=== PATIENT | male | born 1950 | race Caucasian/White ===

== ENCOUNTER → 2018-01-10 11:30 | Outpatient (CLI) | payer MEDICARE, MEDICAID, SELFPAY | PROVIDERS: PCP Internal Medicine; Visit Provider Internal Medicine Interventional Cardiology | DX: I25.119 Atherosclerotic heart disease of native coronary artery with unspecified angina pectoris (principal); G14 Postpolio syndrome; R06.02 Shortness of breath; G47.30 Sleep apnea, unspecified; I26.99 Other pulmonary embolism without acute cor pulmonale; I48.91 Unspecified atrial fibrillation | CPT/HCPCS: 99213 ==

== ENCOUNTER → 2018-01-28 14:15 | Outpatient (REF) | payer MEDICARE, SELFPAY ==
[2018-01-28 21:49] LABS: Abs Immature Grans 0.02 k/cumm (0.0-0.09); Absolute Basophil Count 0.02 k/cumm (0.0-0.2); Absolute Eosinophil Count 0.07 k/cumm (0.0-0.7); Absolute Lymphocyte Count 0.72 k/cumm (1.2-3.4); Absolute Monocyte Count 0.58 k/cumm (0.11-0.7); Absolute Neutrophil Count 6.21 k/cumm (1.2-6.7); Basophils % 0.3; Eosinophils % 0.9; HCT 42.4 % (40.0-50.0); HGB 13.3 g/dL (13.5-17.5); Immature Grans % 0.3; Lymphocytes % 9.4; Mean Corp. HGB Concentration 31.4 g/dL (32.0-36.0); Mean Corpuscular Hemoglobin 30.3 pg (27.0-33.0); Mean Corpuscular Volume 96.6 fL (80-95); Mean Platelet Volume 10.3 fL (8.0-11.0); Monocytes % 7.6; Neutrophils % 81.5; Platelet Count 193 x1000/uL (130-400); RBC 4.39 m/cumm (4.50-6.00); RBC Distribution Width 16.9 % (11.8-14.1); White Blood Cell Count 7.62 k/cumm (4.4-10.8)
[2018-01-28 22:07] LABS: Anion Gap 12.2 mmol/L (3-11); BUN 20 mg/dL (7-18); CO2 21.8 mmol/L (21.0-32.0); CREATININE 0.82 mg/dL (0.70-1.30); Calcium 8.7 mg/dL (8.5-10.1); Chloride 104 mmol/L (98-107); Glucose 160 mg/dL (70-100); Potassium 4.1 mmol/L (3.5-5.1); Sodium 138 mmol/L (136-145); TSH (W/Ref FT4) 3.82 uIU/mL (0.358-3.74)
[2018-01-28 22:27] LABS: FREE T4 0.84 ng/dL (0.76-1.46)
== END ==
LOC: NCHCN 14:15
PROVIDERS: PCP Internal Medicine; Visit Provider Internal Medicine
DX: R53.83 Other fatigue (principal)
CPT/HCPCS: 80048; 84439; 84443; 85025

== ENCOUNTER 2018-02-01 21:15 | Outpatient (REF) | payer MEDICARE, SELFPAY | END 2018-02-01 21:35 | LOC: NCHCN 21:15 | PROVIDERS: PCP Internal Medicine; Visit Provider Internal Medicine | DX: L08.9 Local infection of the skin and subcutaneous tissue, unspecified (principal) | CPT/HCPCS: 87077; 87070; 87186; 87205 ==

== ENCOUNTER 2018-02-02 10:33 | Outpatient (CLI) | payer MEDICARE, MEDICAID, SELFPAY ==
--- NOTE | 2018-02-02 10:35 | DI.CT_ITS ---
SYMPTOMS/DIAGNOSIS: WOUND INFECTION, L08.9 CT SCAN OF THE LEFT HIP: Multiple contiguous axial images of the left hip were obtained. Sagittal and coronal reformatted images were evaluated on the Siemens workstation. Comparison x-ray is 11/22/17. Since the prior examination, the patient has undergone a left total hip replacement. The orthopedic hardware appears in good position. No lucencies are seen about the orthopedic hardware to suggest loosening. There is diffuse sclerotic appearance of the bones consistent with osseous metastatic disease. No acute fracture is identified. No dislocation is seen. There is edema seen in the soft tissues about the right thigh. There is a subcutaneous fluid collection present lateral and posterior to the greater trochanter. It measures approximately 3 cm craniocaudad x 5.2 cm transverse x 4 cm AP. There does appear to be involvement of the adjacent gluteus muscle. This may represent a hematoma, seroma or abscess. Vascular calcifications are present. Note is made of several small fat- containing periumbilical and umbilical hernias. Dystrophic calcifications are seen in the soft tissues. IMPRESSION: 1. Interval placement of a left total hip prosthesis. 2. Fluid collection seen in the subcutaneous tissues posterior and lateral to the greater trochanter. Differential considerations include resolving hematoma, seroma or abscess. 3. Diffuse sclerosis of the bones suggestive of osseous metastatic disease. 4. Incidental findings in the pelvis as described above.
[2018-02-02] MEDS: Omnipaque 350 MG/ML 100 ML BTL IJ (14:31)
== END 2018-02-02 10:53 ==
PROVIDERS: PCP Internal Medicine; Visit Provider Internal Medicine
DX: M70.61 Trochanteric bursitis, right hip (principal); R60.0 Localized edema; C79.51 Secondary malignant neoplasm of bone; Z96.642 Presence of left artificial hip joint
CPT/HCPCS: 73701; J3490

== ENCOUNTER 2018-02-07 00:14 | Outpatient (CLI) | payer MEDICARE, MEDICAID, SELFPAY ==
--- NOTE | 2018-02-07 10:55 | DI.MRI_ITS ---
SYMPTOM/DIAGNOSIS: CHRONIC LT SHOULDER PAIN, M25.12, G89.29, ? ROTATOR CUFF VS TENDINOPATHY MRI LEFT SHOULDER: Comparison is made with plain films dated 26 August 2017 and MRI of the left shoulder dated 20 Jan 2007 There are degenerative changes of the AC joint and fluid within the joint. The patient denies previous surgery although there does appear to have been a previous resection at the AC joint compared with previous MRI. There is a full thickness tear of the supraspinatus tendon with retraction to the level of the acromion. There is some fluid in the subacromial subdeltoid bursa. There is also edema around and within the supraspinatus muscle. There is moderate muscle atrophy. The infraspinatus muscle shows a large amount of edema. The infraspinatus tendon is also torn and retracted to the level of the glenoid The subscapularis , teres minor and biceps tendons appear intact. There are advanced degenerative changes of the glenohumeral joint. There is spurring from the femoral head and glenoid as well as greater tuberosity. IMPRESSION: Full thickness tears with retraction of the supraspinatus and infraspinatus tendons. Degenerative changes of the glenohumeral joint.
== END 2018-02-07 00:34 ==
PROVIDERS: PCP Internal Medicine; Visit Provider Orthopaedic Surgery
DX: M25.512 Pain in left shoulder (principal); M19.012 Primary osteoarthritis, left shoulder; M75.102 Unspecified rotator cuff tear or rupture of left shoulder, not specified as traumatic
CPT/HCPCS: 73221

== ENCOUNTER 2018-02-18 00:34 | Outpatient (CLI) | payer MEDICARE, MEDICAID, SELFPAY ==
--- NOTE | 2018-02-18 10:57 | DI.RAD_ITS ---
SYMPTOMS/DIAGNOSIS: RT HIP PAIN, M25.551, PROGRESSIVE, ASEPTIC AND LT BULL RIGHT HIP AND PELVIS: Two views. Comparison is 11/22/17. There is diffuse osseous sclerotic metastatic disease. Note is made of a left total hip replacement which appears in good position. There is marked narrowing of the superior joint space of the right hip. The hip joint is otherwise well maintained. No acute fracture or dislocation is seen. Vascular calcifications are present. IMPRESSION: 1. Degenerative changes of the right hip. 2. Status post left THR. 3. Findings of sclerotic osseous metastatic disease.
== END 2018-02-18 00:54 ==
PROVIDERS: PCP Internal Medicine; Visit Provider Internal Medicine
DX: M25.551 Pain in right hip (principal); M16.11 Unilateral primary osteoarthritis, right hip; Z96.642 Presence of left artificial hip joint; C79.51 Secondary malignant neoplasm of bone
CPT/HCPCS: 73502

== ENCOUNTER 2018-02-21 10:00 | Outpatient (CLI) | payer MEDICARE, MEDICAID, SELFPAY ==
[2018-02-21 10:30] LABS: Abs Immature Grans 0.03 k/cumm (0.0-0.09); Absolute Basophil Count 0.02 k/cumm (0.0-0.2); Absolute Eosinophil Count 0.05 k/cumm (0.0-0.7); Absolute Lymphocyte Count 0.84 k/cumm (1.2-3.4); Absolute Monocyte Count 0.61 k/cumm (0.11-0.7); Absolute Neutrophil Count 5.02 k/cumm (1.2-6.7); Basophils % 0.3; Eosinophils % 0.8; HCT 41.9 % (40.0-50.0); HGB 13.3 g/dL (13.5-17.5); Immature Grans % 0.5; Lymphocytes % 12.8; Mean Corp. HGB Concentration 31.7 g/dL (32.0-36.0); Mean Corpuscular Hemoglobin 30.2 pg (27.0-33.0); Mean Corpuscular Volume 95.2 fL (80-95); Mean Platelet Volume 9.2 fL (8.0-11.0); Monocytes % 9.3; Neutrophils % 76.3; Platelet Count 167 x1000/uL (130-400); RBC Distribution Width 15.8 % (11.8-14.1); White Blood Cell Count 6.57 k/cumm (4.4-10.8)
[2018-02-21 10:45] LABS: ALT 98 U/L (12-78); AST 70 U/L (15-37); Albumin 3.4 g/dL (3.4-5.0); Alkaline Phosphatase 106 U/L (46-116); Anion Gap 10.7 mmol/L (3-11); BUN 16 mg/dL (7-18); Bilirubin, Total 0.5 mg/dL (0.2-1.0); CO2 25.3 mmol/L (21.0-32.0); CREATININE 0.75 mg/dL (0.70-1.30); Calcium 8.8 mg/dL (8.5-10.1); Chloride 102 mmol/L (98-107); Glucose 134 mg/dL (70-100); Potassium 3.9 mmol/L (3.5-5.1); Sodium 138 mmol/L (136-145)
[2018-02-22 09:27] LABS: PSA, Diagnostic 0.2 ng/ml (0-4.5)
[2018-02-23 07:29] LABS: Testosterone, Total <7.0 ng/dL (240-950)
== END 2018-02-21 10:20 ==
PROVIDERS: PCP Internal Medicine; Visit Provider Internal Medicine
DX: C61 Malignant neoplasm of prostate (principal)
CPT/HCPCS: 36415; 80053; 84403; 84153; 85025

== ENCOUNTER 2018-03-21 09:28 | Outpatient (CLI) | payer MEDICARE, MEDICAID, SELFPAY ==
[2018-03-21 10:11] LABS: Abs Immature Grans 0.02 k/cumm (0.0-0.09); Absolute Basophil Count 0.01 k/cumm (0.0-0.2); Absolute Eosinophil Count 0.09 k/cumm (0.0-0.7); Absolute Lymphocyte Count 0.72 k/cumm (1.2-3.4); Absolute Monocyte Count 0.55 k/cumm (0.11-0.7); Absolute Neutrophil Count 4.16 k/cumm (1.2-6.7); Basophils % 0.2; Eosinophils % 1.6; HCT 40.4 % (40.0-50.0); HGB 13.3 g/dL (13.5-17.5); Immature Grans % 0.4; Mean Corp. HGB Concentration 32.9 g/dL (32.0-36.0); Mean Corpuscular Hemoglobin 30.4 pg (27.0-33.0); Mean Corpuscular Volume 92.4 fL (80-95); Mean Platelet Volume 8.8 fL (8.0-11.0); Monocytes % 9.9; Neutrophils % 74.9; Platelet Count 179 x1000/uL (130-400); RBC 4.37 m/cumm (4.50-6.00); RBC Distribution Width 14.9 % (11.8-14.1); White Blood Cell Count 5.55 k/cumm (4.4-10.8)
[2018-03-21 10:21] LABS: ALT 64 U/L (12-78); Albumin 3.2 g/dL (3.4-5.0); Alkaline Phosphatase 101 U/L (46-116); BUN 17 mg/dL (7-18); Bilirubin, Total 0.5 mg/dL (0.2-1.0); CREATININE 0.82 mg/dL (0.70-1.30); Calcium 8.5 mg/dL (8.5-10.1); Chloride 103 mmol/L (98-107); Glucose 168 mg/dL (70-100); Potassium 3.4 mmol/L (3.5-5.1); Sodium 139 mmol/L (136-145)
[2018-03-21 11:00] LABS: AST 53 U/L (15-37)
[2018-03-22 09:55] LABS: PSA, Diagnostic 0.1 ng/ml (0-4.5)
[2018-03-23 07:55] LABS: Testosterone, Total <7.0 ng/dL (240-950)
== END 2018-03-21 09:48 ==
PROVIDERS: PCP Internal Medicine; Visit Provider Internal Medicine
DX: C61 Malignant neoplasm of prostate (principal)
CPT/HCPCS: 36415; 80053; 84403; 84153; 85025

== ENCOUNTER 2018-04-25 09:50 | Outpatient (CLI) | payer MEDICARE, MEDICAID, SELFPAY | END 2018-04-25 10:10 | PROVIDERS: PCP Internal Medicine; Visit Provider Internal Medicine Interventional Cardiology | DX: R07.9 Chest pain, unspecified (principal) | CPT/HCPCS: 93005; 93010 ==

== ENCOUNTER 2018-04-25 09:58 | Outpatient (CLI) | payer MEDICARE, MEDICAID, SELFPAY ==
[2018-04-25 10:16] LABS: Abs Immature Grans 0.01 k/cumm (0.0-0.09); Absolute Basophil Count 0.01 k/cumm (0.0-0.2); Absolute Eosinophil Count 0.15 k/cumm (0.0-0.7); Absolute Lymphocyte Count 0.86 k/cumm (1.2-3.4); Absolute Monocyte Count 0.72 k/cumm (0.11-0.7); Absolute Neutrophil Count 3.94 k/cumm (1.2-6.7); Basophils % 0.2; Eosinophils % 2.6; HGB 12.6 g/dL (13.5-17.5); Immature Grans % 0.2; Lymphocytes % 15.1; Mean Corp. HGB Concentration 33.2 g/dL (32.0-36.0); Mean Corpuscular Hemoglobin 30.2 pg (27.0-33.0); Mean Corpuscular Volume 91.1 fL (80-95); Mean Platelet Volume 9.1 fL (8.0-11.0); Monocytes % 12.7; Neutrophils % 69.2; Platelet Count 152 x1000/uL (130-400); RBC 4.17 m/cumm (4.50-6.00); RBC Distribution Width 16.1 % (11.8-14.1); White Blood Cell Count 5.69 k/cumm (4.4-10.8)
[2018-04-25 10:40] LABS: ALT 47 U/L (12-78); AST 41 U/L (15-37); Albumin 3.3 g/dL (3.4-5.0); Alkaline Phosphatase 130 U/L (46-116); Anion Gap 9.8 mmol/L (3-11); BUN 11 mg/dL (7-18); Bilirubin, Total 0.6 mg/dL (0.2-1.0); CO2 26.2 mmol/L (21.0-32.0); CREATININE 0.72 mg/dL (0.70-1.30); Calcium 8.7 mg/dL (8.5-10.1); Chloride 100 mmol/L (98-107); Glucose 133 mg/dL (70-100); Potassium 3.4 mmol/L (3.5-5.1); Sodium 136 mmol/L (136-145)
[2018-04-25 12:01] LABS: Troponin I < 0.02 ng/mL (0.00-0.06)
[2018-04-26 10:01] LABS: PSA, Diagnostic <0.1 ng/ml (0-4.5)
[2018-04-28 11:38] LABS: Testosterone, Total <7.0 ng/dL (240-950)
== END 2018-04-25 10:18 ==
PROVIDERS: PCP Internal Medicine; Visit Provider Nurse Practitioner Adult Health
DX: R07.9 Chest pain, unspecified (principal); C61 Malignant neoplasm of prostate
CPT/HCPCS: 36415; 80053; 84403; 84153; 84484; 85025

== ENCOUNTER 2018-04-25 11:33 | Emergency (ER) | payer MEDICARE, MEDICAID, SELFPAY ==
--- NOTE | 2018-04-25 11:39 | ED.GENADUL_ITS ---
Discharge Plan Disposition Patient Disposition: HOME Condition: Stable Discharge Details Chief Complaint: Nausea/Vomit/Diar Clinical Impression: Nausea Primary Care Provider: Kenney Greer ED Provider: Zakiya Leach Home Meds and New Rx's Prescriptions: New metoclopramide HCl [Reglan] 10 mg tablet 10 mg PO BID Qty: 4 RF: 0 Continue acetaminophen [Tylenol Extra Strength] 500 MG tablet 1,000 mg PO Q4H PRN PRNRF: 0 dronedarone [Multaq] 400 MG tablet 400 mg PO BID Qty: 180 RF: 4 balsalazide 750 MG capsule 2,250 mg PO TID RF: 0 aspirin 325 MG tablet 325 mg PO DAILY RF: 0 ovsphgn-lgafcolijrdaf-nzrarsrf [Excedrin Migraine] 1 EACH tablet 1 ea PO DAILY PRNRF: 0 cholestyramine-aspartame [Cholestyramine Light] 4 GM packet 4 g PO BID RF: 0 ferrous gluconate 324 MG tablet 324 mg PO TID RF: 0 omeprazole [Prilosec] 20 MG capsule,delayed release(DR/EC) 40 mg PO BID RF: 0 nitroglycerin [Nitrostat] 0.4 MG tablet, sublingual 0.4 mg Sublingual Q5 MIN PRN X3 PRNQty: 15 RF: 0 ergocalciferol (vitamin D2) [Vitamin D2] 50,000 UNITS capsule 50,000 units PO DIRECTED RF: 0 cyanocobalamin (vitamin B-12) 1,000 MCG/ML solution 1,000 mcg IM DIRECTED RF: 0 hydrocodone-acetaminophen 1 TAB tablet 1 - 2 tab PO Q4H PRN PRNQty: 40 RF: 0 diltiazem HCl [Cardizem] 30 MG tablet 25 mg PO BID RF: 0 prednisone 5 MG tablet 5 mg PO BID RF: 0 pramipexole 0.5 MG tablet 0.5 mg PO HS RF: 0 calcium carbonate 600 MG tablet 1,200 mg PO DAILY RF: 0 ranitidine HCl [Zantac] 150 MG tablet 150 mg PO QID RF: 0 calcium carbonate 500 MG tablet,chewable 500 mg CH QID RF: 0 enoxaparin [Lovenox] 100 MG/ML syringe 100 mg SQ Q12H RF: 0 lidocaine [Topicaine] 30 GM gel 1 appful Topical PRN PRNRF: 0 cefpodoxime 200 MG tablet 200 mg PO BID Qty: 20 RF: 0 digoxin [Lanoxin] 125 mcg tablet 125 mcg PO TID RF: 0 metronidazole [Flagyl] 500 MG tablet 500 mg PO TID Qty: 42 RF: 0 Discharge Instructions Instructions: Acute Nausea and Vomiting (ED) Additional Instructions: Please return immediately to the emergency department if you develop any new or worsening symptoms or if you become otherwise concerned. It is extremely important you follow-up with Dr. Crum this week for stress test, and that you also follow-up with your primary care doctor within the next 1-2 weeks. Referrals: Vasile Crum MD [ NON-[facility] STAFF PHYSICIAN] - Kenney Greer MD [Primary Care Provider] - Medical Decision Making Alonso Wiley is a 60-year-old man with a history of Crohn's disease, A. fib and bilateral PEs on Lovenox, prostate cancer, post polio syndrome presenting to the emergency department 5 days of persistent nausea without vomiting, also accompanied by chronic abdominal pain and diarrhea that seems unchanged. On exam patient appears nauseated. Benign cardiopulmonary exam. Diffuse abdominal tenderness without peritoneal signs. Concern for Crohn's flare versus other acute intra-abdominal process versus ACS versus metabolic/weight disturbance versus other. Exam/history not consistent with worsening PE at this time, meningitis, acute intracranial process, sepsis. Plan for EKG, screening labs, CT abdomen pelvis pending creatinine, troponin x2, telemetry, IV fluid hydration, IV Zofran. Will monitor and reassess. Patient had labs performed earlier today. Will add lactate, 4-hour troponin, lipase to earlier troponin, CBC CMP. Reports feeling improved with Zofran. Requesting milk and crackers, will keep n.p.o. until CT resulted. Lactate elevated at 2. No AG elevation. CT shows no acute process. Second trop negative. Patient feeling much better, passed p.o. challenge without issue , requesting d/c to home. Ambulating about ER without issue. At this time he is refusing repeat lactate, understands that workup is not complete at this time without confirmed resolution of elevated lactate after IV fluids. Patient states that he needs to leave and will follow up this week, verbalizes understanding of risks. During my conversation earlier with Dr. Crum, he noted that he would likely perform stress test for patient as an outpatient on . Patient was placed on list for this stress test follow-up and also follow- up with PCP this week. Lengthy discussion with patient regarding return to emergency department precautions and importance of outpatient follow-up with PCP. He is amenable to the plan. Rx for Reglan as patient on QT prolonging agents we will hold outpatient zofran. Medical Records Medical records reviewed: Yes I reviewed the patient's medical records. Imaging Data Radiologic Study: Attestation: I personally reviewed and interpreted this imaging study as follows: Radiologist's impression: CT OF THE ABDOMEN AND PELVIS: Comparison is made with August,. Images were performed from the lung bases through the ischial tuberosities after IV and oral contrast. Diffuse sclerotic bony lesions are again noted. The liver shows extreme fatty infiltration. The patient is status post cholecystectomy. There is no biliary dilatation. The spleen, pancreas and adrenals are unremarkable. There are cysts at the lower poles of both kidneys. No stones or hydronephrosis is seen. There are bilateral hip prostheses creating artifact in the pelvis. Portions of the bladder, as well as prostate, are obscured. Contrast is seen in the stomach and proximal and mid small bowel. No bowel dilatation or inflammatory changes are seen. IMPRESSION: Enlarged fatty liver. No acute bowel abnormality. Lab Data Lab results reviewed: Yes I reviewed the patient's lab results. ECG Data Attestation: I personally reviewed and interpreted this ECG (s) as follows: Interpretation: EKG shows normal sinus rhythm at 77 with normal axis, no acute ischemic changes, nondiagnostic EKG. No long QT. HPI General Mode of arrival: ambulatory . Date/Time Provider Initiated Documentation: 04/25/18 11:38 . Limitations to Documentation: no limitations . Information obtained by: patient, RN notes reviewed and old records reviewed . HPI Narrative: Alonso Wiley is a 60-year-old man with history of atrial fibrillation on Lovenox, bilateral PE, post polio syndrome, Crohn's disease, prostate cancer last treated with chemotherapy in 2016 presented to the emergency department with 5 days of nausea. Patient had labs drawn this morning as an outpatient. He was also seen by Dr. Crum afterwards, who sent patient to the emergency department for nausea of unknown etiology. Patient reports that he has been having nausea and dry heaves for the past 5 days. He reports that nausea is severe, although he has not vomited and is able to hold food and water down. He has been drinking somewhat less secondary to the nausea. He denies any sensation of motion or vertiginous component. Patient reports that he has chronic diarrhea secondary to Crohn's, also chronic abdominal pain that does not seem changed. He has no shortness of breath, no cough, no rash, no new numbness/tingling/weakness. Patient denies any other pain at this time, however per Dr. Crum he has been having intermittent recurring chest pain and should likely have another stress test as his last was performed in 2014. Patient denies recent travel or other recent illness. Related Data Home Medications Medication Instructions Recorded Confirmed ferrous gluconate 324 mg PO TID 01/23/13 04/25/18 omeprazole [Prilosec] 40 mg PO BID 01/23/13 04/25/18 acetaminophen [Tylenol Extra 1,000 mg PO Q4H PRN PRN tab-cap NS 03/29/13 Strength] dronedarone [Multaq] 400 mg PO BID #180 tab-cap 04/15/15 04/25/18 nitroglycerin [Nitrostat] 0.4 mg SUBLINGUAL Q5 MIN PRN X3 04/23/15 04/25/18 PRN #15 tab balsalazide 2,250 mg PO TID 09/24/15 04/25/18 cyanocobalamin (vitamin B-12) 1,000 mcg IM DIRECTED 03/22/16 04/25/18 ergocalciferol (vitamin D2) 50,000 units PO DIRECTED 03/22/16 04/25/18 [Vitamin D2] hydrocodone-acetaminophen 1 - 2 tab PO Q4H PRN PRN #40 tab 03/25/16 04/25/18 aspirin 325 mg PO DAILY tab-cap 09/15/16 04/25/18 djyderf-ssuxzokdohsxj-tkaadwkl 1 ea PO DAILY PRN 09/15/16 04/25/18 [Excedrin Migraine] cholestyramine-aspartame 4 g PO BID packet 09/15/16 04/25/18 [Cholestyramine Light] diltiazem HCl [Cardizem] 25 mg PO BID 10/05/16 04/25/18 calcium carbonate 1,200 mg PO DAILY 06/27/17 04/25/18 calcium carbonate 500 mg CH QID 06/27/17 04/25/18 cefpodoxime 200 mg PO BID #20 tab 06/27/17 04/25/18 enoxaparin [Lovenox] 100 mg SQ Q12H 06/27/17 04/25/18 lidocaine [Topicaine] 1 appful TOPICAL PRN PRN 06/27/17 04/25/18 pramipexole 0.5 mg PO HS 06/27/17 04/25/18 prednisone 5 mg PO BID 06/27/17 04/25/18 ranitidine HCl [Zantac] 150 mg PO QID 06/27/17 04/25/18 metronidazole [Flagyl] 500 mg PO TID #42 tab 10/11/17 04/25/18 digoxin 125 mcg tablet 125 mcg PO TID tab 04/25/18 04/25/18 metoclopramide HCl [Reglan] 10 mg PO BID #4 tab 04/25/18 Previous Rx's Medication Instructions Recorded nitroglycerin [Nitrostat] 0.4 mg SUBLINGUAL Q5 MIN PRN X3 04/23/15 PRN #15 tab hydrocodone-acetaminophen 1 - 2 tab PO Q4H PRN PRN #40 tab 03/25/16 cefpodoxime 200 mg PO BID #20 tab 06/27/17 metronidazole [Flagyl] 500 mg PO TID #42 tab 10/11/17 metoclopramide HCl [Reglan] 10 mg PO BID #4 tab 04/25/18 Allergies Allergy/AdvReac Type Severity Reaction Status Date / Time Sulfa (Sulfonamide Allergy Mild Skin Rash Unverified 04/25/18 12:00 Antibiotics) atenolol Allergy Unverified 04/25/18 12:00 atorvastatin Allergy Unverified 04/25/18 12:00 gabapentin Allergy Unverified 04/25/18 12:00 nicardipine Allergy Unverified 04/25/18 12:00 salsalate Allergy Unverified 04/25/18 12:00 tramadol Allergy Unverified 04/25/18 12:00 venlafaxine Allergy Unverified 04/25/18 12:00 ciprofloxacin HCl AdvReac Severe ruptured Unverified 04/25/18 12:00 [From Cipro] achilles tendon hydrochlorothiazide AdvReac Severe myalgias Unverified 04/25/18 12:00 [From Benicar HCT] indapamide AdvReac Severe chest pain Unverified 04/25/18 12:00 olmesartan medoxomil AdvReac Severe myalgias Unverified 04/25/18 12:00 [From Benicar HCT] terazosin [Terazosin] AdvReac Severe tremor, GI Unverified 04/25/18 12:00 upset aliskiren [Aliskiren] AdvReac Intermediate diarrhea Unverified 04/25/18 12:00 amlodipine AdvReac Intermediate fatigue Unverified 04/25/18 12:00 enalapril [Enalapril] AdvReac Intermediate shakes, Unverified 04/25/18 12:00 weakness montelukast sodium AdvReac Intermediate rectal Unverified 04/25/18 12:00 [From Singulair] irritation pregabalin [From Lyrica] AdvReac Intermediate sleep Unverified 04/25/18 12:00 issues spironolactone AdvReac Intermediate headache Unverified 04/25/18 12:00 Review of Systems Review of Systems Constitutional: denies fevers Eyes: denies eye pain ENT: denies facial pain, dental pain, sore throat Cardiovascular: denies chest pain, edema Respiratory: denies SOB, cough GI: reports nausea, abdominal pain, chronic diarrhea, denies : denies flank pain MSK: denies back pain, neck pain, arthralgias, myalgias Skin: denies rash Neuro: denies headaches, lightheadedness, weakness Exam Narrative Exam Narrative: Constitutional: appears nauseated but pleasant, conversing normally HENT: head atraumatic, normocephalic normal inspection, mucous membranes moist Eyes: conjunctiva normal, sclera normal, pupils 3mm b/l Neck: no stridor, normal ROM, trachea midline Chest: normal inspection Resp: normal work of breathing, LCTAB Cardio: normal rate, normal rhythm, no murmur appreciated GI: abdomen soft, diffusely mildly TTP without focality, no rebound or guarding , non-distended, well-healed surgical scar Back: normal inspection, no rash Skin: warm, dry, normal color, no rash Neuro: alert, not altered, grossly non-focal, normal tone Ext: no edema Psych: normal mood, normal affect, normal behavior
[2018-04-25 11:57] VITALS: BP 126/85; PULSE 77; RESP 16; TEMP 36.5; O2SAT 95
[2018-04-25] MEDS: Normal Saline 500 ML IV (12:49)
[2018-04-25] MEDS: Ondansetron 4 MG/2 ML VIAL IVP ×2 (12:51→16:01)
[2018-04-25 13:03] LABS: Lipase 88 U/L (73-393)
--- NOTE | 2018-04-25 13:19 | DI.CT_ITS ---
SYMPTOMS/DIAGNOSIS: ABDOMINAL PAIN, H/O CROHN'S CT OF THE ABDOMEN AND PELVIS: Comparison is made with August,. Images were performed from the lung bases through the ischial tuberosities after IV and oral contrast. Diffuse sclerotic bony lesions are again noted. The liver shows extreme fatty infiltration. The patient is status post cholecystectomy. There is no biliary dilatation. The spleen, pancreas and adrenals are unremarkable. There are cysts at the lower poles of both kidneys. No stones or hydronephrosis is seen. There are bilateral hip prostheses creating artifact in the pelvis. Portions of the bladder, as well as prostate, are obscured. Contrast is seen in the stomach and proximal and mid small bowel. No bowel dilatation or inflammatory changes are seen. IMPRESSION: Enlarged fatty liver. No acute bowel abnormality.
[2018-04-25 14:22] LABS: Bilirubin Negative (Negative); Blood Negative (Negative); Clarity Clear; Glucose Negative (Negative); Ketones Negative (Negative); Leukocyte Esterase Negative (Negative); Nitrite Negative (Negative); Specific Gravity 1.025 (1.005-1.025); Urobilinogen 0.2 EU/dL (Up TO 0.2); pH 5.5 (5-8)
[2018-04-25] MEDS: Omnipaque 350 MG/ML 50 ML BTL PO ×2 (14:44→14:48)
[2018-04-25] MEDS: Omnipaque 350 MG/ML 100 ML BTL IV (14:45)
[2018-04-25] MEDS: Breeza Beverage 473 ML BTL PO ×2 (14:45→14:47)
[2018-04-25 16:11] LABS: Troponin I < 0.02 ng/mL (0.00-0.06)
--- NOTE | 2018-04-25 16:44 | NUR.NOTE ---
pt provided with gabriel foster and milk Nursing Note:
== END 2018-04-25 17:19 | disposition home or self-care (01) ==
PROVIDERS: Emergency Provider Student in an Organized Health Care Education/Training Program; PCP Internal Medicine
DX: R11.0 Nausea (principal); R19.7 Diarrhea, unspecified; K50.90 Crohn's disease, unspecified, without complications; Z79.01 Long term (current) use of anticoagulants; I48.91 Unspecified atrial fibrillation; I10 Essential (primary) hypertension; I25.10 Atherosclerotic heart disease of native coronary artery without angina pectoris; R07.9 Chest pain, unspecified; G47.30 Sleep apnea, unspecified
CPT/HCPCS: 36415; 80053; 83690; 84403; 93005; 96361; 96374; 96376; 99214; 99285; 74177; 81003; 83605; 84153; 84484; 85025; 93010; 99284; J2405; J3490; Q9967

== ENCOUNTER 2018-04-30 08:00 | Outpatient (CLI) | payer MEDICARE, MEDICAID, SELFPAY ==
--- NOTE | 2018-04-30 11:00 | DI.RAD_ITS ---
SYMPTOMS/DIAGNOSIS: RIGHT HIP PAIN, H/O TOTAL HIP ARTHROPLASTY ON 03/30/18, WORSENING PAIN RIGHT HIP AND AP PELVIS: Comparison is 02/18/18. Since the prior examination, the patient has undergone a right total hip replacement. The orthopedic hardware appears in good position. No evidence of hardware failure is seen. The left total hip replacement is stable. The bones are unchanged. No acute fracture or dislocation is present. The soft tissues are unremarkable. IMPRESSION: 1. No acute abnormality. 2. Interval placement of a right THR.
== END 2018-04-30 08:20 ==
PROVIDERS: PCP Internal Medicine; Visit Provider Orthopaedic Surgery
DX: M25.561 Pain in right knee (principal); Z96.641 Presence of right artificial hip joint
CPT/HCPCS: 73502

== ENCOUNTER 2018-05-04 00:11 | Outpatient (CLI) | payer MEDICARE, MEDICAID, SELFPAY ==
--- NOTE | 2018-05-04 06:54 | MERGEMPI_ITS ---
*[facility]* *[facility]* [address] [place] [address] Myocardial Perfusion Imaging - SPECT Regadenoson Date of study: 05/04/2018 *PATIENT PRESENTATION* Height: 177.8cm (70in) Blood Pressure: Weight: 99.5kg (219lb) BSA: 2.25m^2 Referring physician: Shaun Valenzuela Ordering physician: Vasile Crum MD Impressions: Normal myocardial perfusion and contraction after pharmacological stress. Summary: 1. Myocardial perfusion imaging: No myocardial perfusion defects noted. 2. The calculated left ventricular ejection fraction after stress: 52%. LV global systolic function is normal. No left ventricular regional motion abnormality. Indication: R07.9. History: REASON FOR VISIT: PT REPORTS HE WAS SEEN BY DR CRUM RECENTLY AND WAS ASKED TO HAVE THIS FOLLOW UP STRESS TEST. PT REPORTS ISSUES WITH PALPATIONS AND INTERMITTENT CHEST PAINS. PT HAS AN EXTENSIVE MEDICAL PROBLEM LIST, INCLUDING ATRIAL FIBRILLATIONS FOR WHICH HE IS ON MULTAQ THERAPY. Risk factors: Family history of coronary artery disease. Hypertension. Obesity. Cholesterol: 138mg/dl. HDL: 26mg/dl. LDL: 70mg/dl. Triglycerides: 253mg/dl. ALLERGIES: SULFA. ATENOLOL. ATORVASTATIN. GABAPENTIN. NICARDIPINE. SALSALATE. TRAMADOL. VENLAFAXINE. CIPROFLOXACIN. HYDROCHLOROTHIAZIDE. INDAPAMIDE. OLMESARTAN MEDOXOMIL. TERAZOSIN. ALISKIREN. AMLODIPINE. ENALAPRIL. MONTELUKAST SODIUM. PREGABALIN. TRAMADOL. VENLAFAXINE. MEDICATIONS: RANITIDINE HCL 150 MG DAILY. PREDNISONE 5 MG BID. PRAMIPEXOLE 0.5 MG AT HS. OMEPRAZOLE 40 MG BID. NITROGLYCERIN 0.4 MG SL PRN. METRONIDAZOLE 500 MG TID. METOCLOPRAMIDE HCL 10 MG BID. HYDROCODONE-ACETAMINOPHEN 1-2 TABS Q 4 HRS PRN. FERROUS GLUCONATE 324 MG TID. VITAMIN D2 50,000 UNITS DIRECTED. ENOXAPARIN 100 MG SQ Q 12 HOURS. DRONEDARONE 400 MG BID. DILTIAZEM 30 MG TID. VITAMIN B-12 1,000 MCG DIRECTED. CHOLESTYRAMINE-ASPARTAME 4 G BID. CEFPODOXIME 200 MG BID. CALCIUM CARBONATE 1,200 MG DAILY. BALSALAZIDE 2,250 MG TID. ASPIRIN 325 MG DAILY. Imaging Technique: Protocol: Regadenoson. Acquisition: Gated SPECT; 1 day - rest/stress. The patient was imaged in the supine position. Attenuation correction used. Isotope administration: - Rest. Tc[99m]-sestamibi. Dose: 10.3mCi. Injection time: 08:50 AM. Injection to stress time: 00:45. - Stress. Tc[99m]-sestamibi. Dose: 32.3mCi. Injection time: 10:15 AM. 1-2 min before end of exercise Baseline ECG: Normal ECG. Stress protocol: +--------+--+ + + !Stage !HR!BP (mmHg) !Comments ! +--------+--+ + + !Baseline!76!136/96 (109)! ! +--------+--+ + + !1 min !73!154/96 (115)!Inject Regadenoson.! +--------+--+ + + !3 min !86!152/98 (116)! ! +--------+--+ + + !6 min !83!140/78 (99) ! ! +--------+--+ + + * Stress results: The rate-pressure product for the peak heart rate and blood pressure was 16978sg Hg/min. Stress ECG: STRESS TEST ENDED IN 6 MINUTES & 8 SECONDS. NORMAL HEART RATE AND BLOOD PRESSURE RESPONSE TO LEXISCAN INJECTION NO ECTOPY CHEST PAIN REPORTED 1 MINUTE AFTER LEXISCAN WAS INJECTED. CHEST PAIN SUBSIDED BY 6 MINUTES POST LEXISCAN INJECTION. NO SIGNIFICAN ST SEGMENT CHANGES. The stress ECG is negative. Myocardial perfusion: Imaging information: gated. The image quality was good. Left ventricular size is normal. No myocardial perfusion defects noted. Ventricular Function (Wall Motion): The calculated left ventricular ejection fraction after stress: 52%. LV global systolic function is normal. No left ventricular regional motion abnormality. Study data: Shaun Valenzuela MD supervised and was readily available during the procedure. This study was interpreted by [facility]. Study status: Routine. Consent: The risks, benefits, and alternatives to the procedure were explained to the patient and informed consent was obtained. Procedure: Initial setup. A baseline ECG was recorded. Surface ECG leads and manual cuff blood pressure measurements were monitored. Heart sounds: Normal. Lung sounds: Normal. Regadenoson stress test. Stress testing was performed, with regadenoson by intravenous bolus, for a total dose of 0.4mgover 10.00sec, followed by a 5ml saline flush. The infusion was terminated due to per protocol. Study completion: All catheters inserted during the procedure were removed. The patient tolerated the procedure well and was discharged from the lab. Discharge: The patient left the laboratory in stable condition. Birthdate: Patient birthdate: 1950. Sex: Gender: male. Study date: Study date: 05/04/2018. Study time: 06:54 AM. Signature Documentation: - The imaging portion of this study was interpreted by [facility] Shaun Valenzuela MD. - The Stress ECG portion of this study was interpreted by Shaun Valenzuela MD. Electronically signed by Shaun Valenzuela 05/04/2018 12:48
[2018-05-04] MEDS: Regadenoson 0.4 MG/5 ML SYR IVP (10:02)
== END 2018-05-04 00:31 ==
PROVIDERS: PCP Internal Medicine; Visit Provider Internal Medicine Interventional Cardiology
DX: R07.9 Chest pain, unspecified (principal); R00.2 Palpitations; I10 Essential (primary) hypertension; I48.91 Unspecified atrial fibrillation; Z82.49 Family history of ischemic heart disease and other diseases of the circulatory system
CPT/HCPCS: 78452; 93016; 93018; 93017; J2785

== ENCOUNTER 2018-06-27 10:00 | Outpatient (CLI) | payer MEDICARE, MEDICAID, SELFPAY ==
[2018-06-27 10:25] LABS: Absolute Basophil Count 0.02 k/cumm (0.0-0.2); Absolute Eosinophil Count 0.28 k/cumm (0.0-0.7); Absolute Lymphocyte Count 1.06 k/cumm (1.2-3.4); Basophils % 0.3; Eosinophils % 4.6; HCT 39.6 % (40.0-50.0); HGB 13.5 g/dL (13.5-17.5); Lymphocytes % 17.5; Mean Corp. HGB Concentration 34.1 g/dL (32.0-36.0); Mean Corpuscular Hemoglobin 30.5 pg (27.0-33.0); Mean Corpuscular Volume 89.4 fL (80-95); Monocytes % 9.9; Neutrophils % 67.7; Platelet Count 192 x1000/uL (130-400); RBC 4.43 m/cumm (4.50-6.00); White Blood Cell Count 6.06 k/cumm (4.4-10.8)
[2018-06-27 10:46] LABS: ALT 44 U/L (12-78); AST 40 U/L (15-37); Albumin 3.4 g/dL (3.4-5.0); Alkaline Phosphatase 118 U/L (46-116); Anion Gap 14.1 mmol/L (3-11); BUN 14 mg/dL (7-18); Bilirubin, Total 0.4 mg/dL (0.2-1.0); CO2 21.9 mmol/L (21.0-32.0); CREATININE 0.89 mg/dL (0.70-1.30); Calcium 8.8 mg/dL (8.5-10.1); Chloride 103 mmol/L (98-107); Glucose 147 mg/dL (70-100); Potassium 3.8 mmol/L (3.5-5.1); Sodium 139 mmol/L (136-145); Total Protein 7.3 g/dL (6.4-8.2)
[2018-06-27 10:51] LABS: Troponin I < 0.02 ng/mL (0.00-0.06)
[2018-06-28 10:28] LABS: PSA, Diagnostic <0.1 ng/ml (0-4.5)
[2018-06-28 20:54] LABS: Testosterone, Total <7.0 ng/dL (240-950)
== END 2018-06-27 10:20 ==
PROVIDERS: Internal Medicine Interventional Cardiology; PCP Internal Medicine; Visit Provider Internal Medicine
DX: C61 Malignant neoplasm of prostate (principal); R07.9 Chest pain, unspecified
CPT/HCPCS: 36415; 80053; 84403; 84153; 84484; 85025

== ENCOUNTER 2018-07-25 08:19 | Outpatient (CLI) | payer MEDICARE, MEDICAID, SELFPAY | END 2018-07-25 08:39 | PROVIDERS: PCP Internal Medicine; Visit Provider Internal Medicine Interventional Cardiology | DX: I25.10 Atherosclerotic heart disease of native coronary artery without angina pectoris (principal); R07.9 Chest pain, unspecified; G14 Postpolio syndrome; R06.02 Shortness of breath; I10 Essential (primary) hypertension | CPT/HCPCS: 99214; 93005; 93010; 99213 ==

== ENCOUNTER 2018-08-05 13:28 | Outpatient (REF) | payer MEDICARE, MEDICAID, SELFPAY ==
[2018-08-06 11:38] LABS: Campylobacter PCR SEE COMMENTS; Salmonella PCR SEE COMMENTS; Shiga Toxin PCR SEE COMMENTS; Shigella/Enteroinvasive Ecoli SEE COMMENTS
== END 2018-08-05 13:48 ==
LOC: LBN 13:28
PROVIDERS: PCP Internal Medicine; Visit Provider Internal Medicine Gastroenterology
DX: K50.919 Crohn's disease, unspecified, with unspecified complications (principal)
CPT/HCPCS: 87505; 87324

== ENCOUNTER → 2018-08-30 09:52 | Outpatient (BNVA) | payer MEDICARE, MEDICAID, SELFPAY | PROVIDERS: PCP Internal Medicine; Referring Provider Internal Medicine; Visit Provider Orthopaedic Surgery | DX: M17.11 Unilateral primary osteoarthritis, right knee (principal); M25.571 Pain in right ankle and joints of right foot; Z96.643 Presence of artificial hip joint, bilateral; C61 Malignant neoplasm of prostate | CPT/HCPCS: 20610; 29515; 99211; 99214; J7318; L1902 ==

== ENCOUNTER 2018-09-19 09:37 | Outpatient (CLI) | payer MEDICARE, MEDICAID, SELFPAY ==
[2018-09-19 10:28] LABS: Abs Immature Grans 0.02 k/cumm (0.0-0.09); Absolute Basophil Count 0.01 k/cumm (0.0-0.2); Absolute Eosinophil Count 0.12 k/cumm (0.0-0.7); Absolute Lymphocyte Count 1.08 k/cumm (1.2-3.4); Absolute Monocyte Count 0.55 k/cumm (0.11-0.7); Absolute Neutrophil Count 4.59 k/cumm (1.2-6.7); Basophils % 0.2; Eosinophils % 1.9; HCT 39.9 % (40.0-50.0); HGB 13.1 g/dL (13.5-17.5); Immature Grans % 0.3; Mean Corp. HGB Concentration 32.8 g/dL (32.0-36.0); Mean Corpuscular Hemoglobin 29.6 pg (27.0-33.0); Mean Corpuscular Volume 90.3 fL (80-95); Mean Platelet Volume 9.3 fL (8.0-11.0); Monocytes % 8.6; Platelet Count 193 x1000/uL (130-400); RBC 4.42 m/cumm (4.50-6.00); RBC Distribution Width 15.9 % (11.8-14.1); White Blood Cell Count 6.37 k/cumm (4.4-10.8)
[2018-09-19 11:20] LABS: ALT 66 U/L (12-78); AST 48 U/L (15-37); Albumin 3.9 g/dL (3.4-5.0); Alkaline Phosphatase 89 U/L (46-116); Anion Gap 13.8 mmol/L (3-11); BUN 15 mg/dL (7-18); Bilirubin, Total 0.5 mg/dL (0.2-1.0); CO2 23.2 mmol/L (21.0-32.0); CREATININE 0.85 mg/dL (0.70-1.30); Calcium 9.1 mg/dL (8.5-10.1); Chloride 102 mmol/L (98-107); Glucose 176 mg/dL (70-100); Potassium 4.4 mmol/L (3.5-5.1); Sodium 139 mmol/L (136-145); Total Protein 7.3 g/dL (6.4-8.2)
[2018-09-20 09:55] LABS: PSA, Diagnostic <0.1 ng/ml (0-4.5)
[2018-09-21 12:39] LABS: Testosterone, Total <7.0 ng/dL (240-950)
== END 2018-09-19 09:57 ==
PROVIDERS: PCP Internal Medicine; Visit Provider Internal Medicine
DX: C61 Malignant neoplasm of prostate (principal)
CPT/HCPCS: 36415; 80053; 84403; 84153; 85025

== ENCOUNTER → 2018-10-11 10:35 | Outpatient (BNVA) | payer MEDICARE, MEDICAID, SELFPAY | PROVIDERS: PCP Internal Medicine; Referring Provider Internal Medicine; Visit Provider Orthopaedic Surgery | DX: M17.11 Unilateral primary osteoarthritis, right knee (principal); M25.561 Pain in right knee; M25.552 Pain in left hip; Z96.642 Presence of left artificial hip joint; M25.571 Pain in right ankle and joints of right foot | CPT/HCPCS: 20605; 99211; 99213; J1040 ==

== ENCOUNTER 2018-10-18 14:58 | Emergency (ER) | payer MEDICARE, MEDICAID, SELFPAY ==
[2018-10-18 15:09] VITALS: BP 162/104; PULSE 101; RESP 22; TEMP 35.9; O2SAT 95
[2018-10-18] MEDS: Normal Saline 250 ML IV (15:40)
[2018-10-18] MEDS: Ondansetron 4 MG/2 ML VIAL IVP (15:40)
[2018-10-18 15:43] VITALS: BP 158/100; PULSE 86; RESP 24; O2SAT 94
--- NOTE | 2018-10-18 15:44 | W.ED.GENAD ---
Discharge Plan Disposition Patient Disposition: HOME Condition: Improving Discharge Details Chief Complaint: Abd Prob Clinical Impression: Colitis, History of Crohn's disease Primary Care Provider: Kenney Greer ED Provider: Lenora Gallardo Home Meds and New Rx's Prescriptions: New prednisone 10 mg tablet See Rx Instructions .ROUTE .COMPLEX Qty: 27 RF: 0 Continued diltiazem HCl [Cardizem] 30 mg tablet 30 mg PO TID RF: 0 acetaminophen [Tylenol Extra Strength] 500 MG tablet 1,000 mg PO Q4H PRN PRNRF: 0 Multaq 400 MG tablet 400 mg PO BID Qty: 180 RF: 4 balsalazide 750 MG capsule 2,250 mg PO TID RF: 0 aspirin 325 MG tablet 325 mg PO DAILY RF: 0 Excedrin Migraine 1 EACH tablet 1 ea PO DAILY PRNRF: 0 ferrous gluconate 324 MG tablet 324 mg PO TID RF: 0 omeprazole [Prilosec] 20 MG capsule,delayed release(DR/EC) 40 mg PO BID RF: 0 nitroglycerin [Nitrostat] 0.4 MG tablet, sublingual 0.4 mg Sublingual Q5 MIN PRN X3 PRNQty: 15 RF: 0 ergocalciferol (vitamin D2) [Vitamin D2] 50,000 UNITS capsule 50,000 units PO DIRECTED RF: 0 cyanocobalamin (vitamin B-12) 1,000 MCG/ML solution 1,000 mcg IM DIRECTED RF: 0 hydrocodone-acetaminophen 1 TAB tablet 1 - 2 tab PO Q4H PRN PRNQty: 40 RF: 0 metoclopramide HCl [Reglan] 10 mg tablet 10 mg PO BID Qty: 4 RF: 0 prednisone 5 MG tablet 5 mg PO BID RF: 0 pramipexole 0.5 MG tablet 0.5 mg PO HS RF: 0 calcium carbonate 600 MG tablet 1,200 mg PO DAILY RF: 0 ranitidine HCl [Zantac] 150 MG tablet 150 mg PO QID RF: 0 calcium carbonate 500 MG tablet,chewable 500 mg CH QID RF: 0 enoxaparin [Lovenox] 100 MG/ML syringe 100 mg SQ Q12H RF: 0 Topicaine 30 GM gel 1 appful Topical PRN PRNRF: 0 cefpodoxime 200 MG tablet 200 mg PO BID Qty: 20 RF: 0 Discharge Instructions Instructions: Acute Nausea and Vomiting (ED), Colitis (ED) Additional Instructions: Take your nausea medication that you have at home as needed and directed. Take your higher dose of prednisone prescription as directed until finished and then resume your normal prednisone dosing. Call Dr. Mejia tomorrow to schedule a follow-up appointment for reevaluation. Return immediately to the emergency department with any worsening or new concerning symptoms Discharge Data Discharge Physician: Lenora Gallardo Medical Decision Making 68-year-old male with a history of atrial fibrillation, GERD, hypertension, migraine, pulmonary embolism, small bowel obstruction, obstructive sleep apnea, Crohn's disease, with a history of appendectomy, hernia repair who presents with diffuse crampy abdominal pain since 3 AM. Feels that his pain is consistent with Crohn's flare. Blood pressure hypertensive. Temp 96.6. Patient appears uncomfortable. Patient has diffuse abdominal tenderness and distention. Differential diagnosis includes SBO vs Crohn's flare versus diverticulitis, etc. Will place an IV, bolus IV fluids, labs, urinalysis, CT abdomen and pelvis. Will give a dose of morphine and Zofran and reassess. No relief with morphine and patient given Dilaudid x2. 1900 --labs and imaging reviewed. Normal white blood cell count. Anion gap 15. Lactate 3.3. AST 118. ALT 106. He has had liver enzyme elevation in the past. Troponin negative. Urinalysis negative for infection but does indicate dehydration. CT abdomen and pelvis notes findings consistent with enterocolitis/acute diarrheal illness and mesenteritis. No evidence of obstruction. Results discussed with patient and he states he is feeling better and would rather go home. Discussed with patient with his elevated lactate, which may be likely due to dehydration, would be reasonable to admit for observation and continued IV fluids but he is declining and would rather go home. Patient given 1 L of IV fluids here. Patient states he has chronic diarrhea with his Crohn's and states this is no different than usual. We will also attempt to obtain a stool sample for testing. As he has no complaint of fever, bloody diarrhea, with normal white count, I do not see an indication for antibiotics. Patient states he feels that his symptoms could also be possibly to be due to a Crohn's flare and would like a higher dose of prednisone for the next few days. We will send home with prescription to take a prednisone taper to then resume his 50 mg daily. He is instructed to call Dr. mejia at [facility] for reevaluation. He is instructed to return here immediately with any worsening or new concerning symptoms. Patient unable to give stool sample here. He was sent home with stool collection kit. Medical Records Medical records reviewed: Yes I reviewed the patient's medical records. Imaging Data Radiologic Study: Radiologist's impression: CT Abdomen and Pelvis With Contrast EXAM DATE/TIME: 10/18/2018 3:34 PM CLINICAL HISTORY: 68 years old, male; Signs and symptoms; Other: Diffuse abdominal p(ain, h/o sbo/crohn's disease TECHNIQUE: Imaging protocol: Axial computed tomography images of the abdomen and pelvis with intravenous contrast. Coronal and sagittal reformatted images were created and reviewed. Radiation optimization: All CT scans at this facility use at least one of these dose optimization techniques: automated exposure control; mA and/or kV adjustment per patient size (includes targeted exams where dose is matched to clinical indication); or iterative reconstruction. Contrast material: OMNIPAQUE 350; Contrast volume: 100 ml; Contrast route: IV; COMPARISON: CT ABDOMEN PELVIS W 04/25/2018 2:42 PM FINDINGS: Lungs: Elevated right hemidiaphragm noted with adjacent compressive atelectasis in the right lung base. Heart: Heart size upper limits of normal. ABDOMEN: Liver: Moderate generalized fatty infiltration of the liver. No focal hepatic lesions or intrahepatic biliary dilatation. Gallbladder and bile ducts: Prior cholecystectomy with expected mild postoperative dilatation of the biliary system. Pancreas: Normal. No inflammatory changes or ductal dilation. Spleen: Normal. No splenomegaly. Adrenals: Normal. No adrenal mass. Kidneys and ureters: There multiple small bilateral subcentimeter renal cortical hypodensities which are likely small cysts. There is a 3.4 cm cyst in the left renal hilum and anterior cortex. No hydronephrosis or urolithiasis. Stomach and bowel: The visualized distal esophagus and stomach are normal. The distal small bowel demonstrates moderate fluid distention and mild dilatation measuring up to 3.4 cm diameter. There is no transition point to suggest obstruction. Moderate fluid content in the proximal colon suggesting acute diarrheal illness. Appendix: The appendix is not identified. No secondary signs of appendicitis. PELVIS: Bladder: Unremarkable as visualized. Reproductive: Unremarkable as visualized. ABDOMEN and PELVIS: Intraperitoneal space: No free fluid or air. Bones/joints: There is extensive heterogeneous osseous sclerosis throughout the visualized axial skeleton concerning for osteoblastic metastasis. This is similar to prior exam 04/25/2018. No acute pathological fractures are identified. Grade 1 anterolisthesis L4-L5 and chronic mild superior endplate compression of L5 which is unchanged. Soft tissues: Unremarkable. Vasculature: Mild aortic and iliac tortuosity without aneurysm. Lymph nodes: Patchy mild mesenteric stranding in the upper and lower abdomen. This may relate to mild mesenteritis. No focal fluid collections. IMPRESSION: 1. Moderate fluid distention/mild dilatation involving the distal small bowel, with additional moderate fluid content in the mid and proximal colon. The findings are felt to be most consistent with mild enterocolitis/acute diarrheal illness. No transition point to suggest obstruction was seen. No evidence of perforation or abscess. 2. Mild associated mesenteric stranding/haziness suspicious for an element of mesenteritis. 3. Fatty liver. 4. Extensive osteoblastic osseous metastasis with a pattern similar to the prior exam 04/25/2018. HPI General Mode of arrival: ambulatory. Date/Time Provider Initiated Documentation: 10/18/18 15:18. Limitations to Documentation: no limitations. Information obtained by: patient. HPI Narrative: Patient is a 68-year-old M with a history of atrial fibrillation, GERD, hypertension, migraine, pulmonary embolism, small bowel obstruction, Crohn's disease, PUD who presents with diffuse crampy abdominal pain since 3 AM. States the pain is currently 8/10. Admits to nausea and vomiting 3 times which is been mainly clear. States his last bowel movement was this morning and normal. Denies any known fever, rectal bleeding, urinary symptoms. States he takes 50 mg of prednisone daily for his Crohn's disease for years and took an increased dose of 40 mg today as he thinks his pain is due to a Crohn's flare. Patient states he is followed by Dr. Alonso Otto at [facility] for his Crohn's. States he last had a colonoscopy with him 6 weeks ago and was told it was normal. Related Data Home Medications Medication Instructions Recorded Confirmed ferrous gluconate 324 mg PO TID 01/23/13 10/11/18 omeprazole [Prilosec] 40 mg PO BID 01/23/13 10/11/18 acetaminophen [Tylenol Extra 1,000 mg PO Q4H PRN PRN tab-cap NS 03/29/13 10/11/18 Strength] Multaq 400 mg PO BID #180 tab-cap 04/15/15 10/11/18 nitroglycerin [Nitrostat] 0.4 mg SUBLINGUAL Q5 MIN PRN X3 04/23/15 10/11/18 PRN #15 tab balsalazide 2,250 mg PO TID 09/24/15 10/11/18 cyanocobalamin (vitamin B-12) 1,000 mcg IM DIRECTED 03/22/16 10/11/18 ergocalciferol (vitamin D2) 50,000 units PO DIRECTED 03/22/16 10/11/18 [Vitamin D2] hydrocodone-acetaminophen 1 - 2 tab PO Q4H PRN PRN #40 tab 03/25/16 10/11/18 Excedrin Migraine 1 ea PO DAILY PRN 09/15/16 10/11/18 aspirin 325 mg PO DAILY tab-cap 09/15/16 10/11/18 Topicaine 1 appful TOPICAL PRN PRN 06/27/17 10/11/18 calcium carbonate 1,200 mg PO DAILY 06/27/17 10/11/18 calcium carbonate 500 mg CH QID 06/27/17 10/11/18 cefpodoxime 200 mg PO BID #20 tab 06/27/17 10/11/18 enoxaparin [Lovenox] 100 mg SQ Q12H 06/27/17 10/11/18 pramipexole 0.5 mg PO HS 06/27/17 10/11/18 prednisone 5 mg PO BID 06/27/17 10/11/18 ranitidine HCl [Zantac] 150 mg PO QID 06/27/17 10/11/18 metoclopramide HCl [Reglan] 10 mg PO BID #4 tab 04/25/18 10/11/18 diltiazem 30 mg tablet 30 mg PO TID tab 04/27/18 10/11/18 prednisone See Rx Instructions .ROUTE 10/18/18 .COMPLEX #27 tab Previous Rx's Medication Instructions Recorded nitroglycerin [Nitrostat] 0.4 mg SUBLINGUAL Q5 MIN PRN X3 04/23/15 PRN #15 tab hydrocodone-acetaminophen 1 - 2 tab PO Q4H PRN PRN #40 tab 03/25/16 cefpodoxime 200 mg PO BID #20 tab 06/27/17 metoclopramide HCl [Reglan] 10 mg PO BID #4 tab 04/25/18 prednisone See Rx Instructions .ROUTE 10/18/18 .COMPLEX #27 tab Allergies Allergy/AdvReac Type Severity Reaction Status Date / Time Sulfa (Sulfonamide Allergy Mild Skin Rash Unverified 10/18/18 15:13 Antibiotics) atenolol Allergy Unverified 10/18/18 15:13 atorvastatin Allergy Unverified 10/18/18 15:13 gabapentin Allergy Unverified 10/18/18 15:13 nicardipine Allergy Unverified 10/18/18 15:13 salsalate Allergy Unverified 10/18/18 15:13 tramadol Allergy Unverified 10/18/18 15:13 venlafaxine Allergy Unverified 10/18/18 15:13 ciprofloxacin HCl AdvReac Severe ruptured Unverified 10/18/18 15:13 [From Cipro] achilles tendon hydrochlorothiazide AdvReac Severe myalgias Unverified 10/18/18 15:13 [From Benicar HCT] indapamide AdvReac Severe chest pain Unverified 10/18/18 15:13 olmesartan medoxomil AdvReac Severe myalgias Unverified 10/18/18 15:13 [From Benicar HCT] terazosin [Terazosin] AdvReac Severe tremor, GI Unverified 10/18/18 15:13 upset aliskiren [Aliskiren] AdvReac Intermediate diarrhea Unverified 10/18/18 15:13 amlodipine AdvReac Intermediate fatigue Unverified 10/18/18 15:13 enalapril [Enalapril] AdvReac Intermediate shakes, Unverified 10/18/18 15:13 weakness montelukast sodium AdvReac Intermediate rectal Unverified 10/18/18 15:13 [From Singulair] irritation pregabalin [From Lyrica] AdvReac Intermediate sleep Unverified 10/18/18 15:13 issues spironolactone AdvReac Intermediate headache Unverified 10/18/18 15:13 General Stated Complaint: Abd Prob ELMO: 3 Review of Systems Review of Systems All systems reviewed & are unremarkable except as noted in HPI and below Constitutional Reports as per HPI, Denies chills and Denies fever(s) Eyes Denies blurry vision ENT Denies dizziness, Denies sore throat and Denies throat swelling Cardiovascular Denies chest pain and Denies dyspnea Respiratory Denies cough and Denies dyspnea Gastrointestinal Reports abdominal pain, Denies diarrhea and Reports vomiting Genitourinary Denies hematuria and Denies dysuria Musculoskeletal Denies back pain and Denies numbness Integumentary/Breasts Denies lesions and Denies rash Neurologic Denies dizziness, Denies focal weakness and Denies numbness Allergic/Immunologic Denies throat swelling [facility] Social History Smoking/Tobacco Use Status: Never Alcohol Intake: never Drug use: Never Substance use type: does not use Do you feel safe at home: Yes Do you feel safe in your relationship?: Yes Exam Const General: cooperative, healthy appearing and no acute distress HENMT Head: normal to inspection Face and sinus: normal facial exam Eyes General: appearance normal, both eyes and all related structures Pupils: PERRL EOM: EOM intact bilaterally Neck Neck: normal visual inspection and No submandibular swelling Lymphatic: no lymphadenopathy noted Chest Chest: normal inspection of the chest and no tenderness Resp Effort & Inspection: normal respiratory effort and able to speak in complete sentences Auscultation: clear to auscultation bilaterally Cardio Rate: regular rate Rhythm: regular rhythm GI Inspection: other (diffuse ecchymoses c/w daily lovenox injections) Palpation: soft, firm, not rigid and tender (diffusely moderately tender) Auscultation: normal bowel sounds Skin General skin exam: no rashes or lesions noted Neuro General: alert, awake and oriented x3 Cognition: normal cognition Speech: speech normal Motor: muscle tone normal throughout Sensory Exam: no sensory deficits noted Extrem General: normal to inspection, full ROM and no edema Psych Appearance: grossly normal Mental Status: mental status grossly normal Speech and Movement: speech and movement normal Affect: normal affect Course Vital Signs Temperature 96.6 F L 10/18/18 15:09 Pulse 101 H 10/18/18 15:09 Respiratory Rate 22 10/18/18 15:09 Blood Pressure 162/104 H 10/18/18 15:09 Pulse Oximetry 95 10/18/18 15:09 Temperature 96.6 F L 10/18/18 15:09 Temperature Source Skin 10/18/18 15:09 Pulse 86 10/18/18 15:43 Respiratory Rate 24 10/18/18 15:43 Blood Pressure 158/100 H 10/18/18 15:43 Pulse Oximetry 94 L 10/18/18 15:43 Oxygen Delivery Method Room Air 10/18/18 15:43 Oxygen Flow Rate 0 10/18/18 15:43 Pain Level 8 10/18/18 15:43
[2018-10-18 15:53] LABS: Abs Immature Grans 0.03 k/cumm (0.0-0.09); Absolute Basophil Count 0.02 k/cumm (0.0-0.2); Absolute Eosinophil Count 0.08 k/cumm (0.0-0.7); Absolute Lymphocyte Count 1.26 k/cumm (1.2-3.4); Absolute Neutrophil Count 7.42 k/cumm (1.2-6.7); Basophils % 0.2; Eosinophils % 0.8; HCT 46.4 % (40.0-50.0); HGB 15.4 g/dL (13.5-17.5); Immature Grans % 0.3; Lymphocytes % 13.1; Mean Corp. HGB Concentration 33.2 g/dL (32.0-36.0); Mean Corpuscular Hemoglobin 29.8 pg (27.0-33.0); Mean Corpuscular Volume 89.7 fL (80-95); Mean Platelet Volume 9.5 fL (8.0-11.0); Monocytes % 8.3; Neutrophils % 77.3; Platelet Count 209 x1000/uL (130-400); RBC 5.17 m/cumm (4.50-6.00); White Blood Cell Count 9.61 k/cumm (4.4-10.8)
[2018-10-18 16:06] LABS: ALT 106 U/L (12-78); AST 118 U/L (15-37); Alkaline Phosphatase 86 U/L (46-116); Anion Gap 15.5 mmol/L (3-11); BUN 15 mg/dL (7-18); Bilirubin, Total 0.8 mg/dL (0.2-1.0); CO2 23.5 mmol/L (21.0-32.0); CREATININE 0.85 mg/dL (0.70-1.30); Calcium 9.7 mg/dL (8.5-10.1); Chloride 99 mmol/L (98-107); Glucose 153 mg/dL (70-100); Potassium 3.8 mmol/L (3.5-5.1); Sodium 138 mmol/L (136-145); Total Protein 8.4 g/dL (6.4-8.2)
[2018-10-18 16:09] LABS: Troponin I < 0.02 ng/mL (0.00-0.06)
[2018-10-18] MEDS: HYDROmorphone 2 MG/ML VIAL (16:10)
[2018-10-18 16:12] VITALS: BP 161/107; PULSE 77; RESP 26; O2SAT 94
[2018-10-18 16:58] LABS: Lactate-non-spesis 3.3 mmol/l (0.6-1.4)
[2018-10-18 17:51] VITALS: BP 154/103; PULSE 75; RESP 20; O2SAT 92
[2018-10-18] MEDS: Omnipaque 350 MG/ML 100 ML BTL IJ (18:25)
[2018-10-18] MEDS: Normal Saline Flush 10 ML SYR IVP (18:25)
--- NOTE | 2018-10-18 18:25 | DI.CT_ITS ---
SYMPTOMS/DIAGNOSIS: DIFFUSE ABDOMINAL PAIN, H/O SMALL BOWEL OBSTRUCTION/CROHN'S DISEASE; ? SMALL BOWEL OBSTRUCTION, CROHN'S OR DIVERTICULITIS CT OF THE ABDOMEN AND PELVIS: Comparison is made with March,. There is atelectasis versus scarring at the right lung base, not significantly changed. No pleural or pericardial effusions are seen. The liver shows extreme fatty infiltration and is enlarged, not significantly changed. The patient is status post cholecystectomy. The spleen, pancreas and adrenals are unremarkable. There are bilateral renal cysts. No calcifications or hydronephrosis is seen. There are dilated loops of distal small bowel, which are fluid filled. The cecum, ascending and transverse colon also appear fluid filled. The findings are suspicious for a partial small bowel obstruction. No definite focal transition point is seen. Diverticulosis is demonstrated in the sigmoid colon. There is no visible diverticulitis. The bladder and prostate are partially obscured by artifact related to bilateral hip prostheses. There are again noted to be extensive sclerotic changes throughout the bones consistent with metastatic disease. IMPRESSION: Dilatation of small bowel and ascending and transverse colon may represent an early or partial small bowel obstruction. No definite transition point is identified. There is no focal wall thickening.
[2018-10-18] MEDS: HYDROmorphone 2 MG/ML VIAL 0.5 MG IVP (18:39)
[2018-10-18 18:41] VITALS: BP 154/90; PULSE 76; RESP 18; O2SAT 93
--- NOTE | 2018-10-18 18:51 | DI.VRAD_ITS ---
EXAM: CT Abdomen and Pelvis With Contrast EXAM DATE/TIME: 10/18/2018 3:34 PM CLINICAL HISTORY: 68 years old, male; Signs and symptoms; Other: Diffuse abdominal p(ain, h/o sbo/crohn's disease TECHNIQUE: Imaging protocol: Axial computed tomography images of the abdomen and pelvis with intravenous contrast. Coronal and sagittal reformatted images were created and reviewed. Radiation optimization: All CT scans at this facility use at least one of these dose optimization techniques: automated exposure control; mA and/or kV adjustment per patient size (includes targeted exams where dose is matched to clinical indication); or iterative reconstruction. Contrast material: OMNIPAQUE 350; Contrast volume: 100 ml; Contrast route: IV; COMPARISON: CT ABDOMEN PELVIS W 04/25/2018 2:42 PM FINDINGS: Lungs: Elevated right hemidiaphragm noted with adjacent compressive atelectasis in the right lung base. Heart: Heart size upper limits of normal. ABDOMEN: Liver: Moderate generalized fatty infiltration of the liver. No focal hepatic lesions or intrahepatic biliary dilatation. Gallbladder and bile ducts: Prior cholecystectomy with expected mild postoperative dilatation of the biliary system. Pancreas: Normal. No inflammatory changes or ductal dilation. Spleen: Normal. No splenomegaly. Adrenals: Normal. No adrenal mass. Kidneys and ureters: There multiple small bilateral subcentimeter renal cortical hypodensities which are likely small cysts. There is a 3.4 cm cyst in the left renal hilum and anterior cortex. No hydronephrosis or urolithiasis. Stomach and bowel: The visualized distal esophagus and stomach are normal. The distal small bowel demonstrates moderate fluid distention and mild dilatation measuring up to 3.4 cm diameter. There is no transition point to suggest obstruction. Moderate fluid content in the proximal colon suggesting acute diarrheal illness. Appendix: The appendix is not identified. No secondary signs of appendicitis. PELVIS: Bladder: Unremarkable as visualized. Reproductive: Unremarkable as visualized. ABDOMEN and PELVIS: Intraperitoneal space: No free fluid or air. Bones/joints: There is extensive heterogeneous osseous sclerosis throughout the visualized axial skeleton concerning for osteoblastic metastasis. This is similar to prior exam 04/25/2018. No acute pathological fractures are identified. Grade 1 anterolisthesis L4-L5 and chronic mild superior endplate compression of L5 which is unchanged. Soft tissues: Unremarkable. Vasculature: Mild aortic and iliac tortuosity without aneurysm. Lymph nodes: Patchy mild mesenteric stranding in the upper and lower abdomen. This may relate to mild mesenteritis. No focal fluid collections. IMPRESSION: 1. Moderate fluid distention/mild dilatation involving the distal small bowel, with additional moderate fluid content in the mid and proximal colon. The findings are felt to be most consistent with mild enterocolitis/acute diarrheal illness. No transition point to suggest obstruction was seen. No evidence of perforation or abscess. 2. Mild associated mesenteric stranding/haziness suspicious for an element of mesenteritis. 3. Fatty liver. 4. Extensive osteoblastic osseous metastasis with a pattern similar to the prior exam 04/25/2018. Dictated and Authenticated by: Oscar Toledo MD. Ordering:TANA Cooley MD
[2018-10-18 18:52] LABS: Bilirubin Negative (Negative); Blood Negative (Negative); Clarity Clear; Glucose Negative (Negative); Ketones Trace mg/dL (Negative); Leukocyte Esterase Negative (Negative); Nitrite Negative (Negative); Specific Gravity >= 1.030 (1.005-1.025); Urobilinogen 0.2 EU/dL (Up TO 0.2); pH 5.5 (5-8)
[2018-10-18 19:12] LABS: Bacteria Negative HPF (Negative); C & S Indicated? No; Casts Negative LPF (Negative); Crystals Negative HPF (Negative); Epithelial Cells Negative HPF (Negative); Mucus Negative (Negative); Other Cells Negative (Negative); RBC 0-2 (0-2); WBC 0-2 HPF (0-5)
[2018-10-18 20:04] VITALS: BP 164/101; PULSE 81; RESP 18; TEMP 36.1; O2SAT 92
== END 2018-10-18 20:03 | disposition home or self-care (01) ==
PROVIDERS: Emergency Provider Physician Assistant; PCP Internal Medicine
DX: K52.9 Noninfective gastroenteritis and colitis, unspecified (principal); K50.90 Crohn's disease, unspecified, without complications; E86.0 Dehydration; I10 Essential (primary) hypertension
CPT/HCPCS: 36415; 80053; 87505; 96361; 96374; 96375; 96376; 99285; 74177; 81003; 81015; 83605; 83735; 84484; 85025; 99284; J2405; J3490

== ENCOUNTER 2018-10-20 09:29 | Outpatient (REF) | payer MEDICARE, MEDICAID, SELFPAY ==
[2018-10-21 11:45] LABS: Campylobacter PCR SEE COMMENTS; Salmonella PCR SEE COMMENTS; Shiga Toxin PCR SEE COMMENTS; Shigella/Enteroinvasive Ecoli SEE COMMENTS
== END 2018-10-20 09:49 ==
LOC: LBN 09:29
PROVIDERS: PCP Internal Medicine; Visit Provider Physician Assistant
DX: K52.9 Noninfective gastroenteritis and colitis, unspecified (principal)
CPT/HCPCS: 87329; 87505; 87324

== ENCOUNTER 2018-12-11 11:17 | Emergency (ER) | payer MEDICARE, SELFPAY ==
--- NOTE | 2018-12-11 11:24 | W.ED.GENAD ---
Discharge Plan Disposition Patient Disposition: HOME Condition: Good Discharge Details Chief Complaint: GenMedical Clinical Impression: Hypothyroidism, Fatigue Primary Care Provider: Kenney Greer ED Provider: Anmol Perry Home Meds and New Rx's Prescriptions: No Action diltiazem HCl [Cardizem] 30 mg tablet 30 mg PO TID RF: 0 acetaminophen [Tylenol Extra Strength] 500 MG tablet 1,000 mg PO Q4H PRN PRNRF: 0 Multaq 400 MG tablet 400 mg PO BID Qty: 180 RF: 4 balsalazide 750 MG capsule 2,250 mg PO TID RF: 0 aspirin 325 MG tablet 325 mg PO DAILY RF: 0 Excedrin Migraine 1 EACH tablet 1 ea PO DAILY PRNRF: 0 ferrous gluconate 324 MG tablet 324 mg PO TID RF: 0 omeprazole [Prilosec] 20 MG capsule,delayed release(DR/EC) 40 mg PO BID RF: 0 nitroglycerin [Nitrostat] 0.4 MG tablet, sublingual 0.4 mg Sublingual Q5 MIN PRN X3 PRNQty: 15 RF: 0 ergocalciferol (vitamin D2) [Vitamin D2] 50,000 UNITS capsule 50,000 units PO DIRECTED RF: 0 cyanocobalamin (vitamin B-12) 1,000 MCG/ML solution 1,000 mcg IM DIRECTED RF: 0 hydrocodone-acetaminophen 1 TAB tablet 1 - 2 tab PO Q4H PRN PRNQty: 40 RF: 0 metoclopramide HCl [Reglan] 10 mg tablet 10 mg PO BID Qty: 4 RF: 0 prednisone 5 MG tablet 5 mg PO BID RF: 0 pramipexole 0.5 MG tablet 0.5 mg PO HS RF: 0 calcium carbonate 600 MG tablet 1,200 mg PO DAILY RF: 0 ranitidine HCl [Zantac] 150 MG tablet 150 mg PO QID RF: 0 calcium carbonate 500 MG tablet,chewable 500 mg CH QID RF: 0 enoxaparin [Lovenox] 100 MG/ML syringe 100 mg SQ Q12H RF: 0 Topicaine 30 GM gel 1 appful Topical PRN PRNRF: 0 Discharge Instructions Instructions: Hypothyroidism (ED) Additional Instructions: At this time your work-up shows no significant problems except for your low functioning thyroid. This is very likely the cause of your symptoms. Please follow-up with your primary care provider in the next 48 hours for reassessment and to be started on levothyroxine. If you notice any worsening of your symptoms, or any new symptoms such as vomiting, diarrhea, fever, chills, shortness of breath, chest pain, numbness, weakness, or fainting , please return immediately to the emergency department for reevaluation. Please follow up with your primary care provider as soon as possible for reassessment and reevaluation. As always, it was a pleasure participating in your medical care today. Referrals: Kenney Greer MD [Primary Care Provider] - Discharge Data Discharge Date/Time-TO BE ENTERED AT DEPARTURE: 12/11/18 13:36 Medical Decision Making This is a pleasant 68-year-old male with a history of atrial fibrillation, GERD, hypertension, migraine, pulmonary embolism, small bowel obstructions, Crohn's disease, PUD, on regular Lovenox for his atrial fibrillation and previous PE, who has a history of being anemic in the past. Presents today for feelings of malaise for the last 3 to 4 days, he denies any other focal complaints. He does have a mild dry cough but that is all. Rectal exam demonstrates no evidence of gross blood, negative stool Hemoccult. Abdominal exam demonstrates no acute tenderness compared to his chronic normal baseline which he reiterates multiple times. Vital signs are relatively stable. With notably vague symptoms, no focal abnormality on exam, will evaluate for anemia, through blood work, we will get a chest x-ray for his cough, and reassess. We will gently rehydrate in the meantime. 1:21 PM Patient's laboratory work-up has returned, hemoglobin is notably stable, no significant white count or leukocytosis. Electrolytes normal, renal function stable. Troponin normal, EKG unchanged. Patient's TSH is notably elevated at 6.8, T4 is low at 0.72. I suspect the thyroid etiology is the cause of the patient's symptomatology. We will have the patient follow-up promptly with his PCP this week for starting on levothyroxine. No other significant abnormalities noted on work-up, no evidence of significant anemia or bleed, no acute process on chest x-ray, I feel that he can be safely discharged home with close follow-up. Additionally at this time clinically he shows no signs of thyroid storm or myxedema coma. His mentation is normal, his energy is notably improved after the gentle rehydration. I have extensively reviewed the treatment plan and discharge instructions with the patient and their family. I have addressed all patient concerns at this time. The patient and family was made aware of what symptoms to monitor for that would warrant a return to the emergency department. Discussed the plan with the patient and family, they demonstrate verbal understanding and agreement with our assessment and plan at this time. EKG 12: 10 Rate 77, MA 206, QTc 466, QRS 102, sinus rhythm, no significant ST elevations or depressions, mild inversion of T wave in lead III, unchanged from prior EKG on 04/25/2018 PA AND LATERAL CHEST: Comparison is made with 09/06/16. Heart size and pulmonary vasculature are stable and within normal limits. There is unchanged elevation of the right hemidiaphragm. There is scarring in the right lung base which is unchanged. No focal consolidating infiltrates, effusions or pneumothoraces are identified. The bones appear intact. IMPRESSION: No definite acute pulmonary process. Follow up as clinically appropriate. Ordered By: Anmol Perry DO [facility] General Date/Time Provider Initiated Documentation: 12/11/18 11:23. HPI Narrative: This is a 68-year-old male with a past medical history of atrial fibrillation on Lovenox, GERD, hypertension, migraine, pulmonary embolism, small bowel obstruction, Crohn's disease, PUD, previous prostate cancer for which he takes regular testosterone for the patient, who presents today for self-described symptoms of anemia. The patient states that over the last 3 to 4 days he has felt notably malaise, with decreased energy. He denies any other focal symptoms. He does admit to mild dry cough, but denies any change in his chronic abdominal pain, new diarrhea, hematochezia, melena, acholic stool. He denies any chest pain, chest heaviness, chest tightness, numbness weakness or tingling. He denies any burning with bowel movements. He denies any other modifying factors. Or any other complaints at this time. He does state that he feels like he is been anemic as of late, and states he has been anemic in the past, which is secondary to his Crohn's and Lovenox use. He denies any other complaints or modifying factors at this time. Related Data Home Medications Medication Instructions Recorded Confirmed ferrous gluconate 324 mg PO TID 01/23/13 12/11/18 omeprazole [Prilosec] 40 mg PO BID 01/23/13 12/11/18 acetaminophen [Tylenol Extra 1,000 mg PO Q4H PRN PRN tab-cap NS 03/29/13 12/11/18 Strength] Multaq 400 mg PO BID #180 tab-cap 04/15/15 12/11/18 nitroglycerin [Nitrostat] 0.4 mg SUBLINGUAL Q5 MIN PRN X3 04/23/15 12/11/18 PRN #15 tab balsalazide 2,250 mg PO TID 09/24/15 12/11/18 cyanocobalamin (vitamin B-12) 1,000 mcg IM DIRECTED 03/22/16 12/11/18 ergocalciferol (vitamin D2) 50,000 units PO DIRECTED 03/22/16 12/11/18 [Vitamin D2] hydrocodone-acetaminophen 1 - 2 tab PO Q4H PRN PRN #40 tab 03/25/16 12/11/18 Excedrin Migraine 1 ea PO DAILY PRN 09/15/16 12/11/18 aspirin 325 mg PO DAILY tab-cap 09/15/16 12/11/18 Topicaine 1 appful TOPICAL PRN PRN 06/27/17 12/11/18 calcium carbonate 1,200 mg PO DAILY 06/27/17 12/11/18 calcium carbonate 500 mg CH QID 06/27/17 12/11/18 enoxaparin [Lovenox] 100 mg SQ Q12H 06/27/17 12/11/18 pramipexole 0.5 mg PO HS 06/27/17 12/11/18 prednisone 5 mg PO BID 06/27/17 12/11/18 ranitidine HCl [Zantac] 150 mg PO QID 06/27/17 12/11/18 metoclopramide HCl [Reglan] 10 mg PO BID #4 tab 04/25/18 12/11/18 diltiazem HCl 30 mg tablet 30 mg PO TID tab 04/27/18 12/11/18 Previous Rx's Medication Instructions Recorded nitroglycerin [Nitrostat] 0.4 mg SUBLINGUAL Q5 MIN PRN X3 04/23/15 PRN #15 tab hydrocodone-acetaminophen 1 - 2 tab PO Q4H PRN PRN #40 tab 03/25/16 metoclopramide HCl [Reglan] 10 mg PO BID #4 tab 04/25/18 Allergies Allergy/AdvReac Type Severity Reaction Status Date / Time Sulfa (Sulfonamide Allergy Mild Skin Rash Unverified 12/11/18 11:32 Antibiotics) atenolol Allergy Unverified 12/11/18 11:32 atorvastatin Allergy Unverified 12/11/18 11:32 gabapentin Allergy Unverified 12/11/18 11:32 nicardipine Allergy Unverified 12/11/18 11:32 salsalate Allergy Unverified 12/11/18 11:32 tramadol Allergy Unverified 12/11/18 11:32 venlafaxine Allergy Unverified 12/11/18 11:32 ciprofloxacin HCl AdvReac Severe ruptured Unverified 12/11/18 11:32 [From Cipro] achilles tendon hydrochlorothiazide AdvReac Severe myalgias Unverified 12/11/18 11:32 [From Benicar HCT] indapamide AdvReac Severe chest pain Unverified 12/11/18 11:32 olmesartan medoxomil AdvReac Severe myalgias Unverified 12/11/18 11:32 [From Benicar HCT] terazosin [Terazosin] AdvReac Severe tremor, GI Unverified 12/11/18 11:32 upset aliskiren [Aliskiren] AdvReac Intermediate diarrhea Unverified 12/11/18 11:32 amlodipine AdvReac Intermediate fatigue Unverified 12/11/18 11:32 enalapril [Enalapril] AdvReac Intermediate shakes, Unverified 12/11/18 11:32 weakness montelukast sodium AdvReac Intermediate rectal Unverified 12/11/18 11:32 [From Singulair] irritation pregabalin [From Lyrica] AdvReac Intermediate sleep Unverified 12/11/18 11:32 issues spironolactone AdvReac Intermediate headache Unverified 12/11/18 11:32 General ELMO: 3 Review of Systems Review of Systems All systems reviewed & are unremarkable except as noted in HPI and below PFSH Social History Smoking/Tobacco Use Status: Never Alcohol Intake: never Drug use: Never Substance use type: does not use Do you feel safe at home: Yes Do you feel safe in your relationship?: Yes Exam Narrative Exam Narrative: 1.Const: Well-nourished, Well-developed, appearing stated age 2.Eyes: PERRL, no conjunctival injection, and symmetrical lids. Slightly pale conjunctiva. 3.ENT: Atraumatic external nose and ears. Moist MM. Neck: Symmetric, trachea midline, No thyromegaly. 4.CVS: +S1/S2, No murmurs or gallops. Peripheral pulses 2+ and equal in all extremities. Brisk capillary refill in all extremities. 5.RESP: Unlabored respiratory effort. Clear to auscultation bilaterally. No wheezes rales or rhonchi 6.GI: Soft, Nondistended, No hepatosplenomegaly. No guarding or rebound. No evidence of acute abdomen, mild tenderness throughout which the patient describes multiple times that this is his baseline. 7.MSK: Normocephalic/Atraumatic, Extremities w/o deformity or ttp No cyanosis or clubbing, Normal movement of all extremities, no pitting edema of the lower extremities. 8.Skin: Warm, Dry. No rashes or lesions. 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 Sensation grossly intact, no focal neurologic deficits. 10.Psych: (AAO) x3. Appropriate mood and affect
[2018-12-11 11:28] VITALS: BP 165/98; PULSE 80; RESP 20; TEMP 36.4; O2SAT 96
[2018-12-11 12:04] LABS: Abs Immature Grans 0.02 k/cumm (0.0-0.09); Absolute Basophil Count 0.02 k/cumm (0.0-0.2); Absolute Eosinophil Count 0.08 k/cumm (0.0-0.7); Absolute Lymphocyte Count 0.89 k/cumm (1.2-3.4); Absolute Neutrophil Count 5.33 k/cumm (1.2-6.7); Basophils % 0.3; Eosinophils % 1.2; HCT 39.9 % (40.0-50.0); HGB 13.2 g/dL (13.5-17.5); Immature Grans % 0.3; Lymphocytes % 12.8; Mean Corp. HGB Concentration 33.1 g/dL (32.0-36.0); Mean Corpuscular Hemoglobin 30.7 pg (27.0-33.0); Mean Corpuscular Volume 92.8 fL (80-95); Mean Platelet Volume 9.2 fL (8.0-11.0); Monocytes % 8.6; Neutrophils % 76.8; Platelet Count 166 x1000/uL (130-400); RBC Distribution Width 15.2 % (11.8-14.1); White Blood Cell Count 6.94 k/cumm (4.4-10.8)
--- NOTE | 2018-12-11 12:06 | DI.RAD_ITS ---
SYMPTOM/DIAGNOSIS: DRY COUGH PA AND LATERAL CHEST: Comparison is made with 09/06/16. Heart size and pulmonary vasculature are stable and within normal limits. There is unchanged elevation of the right hemidiaphragm. There is scarring in the right lung base which is unchanged. No focal consolidating infiltrates, effusions or pneumothoraces are identified. The bones appear intact. IMPRESSION: No definite acute pulmonary process. Follow up as clinically appropriate.
[2018-12-11 12:19] LABS: ALT 75 U/L (12-78); AST 54 U/L (15-37); Albumin 3.6 g/dL (3.4-5.0); Alkaline Phosphatase 92 U/L (46-116); Anion Gap 11.7 mmol/L (3-11); BUN 14 mg/dL (7-18); Bilirubin, Total 0.5 mg/dL (0.2-1.0); CO2 24.3 mmol/L (21.0-32.0); CREATININE 0.96 mg/dL (0.70-1.30); Calcium 8.8 mg/dL (8.5-10.1); Chloride 103 mmol/L (98-107); Glucose 172 mg/dL (70-100); Sodium 139 mmol/L (136-145); Total Protein 7.4 g/dL (6.4-8.2)
[2018-12-11] MEDS: Normal Saline 1,000 ML 1000 ML IV (12:35)
[2018-12-11 12:41] LABS: NT-proBNP 40 pg/mL; TSH (W/Ref FT4) 6.82 uIU/mL (0.358-3.74)
[2018-12-11 12:45] LABS: Troponin I < 0.05 ng/mL (0.00-0.06)
[2018-12-11 13:01] LABS: FREE T4 0.72 ng/dL (0.76-1.46)
--- NOTE | 2018-12-11 13:30 | DI.VRAD_ITS ---
EXAM: XR Chest, 2 Views EXAM DATE/TIME: 12/11/2018 12:06 PM CLINICAL HISTORY: 68 years old, male; Other: Dry cough TECHNIQUE: Imaging protocol: XR of the chest, 2 views. COMPARISON: CR ABD FLAT UPRIGHT PA CHEST 09/04/2017 8:34 PM FINDINGS: Lungs: Opacities in the left base may represent atelectasis or pneumonia. Pleural space: Unremarkable. No pleural effusion. No pneumothorax. Heart/Mediastinum: Unremarkable. No cardiomegaly. Diaphragm: Elevated right hemidiaphragm Bones/joints: Degenerative changes in the glenohumeral joints Surgical device in the right humeral head IMPRESSION: Opacities in the left base may represent atelectasis or pneumonia. Dictated and Authenticated by: Mak Desir MD. Ordering:EMILY Corea MD
[2018-12-11 13:35] VITALS: BP 165/98; PULSE 80; RESP 20; TEMP 36.4; O2SAT 96
--- NOTE | 2018-12-11 17:26 | NUR.NOTE ---
Nursing Note: Referral faxed to [facility] for follow up. Annalee Fry.
== END 2018-12-11 13:36 | disposition home or self-care (01) ==
PROVIDERS: Nurse Practitioner Family; Emergency Provider Student in an Organized Health Care Education/Training Program; PCP Internal Medicine
DX: E03.9 Hypothyroidism, unspecified (principal); R53.83 Other fatigue; R94.31 Abnormal electrocardiogram [ECG] [EKG]; I48.91 Unspecified atrial fibrillation; I10 Essential (primary) hypertension; Z79.01 Long term (current) use of anticoagulants
CPT/HCPCS: 36415; 80053; 86850; 86900; 86901; 96360; 99285; 71046; 83880; 84154; 84439; 84443; 84484; 85025

== ENCOUNTER 2019-01-06 09:04 | Outpatient (CLI) | payer MEDICARE, SELFPAY ==
[2019-01-06 09:55] LABS: Albumin 3.6 g/dL (3.4-5.0); Alkaline Phosphatase 95 U/L (46-116); Anion Gap 11.4 mmol/L (3-11); BUN 16 mg/dL (7-18); Bilirubin, Total 0.5 mg/dL (0.2-1.0); CO2 25.6 mmol/L (21.0-32.0); CREATININE 0.85 mg/dL (0.70-1.30); Calcium 8.5 mg/dL (8.5-10.1); Chloride 102 mmol/L (98-107); Sodium 139 mmol/L (136-145); Total Protein 7.5 g/dL (6.4-8.2)
[2019-01-06 10:08] LABS: Abs Immature Grans 0.03 k/cumm (0.0-0.09); Absolute Basophil Count 0.01 k/cumm (0.0-0.2); Absolute Eosinophil Count 0.14 k/cumm (0.0-0.7); Absolute Lymphocyte Count 0.77 k/cumm (1.2-3.4); Absolute Monocyte Count 0.62 k/cumm (0.11-0.7); Absolute Neutrophil Count 4.96 k/cumm (1.2-6.7); Basophils % 0.2; Eosinophils % 2.1; HCT 41.3 % (40.0-50.0); HGB 13.6 g/dL (13.5-17.5); Immature Grans % 0.5; Lymphocytes % 11.8; Mean Corp. HGB Concentration 32.9 g/dL (32.0-36.0); Mean Corpuscular Hemoglobin 31.3 pg (27.0-33.0); Mean Corpuscular Volume 94.9 fL (80-95); Mean Platelet Volume 9.6 fL (8.0-11.0); Monocytes % 9.5; Neutrophils % 75.9; Platelet Count 198 x1000/uL (130-400); RBC 4.35 m/cumm (4.50-6.00); RBC Distribution Width 15.1 % (11.8-14.1); White Blood Cell Count 6.53 k/cumm (4.4-10.8)
[2019-01-06 10:23] LABS: AST 53 U/L (15-37)
[2019-01-06 10:24] LABS: ALT 77 U/L (12-78); Glucose 205 mg/dL (70-100)
[2019-01-09 09:32] LABS: PSA, Diagnostic 0.3 ng/ml (0-4.5)
[2019-01-09 09:47] LABS: Testosterone, Total <7.0 ng/dL (240-950)
== END 2019-01-06 09:24 ==
PROVIDERS: PCP Internal Medicine; Visit Provider Internal Medicine
DX: C61 Malignant neoplasm of prostate (principal)
CPT/HCPCS: 36415; 80053; 84403; 84153; 85025

== ENCOUNTER 2019-01-16 15:30 | Outpatient (REF) | payer MEDICARE, SELFPAY ==
[2019-01-16 22:07] LABS: Hemoglobin A1C 7.9 % (4.5-6.2)
[2019-01-16 22:14] LABS: TSH 8.99 uIU/mL (0.36-3.74); Vitamin B12 475 pg/mL (193-986)
[2019-01-16 22:30] LABS: FREE T4 0.81 ng/dL (0.76-1.46)
== END 2019-01-16 15:50 ==
LOC: NCHCN 15:30
PROVIDERS: PCP Internal Medicine; Visit Provider Internal Medicine
DX: E53.8 Deficiency of other specified B group vitamins (principal); R73.01 Impaired fasting glucose; R94.6 Abnormal results of thyroid function studies
CPT/HCPCS: 82607; 83036; 84439; 84443

== ENCOUNTER 2019-01-20 01:02 | Outpatient (CLI) | payer MEDICARE, SELFPAY ==
--- NOTE | 2019-01-20 11:00 | DI.NM_ITS ---
SYMPTOMS/DIAGNOSIS: PROSTATE CANCER, METASTATIC, C61 WHOLE BODY BONE SCAN: The patient received 25.0 mCi of technetium 99m MDP and whole body imaging was performed. Comparison is 03/12/17. There is radiotracer activity seen in the kidneys and urinary bladder. There is again seen widespread osseous metastatic disease. There may be mild progression of disease involving the right shoulder and scapula. Otherwise, no definite new areas of increased radiotracer uptake are seen in the axial or appendicular skeleton. IMPRESSION: Widespread osseous metastatic disease as described above.
== END 2019-01-20 01:22 ==
PROVIDERS: PCP Internal Medicine; Visit Provider Internal Medicine
DX: C61 Malignant neoplasm of prostate (principal); C79.51 Secondary malignant neoplasm of bone
CPT/HCPCS: 78306

== ENCOUNTER 2019-01-23 08:43 | Outpatient (CLI) | payer MEDICARE, SELFPAY | END 2019-01-23 09:03 | PROVIDERS: PCP Internal Medicine; Visit Provider Internal Medicine Interventional Cardiology | DX: I25.10 Atherosclerotic heart disease of native coronary artery without angina pectoris (principal); R07.9 Chest pain, unspecified; G14 Postpolio syndrome; R06.02 Shortness of breath; I10 Essential (primary) hypertension; R11.0 Nausea; G47.30 Sleep apnea, unspecified; Z99.89 Dependence on other enabling machines and devices | CPT/HCPCS: 93005; 93010; 99213 ==

== ENCOUNTER 2019-01-24 01:14 | Outpatient (CLI) | payer MEDICARE, SELFPAY ==
--- NOTE | 2019-01-24 10:35 | DIABASSESS_ITS ---
DESCRIPTION/ASSESSMENT: Alonso presents for diabetes self management focused on nutrition with newly diagnosed type 2 diabetes currently on Metformin. A1c 7.9 Food - Alonso has co-morbidities of crohn's disease so he is unable to eat any raw fruit or vegetable. In addition, he describes a long history of needing to carry candy bars because he would feel dizzy or faint. He states he needs to eat every 3 hours or so to prevent these symptoms. He also needs to watch fiber - too much causes diarrhea; too little constipation. He has CIB and pop tart at 5AM, oatmeal, toast, pancake at 9; lunch at noon that can be anything, snack at 3, supper last night spaghetti with meat sauce and sweet corn. States peanut butter cheese sandwich on wheat bread works best for him. He drinks 1 qt milk daily in addition to water, tea and gatorade. Physical Activity - he suffers from bone cancer and movement is difficult, but he keeps active with 2 canes. He cuts his own wood. He has no feeling in his feet/legs. Monitoring - he does not have a glucose monitor. Today during his time here he became symptomatic of hypoglycemia with dizziness fearing he would pass out and usually with headache. He was treated with apple juice, gabriel cracker and peanut butter. He allowed me to check his blood sugar just prior to treating his symptoms. Random blood sugar 291. We retested 45 minutes later after 45 grams carbohydrate and he was 283mg/dl. He denies stress and takes great yobany in being with his 10 year old grandson. INTERVENTION: Explained diagnostic criteria for diabetes and A1c. MONITORING: Discussed his symptoms of hypoglycemia and possibility of having h/o reactive hypoglycemia and reviewed briefly treatment of eating as he does every 3 hours protein and/or fat with carbohydrate. Discussed unexpected blood sugar result based on his symptoms. I believe he would benefit from monitoring his blood sugars, however we did not discuss this. FOOD: Reviewed diabetes food guide suggesting plate method as his symptoms will tolerate non-carbohydrate foods. He believes pop tarts have all that he needs because of the label identifying nutrient enrichment of the product. He is reluctant to give this up. PREVENTION - brief review of foot care and his checks his feet. ACTION PLAN: He will consider carbohydrate in his meals I will call him to discuss desire to monitor his blood sugars Individual MNT __3__ units billed TIME IN: 7646 OUT: 1125 No DM group education series being offered at this time.
== END 2019-01-24 01:34 ==
PROVIDERS: PCP Internal Medicine; Visit Provider Dietitian, Registered
DX: E11.9 Type 2 diabetes mellitus without complications (principal); Z79.84 Long term (current) use of oral hypoglycemic drugs; Z45.2 Encounter for adjustment and management of vascular access device
CPT/HCPCS: 97802

== ENCOUNTER 2019-02-09 09:23 | Outpatient (CLI) | payer MEDICARE, SELFPAY ==
[2019-02-09 10:07] LABS: Abs Immature Grans 0.04 k/cumm (0.0-0.09); Absolute Basophil Count 0.01 k/cumm (0.0-0.2); Absolute Eosinophil Count 0.08 k/cumm (0.0-0.7); Absolute Lymphocyte Count 0.75 k/cumm (1.2-3.4); Absolute Monocyte Count 0.53 k/cumm (0.11-0.7); Absolute Neutrophil Count 5.45 k/cumm (1.2-6.7); Basophils % 0.1; Eosinophils % 1.2; HCT 40.3 % (40.0-50.0); HGB 13.2 g/dL (13.5-17.5); Immature Grans % 0.6; Lymphocytes % 10.9; Mean Corp. HGB Concentration 32.8 g/dL (32.0-36.0); Mean Corpuscular Volume 94.6 fL (80-95); Mean Platelet Volume 9.3 fL (8.0-11.0); Monocytes % 7.7; Neutrophils % 79.5; Platelet Count 194 x1000/uL (130-400); RBC 4.26 m/cumm (4.50-6.00); RBC Distribution Width 14.9 % (11.8-14.1); White Blood Cell Count 6.86 k/cumm (4.4-10.8)
[2019-02-09 10:57] LABS: Albumin 3.6 g/dL (3.4-5.0); Alkaline Phosphatase 89 U/L (46-116); BUN 15 mg/dL (7-18); Bilirubin, Total 0.6 mg/dL (0.2-1.0); CREATININE 0.96 mg/dL (0.70-1.30); Calcium 8.8 mg/dL (8.5-10.1); Chloride 101 mmol/L (98-107); Glucose 304 mg/dL (70-100); Sodium 136 mmol/L (136-145); Total Protein 7.2 g/dL (6.4-8.2)
[2019-02-09 11:25] LABS: AST 83 U/L (15-37)
[2019-02-09 11:26] LABS: ALT 73 U/L (16-63)
[2019-02-10 10:36] LABS: PSA, Diagnostic 0.5 ng/ml (0-4.5)
[2019-02-11 12:17] LABS: Testosterone, Total <7.0 ng/dL (240-950)
== END 2019-02-09 09:43 ==
PROVIDERS: PCP Internal Medicine; Visit Provider Internal Medicine
DX: C61 Malignant neoplasm of prostate (principal)
CPT/HCPCS: 36415; 80053; 84403; 84153; 85025

== ENCOUNTER 2019-03-07 09:16 | Outpatient (CLI) | payer MEDICARE, SELFPAY ==
[2019-03-07 09:57] LABS: Abs Immature Grans 0.03 k/cumm (0.0-0.09); Absolute Basophil Count 0.02 k/cumm (0.0-0.2); Absolute Lymphocyte Count 0.65 k/cumm (1.2-3.4); Absolute Monocyte Count 0.49 k/cumm (0.11-0.7); Absolute Neutrophil Count 4.75 k/cumm (1.2-6.7); Basophils % 0.3; Eosinophils % 1.7; HCT 37.9 % (40.0-50.0); HGB 12.7 g/dL (13.5-17.5); Immature Grans % 0.5; Lymphocytes % 10.8; Mean Corp. HGB Concentration 33.5 g/dL (32.0-36.0); Mean Corpuscular Hemoglobin 31.3 pg (27.0-33.0); Mean Corpuscular Volume 93.3 fL (80-95); Mean Platelet Volume 9.1 fL (8.0-11.0); Monocytes % 8.1; Neutrophils % 78.6; Platelet Count 183 x1000/uL (130-400); RBC 4.06 m/cumm (4.50-6.00); RBC Distribution Width 14.8 % (11.8-14.1); White Blood Cell Count 6.04 k/cumm (4.4-10.8)
[2019-03-07 10:51] LABS: Albumin 3.7 g/dL (3.4-5.0); Anion Gap 10.7 mmol/L (3-11); BUN 14 mg/dL (7-18); Bilirubin, Total 0.5 mg/dL (0.2-1.0); CO2 26.3 mmol/L (21.0-32.0); Chloride 99 mmol/L (98-107); Glucose 267 mg/dL (70-100); Sodium 136 mmol/L (136-145)
[2019-03-07 11:48] LABS: AST 41 U/L (15-37)
[2019-03-07 12:05] LABS: Alkaline Phosphatase 65 U/L (46-116)
[2019-03-07 12:06] LABS: ALT 34 U/L (16-63)
[2019-03-08 10:01] LABS: PSA, Diagnostic 0.7 ng/ml (0-4.5)
[2019-03-11 12:14] LABS: Testosterone, Total <7.0 ng/dL (240-950)
== END 2019-03-07 09:36 ==
PROVIDERS: PCP Internal Medicine; Visit Provider Internal Medicine
DX: C61 Malignant neoplasm of prostate (principal)
CPT/HCPCS: 36415; 80053; 84403; 84153; 85025

== ENCOUNTER 2019-04-04 01:22 | Outpatient (CLI) | payer MEDICARE, SELFPAY ==
[2019-04-04 10:16] LABS: Abs Immature Grans 0.04 k/cumm (0.0-0.09); Absolute Basophil Count 0.02 k/cumm (0.0-0.2); Absolute Eosinophil Count 0.15 k/cumm (0.0-0.7); Absolute Lymphocyte Count 0.63 k/cumm (1.2-3.4); Absolute Neutrophil Count 5.38 k/cumm (1.2-6.7); Basophils % 0.3; Eosinophils % 2.2; HCT 39.7 % (40.0-50.0); HGB 13.1 g/dL (13.5-17.5); Immature Grans % 0.6; Lymphocytes % 9.4; Mean Corpuscular Volume 94.1 fL (80-95); Mean Platelet Volume 9.2 fL (8.0-11.0); Monocytes % 7.4; Neutrophils % 80.1; Platelet Count 175 x1000/uL (130-400); RBC 4.22 m/cumm (4.50-6.00); RBC Distribution Width 14.9 % (11.8-14.1); White Blood Cell Count 6.72 k/cumm (4.4-10.8)
[2019-04-04 10:52] LABS: Albumin 3.6 g/dL (3.4-5.0); Alkaline Phosphatase 88 U/L (46-116); BUN 14 mg/dL (7-18); Bilirubin, Total 0.6 mg/dL (0.2-1.0); CO2 23.9 mmol/L (21.0-32.0); CREATININE 0.82 mg/dL (0.70-1.30); Calcium 8.9 mg/dL (8.5-10.1); Glucose 302 mg/dL (70-100); Total Protein 7.5 g/dL (6.4-8.2)
[2019-04-04 11:09] LABS: AST 52 U/L (15-37); Anion Gap 13.1 mmol/L (3-11); Chloride 101 mmol/L (98-107); Sodium 138 mmol/L (136-145)
[2019-04-04 11:10] LABS: ALT 39 U/L (16-63)
[2019-04-04] MEDS: Omnipaque 350 MG/ML 100 ML BTL IJ (11:13)
--- NOTE | 2019-04-04 11:15 | DI.CT_ITS ---
EXAM: CT CHEST/ABD/PEL W CLINICAL HISTORY: PROSTATE CANCER METASTATIC TO MULTIPLE SITES C61, RESTAGING TECHNIQUE: After oral and IV contrast. COMPARISON: CHEST ABD PELVIS WITH CONTRAST from 05/05/2016 CT ABDOMEN PELVIS W from 10/18/2018 FINDINGS: CHEST CT: The liver is severely enlarged and shows marked fatty infiltration. No focal liver lesion s are seen. the large liver causes marked elevation of the right diaphragm. There is adjacent compr essive atelectasis. No pulmonary nodules, adenopathy, infiltrates or effusions are seen. Mild bilat eral symmetric gynecomastia is noted. there is mild dilatation of the aortic arch at 3.7 cm. There is a mild compression fracture of T8 which appears unchanged. The bones show a mottled appearance, l ess sclerotic when compared with the [address] AND PELV[address]: Patient is status post cholecystectomy. The spleen, pancreas, adrenals and ki dneys are unremarkable. There is no evidence of hydronephrosis. There is a cyst at the lower pole o f the left kidney. There are bilateral hip prostheses creating artifact in the pelvis. No adenopath y is seen in the abdomen or pelvis. The bones again have a mottled appearance consistent with metast atic disease. There is some stranding in the fat of the anterior abdominal wall likely related to in jections. IMPRESSION: Diffuse bony metastases. Enlarged liver showing severe fatty infiltration.
[2019-04-04] MEDS: Breeza Beverage 473 ML BTL PO ×2 (11:26→11:27)
[2019-04-04] MEDS: Omnipaque 350 MG/ML 50 ML BTL PO (11:26)
[2019-04-06 07:32] LABS: Testosterone, Total <7.0 ng/dL (240-950)
== END 2019-04-04 01:42 ==
PROVIDERS: PCP Internal Medicine; Visit Provider Internal Medicine
DX: C61 Malignant neoplasm of prostate (principal); C79.51 Secondary malignant neoplasm of bone; K76.0 Fatty (change of) liver, not elsewhere classified; R16.0 Hepatomegaly, not elsewhere classified; N28.1 Cyst of kidney, acquired
CPT/HCPCS: 74177; 80053; 84403; 71260; 84153; 85025; J3490; Q9967

== ENCOUNTER 2019-04-17 15:41 | Outpatient (REF) | payer MEDICARE, SELFPAY ==
[2019-04-17 21:22] LABS: FREE T4 0.92 ng/dL (0.76-1.46); TSH 7.51 uIU/mL (0.36-3.74)
== END 2019-04-17 16:01 ==
LOC: NCHCN 15:41
PROVIDERS: PCP Internal Medicine; Visit Provider Internal Medicine
DX: E11.9 Type 2 diabetes mellitus without complications (principal); E03.9 Hypothyroidism, unspecified
CPT/HCPCS: 84439; 84443

== ENCOUNTER 2019-04-25 11:11 | Outpatient (REF) | payer MEDICARE, SELFPAY ==
[2019-04-25 21:07] LABS: Anion Gap 15.8 mmol/L (3-11); BUN 21 mg/dL (7-18); CO2 21.2 mmol/L (21.0-32.0); CREATININE 1.08 mg/dL (0.70-1.30); Calcium 8.4 mg/dL (8.5-10.1); Chloride 90 mmol/L (98-107); Potassium 4.7 mmol/L (3.5-5.1); Sodium 127 mmol/L (136-145)
[2019-04-25 21:22] LABS: Glucose 645 mg/dL (74-106)
== END 2019-04-25 11:31 ==
LOC: NCHCN 11:11
PROVIDERS: PCP Internal Medicine; Visit Provider Internal Medicine
DX: E11.9 Type 2 diabetes mellitus without complications (principal); R19.7 Diarrhea, unspecified
CPT/HCPCS: 80048

== ENCOUNTER 2019-04-25 11:26 | Emergency (ER) | payer MEDICARE, SELFPAY ==
[2019-04-25] VITALS (17 sets, daily range): BP systolic 151; BP diastolic 85; PULSE 78–90; RESP 16–30; TEMP 36.3; O2SAT 89–94
[2019-04-25] MEDS: Normal Saline 1,000 ML 1000 ML IV (11:30)
--- NOTE | 2019-04-25 11:44 | W.ED.GENAD ---
Discharge Plan Disposition Patient Disposition: HOME Condition: Stable Discharge Details Chief Complaint: Diabetes Clinical Impression: Hyperglycemia Primary Care Provider: Kenney Greer ED Provider: Vasile Stratton Home Meds and New Rx's Prescriptions: Continued levothyroxine 50 mcg capsule 75 mcg PO DAILY RF: 0 metformin 500 mg tablet 500 mg PO BID RF: 0 diltiazem HCl [Cardizem] 30 mg tablet 30 mg PO TID RF: 0 acetaminophen [Tylenol Extra Strength] 500 MG tablet 1,000 mg PO Q4H PRN PRNRF: 0 Multaq 400 MG tablet 400 mg PO BID Qty: 180 RF: 4 balsalazide 750 MG capsule 2,250 mg PO TID RF: 0 Excedrin Migraine 1 EACH tablet 1 ea PO DAILY PRNRF: 0 omeprazole [Prilosec] 20 MG capsule,delayed release(DR/EC) 40 mg PO BID RF: 0 ferrous gluconate 324 mg (37.5 mg iron) tablet 324 mg PO BID RF: 0 nitroglycerin [Nitrostat] 0.4 MG tablet, sublingual 0.4 mg Sublingual Q5 MIN PRN X3 PRNQty: 15 RF: 0 hydrocodone-acetaminophen 1 TAB tablet 1 - 2 tab PO Q4H PRN PRNQty: 40 RF: 0 cyanocobalamin (vitamin B-12) 1,000 mcg/mL solution 1,000 mcg IM QMONTH RF: 0 ergocalciferol (vitamin D2) [Vitamin D2] 50,000 unit capsule 50,000 unit PO .2x weekly RF: 0 metoclopramide HCl [Reglan] 10 mg tablet 10 mg PO BID Qty: 4 RF: 0 ranitidine HCl [Zantac] 150 MG tablet 150 mg PO QID RF: 0 calcium carbonate 500 MG tablet,chewable 500 mg CH QID RF: 0 enoxaparin [Lovenox] 100 MG/ML syringe 100 mg SQ Q12H RF: 0 Topicaine 30 GM gel 1 appful Topical PRN PRNRF: 0 pramipexole 0.5 mg tablet 1 mg PO HS RF: 0 prednisone 5 mg tablet 10 mg PO BID RF: 0 Discharge Instructions Instructions: Diabetic Hyperglycemia (ED) Additional Instructions: follow up with your primary care provider within 1 week if you develop fevers, worsening weakness or feel more ill return to the emergency department Medical Decision Making 69 yo male with hx of t2dm who comes in with chief complaint of general weakness and high blood sugar readings at home. Denies headaches, fevers, chest pain, sob, abd pain, cough. HAs no focal neuro deficits on exam, no abdominal tenderness, no rashes. Suspect hyperglycemia but will obtain lab work to eval for dka. HAs no ams so doubt [facility] pt remains stable and feels better after IVF. LAbs show hyperglycemia, mild anion gap likely from dehydration, no acidemia. Will tx with a dose of insulin and have him f/u with his pcp for continued diabetes management and return precautions given Differential Diagnosis Differential Diagnosis: dka, hyperglycemia, hhs Medical Records Medical records reviewed: Yes I reviewed the patient's medical records. Lab Data Lab results reviewed: Yes I reviewed the patient's lab results. HPI General Mode of arrival: wheelchair. Date/Time Provider Initiated Documentation: 04/25/19 11:26. Limitations to Documentation: no limitations. Information obtained by: patient. History of Present Illness 69 year old M presents to the emergency department with the chief complaint of high blood sugar, described as moderate, Patient started experiencing this day(s) (2) and it has been constant. No relieving factors improve symptom(s), No exacerbating factors reported . Patient did receive the following treatments prior to arrival, none Related Data Home Medications Medication Instructions Recorded Confirmed omeprazole [Prilosec] 40 mg PO BID 01/23/13 04/25/19 acetaminophen [Tylenol Extra 1,000 mg PO Q4H PRN PRN tab-cap NS 03/29/13 04/25/19 Strength] Multaq 400 mg PO BID #180 tab-cap 04/15/15 04/25/19 nitroglycerin [Nitrostat] 0.4 mg SUBLINGUAL Q5 MIN PRN X3 04/23/15 04/25/19 PRN #15 tab balsalazide 2,250 mg PO TID 09/24/15 04/25/19 hydrocodone-acetaminophen 1 - 2 tab PO Q4H PRN PRN #40 tab 03/25/16 04/25/19 Excedrin Migraine 1 ea PO DAILY PRN 09/15/16 04/25/19 Topicaine 1 appful TOPICAL PRN PRN 06/27/17 04/25/19 calcium carbonate 500 mg CH QID 06/27/17 04/25/19 enoxaparin [Lovenox] 100 mg SQ Q12H 06/27/17 04/25/19 ranitidine HCl [Zantac] 150 mg PO QID 06/27/17 04/25/19 metoclopramide HCl [Reglan] 10 mg PO BID #4 tab 04/25/18 04/25/19 diltiazem HCl 30 mg tablet 30 mg PO TID tab 04/27/18 04/25/19 cyanocobalamin (vitamin B-12) 1,000 mcg IM QMONTH ml 01/23/19 04/25/19 1,000 mcg/mL injection solution ergocalciferol (vitamin D2) 50,000 50,000 unit PO .2x weekly cap 01/23/19 04/25/19 unit capsule ferrous gluconate 324 mg (37.5 mg 324 mg PO BID tab 01/23/19 04/25/19 iron) tablet levothyroxine 50 mcg capsule 75 mcg PO DAILY 01/23/19 04/25/19 metformin 500 mg tablet 500 mg PO BID 01/23/19 04/25/19 pramipexole 0.5 mg tablet 1 mg PO HS tab 01/23/19 04/25/19 prednisone 5 mg tablet 10 mg PO BID tab 01/23/19 04/25/19 Previous Rx's Medication Instructions Recorded nitroglycerin [Nitrostat] 0.4 mg SUBLINGUAL Q5 MIN PRN X3 04/23/15 PRN #15 tab hydrocodone-acetaminophen 1 - 2 tab PO Q4H PRN PRN #40 tab 03/25/16 metoclopramide HCl [Reglan] 10 mg PO BID #4 tab 04/25/18 Allergies Allergy/AdvReac Type Severity Reaction Status Date / Time Sulfa (Sulfonamide Allergy Mild Skin Rash Unverified 04/25/19 11:37 Antibiotics) atenolol Allergy Unverified 04/25/19 11:37 atorvastatin Allergy Unverified 04/25/19 11:37 gabapentin Allergy Unverified 04/25/19 11:37 nicardipine Allergy Unverified 04/25/19 11:37 salsalate Allergy Unverified 04/25/19 11:37 tramadol Allergy Unverified 04/25/19 11:37 venlafaxine Allergy Unverified 04/25/19 11:37 ciprofloxacin HCl AdvReac Severe ruptured Unverified 04/25/19 11:37 [From Cipro] achilles tendon hydrochlorothiazide AdvReac Severe myalgias Unverified 04/25/19 11:37 [From Benicar HCT] indapamide AdvReac Severe chest pain Unverified 04/25/19 11:37 olmesartan medoxomil AdvReac Severe myalgias Unverified 04/25/19 11:37 [From Benicar HCT] terazosin [Terazosin] AdvReac Severe tremor, GI Unverified 04/25/19 11:37 upset aliskiren [Aliskiren] AdvReac Intermediate diarrhea Unverified 04/25/19 11:37 amlodipine AdvReac Intermediate fatigue Unverified 04/25/19 11:37 enalapril [Enalapril] AdvReac Intermediate shakes, Unverified 04/25/19 11:37 weakness montelukast sodium AdvReac Intermediate rectal Unverified 04/25/19 11:37 [From Singulair] irritation pregabalin [From Lyrica] AdvReac Intermediate sleep Unverified 04/25/19 11:37 issues spironolactone AdvReac Intermediate headache Unverified 04/25/19 11:37 General Stated Complaint: Diabetes ELMO: 3 Review of Systems All systems reviewed & are unremarkable except as noted in HPI and below Constitutional Constitutional: Denies chills and Denies fever(s) Cardiovascular Cardiovascular: Denies chest pain and Denies dyspnea Respiratory Respiratory: Denies cough and Denies dyspnea Gastrointestinal Gastrointestinal: Denies abdominal pain, Denies nausea and Denies vomiting Musculoskeletal Musculoskeletal: Denies joint swelling [facility] Social History Smoking/Tobacco Use Status: Never Alcohol Intake: never Drug use: Never Substance use type: does not use Do you feel safe at home: Yes Do you feel safe in your relationship?: Yes Exam Const General: no acute distress Orientation: alert HENMT Head: normal to inspection Ears: external ears normal General nose exam: external nose normal Mouth: moist mucous membranes Eyes General: appearance normal, both eyes and all related structures Neck Neck: normal visual inspection Resp Effort & Inspection: normal respiratory effort and able to speak in complete sentences Cardio Rate: regular rate Skin General skin exam: no rashes or lesions noted Neuro General: alert and oriented x3 Extrem General: normal to inspection Psych Mental Status: mental status grossly normal Course Vital Signs Vital signs: Vital Signs Temperature 36.3 C L 04/25/19 11:31 Pulse 88 04/25/19 11:31 Respiratory Rate 16 04/25/19 11:31 Blood Pressure 151/85 H 04/25/19 11:31 Pulse Oximetry 92 L 04/25/19 11:31 Temperature 36.3 C L 04/25/19 11:31 Temperature Source Skin 04/25/19 11:31 Pulse 88 04/25/19 11:31 Respiratory Rate 16 04/25/19 11:31 Respiratory Effort 04/25/19 11:31 Blood Pressure 151/85 H 04/25/19 11:31 Blood Pressure Position Supine 04/25/19 11:31 Pulse Oximetry 92 L 04/25/19 11:31 Pain Level 0 04/25/19 11:31
[2019-04-25 11:48] LABS: Bilirubin Negative (Negative); Blood Negative (Negative); Clarity Clear (Clear); Glucose >=1000 mg/dL (Negative); Ketones Trace mg/dL (Negative); Leukocyte Esterase Negative (Negative); Nitrite Negative (Negative); Specific Gravity <= 1.005 (1.005-1.025); Urobilinogen 0.2 EU/dL (Up TO 0.2)
[2019-04-25 12:01] LABS: BE (Venous) -3.3 mmol/L (-3-3); HCO3 (Venous) 22 mmol/L (22-28); O2 Sat (Venous) 91 % (70-80); TCO2 (Venous) 20 mmol/L (22-29); pCO2 (Venous) 39 mm/Hg (34-47); pH (Venous) 7.37 (7.32-7.43); pO2 (Venous) 64 mm/Hg (28-44)
[2019-04-25 12:06] LABS: Abs Immature Grans 0.03 k/cumm (0.0-0.09); Absolute Basophil Count 0.03 k/cumm (0.0-0.2); Absolute Monocyte Count 0.53 k/cumm (0.11-0.7); Absolute Neutrophil Count 6.03 k/cumm (1.2-6.7); Basophils % 0.4; Eosinophils % 1.3; HCT 39.2 % (40.0-50.0); HGB 13.4 g/dL (13.5-17.5); Immature Grans % 0.4; Lymphocytes % 9.4; Mean Corp. HGB Concentration 34.2 g/dL (32.0-36.0); Mean Corpuscular Hemoglobin 31.3 pg (27.0-33.0); Mean Corpuscular Volume 91.6 fL (80-95); Mean Platelet Volume 9.6 fL (8.0-11.0); Monocytes % 7.1; Neutrophils % 81.4; Platelet Count 199 x1000/uL (130-400); RBC 4.28 m/cumm (4.50-6.00); RBC Distribution Width 14.7 % (11.8-14.1); White Blood Cell Count 7.42 k/cumm (4.4-10.8)
[2019-04-25 12:17] LABS: Anion Gap 15.1 mmol/L (3-11); CO2 20.9 mmol/L (21.0-32.0); Chloride 91 mmol/L (98-107); Potassium 4.7 mmol/L (3.5-5.1); Sodium 127 mmol/L (136-145)
[2019-04-25] MEDS: HYDROcodone 5/Acetaminophen 325 TAB (12:36)
--- NOTE | 2019-04-25 13:47 | NUR.NOTE ---
Nursing Note: Referral faxed to PCP for follow up. Annalee Fry.
[2019-04-25] MEDS: Insulin REGULAR-Human 100 UNITS/ML UNIT 10 UNITS IV (13:59)
[2019-04-25 14:27] LABS: Calcium 8.5 mg/dL (8.5-10.1)
[2019-04-25 14:29] LABS: Albumin 3.4 g/dL (3.4-5.0); Alkaline Phosphatase 113 U/L (46-116); BUN 20 mg/dL (7-18); Bilirubin, Total 0.8 mg/dL (0.2-1.0); CREATININE 0.99 mg/dL (0.70-1.30); Total Protein 7.2 g/dL (6.4-8.2)
[2019-04-25 14:30] LABS: ALT 46 U/L (16-63); Glucose 616 mg/dL (74-106); Magnesium 1.6 mg/dL (1.8-2.4)
== END 2019-04-25 14:24 | disposition home or self-care (01) ==
PROVIDERS: Emergency Provider Emergency Medicine; PCP Internal Medicine
DX: E11.65 Type 2 diabetes mellitus with hyperglycemia (principal); I10 Essential (primary) hypertension
CPT/HCPCS: 36415; 36416; 80053; 82805; 82962; 96360; 99283; 81003; 83735; 85025; 85610; 85730

== ENCOUNTER 2019-04-29 10:59 | Emergency (ER) | payer MEDICARE, SELFPAY ==
[2019-04-29] VITALS (31 sets, daily range): BP systolic 121–164; BP diastolic 59–119; PULSE 72–86; RESP 15–29; TEMP 37.3; O2SAT 91–97
--- NOTE | 2019-04-29 11:26 | W.ED.GENAD ---
Discharge Plan Disposition Patient Disposition: HOME Condition: Improving Discharge Details Chief Complaint: Diabetes Clinical Impression: Hyperglycemia Primary Care Provider: Kenney Greer ED Provider: Lenora Gallardo Home Meds and New Rx's Prescriptions: Continued diltiazem HCl [Cardizem] 30 mg tablet 30 mg PO TID RF: 0 acetaminophen [Tylenol Extra Strength] 500 MG tablet 1,000 mg PO Q4H PRN PRNRF: 0 Multaq 400 MG tablet 400 mg PO BID Qty: 180 RF: 4 balsalazide 750 MG capsule 2,250 mg PO TID RF: 0 Excedrin Migraine 1 EACH tablet 1 ea PO DAILY PRNRF: 0 omeprazole [Prilosec] 20 MG capsule,delayed release(DR/EC) 40 mg PO BID RF: 0 ferrous gluconate 324 mg (37.5 mg iron) tablet 324 mg PO BID RF: 0 nitroglycerin [Nitrostat] 0.4 MG tablet, sublingual 0.4 mg Sublingual Q5 MIN PRN X3 PRNQty: 15 RF: 0 hydrocodone-acetaminophen 1 TAB tablet 1 - 2 tab PO Q4H PRN PRNQty: 40 RF: 0 cyanocobalamin (vitamin B-12) 1,000 mcg/mL solution 1,000 mcg IM QMONTH RF: 0 ergocalciferol (vitamin D2) [Vitamin D2] 50,000 unit capsule 50,000 unit PO .2x weekly RF: 0 metoclopramide HCl [Reglan] 10 mg tablet 10 mg PO BID Qty: 4 RF: 0 ranitidine HCl [Zantac] 150 MG tablet 150 mg PO QID RF: 0 calcium carbonate 500 MG tablet,chewable 500 mg CH QID RF: 0 enoxaparin [Lovenox] 100 MG/ML syringe 100 mg SQ Q12H RF: 0 Topicaine 30 GM gel 1 appful Topical PRN PRNRF: 0 pramipexole 0.5 mg tablet 1 mg PO HS RF: 0 prednisone 5 mg tablet 10 mg PO BID RF: 0 promethazine 12.5 mg Tablet 12.5 mg PO Q6H PRNRF: 0 levothyroxine 75 mcg Tablet 75 mcg PO DAILY RF: 0 magnesium L-lactate 84 mg Tablet Extended Release 84 mg PO DAILY RF: 0 Lantus Solostar U-100 Insulin 100 unit/mL (3 mL) Insulin Pen 15 unit SUBCUT DAILY RF: 0 Trulicity 0.75 mg/0.5 mL Pen Injector 0.75 mg SUBCUT QWEEK RF: 0 Discharge Instructions Instructions: Diabetic Hyperglycemia (ED) Additional Instructions: Check your sugar regularly. Continue your insulin as directed. Drink plenty of fluids including water. Watch your sugar intake. Cut back on your daily milk intake as this contains a lot of sugar which is not ideal for your diabetes and high blood sugar. Follow-up with [facility] as directed when you speak with them on Wednesday. Return to the emergency department if you develop any worsening or new concerning symptoms. Discharge Data Discharge Physician: Lenora Gallardo Medical Decision Making 1130 -- 69-year-old male with a history of Crohn's disease, post polio, afib and pe of coumadin presents with generalized weakness, fatigue, and diffuse pain in the past 2 days. Denies fever, cough, chest pain, sob, abdominal pain, urinary symptoms. Patient was started on insulin for diabetes yesterday per his PCP Dr. Greer after having increasing high blood sugar for years. Patient was seen in the ED 4 days ago for high blood sugar and treated with regular insulin and discharge when glucose lowered. Patient states for the past few days he has felt generalized weakness, fatigue. He has chronic leg pain due to his history of polio but since it has been more intense. Glucose 547 on arrival. BP hypertensive. Afebrile. Patient appears generally lethargic but no focal deficits. Abdomen with ecchymosis consistent with injections but no tenderness. IV, bolus IV fluids, screening labs, urinalysis ordered. Labs reviewed and no white blood cell count of 6. Glucose 599. Normal bicarb and anion gap at 11.7. Potassium 4.6. Urinalysis notes trace ketones. We will continue IV fluids, and give 10 units of insulin IV and will recheck a BMP. 1300 --recheck glucose 434. Patient complaining of diffuse pain all over which he attributes to his polio and also the current condition. Cannot get NSAIDs due to Lovenox. Will give a dose of morphine. 1400 --recheck glucose 461. Pain improved. Will give another liter IV fluids and reassess. 1500 --recheck glucose 465. Patient received almost a full 3 L of fluid. Patient feels significantly better and is requesting to go home. Offered to watch patient here longer to ensure his sugar is decreasing but he is declining and would like to go home now as he feels much better and would like to rest at home. states [facility] is calling them at home on Wednesday. Patient stated that he drinks a gallon of 1% milk daily which is more than 200 g of sugar daily which is the equivalent of approximately 7 Snickers bars. He states he does this to help with his Crohn's disease. He is advised to cut back on his milk intake to help with his hyperglycemia. states that she has learned how to use the glucometer and will check his sugar regularly at home. He is advised to return here with any concerns. Medical Records Medical records reviewed: Yes I reviewed the patient's medical records. HPI General Date/Time Provider Initiated Documentation: 04/29/19 11:15. Limitations to Documentation: no limitations. Information obtained by: patient. History of Present Illness 69 year old M presents to the emergency department with the chief complaint of high blood sugar , described as mild, Quality is described as aching, and is localized to the head, back and lower extremity. Patient started experiencing this day(s) (5) and it has been constant. No relieving factors improve symptom(s), No exacerbating factors reported . Patient notes loss of appetite, malaise and weakness; denies confusion, chest pain, cough, diaphoresis, fever/chills, headaches, nausea/vomiting, rash, seizure, shortness of breath and syncope. Patient did receive the following treatments prior to arrival, none Related Data Home Medications Medication Instructions Recorded Confirmed omeprazole [Prilosec] 40 mg PO BID 01/23/13 04/29/19 acetaminophen [Tylenol Extra 1,000 mg PO Q4H PRN PRN tab-cap NS 03/29/13 04/29/19 Strength] Multaq 400 mg PO BID #180 tab-cap 04/15/15 04/29/19 nitroglycerin [Nitrostat] 0.4 mg SUBLINGUAL Q5 MIN PRN X3 04/23/15 04/29/19 PRN #15 tab balsalazide 2,250 mg PO TID 09/24/15 04/29/19 hydrocodone-acetaminophen 1 - 2 tab PO Q4H PRN PRN #40 tab 03/25/16 04/29/19 Excedrin Migraine 1 ea PO DAILY PRN 09/15/16 04/29/19 Topicaine 1 appful TOPICAL PRN PRN 06/27/17 04/29/19 calcium carbonate 500 mg CH QID 06/27/17 04/29/19 enoxaparin [Lovenox] 100 mg SQ Q12H 06/27/17 04/29/19 ranitidine HCl [Zantac] 150 mg PO QID 06/27/17 04/29/19 metoclopramide HCl [Reglan] 10 mg PO BID #4 tab 04/25/18 04/29/19 diltiazem HCl 30 mg tablet 30 mg PO TID tab 04/27/18 04/29/19 cyanocobalamin (vitamin B-12) 1,000 mcg IM QMONTH ml 01/23/19 04/29/19 1,000 mcg/mL injection solution ergocalciferol (vitamin D2) 50,000 50,000 unit PO .2x weekly cap 01/23/19 04/29/19 unit capsule ferrous gluconate 324 mg (37.5 mg 324 mg PO BID tab 01/23/19 04/29/19 iron) tablet pramipexole 0.5 mg tablet 1 mg PO HS tab 01/23/19 04/29/19 prednisone 5 mg tablet 10 mg PO BID tab 01/23/19 04/29/19 Lantus Solostar U-100 Insulin 15 unit SUBCUT DAILY 04/29/19 04/29/19 Trulicity 0.75 mg SUBCUT QWEEK 04/29/19 04/29/19 levothyroxine 75 mcg PO DAILY 04/29/19 04/29/19 magnesium L-lactate 84 mg PO DAILY 04/29/19 04/29/19 promethazine 12.5 mg PO Q6H PRN 04/29/19 04/29/19 Previous Rx's Medication Instructions Recorded nitroglycerin [Nitrostat] 0.4 mg SUBLINGUAL Q5 MIN PRN X3 04/23/15 PRN #15 tab hydrocodone-acetaminophen 1 - 2 tab PO Q4H PRN PRN #40 tab 03/25/16 metoclopramide HCl [Reglan] 10 mg PO BID #4 tab 04/25/18 Allergies Allergy/AdvReac Type Severity Reaction Status Date / Time Sulfa (Sulfonamide Allergy Mild Skin Rash Unverified 04/29/19 11:09 Antibiotics) atenolol Allergy Unverified 04/29/19 11:09 atorvastatin Allergy Unverified 04/29/19 11:09 gabapentin Allergy Unverified 04/29/19 11:09 nicardipine Allergy Unverified 04/29/19 11:09 salsalate Allergy Unverified 04/29/19 11:09 tramadol Allergy Unverified 04/29/19 11:09 venlafaxine Allergy Unverified 04/29/19 11:09 ciprofloxacin HCl AdvReac Severe ruptured Unverified 04/29/19 11:09 [From Cipro] achilles tendon hydrochlorothiazide AdvReac Severe myalgias Unverified 04/29/19 11:09 [From Benicar HCT] indapamide AdvReac Severe chest pain Unverified 04/29/19 11:09 olmesartan medoxomil AdvReac Severe myalgias Unverified 04/29/19 11:09 [From Benicar HCT] terazosin [Terazosin] AdvReac Severe tremor, GI Unverified 04/29/19 11:09 upset aliskiren [Aliskiren] AdvReac Intermediate diarrhea Unverified 04/29/19 11:09 amlodipine AdvReac Intermediate fatigue Unverified 04/29/19 11:09 enalapril [Enalapril] AdvReac Intermediate shakes, Unverified 04/29/19 11:09 weakness montelukast sodium AdvReac Intermediate rectal Unverified 04/29/19 11:09 [From Singulair] irritation pregabalin [From Lyrica] AdvReac Intermediate sleep Unverified 04/29/19 11:09 issues spironolactone AdvReac Intermediate headache Unverified 04/29/19 11:09 General Stated Complaint: Diabetes ELMO: 3 Review of Systems All systems reviewed & are unremarkable except as noted in HPI and below Constitutional Constitutional: Reports as per HPI, Denies chills, Reports fatigue, Denies fever(s) and Reports weakness Eyes Eyes: Denies blurry vision ENT Ears, Nose, Mouth, and Throat: Denies dizziness, Denies sore throat and Denies throat swelling Cardiovascular Cardiovascular: Denies chest pain and Denies dyspnea Respiratory Respiratory: Denies cough and Denies dyspnea Gastrointestinal Gastrointestinal: Denies abdominal pain, Denies diarrhea and Denies vomiting Genitourinary Genitourinary: Denies hematuria and Denies dysuria Musculoskeletal Musculoskeletal: Denies back pain and Denies numbness Integumentary/Breasts Skin/Breast: Denies lesions and Denies rash Neurologic Neurologic: Denies dizziness, Denies focal weakness, Denies numbness and Reports weakness Endocrine Endocrine: Reports fatigue Allergic/Immunologic Allergic/Immunologic: Denies throat swelling [facility] Medical History Afib Bilateral hip pain Bone lesion Chest pain Crohn's disease Drug hypersensitivity Dyspepsia Fibromyalgia GERD (gastroesophageal reflux disease) Hot flash in male HTN (hypertension) Hx of adenomatous colonic polyps Hx of melanoma excision Hypomania IBS (irritable bowel syndrome) 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 Migraine Neuropathy Nocturnal hypoxia Osteopenia PE (pulmonary thromboembolism) Periodic limb movement disorder Post poliomyelitis syndrome Prostate cancer Rectal bleeding Rectal pain Right ankle pain Saphenous vein phlebitis Sebaceous cyst Sensorineural hearing loss Sleep apnea Squamous cell carcinoma of hand Superficial phlebitis of leg Swelling of left lower extremity Vitamin B12 deficiency Surgical History ankle surgery, right Arthroplasty of knee bilat Arthroscopy, Shoulder left shoulder repair Colectomy x3 deep muscle biopsy, left calf muscle Hernia Repair, Incisional (03/22/16) intestinal obstruction with incarcerated incisional hernia, lysis of adhesions Family History Mother No problems noted. Father Kidney malignancy Son No problems noted. Social History Smoking/Tobacco Use Status: Never Alcohol Intake: never Drug use: Never Substance use type: does not use Do you feel safe at home: Yes Do you feel safe in your relationship?: Yes Exam Const General: cooperative, healthy appearing and no acute distress HENMT Head: normal to inspection Face and sinus: normal facial exam Eyes General: appearance normal, both eyes and all related structures Pupils: PERRL EOM: EOM intact bilaterally Neck Neck: normal visual inspection and No submandibular swelling Lymphatic: no lymphadenopathy noted Chest Chest: normal inspection of the chest and no tenderness Resp Effort & Inspection: normal respiratory effort and able to speak in complete sentences Auscultation: clear to auscultation bilaterally Cardio Rate: regular rate Rhythm: regular rhythm GI Inspection: normal to inspection, distended (chronically ), obesity and other (healing stages of ecchymoses ) Palpation: soft, not firm, not rigid and nontender Auscultation: normal bowel sounds Skin General skin exam: no rashes or lesions noted Neuro General: alert, awake and oriented x3 Cranial Nerves: CN's II-XI intact bilaterally Cognition: normal cognition Speech: speech normal Motor: muscle tone normal throughout and strength 5/5 throughout Sensory Exam: no sensory deficits noted Extrem General: normal to inspection, full ROM, normal capillary refill, no calf tenderness bilaterally and no edema Psych Appearance: grossly normal Mental Status: mental status grossly normal Speech and Movement: speech and movement normal Affect: normal affect Course Vital Signs Vital signs: Vital Signs Temperature 99.2 F 04/29/19 11:02 Pulse 82 04/29/19 11:02 Respiratory Rate 16 04/29/19 11:02 Blood Pressure 155/91 H 04/29/19 11:02 Pulse Oximetry 92 L 04/29/19 11:02 Temperature 99.2 F 04/29/19 11:02 Temperature Source Oral 04/29/19 11:02 Pulse 82 04/29/19 11:02 Respiratory Rate 16 04/29/19 11:02 Respiratory Effort Non-Labored 04/29/19 11:06 Blood Pressure 155/91 H 04/29/19 11:02 Blood Pressure Position Supine 04/29/19 11:02 Pulse Oximetry 92 L 04/29/19 11:02 Oxygen Delivery Method Room Air 04/29/19 11:02 Oxygen Flow Rate 0 04/29/19 11:02 Pain Level 0 04/29/19 11:02
[2019-04-29 11:29] LABS: Abs Immature Grans 0.02 k/cumm (0.0-0.09); Absolute Basophil Count 0.02 k/cumm (0.0-0.2); Absolute Eosinophil Count 0.11 k/cumm (0.0-0.7); Absolute Lymphocyte Count 0.71 k/cumm (1.2-3.4); Absolute Monocyte Count 0.49 k/cumm (0.11-0.7); Absolute Neutrophil Count 5.32 k/cumm (1.2-6.7); Basophils % 0.3; Bilirubin Negative (Negative); Blood Trace-intact (Negative); Clarity Clear (Clear); Eosinophils % 1.6; Glucose 500 mg/dL (Negative); HCT 38.8 % (40.0-50.0); HGB 13.5 g/dL (13.5-17.5); Immature Grans % 0.3; Ketones Trace mg/dL (Negative); Leukocyte Esterase Negative (Negative); Lymphocytes % 10.6; Mean Corp. HGB Concentration 34.8 g/dL (32.0-36.0); Mean Corpuscular Hemoglobin 31.6 pg (27.0-33.0); Mean Corpuscular Volume 90.9 fL (80-95); Mean Platelet Volume 9.5 fL (8.0-11.0); Monocytes % 7.3; Neutrophils % 79.9; Nitrite Negative (Negative); Platelet Count 187 x1000/uL (130-400); RBC 4.27 m/cumm (4.50-6.00); RBC Distribution Width 14.6 % (11.8-14.1); Urobilinogen 0.2 EU/dL (Up TO 0.2); White Blood Cell Count 6.67 k/cumm (4.4-10.8)
[2019-04-29] MEDS: Normal Saline 1,000 ML 1000 ML IV ×3 (11:32→14:00)
[2019-04-29 11:38] LABS: Bacteria Negative HPF (Negative); C & S Indicated? No; Casts Negative LPF (Negative); Crystals Negative HPF (Negative); Epithelial Cells Rare HPF (Negative); Mucus Negative (Negative); Other Cells Rare Transitional (Negative); WBC 0-2 HPF (0-5)
[2019-04-29 11:42] LABS: Albumin 3.3 g/dL (3.4-5.0); Alkaline Phosphatase 104 U/L (46-116); Anion Gap 11.7 mmol/L (3-11); BUN 24 mg/dL (7-18); Bilirubin, Total 0.8 mg/dL (0.2-1.0); CO2 23.3 mmol/L (21.0-32.0); CREATININE 0.89 mg/dL (0.70-1.30); Calcium 8.2 mg/dL (8.5-10.1); Chloride 92 mmol/L (98-107); Potassium 4.6 mmol/L (3.5-5.1); Sodium 127 mmol/L (136-145)
[2019-04-29] MEDS: Insulin REGULAR-Human 100 UNITS/ML UNIT 10 UNITS IV (12:09)
[2019-04-29 12:12] LABS: Total Protein 7.4 g/dL (6.4-8.2)
[2019-04-29 13:06] LABS: AST 38 U/L (15-37)
[2019-04-29 13:07] LABS: ALT 31 U/L (16-63)
[2019-04-29 13:16] LABS: Glucose 599 mg/dL (74-106)
== END 2019-04-29 15:27 | disposition home or self-care (01) ==
PROVIDERS: Emergency Provider Physician Assistant; PCP Internal Medicine
DX: E11.65 Type 2 diabetes mellitus with hyperglycemia (principal); I48.91 Unspecified atrial fibrillation; I10 Essential (primary) hypertension; Z79.4 Long term (current) use of insulin; Z79.01 Long term (current) use of anticoagulants
CPT/HCPCS: 36415; 36416; 80053; 82962; 96361; 96374; 96375; 99284; 81003; 81015; 85025

== ENCOUNTER 2019-05-02 09:48 | Outpatient (CLI) | payer MEDICARE, SELFPAY ==
[2019-05-02 10:11] LABS: Abs Immature Grans 0.02 k/cumm (0.0-0.09); Absolute Basophil Count 0.02 k/cumm (0.0-0.2); Absolute Eosinophil Count 0.07 k/cumm (0.0-0.7); Absolute Lymphocyte Count 0.54 k/cumm (1.2-3.4); Absolute Monocyte Count 0.35 k/cumm (0.11-0.7); Absolute Neutrophil Count 5.06 k/cumm (1.2-6.7); Basophils % 0.3; Eosinophils % 1.2; HCT 39.2 % (40.0-50.0); HGB 13.6 g/dL (13.5-17.5); Immature Grans % 0.3; Lymphocytes % 8.9; Mean Corp. HGB Concentration 34.7 g/dL (32.0-36.0); Mean Corpuscular Hemoglobin 31.9 pg (27.0-33.0); Mean Corpuscular Volume 91.8 fL (80-95); Mean Platelet Volume 9.5 fL (8.0-11.0); Monocytes % 5.8; Neutrophils % 83.5; Platelet Count 179 x1000/uL (130-400); RBC 4.27 m/cumm (4.50-6.00); RBC Distribution Width 14.6 % (11.8-14.1); White Blood Cell Count 6.06 k/cumm (4.4-10.8)
[2019-05-02 10:22] LABS: Albumin 3.2 g/dL (3.4-5.0); Alkaline Phosphatase 107 U/L (46-116); Anion Gap 11.9 mmol/L (3-11); BUN 18 mg/dL (7-18); Bilirubin, Total 0.9 mg/dL (0.2-1.0); CO2 22.1 mmol/L (21.0-32.0); CREATININE 0.89 mg/dL (0.70-1.30); Chloride 96 mmol/L (98-107); Potassium 4.3 mmol/L (3.5-5.1); Sodium 130 mmol/L (136-145)
[2019-05-02 10:50] LABS: Glucose 569 mg/dL (74-106); Total Protein 7.1 g/dL (6.4-8.2)
[2019-05-02 10:51] LABS: ALT 32 U/L (16-63); AST 35 U/L (15-37)
[2019-05-03 15:33] LABS: PSA, Diagnostic 1.4 ng/mL (0.0-4.5)
[2019-05-04 07:49] LABS: Testosterone, Total <7.0 ng/dL (240-950)
== END 2019-05-02 10:08 ==
PROVIDERS: PCP Internal Medicine; Visit Provider Internal Medicine
DX: C61 Malignant neoplasm of prostate (principal)
CPT/HCPCS: 36415; 80053; 84403; 84153; 85025

== ENCOUNTER 2019-05-30 10:05 | Outpatient (CLI) | payer MEDICARE, SELFPAY ==
[2019-05-30 10:41] LABS: Abs Immature Grans 0.05 k/cumm (0.0-0.09); Absolute Basophil Count 0.02 k/cumm (0.0-0.2); Absolute Lymphocyte Count 0.94 k/cumm (1.2-3.4); Absolute Monocyte Count 0.56 k/cumm (0.11-0.7); Basophils % 0.3; Eosinophils % 1.4; HCT 36.9 % (40.0-50.0); HGB 12.3 g/dL (13.5-17.5); Immature Grans % 0.7; Lymphocytes % 12.8; Mean Corp. HGB Concentration 33.3 g/dL (32.0-36.0); Mean Corpuscular Hemoglobin 31.1 pg (27.0-33.0); Mean Corpuscular Volume 93.2 fL (80-95); Mean Platelet Volume 8.6 fL (8.0-11.0); Monocytes % 7.6; Neutrophils % 77.2; Platelet Count 220 x1000/uL (130-400); RBC 3.96 m/cumm (4.50-6.00); RBC Distribution Width 15.6 % (11.8-14.1); White Blood Cell Count 7.37 k/cumm (4.4-10.8)
[2019-05-30 11:31] LABS: Albumin 3.6 g/dL (3.4-5.0); Alkaline Phosphatase 80 U/L (46-116); Anion Gap 11.6 mmol/L (3-11); BUN 13 mg/dL (7-18); Bilirubin, Total 0.6 mg/dL (0.2-1.0); CO2 25.4 mmol/L (21.0-32.0); CREATININE 0.73 mg/dL (0.70-1.30); Calcium 8.5 mg/dL (8.5-10.1); Chloride 102 mmol/L (98-107); Glucose 178 mg/dL (74-106); Potassium 4.1 mmol/L (3.5-5.1); Sodium 139 mmol/L (136-145); Total Protein 6.7 g/dL (6.4-8.2)
[2019-05-30 12:23] LABS: ALT 52 U/L (16-63); AST 42 U/L (15-37)
[2019-05-31 11:21] LABS: PSA, Diagnostic 1.2 ng/mL (0.0-4.5)
[2019-06-02 15:16] LABS: Testosterone, Total <7.0 ng/dL (240-950)
== END 2019-05-30 10:25 ==
PROVIDERS: PCP Internal Medicine; Visit Provider Internal Medicine
DX: C61 Malignant neoplasm of prostate (principal)
CPT/HCPCS: 36415; 80053; 84403; 84153; 85025

== ENCOUNTER 2019-06-05 12:43 | Inpatient (IN) | payer MEDICARE, SELFPAY ==
[2019-06-05] VITALS (58 sets, daily range): BP systolic 133–186; BP diastolic 79–96; PULSE 68–85; RESP 10–25; TEMP 36.6–37.3; O2SAT 87–98
[2019-06-05] MEDS: Normal Saline 1,000 ML 1000 ML IV ×2 (13:00→15:59)
[2019-06-05] MEDS: Normal Saline Flush 10 ML SYR IVP (13:00)
--- NOTE | 2019-06-05 13:08 | ED.GENADUL_ITS ---
Discharge Plan Disposition Condition: Improving Discharge Details Chief Complaint: Abd Prob Admit Date/Time: 06/05/19 16:06 Admit Provider: Liset Ponce Attending Provider: Liset Ponce Primary Care Provider: Kenney Greer ED Provider: Zakiya Leach Discharge Instructions Activity:: Activity as Tolerated Equipment/Supplies:: No Equipment Needed Diet:: As Tolerated Discharge Orders Discharge Orders: Discharge Order (Routine); Ordered 06/06/19 Ordered By: Liset Ponce Discharge Data Discharge Date/Time-TO BE ENTERED AT DEPARTURE: 06/05/19 17:20 Medical Decision Making Alonso Wiley is a 69-year-old man with a history of Crohn's disease on p.o. steroids without other immunosuppressive treatment currently, atrial fibrillation, PE in the past on Lovenox, insulin-dependent diabetes, metastatic prostate cancer, hypertension, GERD who presented to the emergency department with abdominal pain, nausea consistent with his prior Crohn's flares. On exam patient is acutely nontoxic appearing though does appear uncomfortable. Abdomen is somewhat distended, diffusely tender without peritoneal signs. Concern for small bowel obstruction, Crohn's flare, other. Doubt mesenteric ischemia at this time. Exam/history is not consistent with acute coronary syndrome, sepsis. Plan for screening labs, IV fluid hydration, IV morphine for pain control, CT abdomen/pelvis. Labs reviewed, no leukocytosis, lactate 1.7, anion gap 11.6. CT abdomen/pelvis shows small bowel obstruction. Plan for admission to medicine. Clinical impression: Small bowel obstruction Disposition: [facility] inpatient Medical Records Medical records reviewed: Yes I reviewed the patient's medical records. Imaging Data Radiologic Study: Attestation: I personally reviewed and interpreted this imaging study as follows: Radiologist's impression: EXAM: CT ABDOMEN AND PELVIS W CLINICAL HISTORY: ABD PAIN, H/O CROHN'S TECHNIQUE: Post IV and without oral contrast. COMPARISON: CT CHEST/ABD/PEL W from 04/04/2019 FINDINGS: There are dilated loops of small bowel in the proximal and mid small bowel with a transition point seen to the right of midline at the level of the umbilicus. Distal to this area, the bowel is decompressed. There is no ascites. There is no bowel wall thickening or pneumatosis. The liver is enlarged and shows fatty infiltration. There is no biliary dilatation. The patient is status post cholecystectomy. The spleen, pancreas and adrenals are unremarkable. There are small bilateral renal cysts and nonobstructing stones in both kidneys. Atelectasis is seen at the right lower lobe. No pleural or pericardial effusions are seen. There are bilateral hip prostheses, which create artifact at the level of the bladder and prostate. The bones have a diffusely mottled appearance. Patient has a history of metastatic prostate cancer. IMPRESSION: Small bowel obstruction with transition point in the right mid abdomen. Lab Data Lab results reviewed: Yes I reviewed the patient's lab results. HPI General Mode of arrival: ambulatory . Date/Time Provider Initiated Documentation: 06/05/19 13:04 . Limitations to Documentation: no limitations . Information obtained by: patient, RN notes reviewed and old records reviewed . HPI Narrative: Alonso Wiley is a 69-year-old man with a history of Crohn's disease on p.o. steroids without other immunosuppressive treatment currently, atrial fibrillation, PE in the past on Lovenox, hypertension, GERD presenting to the emergency department with generalized abdominal pain. Patient reports that this morning he ate breakfast as usual, and then gradually developed generalized abdominal pain that is severe and constant and consistent with prior Crohn's flareups. He reports that he has had nausea since onset of pain. Patient reports he had a very small bowel movement this morning, but had a normal BM yesterday. Patient reports intermittent diarrhea over the past few weeks that is typical for him. No black or bloody stool. He denies any other pain. Was previously eating and drinking as usual. Patient reports that he takes 20 mg of prednisone daily for Crohn's disease, but did take 50 mg this morning when he began to develop abdominal pain. No fever, cough, shortness of breath, numbness, weakness, rash. No recent illness. Patient reports that all of his symptoms including quality, location, and severity of his abdominal pain are typical of his usual Crohn's flares. Related Data Home Medications Medication Instructions Recorded Confirmed omeprazole [Prilosec] 40 mg PO BID 01/23/13 06/05/19 acetaminophen [Tylenol Extra 1,000 mg PO Q4H PRN PRN tab-cap NS 03/29/13 06/05/19 Strength] Multaq 400 mg PO BID #180 tab-cap 04/15/15 06/05/19 nitroglycerin [Nitrostat] 0.4 mg SUBLINGUAL Q5 MIN PRN X3 04/23/15 06/05/19 PRN #15 tab balsalazide 2,250 mg PO TID 09/24/15 06/05/19 hydrocodone-acetaminophen 1 - 2 tab PO Q4H PRN PRN #40 tab 03/25/16 06/05/19 Excedrin Migraine 1 ea PO DAILY PRN 09/15/16 06/05/19 Topicaine 1 appful TOPICAL PRN PRN 06/27/17 06/05/19 calcium carbonate 500 mg CH QID 06/27/17 06/05/19 enoxaparin [Lovenox] 100 mg SQ Q12H 06/27/17 06/05/19 ranitidine HCl [Zantac] 150 mg PO QID 06/27/17 06/05/19 metoclopramide HCl [Reglan] 10 mg PO BID #4 tab 04/25/18 06/05/19 diltiazem HCl 30 mg tablet 30 mg PO TID tab 04/27/18 06/05/19 cyanocobalamin (vitamin B-12) 1,000 mcg IM QMONTH ml 01/23/19 06/05/19 1,000 mcg/mL injection solution ergocalciferol (vitamin D2) 1,250 50,000 unit PO .2x weekly cap 01/23/19 06/05/19 mcg (50,000 unit) capsule ferrous gluconate 324 mg (37.5 mg 324 mg PO BID tab 01/23/19 06/05/19 iron) tablet pramipexole 0.5 mg tablet 1 mg PO HS tab 01/23/19 06/05/19 Trulicity 0.75 mg SUBCUT QWEEK 04/29/19 06/05/19 levothyroxine 75 mcg PO DAILY 04/29/19 06/05/19 magnesium L-lactate 84 mg PO DAILY 04/29/19 06/05/19 promethazine 12.5 mg PO Q6H PRN 04/29/19 06/05/19 Basaglar KwikPen U-100 Insulin 40 unit SUBCUT DAILY 06/05/19 06/05/19 prednisone 10 mg PO BID #0 tab 06/06/19 06/05/19 prednisone See Rx Instructions .ROUTE 06/06/19 .COMPLEX #38 tab Previous Rx's Medication Instructions Recorded nitroglycerin [Nitrostat] 0.4 mg SUBLINGUAL Q5 MIN PRN X3 04/23/15 PRN #15 tab hydrocodone-acetaminophen 1 - 2 tab PO Q4H PRN PRN #40 tab 03/25/16 metoclopramide HCl [Reglan] 10 mg PO BID #4 tab 04/25/18 prednisone 10 mg PO BID #0 tab 06/06/19 prednisone See Rx Instructions .ROUTE 06/06/19 .COMPLEX #38 tab Allergies Allergy/AdvReac Type Severity Reaction Status Date / Time Sulfa (Sulfonamide Allergy Mild Skin Rash Unverified 06/05/19 12:51 Antibiotics) atenolol Allergy Unverified 06/05/19 12:51 atorvastatin Allergy Unverified 06/05/19 12:51 gabapentin Allergy Unverified 06/05/19 12:51 nicardipine Allergy Unverified 06/05/19 12:51 salsalate Allergy Unverified 06/05/19 12:51 tramadol Allergy Unverified 06/05/19 12:51 venlafaxine Allergy Unverified 06/05/19 12:51 ciprofloxacin HCl AdvReac Severe ruptured Unverified 06/05/19 12:51 [From Cipro] achilles tendon hydrochlorothiazide AdvReac Severe myalgias Unverified 06/05/19 12:51 [From Benicar HCT] indapamide AdvReac Severe chest pain Unverified 06/05/19 12:51 olmesartan medoxomil AdvReac Severe myalgias Unverified 06/05/19 12:51 [From Benicar HCT] terazosin [Terazosin] AdvReac Severe tremor, GI Unverified 06/05/19 12:51 upset aliskiren [Aliskiren] AdvReac Intermediate diarrhea Unverified 06/05/19 12:51 amlodipine AdvReac Intermediate fatigue Unverified 06/05/19 12:51 enalapril [Enalapril] AdvReac Intermediate shakes, Unverified 06/05/19 12:51 weakness montelukast sodium AdvReac Intermediate rectal Unverified 06/05/19 12:51 [From Singulair] irritation pregabalin [From Lyrica] AdvReac Intermediate sleep Unverified 06/05/19 12:51 issues spironolactone AdvReac Intermediate headache Unverified 06/05/19 12:51 General Stated Complaint: Abd Prob ELMO: 3 Review of Systems Narrative: Constitutional: denies fevers Eyes: denies eye pain ENT: denies ear pain, dental pain, sore throat Cardiovascular: denies chest pain Respiratory: denies SOB, cough GI: denies vomiting, reports diarrhea chronic diarrhea but decreased bowel movements yesterday and today, abdominal pain, nausea : denies flank pain MSK: denies back pain, neck pain, arthralgias, myalgias Skin: denies rash Neuro: denies headaches, numbness, weakness PFSH Medical History Afib Bilateral hip pain Bone lesion Chest pain Crohn's disease Drug hypersensitivity Dyspepsia Fibromyalgia GERD (gastroesophageal reflux disease) Hot flash in male HTN (hypertension) Hx of adenomatous colonic polyps Hx of melanoma excision Hypomania IBS (irritable bowel syndrome) Leg erythema long-term current use of anticoagulant Migraine Neuropathy Nocturnal hypoxia Osteopenia PE (pulmonary thromboembolism) Periodic limb movement disorder Post poliomyelitis syndrome Prostate cancer Rectal bleeding Rectal pain Right ankle pain Saphenous vein phlebitis Sebaceous cyst Sensorineural hearing loss Sleep apnea Squamous cell carcinoma of hand Superficial phlebitis of leg Swelling of left lower extremity Vitamin B12 deficiency Surgical History ankle surgery, right Arthroplasty of knee bilat Arthroscopy, Shoulder left shoulder repair Colectomy x3 deep muscle biopsy, left calf muscle Hernia Repair, Incisional (03/22/16) intestinal obstruction with incarcerated incisional hernia, lysis of adhesions Family History Mother No problems noted. Father Kidney malignancy Son No problems noted. Social History Smoking/Tobacco Use Status: Never Alcohol Intake: never Drug use: Never Substance use type: does not use Do you feel safe at home: Yes Do you feel safe in your relationship?: Yes Exam Narrative Exam Narrative: Constitutional: well and [id number], pleasant, appears uncomfortable but otherwise conversing normally HENT: head atraumatic/normocephalic/normal inspection, mucous membranes moist Eyes: conjunctiva normal, sclera normal, pupils 3mm b/l Neck: no stridor, normal ROM, trachea midline Chest: normal inspection Resp: normal work of breathing, LCTAB Cardio: normal rate, normal rhythm, no murmur appreciated GI: abdomen soft, diffusely tender, no rebound, no guarding, mild distention Back: normal inspection, no rash Skin: warm, dry, normal color, no rash Neuro: alert, not altered, grossly non-focal, normal tone Ext: no edema Psych: normal mood, normal affect, normal behavior Course Vital Signs Vital signs: Vital Signs Temperature 37.3 C 06/05/19 12:48 Pulse 77 06/05/19 12:48 Respiratory Rate 16 06/05/19 12:48 Blood Pressure 186/96 H 06/05/19 12:48 Pulse Oximetry 94 L 06/05/19 12:48 Temperature 37.3 C 06/05/19 12:48 Temperature Source Skin 06/05/19 12:48 Pulse 77 06/05/19 12:48 Respiratory Rate 16 06/05/19 12:48 Respiratory Effort Non-Labored 06/05/19 12:48 Blood Pressure 186/96 H 06/05/19 12:48 Blood Pressure Position Supine 06/05/19 12:48 Pulse Oximetry 94 L 06/05/19 12:48 Oxygen Delivery Method Room Air 06/05/19 12:48 Oxygen Flow Rate 0 06/05/19 12:48 Pain Level 10 06/05/19 12:48
[2019-06-05] MEDS: Ondansetron 4 MG/2 ML VIAL IVP ×2 (13:12→18:26)
[2019-06-05] MEDS: MORPHine 10 MG/ML VIAL 4 MG IVP (13:13)
[2019-06-05 13:41] LABS: Abs Immature Grans 0.05 k/cumm (0.0-0.09); Absolute Basophil Count 0.01 k/cumm (0.0-0.2); Absolute Eosinophil Count 0.05 k/cumm (0.0-0.7); Absolute Lymphocyte Count 0.67 k/cumm (1.2-3.4); Absolute Monocyte Count 0.42 k/cumm (0.11-0.7); Basophils % 0.1; Eosinophils % 0.7; HCT 39.6 % (40.0-50.0); HGB 12.9 g/dL (13.5-17.5); Immature Grans % 0.7 %; Lymphocytes % 9.7; Mean Corp. HGB Concentration 32.6 g/dL (32.0-36.0); Mean Corpuscular Hemoglobin 30.5 pg (27.0-33.0); Mean Corpuscular Volume 93.6 fL (80-95); Mean Platelet Volume 8.9 fL (8.0-11.0); Monocytes % 6.1; Neutrophils % 82.7; Platelet Count 207 x1000/uL (130-400); RBC 4.23 m/cumm (4.50-6.00); RBC Distribution Width 16.1 % (11.8-14.1)
[2019-06-05 13:50] LABS: ALT 59 U/L (16-63); AST 45 U/L (15-37); Albumin 3.8 g/dL (3.4-5.0); Alkaline Phosphatase 71 U/L (46-116); Anion Gap 11.6 mmol/L (3-11); BUN 15 mg/dL (7-18); Bilirubin, Total 0.7 mg/dL (0.2-1.0); CO2 25.4 mmol/L (21.0-32.0); CREATININE 0.79 mg/dL (0.70-1.30); Calcium 9.2 mg/dL (8.5-10.1); Chloride 103 mmol/L (98-107); Glucose 142 mg/dL (74-106); Magnesium 1.7 mg/dL (1.8-2.4); Sodium 140 mmol/L (136-145); Total Protein 7.6 g/dL (6.4-8.2)
[2019-06-05] MEDS: Omnipaque 350 MG/ML 100 ML BTL IV (14:43)
--- NOTE | 2019-06-05 14:48 | DI.CT_ITS ---
EXAM: CT ABDOMEN AND PELVIS W CLINICAL HISTORY: ABD PAIN, H/O CROHN'S TECHNIQUE: Post IV and without oral contrast. COMPARISON: CT CHEST/ABD/PEL W from 04/04/2019 FINDINGS: There are dilated loops of small bowel in the proximal and mid small bowel with a transition point se en to the right of midline at the level of the umbilicus. Distal to this area, the bowel is decompre ssed. There is no ascites. There is no bowel wall thickening or pneumatosis. The liver is enlarged and shows fatty infiltration. There is no biliary dilatation. The patient is status post cholecyst ectomy. The spleen, pancreas and adrenals are unremarkable. There are small bilateral renal cysts a nd nonobstructing stones in both kidneys. Atelectasis is seen at the right lower lobe. No pleural o r pericardial effusions are seen. There are bilateral hip prostheses, which create artifact at the l evel of the bladder and prostate. The bones have a diffusely mottled appearance. Patient has a histo ry of metastatic prostate cancer. IMPRESSION: Small bowel obstruction with transition point in the right mid abdomen.
[2019-06-05 15:41] LABS: Lipase 62 U/L (73-393)
[2019-06-05 16:15] LABS: Lactate 1.7 mmol/L (0.6-1.4)
[2019-06-05 17:28] LABS: ESR 29 mm/hr (1-20)
[2019-06-05] MEDS: MAGNESIUM SULFATE 2 GM/50 ML BAG IVPB (17:44)
[2019-06-05] MEDS: Normal Saline 1,000 ML 150 ML IV (17:50)
--- NOTE | 2019-06-05 18:00 | W.PM.HP.N ---
Date of service: 06/05/19 Time of Service: 16:30 Assessment and Plan Assessment and plan (1) SBO (small bowel obstruction): Status: Acute Assessment and plan: In setting of Crohn's disease and prior abdominal surgeries. Consult general surgery. NGT ordered. NPO. Will trial IV steroids in case a Crohn's flare is contributing. Pain control with IV morphine. (2) Crohn's disease: Status: None Assessment and plan: As above - usually steroid dependent. Will provide high dose IV steroids and monitor for improvement of symptoms. (3) A-fib: Status: Chronic Assessment and plan: Normally on cardizem and multaq. Obtain EKG. As NPO/getting NGT, will be in ICU on cardizem gtt. If rates cannot be controlled with it, might have to add amiodarone. Unfortunately, he is allergic to beta blockers, per our chart (4) Hx pulmonary embolism: Status: Chronic Assessment and plan: Continue anticoagulation with lovenox. (5) Obstructive sleep apnea: Status: Chronic Assessment and plan: Usually uses CPAP, which is not going to be possible with an NGT in place. For now, will provide supplemental O2 and monitor respiratory status. (6) IDDM (insulin dependent diabetes mellitus): Status: Chronic Assessment and plan: Measure accuchecks Q6hrs, sliding scale. Will hold long acting insulin. (7) DVT prophylaxis: Status: Acute Assessment and plan: On therapeutic lovenox (8) Discharge planning issues: Status: Acute Assessment and plan: Full code Admit to ICU. History of Present Illness History of Present Illness Chief Complaint: Help me, I am going to burst Narrative: Mr Wiley is a 69 year old male with PMHx of Crohn's disease, on chronic prednisone therapy as well as on balsalazide, with history of prior abdominal surgery and small bowel obstructions, h/o LLE DVT/PE (distant, per patient) and Afib, on lovenox therapy, IDDM2, JULIANA, metastatic prostate cancer s/p palliative radiation on degarelix therapy, on who presented to [facility] ED today with abdominal pain starting shortly after patient's breakfast. The patient states that his last BM was this morning and was scant. He has not passed flatus since. He states he has had bowel obstruction that felt this bad only once before. He states he can be a challenging NG tube placement. In the ED, his workup was consistent with small bowel obstruction with transition point in the right mid abdomen. Hospitalists were asked to admit the patient with general surgery following. Review of Systems Narrative: 12 systems reviewed. Pertinent positives and negatives are as per HPI. Additionally, there has been some nausea, but no vomiting. Abdominal pain is diffuse. Reports no difficulty urinating. Denies fevers. [facility], [facility] Social History Smoking/Tobacco Use Status: Never Alcohol Intake: never Drug use: Never Substance use type: does not use Do you feel safe at home: Yes Do you feel safe in your relationship?: Yes Meds Home Medications and Allergies Home Medications Medication Instructions Recorded Confirmed Type omeprazole [Prilosec] 40 mg PO BID 01/23/13 06/05/19 History acetaminophen [Tylenol Extra 1,000 mg PO Q4H PRN PRN tab-cap NS 03/29/13 06/05/19 History Strength] Multaq 400 mg PO BID #180 tab-cap 04/15/15 06/05/19 History nitroglycerin [Nitrostat] 0.4 mg SUBLINGUAL Q5 MIN PRN X3 04/23/15 06/05/19 Rx PRN #15 tab balsalazide 2,250 mg PO TID 09/24/15 06/05/19 History hydrocodone-acetaminophen 1 - 2 tab PO Q4H PRN PRN #40 tab 03/25/16 06/05/19 Rx Excedrin Migraine 1 ea PO DAILY PRN 09/15/16 06/05/19 History Topicaine 1 appful TOPICAL PRN PRN 06/27/17 06/05/19 History calcium carbonate 500 mg CH QID 06/27/17 06/05/19 History enoxaparin [Lovenox] 100 mg SQ Q12H 06/27/17 06/05/19 History ranitidine HCl [Zantac] 150 mg PO QID 06/27/17 06/05/19 History metoclopramide HCl [Reglan] 10 mg PO BID #4 tab 04/25/18 06/05/19 Rx diltiazem HCl 30 mg tablet 30 mg PO TID tab 04/27/18 06/05/19 History cyanocobalamin (vitamin B-12) 1,000 mcg IM QMONTH ml 01/23/19 06/05/19 History 1,000 mcg/mL injection solution ergocalciferol (vitamin D2) 1,250 50,000 unit PO .2x weekly cap 01/23/19 06/05/19 History mcg (50,000 unit) capsule ferrous gluconate 324 mg (37.5 mg 324 mg PO BID tab 01/23/19 06/05/19 History iron) tablet pramipexole 0.5 mg tablet 1 mg PO HS tab 01/23/19 06/05/19 History prednisone 5 mg tablet 10 mg PO BID tab 01/23/19 06/05/19 History Trulicity 0.75 mg SUBCUT QWEEK 04/29/19 06/05/19 History levothyroxine 75 mcg PO DAILY 04/29/19 06/05/19 History magnesium L-lactate 84 mg PO DAILY 04/29/19 06/05/19 History promethazine 12.5 mg PO Q6H PRN 04/29/19 06/05/19 History insulin glargine [Basaglar KwikPen 40 unit SUBCUT DAILY 06/05/19 06/05/19 History U-100 Insulin] Allergies Allergy/AdvReac Type Severity Reaction Status Date / Time Sulfa (Sulfonamide Allergy Mild Skin Rash Unverified 06/05/19 12:51 Antibiotics) atenolol Allergy Unverified 06/05/19 12:51 atorvastatin Allergy Unverified 06/05/19 12:51 gabapentin Allergy Unverified 06/05/19 12:51 nicardipine Allergy Unverified 06/05/19 12:51 salsalate Allergy Unverified 06/05/19 12:51 tramadol Allergy Unverified 06/05/19 12:51 venlafaxine Allergy Unverified 06/05/19 12:51 ciprofloxacin HCl AdvReac Severe ruptured Unverified 06/05/19 12:51 [From Cipro] achilles tendon hydrochlorothiazide AdvReac Severe myalgias Unverified 06/05/19 12:51 [From Benicar HCT] indapamide AdvReac Severe chest pain Unverified 06/05/19 12:51 olmesartan medoxomil AdvReac Severe myalgias Unverified 06/05/19 12:51 [From Benicar HCT] terazosin [Terazosin] AdvReac Severe tremor, GI Unverified 06/05/19 12:51 upset aliskiren [Aliskiren] AdvReac Intermediate diarrhea Unverified 06/05/19 12:51 amlodipine AdvReac Intermediate fatigue Unverified 06/05/19 12:51 enalapril [Enalapril] AdvReac Intermediate shakes, Unverified 06/05/19 12:51 weakness montelukast sodium AdvReac Intermediate rectal Unverified 06/05/19 12:51 [From Singulair] irritation pregabalin [From Lyrica] AdvReac Intermediate sleep Unverified 06/05/19 12:51 issues spironolactone AdvReac Intermediate headache Unverified 06/05/19 12:51 Exam Narrative Exam Narrative: General: Very anxious/uncomfortable middle-aged male, who is screaming out in pain when I saw him, A&OX3 Neurological: A&Ox3, no focal deficits Psychiatric: anxious Skin: visible skin intact HEENT: Atraumatic, normocephalic, EOMI, dry MM, clear oropharynx, no submandibular or cervical lymphadenopathy, no goiter or JVD Cardiovascular: RRR, no m/r/g Lungs: CTAB Gastrointestinal: Abdomen very distended, diffusely tender, bowel sounds predominantly heard in LUQ Genitourinary: deferred Extremities: trace edema, not permitting full exam of extremities due to being very uncomfortable Results Imaging Additional studies: CT abdomen/pelvis: Small bowel obstruction with transition point in the right mid abdomen. EKG: ordered Labs Result diagrams: 06/05/19 13:00 06/05/19 13:00 Labs: Laboratory Results - last 24 hr 06/05/19 06/05/19 06/05/19 13:00 13:00 16:10 WBC 6.90 RBC 4.23 L Hgb 12.9 L Hct 39.6 L MCV 93.6 MCH 30.5 MCHC 32.6 RDW 16.1 H Plt Count 207 MPV 8.9 Immature Gran % 0.7 Neutrophils % 82.7 Lymphocytes % 9.7 Monocytes % 6.1 Eosinophils % 0.7 Basophils % 0.1 Absolute Neutrophils 5.70 Absolute Lymphocytes 0.67 L Absolute Monocytes 0.42 Absolute Eosinophils 0.05 Absolute Basophils 0.01 ESR 29 H Sodium 140 Potassium 4.0 Chloride 103 Carbon Dioxide 25.4 Anion Gap 11.6 H BUN 15 Creatinine 0.79 Estimated GFR/1.73 m2 >= 60.00 Glucose 142 H Lactate 1.7 H Calcium 9.2 Magnesium 1.7 L Total Bilirubin 0.7 AST 45 H ALT 59 Alkaline Phosphatase 71 Total Protein 7.6 Albumin 3.8 Lipase 62 Last Vital Signs Temp 37 C 06/05/19 16:51 Pulse 85 06/05/19 16:51 Resp 22 06/05/19 16:51 BP 167/93 H 06/05/19 16:51 Pulse Ox 92 L 06/05/19 16:51
[2019-06-05] MEDS: Pantoprazole 40 MG VIAL IVP (20:10)
[2019-06-05] MEDS: methylPREDNISolone SUCC 125 MG VIAL 60 MG IVP (20:10)
[2019-06-05] MEDS: LORazepam 2 MG/ML VIAL 0.5 MG IVP (20:11)
[2019-06-05] MEDS: LORazepam 2 MG/ML VIAL 1 MG IVP (20:37)
[2019-06-05] MEDS: Enoxaparin 100 MG/ML SYR SC (20:40)
[2019-06-05] MEDS: dilTIAZem 125 MG in Normal Saline 100 ML IV (20:40)
--- NOTE | 2019-06-05 21:42 | DI.RAD_ITS ---
EXAM: XR PORTABLE CHEST AP POST LINE INDICATION: ng placement. COMPARISON: XR CHEST 2V PA LATERAL from 12/11/2018 TECHNIQUE: 2D digital imaging was performed. FINDINGS: A nasogastric tube projects in the region of the stomach. The right diaphragm is again noted to be e levated. There is mild adjacent atelectasis. Upper lobes appear clear. IMPRESSION: Positioning of nasogastric tube in the stomach.
--- NOTE | 2019-06-05 21:47 | DI.RAD_ITS ---
EXAM: XR ABDOMEN FLAT PLATE INDICATION: bowel obstruction. COMPARISON: CT ABDOMEN PELVIS W from 06/05/2019 TECHNIQUE: 2D digital imaging was performed. Portable FINDINGS: There is residual contrast in the urinary bladder related to a recent CT. There are abnormally dila anthony loops of small bowel consistent with small bowel obstruction. A nasogastric tube is seen at the upper aspect of the upper film. There are bilateral hip prostheses. Bones appear sclerotic consiste nt with history of metastatic prostate cancer. IMPRESSION: Small bowel obstruction.
--- NOTE | 2019-06-05 22:22 | DI.VRAD_ITS ---
PROCEDURE INFORMATION: Exam: XR Abdomen, 1 View Exam date and time: 06/05/2019 9:59 PM Age: 69 years old Clinical indication: Condition or disease; Intestinal condition; Patient HX: Known bowel obstruction; Additional info: CT done 06/05/2019 1448hrs TECHNIQUE: Imaging protocol: XR of the abdomen. Views: Frontal supine view of the abdomen. 1 View. COMPARISON: CR ABD FLAT UPRIGHT PA CHEST 09/04/2017 8:34 PM FINDINGS: Gastrointestinal tract: Normal. Multiple dilated loops of small bowel. Organs: Recently administered intravascular contrast opacifies bladder lumen. Bones/joints: Status post bilateral total hip replacements. Sclerotic areas in multiple bones consistent with known history of metastatic prostate cancer. IMPRESSION: Small bowel obstruction. Dictated and Authenticated by: Zafar Love MD. Ordering:MANISHA Hutchins MD
--- NOTE | 2019-06-05 22:24 | DI.VRAD_ITS ---
PROCEDURE INFORMATION: Exam: XR Chest, 1 View Exam date and time: 06/05/2019 9:58 PM Age: 69 years old Clinical indication: Device placement; Patient HX: Ng tube placement; Additional info: Abd/pelvis CT done 06/05/2019 1448hrs TECHNIQUE: Imaging protocol: XR of the chest Views: 1 view. COMPARISON: CR XR CHEST 2V PA LATERAL 12/11/2018 12:49 PM FINDINGS: Tubes, catheters and devices: Distal portion of NG tube projects over left upper quadrant. Lungs: Unremarkable. No consolidation. Pleural space: Unremarkable. No pleural effusion. No pneumothorax. Heart/Mediastinum: Unremarkable. No cardiomegaly. Diaphragm: Elevated right hemidiaphragm, unchanged. Bones/joints: Degenerative changes IMPRESSION: Distal portion of NG tube in stomach. Dictated and Authenticated by: Zafar Love MD. Ordering:MANISHA Hutchins MD
--- NOTE | 2019-06-05 22:29 | W.SURGCON ---
Date of service: 06/06/19 Time of Service: 09:02 Assessment and Plan Assessment and plan (1) SBO (small bowel obstruction): Status: Acute Assessment and plan: The differential diagnosis includes obstruction from adhesions, active Crohn's or Crohn's stricture. He has rapidly improved with NG suctioning/bowel rest and has a benign exam. NG clamp trial currently underway. If patient does not have any symptoms during trial and has low residual, NG can be removed later today. Patient is very eager to go home. Will start full liquids if NG is removed and if tolerates PO can consider DC later today if no other medical issues are present. History of Present Illness Narrative: Patient presented to the ER with generalized abdominal pain and nausea. Has a history of Crohns disease treated with PO steroids. Has had multiple past admissions for SBO that have resolved with NG placement. The last one documented here was in 2018. He has had bowel resection times three for Crohn's and an incisional hernia repair. Patient had a small BM the am of admission. Typically has loose stools. No blood present recently. CT reviewed, showed evidence of small bowel obstruction in mid small bowel. No obvious acute inflammation noted. Overnight the patient had 350 cc of NG output. He is not sure if placement helped his symptoms. Currently he denies abdominal pain or nausea. Had about 1500cc of stool this am. Review of Systems Constitutional Constitutional: Denies fatigue and Denies headache(s) Eyes Eyes: Denies change in vision ENT Ears, Nose, Mouth, and Throat: Denies headache(s) and Denies neck mass Cardiovascular Cardiovascular: Denies chest pain and Denies palpitations Respiratory Respiratory: Denies cough and Denies wheezing Gastrointestinal Gastrointestinal: Denies hematochezia Genitourinary Genitourinary: Denies dysuria Musculoskeletal Musculoskeletal: Denies joint swelling Integumentary/Breasts Skin/Breast: Denies new lesions and Denies rash Neurologic Neurologic: Denies confusion and Denies headache(s) Psychiatric Psychiatric: Reports system reviewed and no additional complaints, except as docu and Denies confusion Endocrine Endocrine: Denies fatigue and Denies palpitations Hematologic/Lymphatic Hematologic/Lymphatic: Denies easy bleeding and Denies lymphadenopathy Allergic/Immunologic Allergic/Immunologic: Denies wheezing [facility] Medical History Afib Bilateral hip pain Bone lesion Chest pain Crohn's disease Drug hypersensitivity Dyspepsia Fibromyalgia GERD (gastroesophageal reflux disease) Hot flash in male HTN (hypertension) Hx of adenomatous colonic polyps Hx of melanoma excision Hypomania IBS (irritable bowel syndrome) Leg erythema custodial current use of anticoagulant Migraine Neuropathy Nocturnal hypoxia Osteopenia PE (pulmonary thromboembolism) Periodic limb movement disorder Post poliomyelitis syndrome Prostate cancer Rectal bleeding Rectal pain Right ankle pain Saphenous vein phlebitis Sebaceous cyst Sensorineural hearing loss Sleep apnea Squamous cell carcinoma of hand Superficial phlebitis of leg Swelling of left lower extremity Vitamin B12 deficiency Surgical History ankle surgery, right Arthroplasty of knee bilat Arthroscopy, Shoulder left shoulder repair Colectomy x3 deep muscle biopsy, left calf muscle Hernia Repair, Incisional (03/22/16) intestinal obstruction with incarcerated incisional hernia, lysis of adhesions Family History Mother No problems noted. Father Kidney malignancy Son No problems noted. Social History Smoking/Tobacco Use Status: Never Alcohol Intake: never Drug use: Never Substance use type: does not use Do you feel safe at home: Yes Do you feel safe in your relationship?: Yes Exam Const General: not in acute distress Orientation: oriented x3 HENMT Head: normal to inspection Eyes Sclera: sclerae normal Pupils: PERRL Neck Neck: no lymphadenopathy Thyroid: thyroid normal Resp Effort & Inspection: normal respiratory effort Auscultation: clear to auscultation bilaterally and no wheezes Cardio Rate: regular rate Rhythm: regular rhythm GI Inspection: non-distended Palpation: soft, no hernias and nontender Skin General skin exam: no rashes or lesions noted Neuro General: alert Cognition: normal cognition Psych Affect: normal affect Attitude: cooperative Results Last Vital Signs Temp 99.0 F 06/05/19 17:53 Pulse 74 06/05/19 20:45 Resp 22 06/05/19 17:53 BP 147/81 H 06/05/19 20:45 Pulse Ox 98 06/05/19 17:53 Labs Result diagrams: 06/06/19 06:03 06/06/19 06:03 Labs: Laboratory Results - last 24 hr 01/11/1706/05/19 06/05/19 13:00 13:00 16:10 WBC 6.90 RBC 4.23 L Hgb 12.9 L Hct 39.6 L MCV 93.6 MCH 30.5 MCHC 32.6 RDW 16.1 H Plt Count 207 MPV 8.9 Immature Gran % 0.7 Neutrophils % 82.7 Lymphocytes % 9.7 Monocytes % 6.1 Eosinophils % 0.7 Basophils % 0.1 Absolute Neutrophils 5.70 Absolute Lymphocytes 0.67 L Absolute Monocytes 0.42 Absolute Eosinophils 0.05 Absolute Basophils 0.01 ESR 29 H Sodium 140 Potassium 4.0 Chloride 103 Carbon Dioxide 25.4 Anion Gap 11.6 H BUN 15 Creatinine 0.79 Estimated GFR/1.73 m2 >= 60.00 Glucose 142 H Lactate 1.7 H Calcium 9.2 Magnesium 1.7 L Total Bilirubin 0.7 AST 45 H ALT 59 Alkaline Phosphatase 71 Total Protein 7.6 Albumin 3.8 Lipase 62
[2019-06-06] VITALS (38 sets, daily range): BP systolic 119–139; BP diastolic 71–88; PULSE 63–81; RESP 13–31; TEMP 36.5–37.2; O2SAT 90–96
[2019-06-06] MEDS: Normal Saline 1,000 ML 150 ML IV (01:34)
[2019-06-06] MEDS: Normal Saline Flush 10 ML SYR IVP (05:38)
[2019-06-06] MEDS: Acetaminophen 650 MG SUPP PR (05:39)
[2019-06-06] MEDS: methylPREDNISolone SUCC 125 MG VIAL 60 MG IVP (05:39)
[2019-06-06] MEDS: Enoxaparin 100 MG/ML SYR SC (05:39)
[2019-06-06] MEDS: Pantoprazole 40 MG VIAL IVP (05:39)
[2019-06-06] MEDS: Insulin Aspart 300 UNITS/3 ML PEN SC ×2 (05:54→12:19)
[2019-06-06 06:48] LABS: Abs Immature Grans 0.03 k/cumm (0.0-0.09); Absolute Basophil Count 0.01 k/cumm (0.0-0.2); Absolute Lymphocyte Count 0.61 k/cumm (1.2-3.4); Absolute Monocyte Count 0.13 k/cumm (0.11-0.7); Absolute Neutrophil Count 5.57 k/cumm (1.2-6.7); Basophils % 0.2; HCT 36.8 % (40.0-50.0); HGB 11.9 g/dL (13.5-17.5); Immature Grans % 0.5 %; Lymphocytes % 9.6; Mean Corp. HGB Concentration 32.3 g/dL (32.0-36.0); Mean Corpuscular Hemoglobin 30.7 pg (27.0-33.0); Mean Corpuscular Volume 94.8 fL (80-95); Neutrophils % 87.7; Platelet Count 184 x1000/uL (130-400); RBC 3.88 m/cumm (4.50-6.00); RBC Distribution Width 16.1 % (11.8-14.1); White Blood Cell Count 6.35 k/cumm (4.4-10.8)
[2019-06-06 07:03] LABS: Anion Gap 13.2 mmol/L (3-11); BUN 13 mg/dL (7-18); CO2 21.8 mmol/L (21.0-32.0); CREATININE 0.72 mg/dL (0.70-1.30); Calcium 7.8 mg/dL (8.5-10.1); Chloride 107 mmol/L (98-107); Glucose 170 mg/dL (74-106); Magnesium 1.9 mg/dL (1.8-2.4); Sodium 142 mmol/L (136-145)
--- NOTE | 2019-06-06 07:24 | W.PM.PROGNOT ---
Date of Service Date of service: 06/06/19 Time of Service: 07:24 Assessment and Plan Assessment and plan (1) SBO (small bowel obstruction): Status: Acute Assessment and plan: ABD is soft, nontender. (+) BM, flatus and bowel sounds. Will keep NG tube in place. Clamp x 4 hrs and check residuals. If less than 100ccs will d/c NG tube and trial liquid diet. Encouraged ambulation and activities out of bed. Subjective Subjective Interval history since last seen: Patient is feeling better today, requesting to eat eggs and cereal. NG tube in place with 360ccs out overnight. Patient reports (+) flatus and BM overnight. Exam Const General: cooperative, healthy appearing and comfortable Orientation: alert and oriented x3 Resp Effort & Inspection: normal respiratory effort, no audible wheezes and no cough GI Inspection: normal to inspection, abdominal wall ecchymosis (secondary to Lovenox injections), non-distended and scar (Midline incision ) Palpation: soft, no guarding and nontender Auscultation: normal bowel sounds Objective Objective Clinical Data: Abnormal lab results 06/05/19 06/05/19 06/05/19 Range/Units 13:00 13:00 16:10 RBC 4.23 L (4.50-6.00) m/cumm Hgb 12.9 L (13.5-17.5) g/dL Hct 39.6 L (40.0-50.0) % RDW 16.1 H (11.8-14.1) % Absolute Lymphocytes 0.67 L (1.2-3.4) k/cumm ESR 29 H (1-20) mm/hr Anion Gap 11.6 H (3-11) mmol/L Glucose 142 H (74-106) mg/dL Lactate 1.7 H (0.6-1.4) mmol/L Calcium (8.5-10.1) mg/dL Magnesium 1.7 L (1.8-2.4) mg/dL AST 45 H (15-37) U/L 06/06/19 06/06/19 Range/Units 06:03 06:03 RBC 3.88 L (4.50-6.00) m/cumm Hgb 11.9 L (13.5-17.5) g/dL Hct 36.8 L (40.0-50.0) % RDW 16.1 H (11.8-14.1) % Absolute Lymphocytes 0.61 L (1.2-3.4) k/cumm ESR (1-20) mm/hr Anion Gap 13.2 H (3-11) mmol/L Glucose 170 H (74-106) mg/dL Lactate (0.6-1.4) mmol/L Calcium 7.8 L (8.5-10.1) mg/dL Magnesium (1.8-2.4) mg/dL AST (15-37) U/L Vital Signs Temperature 36.8 C 06/06/19 04:30 Temperature Source Temporal Artery Scan 06/06/19 00:00 Pulse 69 06/06/19 04:30 Pulse 68 06/05/19 22:40 Respiratory Rate 17 06/06/19 04:30 Respiratory Effort 06/06/19 04:30 Respiratory Depth Normal 06/06/19 04:30 Respiratory Pattern Normal 06/06/19 04:30 Blood Pressure 139/88 06/06/19 04:30 Blood Pressure Mean 105 06/06/19 04:30 Blood Pressure Position Supine 06/05/19 12:48 Pulse Oximetry 94 L 06/06/19 04:30 Oxygen Delivery Method Room Air 06/05/19 17:53 Oxygen Flow Rate 0 06/05/19 17:53 Pain Level 3 06/06/19 04:30 Intake & Output 06/05/19 06/06/19 06/06/19 18:59 06:59 18:59 Intake Total 1999 / 3060 1060 / 3060 Output Total 2260 / 2260 Balance 2000 / 800 -1200 / 800 Weight 111.13 kg Intake: IV 1999 / 3060 1060 / 3060 Output: Gastric Drainage 360 / 360 Right Nare 360 / 360 Urine 400 / 400 Stool 1500 / 1500 Other: Urine Color Yellow Urine Appearance Clear Urine Odor None Comment dark yellow urine Stool Occult Blood Negative Stool Characteristics Liquid Gastric Occult Blood Right Nare Negative Voiding Methods Urinal Laboratory Results WBC 6.35 k/cumm (4.4-10.8) 06/06/19 06:03 RBC 3.88 m/cumm (4.50-6.00) L 06/06/19 06:03 Hgb 11.9 g/dL (13.5-17.5) L 06/06/19 06:03 Hct 36.8 % (40.0-50.0) L 06/06/19 06:03 MCV 94.8 fL (80-95) 06/06/19 06:03 MCH 30.7 pg (27.0-33.0) 06/06/19 06:03 MCHC 32.3 g/dL (32.0-36.0) 06/06/19 06:03 RDW 16.1 % (11.8-14.1) H 06/06/19 06:03 Plt Count 184 x1000/uL (130-400) 06/06/19 06:03 MPV 9.0 fL (8.0-11.0) 06/06/19 06:03 Immature Gran % 0.5 % 06/06/19 06:03 Neutrophils % 87.7 06/06/19 06:03 Lymphocytes % 9.6 06/06/19 06:03 Monocytes % 2.0 06/06/19 06:03 Eosinophils % 0.0 06/06/19 06:03 Basophils % 0.2 06/06/19 06:03 Absolute Neutrophils 5.57 k/cumm (1.2-6.7) 06/06/19 06:03 Absolute Lymphocytes 0.61 k/cumm (1.2-3.4) L 06/06/19 06:03 Absolute Monocytes 0.13 k/cumm (0.11-0.7) 06/06/19 06:03 Absolute Eosinophils 0.00 k/cumm (0.0-0.7) 06/06/19 06:03 Absolute Basophils 0.01 k/cumm (0.0-0.2) 06/06/19 06:03 ESR 29 mm/hr (1-20) H 06/05/19 13:00 Sodium 142 mmol/L (136-145) 06/06/19 06:03 Potassium 4.0 mmol/L (3.5-5.1) 06/06/19 06:03 Chloride 107 mmol/L (98-107) 06/06/19 06:03 Carbon Dioxide 21.8 mmol/L (21.0-32.0) 06/06/19 06:03 Anion Gap 13.2 mmol/L (3-11) H 06/06/19 06:03 BUN 13 mg/dL (7-18) 06/06/19 06:03 Creatinine 0.72 mg/dL (0.70-1.30) 06/06/19 06:03 Estimated GFR/1.73 m2 >= 60.00 (mL/min/1.73m2) 06/06/19 06:03 Glucose 170 mg/dL (74-106) H 06/06/19 06:03 Lactate 1.7 mmol/L (0.6-1.4) H 06/05/19 16:10 Calcium 7.8 mg/dL (8.5-10.1) L 06/06/19 06:03 Magnesium 1.9 mg/dL (1.8-2.4) 06/06/19 06:03 Total Bilirubin 0.7 mg/dL (0.2-1.0) 06/05/19 13:00 AST 45 U/L (15-37) H 06/05/19 13:00 ALT 59 U/L (16-63) 06/05/19 13:00 Alkaline Phosphatase 71 U/L (46-116) 06/05/19 13:00 Total Protein 7.6 g/dL (6.4-8.2) 06/05/19 13:00 Albumin 3.8 g/dL (3.4-5.0) 06/05/19 13:00 Lipase 62 U/L (73-393) 06/05/19 13:00
[2019-06-06 07:32] LABS: ESR 29 mm/hr (1-20)
--- NOTE | 2019-06-06 08:30 | W.PM.PROGNOT ---
Date of Service Date of service: 06/06/19 Time of Service: 08:30 Subjective Subjective Interval history since last seen: Remains in NSR 60-70's. BP 110's. Had a BM - 1500 cc. Abdominal pain better than baseline. NG clamped. Voiding without issues. Objective Objective Clinical Data: Abnormal lab results 06/05/19 06/05/19 06/05/19 Range/Units 13:00 13:00 16:10 RBC 4.23 L (4.50-6.00) m/cumm Hgb 12.9 L (13.5-17.5) g/dL Hct 39.6 L (40.0-50.0) % RDW 16.1 H (11.8-14.1) % Absolute Lymphocytes 0.67 L (1.2-3.4) k/cumm ESR 29 H (1-20) mm/hr Anion Gap 11.6 H (3-11) mmol/L Glucose 142 H (74-106) mg/dL Lactate 1.7 H (0.6-1.4) mmol/L Calcium (8.5-10.1) mg/dL Magnesium 1.7 L (1.8-2.4) mg/dL AST 45 H (15-37) U/L 06/06/19 06/06/19 Range/Units 06:03 06:03 RBC 3.88 L (4.50-6.00) m/cumm Hgb 11.9 L (13.5-17.5) g/dL Hct 36.8 L (40.0-50.0) % RDW 16.1 H (11.8-14.1) % Absolute Lymphocytes 0.61 L (1.2-3.4) k/cumm ESR 29 H (1-20) mm/hr Anion Gap 13.2 H (3-11) mmol/L Glucose 170 H (74-106) mg/dL Lactate (0.6-1.4) mmol/L Calcium 7.8 L (8.5-10.1) mg/dL Magnesium (1.8-2.4) mg/dL AST (15-37) U/L Vital Signs Temperature 36.8 C 06/06/19 04:30 Temperature Source Temporal Artery Scan 06/06/19 00:00 Pulse 69 06/06/19 04:30 Pulse 68 06/05/19 22:40 Respiratory Rate 17 06/06/19 04:30 Respiratory Effort 06/06/19 04:30 Respiratory Depth Normal 06/06/19 04:30 Respiratory Pattern Normal 06/06/19 04:30 Blood Pressure 139/88 06/06/19 04:30 Blood Pressure Mean 105 06/06/19 04:30 Blood Pressure Position Supine 06/05/19 12:48 Pulse Oximetry 94 L 06/06/19 04:30 Oxygen Delivery Method Room Air 06/05/19 17:53 Oxygen Flow Rate 0 06/05/19 17:53 Fraction of Inspired Oxygen (FIO2) 21 06/06/19 08:10 Pain Level 3 06/06/19 04:30 Intake & Output 06/05/19 06/05/19 06/06/19 11:59 23:59 11:59 Intake Total 2049 1010 / 1010 Output Total 750 / 750 1510 / 1510 Balance 1300 / 1300 -500 / -500 Weight 111.13 kg Intake: IV 2049 1010 / 1010 Output: Gastric Drainage 350 / 350 10 / 10 Right Nare 350 / 350 10 / 10 Urine 400 / 400 Stool 1500 / 1500 Other: Urine Color Yellow Yellow Urine Appearance Clear Urine Odor Normal None Comment dark yellow urine Stool Occult Blood Negative Stool Characteristics Liquid Gastric Occult Blood Right Nare Negative Negative Voiding Methods Urinal Laboratory Results WBC 6.35 k/cumm (4.4-10.8) 06/06/19 06:03 RBC 3.88 m/cumm (4.50-6.00) L 06/06/19 06:03 Hgb 11.9 g/dL (13.5-17.5) L 06/06/19 06:03 Hct 36.8 % (40.0-50.0) L 06/06/19 06:03 MCV 94.8 fL (80-95) 06/06/19 06:03 MCH 30.7 pg (27.0-33.0) 06/06/19 06:03 MCHC 32.3 g/dL (32.0-36.0) 06/06/19 06:03 RDW 16.1 % (11.8-14.1) H 06/06/19 06:03 Plt Count 184 x1000/uL (130-400) 06/06/19 06:03 MPV 9.0 fL (8.0-11.0) 06/06/19 06:03 Immature Gran % 0.5 % 06/06/19 06:03 Neutrophils % 87.7 06/06/19 06:03 Lymphocytes % 9.6 06/06/19 06:03 Monocytes % 2.0 06/06/19 06:03 Eosinophils % 0.0 06/06/19 06:03 Basophils % 0.2 06/06/19 06:03 Absolute Neutrophils 5.57 k/cumm (1.2-6.7) 06/06/19 06:03 Absolute Lymphocytes 0.61 k/cumm (1.2-3.4) L 06/06/19 06:03 Absolute Monocytes 0.13 k/cumm (0.11-0.7) 06/06/19 06:03 Absolute Eosinophils 0.00 k/cumm (0.0-0.7) 06/06/19 06:03 Absolute Basophils 0.01 k/cumm (0.0-0.2) 06/06/19 06:03 ESR 29 mm/hr (1-20) H 06/06/19 06:03 Sodium 142 mmol/L (136-145) 06/06/19 06:03 Potassium 4.0 mmol/L (3.5-5.1) 06/06/19 06:03 Chloride 107 mmol/L (98-107) 06/06/19 06:03 Carbon Dioxide 21.8 mmol/L (21.0-32.0) 06/06/19 06:03 Anion Gap 13.2 mmol/L (3-11) H 06/06/19 06:03 BUN 13 mg/dL (7-18) 06/06/19 06:03 Creatinine 0.72 mg/dL (0.70-1.30) 06/06/19 06:03 Estimated GFR/1.73 m2 >= 60.00 (mL/min/1.73m2) 06/06/19 06:03 Glucose 170 mg/dL (74-106) H 06/06/19 06:03 Lactate 1.7 mmol/L (0.6-1.4) H 06/05/19 16:10 Calcium 7.8 mg/dL (8.5-10.1) L 06/06/19 06:03 Magnesium 1.9 mg/dL (1.8-2.4) 06/06/19 06:03 Total Bilirubin 0.7 mg/dL (0.2-1.0) 06/05/19 13:00 AST 45 U/L (15-37) H 06/05/19 13:00 ALT 59 U/L (16-63) 06/05/19 13:00 Alkaline Phosphatase 71 U/L (46-116) 06/05/19 13:00 Total Protein 7.6 g/dL (6.4-8.2) 06/05/19 13:00 Albumin 3.8 g/dL (3.4-5.0) 06/05/19 13:00 Lipase 62 U/L (73-393) 06/05/19 13:00
--- NOTE | 2019-06-06 10:25 | INITIAL_ITS ---
- If Service Date Differs Date of service: 06/06/19 Time of Service: 10:25 Care Management Initial Assess REASON FOR HOSPITALIZATION:: SBO PAST MEDICAL HISTORY/PAST SURGICAL HISTORY:: Past medical history: SBO, Crohns, Afib, PE, JULIANA, IDDM PREVIOUS FUNCTIONAL STATUS/SOCIAL/FAMILY SUPPORTS:: Alonso lives in a single family home in [facility] with his Carol. 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 He uses a cane and a walker at home and occasionally a motorized wheelchair when out in a facility where they are available. CURRENT FUNCTIONAL STATUS:: Alonso was lying then sitting up in bed when CM met with him and his Carol. He was complaining of pain in his legs and was observed rubbing his thighs and was awaiting pain medication. He stated that he has restless legs. Alonso appeared extremely restless and uncomfortable. ADVANCE DIRECTIVES:: None on file at [facility] Has patient been provided with information about the portal?: Yes Did the patient sign up for the portal?: No CODE STATUS:: Full Code INSURANCE COVERAGE / FINANCIAL ISSUES:: medicare CURRENT HOME/COMMUNITY SERVICES/EQUIPMENT:: No services currently but does use a walker and a cane for ambulation. When he goes somewhere with long hallways, he uses an electric wheelchair if available. PRIMARY CARE PHYSICIAN:: Kenney Greer MD POTENTIAL DISCHARGE NEEDS:: Follow up with PCP and discharge plan of care PATIENT/FAMILY EDUCATION NEEDS:: Discharge and follow up plans, limitations, Ask Me Three TRANSPORTATION:: via private vehicle with family/friends PLAN:: Alonso will likely be discharged home with no new services. He will follow up with his PCP and discharge plan of care. He will transport via private vehicle with his . CM will continue to support patient, family and disch arge planning needs.
--- NOTE | 2019-06-06 11:10 | DI.RAD_ITS ---
EXAM: XR ABDOMEN FLAT UPRIGHT INDICATION: SBO. COMPARISON: XR ABDOMEN FLAT PLATE from 06/05/2019 TECHNIQUE: 2D digital imaging was performed. FINDINGS: A nasogastric tube is again noted in the stomach. There is continued dilatation of loops of small b owel, not definitely changed from the previous exam. Small amount of air is seen in the transverse c olon. No free air is visible. IMPRESSION: No significant change in small bowel dilatation.
[2019-06-06] MEDS: FAMOTIDINE 20 MG/50 ML BAG 200 MG IVPB (12:19)
[2019-06-06] MEDS: dilTIAZem 30 MG TAB PO (13:09)
[2019-06-06] MEDS: HYDROcodone 5/Acetaminophen 325 TAB PO (13:09)
--- NOTE | 2019-06-06 14:11 | W.PM.DS.N ---
Date of service: 06/06/19 Time of Service: 14:11 DS: Diagnosis Discharge Diagnosis (1) SBO (small bowel obstruction): Status: Resolved (2) Crohn's disease: Status: None (3) IDDM (insulin dependent diabetes mellitus): Status: Chronic (4) Atrial fibrillation: Status: Chronic (5) Bilateral pulmonary embolism: Status: Chronic (6) Hypertension: Status: Chronic (7) Obstructive sleep apnea: Status: Chronic Discharge Plan Disposition Patient Disposition: HOME Condition: Improving Discharge Details Chief Complaint: Abd Prob Reason For Visit: SBO;H/O AFIB-MAY REQ IV THERAPY Admit Date/Time: 06/05/19 16:06 Admit Provider: Liset Ponce Attending Provider: Liset Ponce Primary Care Provider: Kenney Greer ED Provider: Zakiya Leach [facility] Course Hospital Course: Mr Wiley is a 69 year old male with PMHx of Crohn's disease with h/o prior episodes of SBO and abdominal surgeries, as well as h/o DVT/PE on lovenox, prostate cancer on androgen deprivation therapy, and IDDM2, who was admitted to [facility] ICU on 06/05/2019 with SBO. He was made NPO, NGT was placed, and the patient was treated with high dose intravenous steroids in case it was a Crohn's flare that was causing his SBO. He was kept on diltiazem infusion as he could not tolerate his oral Afib medications during this time. He was evaluated by general surgery (Dr Mo), but ultimately did not require surgical intervention as improved unexpectedly quickly, and had a large BM overnight with resolution of his pain and abdominal distention. He was able to tolerate a full liquid diet. Because the patient has had numerous episodes of SBO, he feels comfortable advancing his diet at home and knows how to taper his prednisone over a week. He would like to go home today which is reasonable. He is instructed to return to the hospital if he feels worse. He is to follow up with his PCP in 1-2 weeks. He is also being referred to Dr Mo as outpatient. Care for patient as well as completion of his discharge summary took 45 minutes. Home Meds and New Rx's Prescriptions: New prednisone 5 mg tablet See Rx Instructions .ROUTE .COMPLEX Qty: 38 RF: 0 Continued diltiazem HCl [Cardizem] 30 mg tablet 30 mg PO TID RF: 0 acetaminophen [Tylenol Extra Strength] 500 MG tablet 1,000 mg PO Q4H PRN PRNRF: 0 Multaq 400 MG tablet 400 mg PO BID Qty: 180 RF: 4 balsalazide 750 MG capsule 2,250 mg PO TID RF: 0 Excedrin Migraine 1 EACH tablet 1 ea PO DAILY PRNRF: 0 omeprazole [Prilosec] 20 MG capsule,delayed release(DR/EC) 40 mg PO BID RF: 0 ferrous gluconate 324 mg (37.5 mg iron) tablet 324 mg PO BID RF: 0 nitroglycerin [Nitrostat] 0.4 MG tablet, sublingual 0.4 mg Sublingual Q5 MIN PRN X3 PRNQty: 15 RF: 0 hydrocodone-acetaminophen 1 TAB tablet 1 - 2 tab PO Q4H PRN PRNQty: 40 RF: 0 cyanocobalamin (vitamin B-12) 1,000 mcg/mL solution 1,000 mcg IM QMONTH RF: 0 ergocalciferol (vitamin D2) [Vitamin D2] 50,000 unit capsule 50,000 unit PO .2x weekly RF: 0 metoclopramide HCl [Reglan] 10 mg tablet 10 mg PO BID Qty: 4 RF: 0 Basaglar KwikPen U-100 Insulin 100 unit/mL (3 mL) Insulin Pen 40 unit SUBCUT DAILY RF: 0 prednisone 5 mg tablet 10 mg PO BID Qty: 0 RF: 0 ranitidine HCl [Zantac] 150 MG tablet 150 mg PO QID RF: 0 calcium carbonate 500 MG tablet,chewable 500 mg CH QID RF: 0 enoxaparin [Lovenox] 100 MG/ML syringe 100 mg SQ Q12H RF: 0 Topicaine 30 GM gel 1 appful Topical PRN PRNRF: 0 pramipexole 0.5 mg tablet 1 mg PO HS RF: 0 promethazine 12.5 mg Tablet 12.5 mg PO Q6H PRNRF: 0 levothyroxine 75 mcg Tablet 75 mcg PO DAILY RF: 0 magnesium L-lactate 84 mg Tablet Extended Release 84 mg PO DAILY RF: 0 Trulicity 0.75 mg/0.5 mL Pen Injector 0.75 mg SUBCUT QWEEK RF: 0 Discharge Instructions Instructions: Bowel Obstruction (DC) Additional Instructions: Return to the hospital with any worsening of your abdominal pain, fever, bleeding, chest pain, or shortness of breath. Referrals: Erinn Mo MD [ [facility] STAFF PHYSICIAN] - Kenney Greer MD [Primary Care Provider] - Activity:: Activity as Tolerated Equipment/Supplies:: No Equipment Needed Diet:: As Tolerated Discharge Orders Discharge Orders: Discharge Order (Routine); Ordered 06/06/19 Ordered By: Liset Ponce DS: Summary Status at Discharge Functional status at discharge: uses cane/walker Overall status at discharge: patient is progressing back to baseline Mental Status: mental status grossly normal Speech and Movement: speech and movement normal Mood: congruent mood Affect: normal affect Exam Narrative Exam Narrative: General: Middle-aged male, appears to be in much better spirits and generally looks better than yesterday HEENT: EOMI, MMM Cardiovascular: RRR, no m/r/g Lungs: CTAB Gastrointestinal: Abdomen is obese, soft, nondistended, +BS Extremities: wearing tights, no obvious edema Psych Mental Status: mental status grossly normal Speech and Movement: speech and movement normal Mood: congruent mood Affect: normal affect DS: Data Vitals/I&O Vitals and I&O: Vital Signs Temperature 36.8 C 06/06/19 11:49 Temperature Source Temporal Artery Scan 06/06/19 11:49 Pulse 69 06/06/19 11:26 Pulse 71 06/06/19 14:00 Respiratory Rate 18 06/06/19 14:00 Respiratory Effort Non-Labored 06/06/19 11:49 Respiratory Depth Normal 06/06/19 11:49 Respiratory Pattern Normal 06/06/19 11:49 Blood Pressure 133/71 06/06/19 11:26 Blood Pressure Mean 84 06/06/19 11:26 Blood Pressure Position Sitting 06/06/19 11:49 Pulse Oximetry 94 L 06/06/19 11:45 Oxygen Delivery Method Room Air 06/06/19 11:49 Oxygen Flow Rate 0 06/06/19 11:49 Fraction of Inspired Oxygen (FIO2) 21 06/06/19 08:10 Pain Level 9 06/06/19 13:09 Intake & Output 06/05/19 06/06/19 06/06/19 23:59 11:59 23:59 Intake Total 2049 1010 / 1760 750 / 1760 Output Total 750 / 750 1663 / 1663 Balance 1300 / 1300 -653 / 97 750 / 97 Weight 111.13 kg Intake: IV 2049 1010 / 1010 Oral 750 / 750 Output: Gastric Drainage 350 / 350 Right Nare 350 / 350 Urine 400 / 400 150 / 150 Stool 1500 / 1500 Other: Urine Color Yellow Yellow Urine Appearance Clear Clear Urine Odor Normal None Comment Pt voided to urinal in bed Stool Occult Blood Negative Stool Characteristics Liquid Gastric Occult Blood Right Nare Negative Negative Voiding Methods Urinal Urinal Data Completed and Pending Completed studies during hospitalization [Text1]: CT abdomen/pelvis 06/05/2019: Small bowel obstruction with transition point in the right mid abdomen. CXR/KUB 06/05/2019: Positioning of nasogastric tube in the stomach. Small bowel obstruction. XR abdomen flat and upright 06/06/2019: No significant change in small bowel dilatation. (appearance is chronic, per patient). Labs on day of discharge: Labs from last 24 hours 06/06/19 06/06/19 06/05/19 06:03 06:03 16:10 WBC 6.35 RBC 3.88 L Hgb 11.9 L Hct 36.8 L MCV 94.8 MCH 30.7 MCHC 32.3 RDW 16.1 H Plt Count 184 MPV 9.0 Immature Gran % 0.5 Neutrophils % 87.7 Lymphocytes % 9.6 Monocytes % 2.0 Eosinophils % 0.0 Basophils % 0.2 Absolute Neutrophils 5.57 Absolute Lymphocytes 0.61 L Absolute Monocytes 0.13 Absolute Eosinophils 0.00 Absolute Basophils 0.01 ESR 29 H Sodium 142 Potassium 4.0 Chloride 107 Carbon Dioxide 21.8 Anion Gap 13.2 H BUN 13 Creatinine 0.72 Estimated GFR/1.73 m2 >= 60.00 Glucose 170 H Lactate 1.7 H Calcium 7.8 L Magnesium 1.9 C-Reactive Protein Pending Lipase 06/05/19 06/05/19 06/05/19 13:00 13:00 13:00 WBC RBC Hgb Hct MCV MCH MCHC RDW Plt Count MPV Immature Gran % Neutrophils % Lymphocytes % Monocytes % Eosinophils % Basophils % Absolute Neutrophils Absolute Lymphocytes Absolute Monocytes Absolute Eosinophils Absolute Basophils ESR 29 H Sodium Potassium Chloride Carbon Dioxide Anion Gap BUN Creatinine Estimated GFR/1.73 m2 Glucose Lactate Calcium Magnesium C-Reactive Protein Pending Lipase 62 [facility] Medical History Afib Bilateral hip pain Bone lesion Chest pain Crohn's disease Drug hypersensitivity Dyspepsia Fibromyalgia GERD (gastroesophageal reflux disease) Hot flash in male HTN (hypertension) Hx of adenomatous colonic polyps Hx of melanoma excision Hypomania IBS (irritable bowel syndrome) 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 Migraine Neuropathy Nocturnal hypoxia Osteopenia PE (pulmonary thromboembolism) Periodic limb movement disorder Post poliomyelitis syndrome Prostate cancer Rectal bleeding Rectal pain Right ankle pain Saphenous vein phlebitis Sebaceous cyst Sensorineural hearing loss Sleep apnea Squamous cell carcinoma of hand Superficial phlebitis of leg Swelling of left lower extremity Vitamin B12 deficiency Surgical History ankle surgery, right Arthroplasty of knee bilat Arthroscopy, Shoulder left shoulder repair Colectomy x3 deep muscle biopsy, left calf muscle Hernia Repair, Incisional (03/22/16) intestinal obstruction with incarcerated incisional hernia, lysis of adhesions Family History Mother No problems noted. Father Kidney malignancy Son No problems noted. Social History Smoking/Tobacco Use Status: Never Alcohol Intake: never Drug use: Never Substance use type: does not use Do you feel safe at home: Yes Do you feel safe in your relationship?: Yes
[2019-06-06 14:41] LABS: C-Reactive Protein 0.37 mg/dL (0.0-0.3)
[2019-06-06 14:52] LABS: C-Reactive Protein 0.33 mg/dL (0.0-0.3)
== END 2019-06-06 16:10 | disposition home or self-care (01) | DRG 389 ==
LOC: ER 16:49 → ICU 17:20
PROVIDERS: Admitting Provider Internal Medicine; Emergency Provider Student in an Organized Health Care Education/Training Program; PCP Internal Medicine; Visit Provider Internal Medicine
DX: K56.609 Unspecified intestinal obstruction, unspecified as to partial versus complete obstruction (principal); K50.90 Crohn's disease, unspecified, without complications; I48.20 Chronic atrial fibrillation, unspecified; C79.51 Secondary malignant neoplasm of bone; E11.42 Type 2 diabetes mellitus with diabetic polyneuropathy; Z79.4 Long term (current) use of insulin; Z86.711 Personal history of pulmonary embolism; Z86.718 Personal history of other venous thrombosis and embolism; Z79.01 Long term (current) use of anticoagulants; C61 Malignant neoplasm of prostate; I10 Essential (primary) hypertension; G47.33 Obstructive sleep apnea (adult) (pediatric); Z79.52 Long term (current) use of systemic steroids; Z90.49 Acquired absence of other specified parts of digestive tract; Z96.643 Presence of artificial hip joint, bilateral; K21.9 Gastro-esophageal reflux disease without esophagitis
CPT/HCPCS: 36415; 71045; 80048; 80053; 83690; 85652; 96361; 96374; 96375; 96376; 99222; 99223; 99233; 99239; 99253; 99285; 74018; 74019; 74177; 83605; 83735; 85025; 86140; J1650; J2060; J2270; J2405; J2930; J3490

== ENCOUNTER 2019-06-21 01:04 | Outpatient (CLI) | payer MEDICARE, SELFPAY ==
--- NOTE | 2019-06-21 12:00 | DI.NM_ITS ---
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 TECHNIQUE: Injected Dose: 25 mCi Tc-99m MDP Delayed Images: 2-3 hours. COMPARISON: WHOLE BODY BONE SCAN from 03/12/2017 WHOLE BODY BONE SCAN from 01/20/2019 FINDINGS: Symmetric axial uptake. Bilateral renal excretion is identified. There are stable findings of widespr ead osseous metastatic disease. IMPRESSION: 1. No change in appearance of the bone scan compared to 01/20/2019.
== END 2019-06-21 01:24 ==
PROVIDERS: PCP Internal Medicine; Visit Provider Nurse Practitioner Adult Health
DX: C61 Malignant neoplasm of prostate (principal); C79.51 Secondary malignant neoplasm of bone
CPT/HCPCS: 78306

== ENCOUNTER 2019-07-25 08:36 | Outpatient (CLI) | payer MEDICARE, SELFPAY | END 2019-07-25 08:56 | PROVIDERS: PCP Internal Medicine; Visit Provider Internal Medicine Cardiovascular Disease | DX: I49.5 Sick sinus syndrome (principal); I26.99 Other pulmonary embolism without acute cor pulmonale; I82.409 Acute embolism and thrombosis of unspecified deep veins of unspecified lower extremity; I48.91 Unspecified atrial fibrillation; I10 Essential (primary) hypertension | CPT/HCPCS: 99204; 99215; 93005; 93010; 93971 ==

== ENCOUNTER 2019-07-25 11:11 | Outpatient (CLI) | payer MEDICARE, SELFPAY ==
--- NOTE | 2019-07-25 10:30 | DI.US_ITS ---
EXAM: US LOWER EXTREMITY VENOUS RT CLINICAL HISTORY: rule out DVT I26.99 PE, I82.409ACUTE EMBOLISM AND THROMBOSIS TECHNIQUE: Ultrasound performed using standard protocol. COMPARISON: Cardiac from 03/09/2016 FINDINGS: Duplex evaluation of the deep venous system of right lower extremity was performed according to the [facility] protocol. There is no evidence of deep venous thrombosis. Note is made of a nearly anechoic fluid collection measuring about 16 x 3 cm in diameter in the calf, the findings may represent hematoma or ruptured Bonner's cyst. No vascularity identified in this flu id collection. IMPRESSION: No evidence of DVT, calf hematoma versus ruptured Bonner's cyst noted. DATA REPOSITORY:
== END 2019-07-25 11:31 ==
PROVIDERS: PCP Internal Medicine; Visit Provider Internal Medicine Cardiovascular Disease
DX: M79.89 Other specified soft tissue disorders (principal); Z86.711 Personal history of pulmonary embolism; I48.91 Unspecified atrial fibrillation
CPT/HCPCS: 93971

== ENCOUNTER 2019-08-01 09:47 | Outpatient (CLI) | payer MEDICARE, SELFPAY ==
[2019-08-01 10:24] LABS: Abs Immature Grans 0.06 k/cumm (0.0-0.09); Absolute Basophil Count 0.02 k/cumm (0.0-0.2); Absolute Eosinophil Count 0.18 k/cumm (0.0-0.7); Absolute Lymphocyte Count 0.78 k/cumm (1.2-3.4); Absolute Monocyte Count 0.53 k/cumm (0.11-0.7); Absolute Neutrophil Count 6.06 k/cumm (1.2-6.7); Basophils % 0.3; Eosinophils % 2.4; HCT 39.8 % (40.0-50.0); HGB 12.9 g/dL (13.5-17.5); Immature Grans % 0.8 %; Lymphocytes % 10.2; Mean Corp. HGB Concentration 32.4 g/dL (32.0-36.0); Mean Corpuscular Volume 95.7 fL (80-95); Mean Platelet Volume 8.8 fL (8.0-11.0); Monocytes % 6.9; Neutrophils % 79.4; Platelet Count 208 x1000/uL (130-400); RBC 4.16 m/cumm (4.50-6.00); RBC Distribution Width 15.7 % (11.8-14.1); White Blood Cell Count 7.63 k/cumm (4.4-10.8)
[2019-08-01 11:19] LABS: ALT 51 U/L (16-63); AST 37 U/L (15-37); Albumin 3.9 g/dL (3.4-5.0); Alkaline Phosphatase 107 U/L (46-116); BUN 17 mg/dL (7-18); Bilirubin, Total 0.6 mg/dL (0.2-1.0); Calcium 8.7 mg/dL (8.5-10.1); Chloride 103 mmol/L (98-107); Glucose 173 mg/dL (74-106); Potassium 4.2 mmol/L (3.5-5.1); Sodium 140 mmol/L (136-145); Total Protein 7.2 g/dL (6.4-8.2)
[2019-08-02 10:22] LABS: PSA, Screening 2.4 ng/mL (0.0-4.5)
[2019-08-03 08:02] LABS: Testosterone, Total <7.0 ng/dL (240-950)
== END 2019-08-01 10:07 ==
PROVIDERS: PCP Internal Medicine; Visit Provider Internal Medicine
DX: C61 Malignant neoplasm of prostate (principal)
CPT/HCPCS: 36415; 80053; 84153; 84403; 85025

== ENCOUNTER 2019-08-31 02:24 | Outpatient (CLI) | payer MEDICARE, SELFPAY ==
[2019-08-31 10:28] LABS: Abs Immature Grans 0.03 k/cumm (0.0-0.09); Absolute Basophil Count 0.02 k/cumm (0.0-0.2); Absolute Eosinophil Count 0.12 k/cumm (0.0-0.7); Absolute Lymphocyte Count 0.77 k/cumm (1.2-3.4); Absolute Monocyte Count 0.64 k/cumm (0.11-0.7); Absolute Neutrophil Count 5.93 k/cumm (1.2-6.7); Basophils % 0.3; Eosinophils % 1.6; HCT 39.6 % (40.0-50.0); HGB 13.1 g/dL (13.5-17.5); Immature Grans % 0.4 %; Lymphocytes % 10.3; Mean Corp. HGB Concentration 33.1 g/dL (32.0-36.0); Mean Corpuscular Volume 93.6 fL (80-95); Mean Platelet Volume 9.1 fL (8.0-11.0); Monocytes % 8.5; Neutrophils % 78.9; Platelet Count 194 x1000/uL (130-400); RBC 4.23 m/cumm (4.50-6.00); White Blood Cell Count 7.51 k/cumm (4.4-10.8)
[2019-08-31 11:27] LABS: ALT 66 U/L (16-63); Albumin 3.8 g/dL (3.4-5.0); Alkaline Phosphatase 108 U/L (46-116); Anion Gap 11.9 mmol/L (3-11); BUN 22 mg/dL (7-18); Bilirubin, Total 0.6 mg/dL (0.2-1.0); CO2 26.1 mmol/L (21.0-32.0); CREATININE 0.95 mg/dL (0.70-1.30); Calcium 9.3 mg/dL (8.5-10.1); Chloride 102 mmol/L (98-107); Glucose 150 mg/dL (74-106); Potassium 4.1 mmol/L (3.5-5.1); Sodium 140 mmol/L (136-145); Total Protein 7.5 g/dL (6.4-8.2)
[2019-08-31 11:35] LABS: AST 52 U/L (15-37)
[2019-09-01 10:06] LABS: PSA, Diagnostic 4.3 ng/mL (0.0-4.5)
[2019-09-01 21:05] LABS: Testosterone, Total <7.0 ng/dL (240-950)
== END 2019-08-31 02:44 ==
PROVIDERS: PCP Internal Medicine; Visit Provider Internal Medicine
DX: C61 Malignant neoplasm of prostate (principal)
CPT/HCPCS: 36415; 80053; 84403; 84153; 85025

== ENCOUNTER 2019-10-01 18:57 | Inpatient (IN) | payer MEDICARE, SELFPAY ==
[2019-10-01] VITALS (17 sets, daily range): BP systolic 133–184; BP diastolic 68–98; PULSE 79–93; RESP 19–36; TEMP 36.6–37.3; O2SAT 91–97
[2019-10-01 20:21] LABS: Abs Immature Grans 0.05 k/cumm (0.0-0.09); Absolute Basophil Count 0.02 k/cumm (0.0-0.2); Absolute Eosinophil Count 0.07 k/cumm (0.0-0.7); Absolute Lymphocyte Count 0.78 k/cumm (1.2-3.4); Absolute Monocyte Count 0.47 k/cumm (0.11-0.7); Absolute Neutrophil Count 6.39 k/cumm (1.2-6.7); Basophils % 0.3; Eosinophils % 0.9; HCT 38.5 % (40.0-50.0); HGB 13.5 g/dL (13.5-17.5); Immature Grans % 0.6 %; Mean Corp. HGB Concentration 35.1 g/dL (32.0-36.0); Mean Corpuscular Hemoglobin 32.7 pg (27.0-33.0); Mean Corpuscular Volume 93.2 fL (80-95); Mean Platelet Volume 9.6 fL (8.0-11.0); Neutrophils % 82.2; Platelet Count 239 x1000/uL (130-400); RBC 4.13 m/cumm (4.50-6.00); White Blood Cell Count 7.78 k/cumm (4.4-10.8)
[2019-10-01 20:32] LABS: Lactate 4.5 mmol/L (0.6-1.4)
[2019-10-01 20:39] LABS: Anion Gap 11.4 mmol/L (3-11); CO2 24.6 mmol/L (21.0-32.0); Chloride 95 mmol/L (98-107); Sodium 131 mmol/L (136-145)
[2019-10-01] MEDS: Normal Saline - Diluent 50 ML VIAL IV (20:57)
[2019-10-01] MEDS: HYDROcodone 5/Acetaminophen 325 TAB (20:58)
[2019-10-01] MEDS: Normal Saline Flush 10 ML SYR IVP (20:58)
[2019-10-01 21:04] LABS: D-Dimer 415 ng/mlFEU (<500)
[2019-10-01] MEDS: Omnipaque 350 MG/ML 100 ML BTL IJ (21:05)
[2019-10-01 21:08] LABS: ALT 81 U/L (16-63); AST 60 U/L (15-37); Albumin 3.8 g/dL (3.4-5.0); Alkaline Phosphatase 134 U/L (46-116); BUN 22 mg/dL (7-18); Bilirubin, Total 0.6 mg/dL (0.2-1.0); Calcium 9.3 mg/dL (8.5-10.1); Glucose 284 mg/dL (74-106); LDH 237 U/L (85-227); Magnesium 1.6 mg/dL (1.8-2.4); Total Protein 7.5 g/dL (6.4-8.2)
[2019-10-01 21:08] LABS: Procalcitonin 0.2 ng/mL
[2019-10-01 21:12] LABS: Troponin I < 0.05 ng/Ml (<0.06)
--- NOTE | 2019-10-01 21:17 | DI.CT_ITS ---
EXAM: CT CHEST PE ABD PELVIS W CLINICAL HISTORY: Tachypnea, sob, hx of PE, lactate 4.5. TECHNIQUE: Imaging Protocol: Axial CT angiography was performed with multi-slice acquisition and mu lti-planar and/or 3D reconstructions. CONTRAST MATERIAL: Intravenous: Omnipaque 350 Contrast volume:[address] ABDOMEN PELVIS W from 06/05/2019 FINDINGS: Chest CT: The contrast bolus is suboptimal. The pulmonary arteries are not well opacified. There is a question of emboli within right lower lobe segmental and subsegmental arteries. There is right ba silar atelectasis versus infiltrate or infarct. There is mild scarring at the left lung base. There are no pleural or pericardial effusions. There is no evidence of aortic dissection. Liver is enlar ged and shows severe fatty infiltration. There is elevation of the right diaphragm. There is no tee dence of fracture or pneumothorax. The bones show a mottled sclerotic appearance consistent with pat ient's history of metastatic prostate CA. Abdomen pelvic CT: The liver shows severe fatty infiltration. No focal liver lesions are visible. T he patient is status post cholecystectomy. There is no biliary dilatation. The pancreas, spleen and adrenals are unremarkable. There are a few small nonobstructing renal calculi. Tiny renal cysts ar e seen. There is no hydronephrosis. No bowel dilatation is seen. The aorta is normal in diameter. There are bilateral hip prostheses causing artifact in the pelvis. The floor of the pelvis is obscu red. The prostate is not visible. The bones appear sclerotic consistent with the patient's history of prostate CA. Urinary bladder is somewhat distended. There is a fatty containing left inguinal he rnia. There is some edema in the anterior subcutaneous fat which may be secondary to injections. No bowel dilatation or inflammatory change is seen. There is no evidence of ascites. IMPRESSION: Question of right lower lobe pulmonary emboli. The exam is limited by poor pulmonary artery opacific ation. Marked hepatic steatosis is noted. No acute abnormality is seen in the abdomen or pelvis. B mishel lesions are consistent with sclerotic prostate metastases. RADIATION DOSE DELIVERED: Total DLP DATA REPOSITORY: All CT scans at this facility are submitted to the National Radiology Data Registry (NRDR) Dose Index Registry (DIR) with the [employer] (ACR). RADIATION OPTIMIZATION: All CT scans at this facility use at least one of these dose optimization te chniques: automated exposure control; mA and/or kV adjustment per patient size (includes targeted exa ms where dose is matched to clinical indication); or iterative reconstruction.
--- NOTE | 2019-10-01 21:20 | W.ED.GENAD ---
Discharge Plan Disposition Patient Disposition: [facility] INPATIENT Condition: Serious Discharge Details Chief Complaint: SOB Clinical Impression: Pulmonary emboli Primary Care Provider: Kenney Greer ED Provider: Eran Huang Home Meds and New Rx's Prescriptions: No Action prednisone 5 mg tablet 10 mg PO BID RF: 0 diltiazem HCl [Cardizem] 30 mg tablet 30 mg PO TID RF: 0 acetaminophen [Tylenol Extra Strength] 500 MG tablet 1,000 mg PO Q4H PRN PRNRF: 0 Multaq 400 MG tablet 400 mg PO BID Qty: 180 RF: 4 balsalazide 750 MG capsule 2,250 mg PO TID RF: 0 Excedrin Migraine 1 EACH tablet 1 ea PO DAILY PRNRF: 0 omeprazole [Prilosec] 20 MG capsule,delayed release(DR/EC) 40 mg PO BID RF: 0 ferrous gluconate 324 mg (37.5 mg iron) tablet 324 mg PO BID RF: 0 nitroglycerin [Nitrostat] 0.4 MG tablet, sublingual 0.4 mg Sublingual Q5 MIN PRN X3 PRNQty: 15 RF: 0 hydrocodone-acetaminophen 1 TAB tablet 1 - 2 tab PO Q4H PRN PRNQty: 40 RF: 0 cyanocobalamin (vitamin B-12) 1,000 mcg/mL solution 1,000 mcg IM QMONTH RF: 0 ergocalciferol (vitamin D2) [Vitamin D2] 50,000 unit capsule 50,000 unit PO .2x weekly RF: 0 metoclopramide HCl [Reglan] 10 mg tablet 10 mg PO BID Qty: 4 RF: 0 hydrocodone-acetaminophen 10-325 mg tablet 1 tab PO PRN PRNRF: 0 famotidine 20 mg Tablet 20 mg PO BID RF: 0 Lantus Solostar U-100 Insulin 100 unit/mL (3 mL) Insulin Pen 30 unit SUBCUT HS RF: 0 calcium carbonate 500 MG tablet,chewable 1,000 mg CH QID RF: 0 enoxaparin [Lovenox] 100 MG/ML syringe 100 mg SQ Q12H RF: 0 Topicaine 30 GM gel 1 appful Topical PRN PRNRF: 0 pramipexole 0.5 mg tablet 1 mg PO HS RF: 0 promethazine 12.5 mg Tablet 12.5 mg PO Q6H PRNRF: 0 levothyroxine 75 mcg Tablet 75 mcg PO DAILY RF: 0 magnesium L-lactate 84 mg Tablet Extended Release 84 mg PO DAILY RF: 0 Medical Decision Making This is a 69-year-old gentleman who has a rather complicated past medical history presenting for 1 week history of increasing dyspnea, body wide pain, dry cough. Upon initial evaluation he is slightly tachypneic and appears anxious. Patient is able to breathe normally on command and very rapidly has no tachypnea whatsoever. He denies any recent travel or sick contacts. Denies fever. He has had pneumonia in the past and reports that this may feel something like that but not exactly. He describes body pain which is associated with chest pain, his chest pain does not necessarily sound cardiac in nature. Will initiate both a septic and cardiac work-up, given his history of PE, will obtain chest CTA rather than waiting for a chest x-ray at first. We will give IV fluid. We will also initiate COVID work-up and test for the flu. Patient requesting his evening hydrocodone, 10 mg given. Laboratory values reveal a white blood cell count of 7.78 hemoglobin 13.5 hematocrit 38.5 platelet 239. Flu negative. D-dimer 415. Sodium 131 potassium 4 chloride 95, creatinine 0.90 GFR greater than 60. Lactate 4 5, calcium 9.3 magnesium 1.6. Slightly elevated LFTs. BNP of 36. TSH of 6.02 free T4 0.93. COVID is pending. Initial troponin is less than 0.05. Given the lactate of 4.5 and the patient being a rather vague and poor historian, in the setting of slightly elevated LFTs, will obtain CT of chest with contrast to rule out potential PE will also obtain CT of abdomen and pelvis. CT read by virtual radiology as there are likely right lower lobe segmental and subsegmental pulmonary emboli however evaluation is limited by suboptimal contrast bolus timing. Right basilar atelectasis with air bronchograms could reflect small superimposed consolidation. No acute abnormality in the abdomen and pelvis. I discussed these findings with the patient. In the setting of a normal white count, lack of fever, lack of productive cough, and O2 sats appropriate in the low-mid 90s, pneumonia is certainly less likely of a diagnosis. I will await to speak with our hospitalist team before initiating antibiotic therapy. Blood cultures are pending. Patient reports that he was having frequent epistasis, his primary care provider decreased his dose of Lovenox over the past 10 days or so. Reports that there was discussion of other oral agents however given his complicated past medical history did not want to initiate anything that could not be reversed and apparently when he tried warfarin his levels were too a variant to be safe so they have stuck just with Lovenox. I was able to discuss the case with Dr. Vann, who agrees to hold antibiotic therapy. At this time we will give 1 mg/kg of Lovenox subcu. I will write bridging orders and he accepts admission of the patient. Medical Records Medical records reviewed: Yes I reviewed the patient's medical records. ECG Data Attestation: I personally reviewed and interpreted this ECG (s) as follows: Interpretation: EKG performed at 191. Reveals sinus rhythm, ventricular rate of 92. No STEMI. Interpreted and reviewed with Dr. Viral BETTENCOURT General Mode of arrival: ambulatory. Date/Time Provider Initiated Documentation: 10/01/19 18:58. Limitations to Documentation: no limitations. Information obtained by: patient. HPI Narrative: This is a 69-year-old gentleman with a history of diabetes, Crohn's disease, sleep apnea, atrial fibrillation, bilateral pulmonary embolism, hypertension, chronic pain, anemia, small bowel obstruction, GERD, neuropathy, currently anticoagulated with Lovenox, presents to the ER for what he describes as shortness of breath worsening over 1 week, dry cough, and pain all over. He is not on oxygen at home at baseline but does report that he wears BiPAP at bed. He denies productive cough or fever. He reports chronic pain in his shoulders, back, ankles, but reports that it hurts all over and that he does have anterior chest wall discomfort worse with palpation and with deep breathing. He reports baseline bilateral leg swelling but feels as though his right leg is worse than baseline. He denies recent sick contact or travel. He denies smoking or alcohol use. Related Data Home Medications Medication Instructions Recorded Confirmed omeprazole [Prilosec] 40 mg PO BID 01/23/13 10/01/19 acetaminophen [Tylenol Extra 1,000 mg PO Q4H PRN PRN tab-cap NS 03/29/13 10/01/19 Strength] Multaq 400 mg PO BID #180 tab-cap 04/15/15 10/01/19 nitroglycerin [Nitrostat] 0.4 mg SUBLINGUAL Q5 MIN PRN X3 04/23/15 10/01/19 PRN #15 tab balsalazide 2,250 mg PO TID 09/24/15 10/01/19 hydrocodone-acetaminophen 1 - 2 tab PO Q4H PRN PRN #40 tab 03/25/16 10/01/19 Excedrin Migraine 1 ea PO DAILY PRN 09/15/16 10/01/19 Topicaine 1 appful TOPICAL PRN PRN 06/27/17 10/01/19 calcium carbonate 1,000 mg CH QID 06/27/17 10/01/19 enoxaparin [Lovenox] 100 mg SQ Q12H 06/27/17 10/01/19 metoclopramide HCl [Reglan] 10 mg PO BID #4 tab 04/25/18 07/25/19 diltiazem HCl 30 mg tablet 30 mg PO TID tab 04/27/18 10/01/19 cyanocobalamin (vitamin B-12) 1,000 mcg IM QMONTH ml 01/23/19 10/01/19 1,000 mcg/mL injection solution ergocalciferol (vitamin D2) 1,250 50,000 unit PO .2x weekly cap 01/23/19 10/01/19 mcg (50,000 unit) capsule ferrous gluconate 324 mg (37.5 mg 324 mg PO BID tab 01/23/19 10/01/19 iron) tablet pramipexole 0.5 mg tablet 1 mg PO HS tab 01/23/19 10/01/19 levothyroxine 75 mcg PO DAILY 04/29/19 10/01/19 magnesium L-lactate 84 mg PO DAILY 04/29/19 10/01/19 promethazine 12.5 mg PO Q6H PRN 04/29/19 10/01/19 prednisone 5 mg tablet 10 mg PO BID tab 07/25/19 10/01/19 famotidine 20 mg PO BID 10/01/19 10/01/19 hydrocodone-acetaminophen 1 tab PO PRN PRN 10/01/19 10/01/19 insulin glargine [Lantus Solostar 30 unit SUBCUT HS 10/01/19 10/01/19 U-100 Insulin] Previous Rx's Medication Instructions Recorded nitroglycerin [Nitrostat] 0.4 mg SUBLINGUAL Q5 MIN PRN X3 04/23/15 PRN #15 tab hydrocodone-acetaminophen 1 - 2 tab PO Q4H PRN PRN #40 tab 03/25/16 metoclopramide HCl [Reglan] 10 mg PO BID #4 tab 04/25/18 Allergies Allergy/AdvReac Type Severity Reaction Status Date / Time Sulfa (Sulfonamide Allergy Mild Skin Rash Unverified 10/01/19 20:30 Antibiotics) atenolol Allergy Unverified 10/01/19 20:30 atorvastatin Allergy Unverified 10/01/19 20:30 gabapentin Allergy Unverified 10/01/19 20:30 nicardipine Allergy Unverified 10/01/19 20:30 salsalate Allergy Unverified 10/01/19 20:30 tramadol Allergy Unverified 10/01/19 20:30 venlafaxine Allergy Unverified 10/01/19 20:30 ciprofloxacin HCl AdvReac Severe ruptured Unverified 10/01/19 20:30 [From Cipro] achilles tendon hydrochlorothiazide AdvReac Severe myalgias Unverified 10/01/19 20:30 [From Benicar HCT] indapamide AdvReac Severe chest pain Unverified 10/01/19 20:30 olmesartan medoxomil AdvReac Severe myalgias Unverified 10/01/19 20:30 [From Benicar HCT] terazosin [Terazosin] AdvReac Severe tremor, GI Unverified 10/01/19 20:30 upset aliskiren [Aliskiren] AdvReac Intermediate diarrhea Unverified 10/01/19 20:30 amlodipine AdvReac Intermediate fatigue Unverified 10/01/19 20:30 enalapril [Enalapril] AdvReac Intermediate shakes, Unverified 10/01/19 20:30 weakness montelukast sodium AdvReac Intermediate rectal Unverified 10/01/19 20:30 [From Singulair] irritation pregabalin [From Lyrica] AdvReac Intermediate sleep Unverified 10/01/19 20:30 issues spironolactone AdvReac Intermediate headache Unverified 10/01/19 20:30 General Stated Complaint: SOB ELMO: 2 Review of Systems Constitutional Constitutional: Reports fatigue, Denies fever(s) and Reports headache(s) Eyes Eyes: Denies change in vision ENT Ears, Nose, Mouth, and Throat: Reports headache(s), Denies neck pain and Denies sore throat Cardiovascular Cardiovascular: Reports chest pain and Reports dyspnea Respiratory Respiratory: Reports cough and Reports dyspnea Gastrointestinal Gastrointestinal: Denies abdominal pain, Denies diarrhea, Reports nausea and Denies vomiting Genitourinary Genitourinary: Denies dysuria Musculoskeletal Musculoskeletal: Reports back pain, Reports myalgias, Reports arthralgias, Denies neck pain and Denies numbness Integumentary/Breasts Skin/Breast: Denies rash Neurologic Neurologic: Reports headache(s) and Denies numbness Endocrine Endocrine: Reports fatigue PFS Medical History Afib Bilateral hip pain Bone lesion Chest pain Crohn's disease Diabetes (Chronic) Drug hypersensitivity Dyspepsia Fibromyalgia GERD (gastroesophageal reflux disease) Hot flash in male HTN (hypertension) Hx of adenomatous colonic polyps Hx of melanoma excision Hypomania IBS (irritable bowel syndrome) 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 Nocturnal CPAP Osteopenia PE (pulmonary thromboembolism) Periodic limb movement disorder Post poliomyelitis syndrome Prostate cancer Rectal bleeding Rectal pain Right ankle pain Saphenous vein phlebitis Sebaceous cyst Sensorineural hearing loss Sleep apnea Squamous cell carcinoma of hand Superficial phlebitis of leg Swelling of left lower extremity Vitamin B12 deficiency Surgical History ankle surgery, right Arthroplasty of knee bilat Arthroscopy, Shoulder left shoulder repair Colectomy x3 deep muscle biopsy, left calf muscle Hernia Repair, Incisional (03/22/16) intestinal obstruction with incarcerated incisional hernia, lysis of adhesions Family History Mother No problems noted. Father Kidney malignancy Son No problems noted. Social History Smoking/Tobacco Use Status: Never Alcohol Intake: never Drug use: Never Substance use type: does not use What type of physical activity do you participate in: none Do you feel safe at home: Yes Do you feel safe in your relationship?: Yes Exam Const General: cooperative, comfortable, no acute distress and anxious Orientation: alert, awake and oriented x3 HENMT Head: normal to inspection, normocephalic and atraumatic Face and sinus: normal facial exam Mouth: moist mucous membranes abnormal (Slightly dry) Throat: posterior oropharynx normal Eyes Conjunctivae: conjunctivae normal Neck Neck: normal visual inspection, full ROM, no lymphadenopathy, no meningeal signs, trachea midline, supple and nontender Chest Chest: normal palpation of entire chest wall Resp Effort & Inspection: normal respiratory effort, able to speak in complete sentences and tachypneic (However able to breathe normally on command) Auscultation: clear to auscultation bilaterally Cardio Rate: regular rate Rhythm: regular rhythm GI Inspection: other (Ecchymosis, patchy, patient reports is from [facility]) Palpation: soft, not firm, no guarding, not rigid and nontender Auscultation: normal bowel sounds Back/Spine/Pelvis Back: back tenderness (Diffuse lumbar, no midline tenderness) Skin Lesions: other (Mild ulcer-skin breakdown to buttocks, no evidence of infection) Rashes: no rashes Neuro General: patient alert, patient awake, patient oriented x3, moves all extremities and no focal motor deficits Cognition: normal cognition Speech: speech normal Motor: muscle tone normal throughout Sensory Exam: no sensory deficits noted Extrem General: full ROM, capillary refill normal, calf tenderness (Right side, Lauren negative) and pedal edema (1+ bilaterally, slightly worse right leg) Psych Appearance: grossly normal Mental Status: mental status grossly normal Course Vital Signs Vital signs: Vital Signs Temperature 37.3 C 10/01/19 19:07 Pulse 93 H 10/01/19 19:07 Respiratory Rate 36 H 10/01/19 19:07 Blood Pressure 184/94 H 10/01/19 19:07 Pulse Oximetry 93 L 10/01/19 19:07 Temperature 37.3 C 10/01/19 19:07 Pulse 93 H 10/01/19 19:07 Respiratory Rate 34 H 10/01/19 19:12 Respiratory Effort Labored 10/01/19 19:12 Respiratory Pattern Tachypnea 10/01/19 19:12 Blood Pressure 184/94 H 10/01/19 19:07 Blood Pressure Position Sitting 10/01/19 19:07 Pulse Oximetry 93 L 10/01/19 19:07 Oxygen Delivery Method Room Air 10/01/19 19:07 Oxygen Flow Rate 0 10/01/19 19:07 Pain Level 2 10/01/19 19:07 Lab/Test Results Lab/Test Results: 10/01/19 20:00 Nasopharynx Influenza Types A,B Antigen - Final 10/01/19 19:30 Blood Blood Culture - Pending 10/01/19 20:00 Blood Blood Culture - Pending Laboratory Tests Range/Units 10/01/19 10/01/19 10/01/19 19:30 19:30 19:30 WBC (4.4-10.8) k/cumm 7.78 RBC (4.50-6.00) m/cumm 4.13 L Hgb (13.5-17.5) g/dL 13.5 Hct (40.0-50.0) % 38.5 L MCV (80-95) fL 93.2 MCH (27.0-33.0) pg 32.7 MCHC (32.0-36.0) g/dL 35.1 RDW (11.8-14.1) % 15.0 H Plt Count (130-400) x1000/uL 239 MPV (8.0-11.0) fL 9.6 Immature Gran % % 0.6 Neutrophils % 82.2 Lymphocytes % 10.0 Monocytes % 6.0 Eosinophils % 0.9 Basophils % 0.3 Absolute Neutrophils (1.2-6.7) k/cumm 6.39 Absolute Lymphocytes (1.2-3.4) k/cumm 0.78 L Absolute Monocytes (0.11-0.7) k/cumm 0.47 Absolute Eosinophils (0.0-0.7) k/cumm 0.07 Absolute Basophils (0.0-0.2) k/cumm 0.02 PT Cancelled INR Cancelled APTT Cancelled D-Dimer (<500) ng/mlFEU BUN (7-18) mg/dL 22 H Creatinine (0.70-1.30) mg/dL 0.90 Estimated GFR/1.73 m2 (mL/min/1.73m2) >= 60.00 Glucose (74-106) mg/dL 284 H Lactate (0.6-1.4) mmol/L Calcium (8.5-10.1) mg/dL 9.3 Magnesium (1.8-2.4) mg/dL 1.6 L Ferritin (26-388) ng/mL Total Bilirubin (0.2-1.0) mg/dL 0.6 AST (15-37) U/L 60 H ALT (16-63) U/L 81 H Alkaline Phosphatase (46-116) U/L 134 H Lactate Dehydrogenase (85-227) U/L 237 H Troponin I (<0.06) ng/Ml < 0.05 C-Reactive Protein (0.0-0.3) mg/dL 1.21 H NT-Pro-B Natriuret Pep (<300) pg/mL 36 Total Protein (6.4-8.2) g/dL 7.5 Albumin (3.4-5.0) g/dL 3.8 Lipase (73-393) U/L Procalcitonin ng/mL Range/Units 10/01/19 10/01/19 10/01/19 19:30 19:30 19:30 WBC (4.4-10.8) k/cumm RBC (4.50-6.00) m/cumm Hgb (13.5-17.5) g/dL Hct (40.0-50.0) % MCV (80-95) fL MCH (27.0-33.0) pg MCHC (32.0-36.0) g/dL RDW (11.8-14.1) % Plt Count (130-400) x1000/uL MPV (8.0-11.0) fL Immature Gran % % Neutrophils % Lymphocytes % Monocytes % Eosinophils % Basophils % Absolute Neutrophils (1.2-6.7) k/cumm Absolute Lymphocytes (1.2-3.4) k/cumm Absolute Monocytes (0.11-0.7) k/cumm Absolute Eosinophils (0.0-0.7) k/cumm Absolute Basophils (0.0-0.2) k/cumm PT INR APTT D-Dimer (<500) ng/mlFEU 415 BUN (7-18) mg/dL Creatinine (0.70-1.30) mg/dL Estimated GFR/1.73 m2 (mL/min/1.73m2) Glucose (74-106) mg/dL Lactate (0.6-1.4) mmol/L Calcium (8.5-10.1) mg/dL Magnesium (1.8-2.4) mg/dL Ferritin (26-388) ng/mL 216 Total Bilirubin (0.2-1.0) mg/dL AST (15-37) U/L ALT (16-63) U/L Alkaline Phosphatase (46-116) U/L Lactate Dehydrogenase (85-227) U/L Cancelled Troponin I (<0.06) ng/Ml C-Reactive Protein (0.0-0.3) mg/dL Cancelled NT-Pro-B Natriuret Pep (<300) pg/mL Total Protein (6.4-8.2) g/dL Albumin (3.4-5.0) g/dL Lipase (73-393) U/L 146 Procalcitonin ng/mL Range/Units 10/01/19 20:00 WBC (4.4-10.8) k/cumm RBC (4.50-6.00) m/cumm Hgb (13.5-17.5) g/dL Hct (40.0-50.0) % MCV (80-95) fL MCH (27.0-33.0) pg MCHC (32.0-36.0) g/dL RDW (11.8-14.1) % Plt Count (130-400) x1000/uL MPV (8.0-11.0) fL Immature Gran % % Neutrophils % Lymphocytes % Monocytes % Eosinophils % Basophils % Absolute Neutrophils (1.2-6.7) k/cumm Absolute Lymphocytes (1.2-3.4) k/cumm Absolute Monocytes (0.11-0.7) k/cumm Absolute Eosinophils (0.0-0.7) k/cumm Absolute Basophils (0.0-0.2) k/cumm PT INR APTT D-Dimer (<500) ng/mlFEU BUN (7-18) mg/dL Creatinine (0.70-1.30) mg/dL Estimated GFR/1.73 m2 (mL/min/1.73m2) Glucose (74-106) mg/dL Lactate (0.6-1.4) mmol/L 4.5 H* Calcium (8.5-10.1) mg/dL Magnesium (1.8-2.4) mg/dL Ferritin (26-388) ng/mL Total Bilirubin (0.2-1.0) mg/dL AST (15-37) U/L ALT (16-63) U/L Alkaline Phosphatase (46-116) U/L Lactate Dehydrogenase (85-227) U/L Troponin I (<0.06) ng/Ml C-Reactive Protein (0.0-0.3) mg/dL NT-Pro-B Natriuret Pep (<300) pg/mL Total Protein (6.4-8.2) g/dL Albumin (3.4-5.0) g/dL Lipase (73-393) U/L Procalcitonin ng/mL 0.2 Critical Care Time Critical Care Time Attestation: Upon my evaluation, this patient had a high probability of clinically significant, life-threatening deterioration due to their current medical conditions, which required my direct attention, intervention, and personal management. I have personally provided greater than 30 minutes of critical care time exclusive of the time spend on separately billable procedures. Time includes obtaining a history, examining the patient, pulse oximetry, review of laboratory data, radiology results, discussion with consultants, arranging urgent treatment with development of a management plan, evaluation of patient's response to treatment, and monitoring for potential decompensation. Interventions were performed as documented above.
[2019-10-01 21:25] LABS: TSH (W/Ref FT4) 6.02 uIU/mL (0.36-3.74)
[2019-10-01 21:30] LABS: Ferritin 216 ng/mL (26-388)
[2019-10-01 21:32] LABS: Lipase 146 U/L (73-393)
[2019-10-01 21:34] LABS: C-Reactive Protein 1.21 mg/dL (0.0-0.3)
[2019-10-01 21:35] LABS: NT-proBNP 36 pg/mL (<300)
[2019-10-01 21:46] LABS: FREE T4 0.93 ng/dL (0.76-1.46)
--- NOTE | 2019-10-01 22:00 | DI.VRAD_ITS ---
PROCEDURE INFORMATION: Exam: CT Angiography Chest With Contrast Exam date and time: 10/01/2019 9:08 PM Age: 69 years old Clinical indication: Other: Sob/tachypnea; Shortness of breath; Patient HX: Tachypnea, SOB, HX of pe, lactate 4.5; Additional info: HX pe. HX prostate CA. Multiple abd surgeries TECHNIQUE: Imaging protocol: Computed tomographic angiography of the chest with intravenous contrast. 3D rendering: MIP and/or 3D reconstructed images were created by the technologist. Radiation optimization: All CT scans at this facility use at least one of these dose optimization techniques: automated exposure control; mA and/or kV adjustment per patient size (includes targeted exams where dose is matched to clinical indication); or iterative reconstruction. Contrast material: OMNI 350; Contrast volume: 100 ml; Contrast route: IV; COMPARISON: CT CHEST/ABD/PEL W 04/04/2019 11:03 AM FINDINGS: Pulmonary arteries: Borderline enlarged main pulmonary artery. There are likely segmental and subsegmental pulmonary emboli within several right lower lobe segmental and subsegmental arteries. Aorta: The aorta is normal. Lungs: Right basilar atelectasis and air bronchograms a is. Pleural space: Unremarkable. No pneumothorax. No pleural effusion. Heart: Unremarkable. No cardiomegaly. No pericardial effusion. Lymph nodes: No pathologically enlarged lymph nodes. Bones/joints: Diffusely sclerotic appearance of the axial skeleton consistent with reported history of prostate cancer. Remote left rib deformity. Severe degenerative changes of the bilateral shoulders. Stable mild wedging of several midthoracic vertebral bodies. Soft tissues: Elevated right hemidiaphragm. IMPRESSION: 1. There are likely right lower lobe segmental and subsegmental pulmonary emboli however evaluation is limited by suboptimal contrast bolus timing. 2. Right basilar atelectasis with air bronchograms could reflect small superimposed consolidation. Findings discussed with Eran Huang MD. by Solomon Gee MD. of radiology at 10/01/2019 9:59 PM EDT PROCEDURE INFORMATION: Exam: CT Abdomen And Pelvis With Contrast Exam date and time: 10/01/2019 9:08 PM Age: 69 years old Clinical indication: Other: Sob/tachypnea; Shortness of breath; Patient HX: Tachypnea, SOB, HX of pe, lactate 4.5; Additional info: HX pe. HX prostate CA. Multiple abd surgeries TECHNIQUE: Imaging protocol: Computed tomography of the abdomen and pelvis with intravenous contrast. Radiation optimization: All CT scans at this facility use at least one of these dose optimization techniques: automated exposure control; mA and/or kV adjustment per patient size (includes targeted exams where dose is matched to clinical indication); or iterative reconstruction. Contrast material: OMNI 350; Contrast volume: 100 ml; Contrast route: IV; COMPARISON: CT CHEST/ABD/PEL W 04/04/2019 11:03 AM FINDINGS: Liver: Hepatomegaly and hepatic steatosis. Gallbladder and bile ducts: The gallbladder is surgically absent. Pancreas: The pancreas is normal. Spleen: The spleen is normal. Adrenals: Normal. No mass. Kidneys and ureters: Unchanged indeterminate density 1.2 cm exophytic left renal hypodense lesion. Bilateral renal cyst and subcentimeter hypodensities that are too small to characterize are also unchanged. Punctate bilateral non-obstructing renal stones. Stomach and bowel: Unremarkable. No obstruction. No mucosal thickening. Appendix: No evidence of appendicitis. Intraperitoneal space: Surgical clips about the proximal duodenum. Vasculature: The aorta is normal. Lymph nodes: Unremarkable. No enlarged lymph nodes. Bladder: Bladder is unremarkable where visualized. Reproductive: Unremarkable as visualized. Bones/joints: Status post bilateral total hip arthroplasty with likely remote nondisplaced fracture through the left greater trochanter. Unchanged L5 superior endplate deformity and diffusely sclerotic bones consistent with known prostate cancer. Soft tissues: Small fat containing left inguinal hernia. Unchanged scattered soft tissue stranding about the ventral abdominal wall. Other findings: Evaluation of the pelvis is limited by metallic streak artifact. IMPRESSION: 1. No acute abnormality in the abdomen and pelvis. 2. Stable chronic findings as described above. Dictated and Authenticated by: Solomon Gee MD. Ordering:VALENTIN Barillas MD
[2019-10-01] MEDS: Enoxaparin 120 MG/0.8 ML SYR 115 MG SC (22:24)
[2019-10-01] MEDS: Normal Saline 1,000 ML 1000 ML IV (22:24)
[2019-10-01] MEDS: Calcium Carbonate *TUMS* 500 MG CHEW 1000 MG PO (22:34)
[2019-10-01 23:40] LABS: Lactate 3.2 mmol/L (0.6-1.4)
[2019-10-01 23:47] LABS: Anion Gap 8.5 mmol/L (3-11); BUN 20 mg/dL (7-18); CO2 26.5 mmol/L (21.0-32.0); Chloride 98 mmol/L (98-107); Glucose 237 mg/dL (74-106); Potassium 3.9 mmol/L (3.5-5.1); Sodium 133 mmol/L (136-145)
[2019-10-01 23:54] LABS: Calcium 7.9 mg/dL (8.5-10.1)
[2019-10-01 23:57] LABS: CREATININE 0.58 mg/dL (0.70-1.30)
[2019-10-01 23:58] LABS: Troponin I < 0.05 ng/Ml (<0.06)
[2019-10-02] VITALS (20 sets, daily range): BP systolic 126–159; BP diastolic 77–98; PULSE 74–94; RESP 18–33; TEMP 36–37.3; O2SAT 91–95
[2019-10-02] MEDS: MAGNESIUM SULFATE 2 GM/50 ML BAG IVPB (00:12)
[2019-10-02] MEDS: LORazepam 2 MG/ML VIAL 1 MG IVP (01:53)
[2019-10-02] MEDS: Normal Saline Flush 10 ML SYR (01:53)
[2019-10-02] MEDS: HYDROcodone 10/Acetaminophen 325 TAB PO ×3 (04:29→23:19)
[2019-10-02] MEDS: Levothyroxine 75 MCG TAB PO (06:57)
--- NOTE | 2019-10-02 07:00 | HOME_ITS ---
Home Ventilator Equipment Home care company [employer] Reason: Obstructive Sleep Apnea Make: Respironics Model: Dreamstation Mask type: Face mask Mask size: Medium Mode: BiPAP Settings: Auto-Bipap 20/9 PS 6cm H2O Oxygen bleed in (lpm): Condition: Good Date last checked: 10/02/19 Year of last sleep study: Compliance Daily Comments: Device on RA
[2019-10-02 07:01] LABS: Lactate 3.1 mmol/L (0.6-1.4)
--- NOTE | 2019-10-02 07:05 | HPE_ITS ---
Date of service: 10/02/19 Time of Service: 06:35 Assessment and Plan Assessment and plan (1) Pulmonary emboli: Status: Chronic Assessment and plan: Patient's history, current symptomatology, and imaging all suggest pulmonary emboli as cause of his symptoms. The CT reading is not totally clear, but does suggest new emboli. We are treating with an increased dose of Lovenox for now, closer to the full 1 mg/kg every 12 hours. I did review the recommendations for novel oral anticoagulants in patients with metastatic prostate cancer and Crohn's disease. I do not see a reason why these would be contraindicated in his case. I encouraged him to consider this, but he was hesitant to change. I will not start antibiotics as he does not have symptoms of pneumonia. COVID is in the differential, though lower likelihood. PCR is pending. Troponin is negative, not consistent with ACS. Elevated lactate did raise concern for infection, but I think this is related to him being a little dry given his low sodium as well (hypovolemic hyponatremia). I will give him a little more saline this morning. (2) Crohn's disease: Status: None Assessment and plan: Not active. Initially, it was concern for some infection with the elevated lactate so I ordered a higher prednisone dose. I do not think this is an infection so we will resume outpatient dosing to try to avoid a flare. (3) IDDM (insulin dependent diabetes mellitus): Status: Chronic Assessment and plan: A1c well controlled at 6.7% in July as an outpatient. Continue outpatient glargine insulin and sliding scale. Per outpa tient notes glucose well controlled. (4) Obstructive sleep apnea: Status: Chronic Assessment and plan: Make sure he gets his home CPAP if he states of the night. (5) Atrial fibrillation: Status: Chronic Assessment and plan: On Multitak and diltiazem. Looks like he is in sinus rhythm at this point. Anticoagulated. (6) Anemia: Status: Acute Assessment and plan: Mild chronic anemia. He is on twice daily iron, which may be overkill. Consider iron level testing to confirm if he needs this. His ferritin is normal, but may be acute phase reactant. (7) Pain: Status: Chronic Assessment and plan: Continue chronic pain management, including chronic opioids. (8) DVT prophylaxis: Status: Acute Assessment and plan: He is fully anticoagulated (9) Discharge planning issues: Status: Acute Assessment and plan: Patient is on observation status. He may be able to go home if he remains stable today. He is a full code. I give him (10) Elevated liver enzymes: Status: Acute Assessment and plan: Looking back in the record this is not a new issue. This may be related to his GnRH agonist as it is known side effect. I could not find hepatitis B and C screening in the outpatient record, so we will order. History of Present Illness History of Present Illness Chief Complaint: Shortness of breath Narrative: 69- year-old man with history of post polio syndrome, bilateral pulmonary emboli on chronic low molecular weight heparin, metastatic prostate cancer on GnRH analog therapy, diabetes mellitus on insulin, and Crohn's disease on chronic prednisone who presented with 1 to 2 weeks of increasing shortness of breath. Patient states the shortness of breath associated with some pain with breathing throughout his chest, more anteriorly. Describes this as a tightness and is clearly pleuritic. No radiation. Not associated with palpitations. Does have a dry cough, with very occasional sputum production, no hemoptysis. Has not had fever or chills. Has not had any other upper respiratory symptoms such as nasal congestion, rhinorrhea, or sore throat. In the emergency room he reported a history of decreasing his Lovenox dose recently due to nosebleeds. I cannot find any record of this on the outpatient record. I did find a nursing note from August 22, 2019 that mentions nosebleeds and gives a direction to hold the Lovenox for 3 days until bleeding resolved. There is a note from September 21 when the patient called to complain of fatigue and shortness of breath that he attributed to his Trulicity. Trulicity was stopped at that point. Review of Systems Narrative: Gen: No fever or chills. No weight changes. Appetitie fair HEENT: Some GARCÍA since admission, relates to fan sound in room. No new vision changes. no ear pain. No oral lesions. Respiratory: Per HPI. States he typically uses CPAP at night. Cardiovascular: Per HPI no increase in leg swelling. GI: No change in bowel function. 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 Intermittent firm and loose stools at baseline. No blood in the stool or melena. No nausea or vomiting. : No dysuria or hematuria. No change in urine flow. MSK: No change in chronic joint pains, has pain in feet and knees and especially at right ankle. Neurologic: No focal numbness or weakness. Skin: No new bruises. Lesions on arms more pink, but not acute. Heme: No recent epistaxis or other bleeding. [facility] Medical History Afib Bilateral hip pain Bone lesion Chest pain Crohn's disease Diabetes (Chronic) Drug hypersensitivity Dyspepsia Fibromyalgia GERD (gastroesophageal reflux disease) Hot flash in male HTN (hypertension) Hx of adenomatous colonic polyps Hx of melanoma excision Hypomania IBS (irritable bowel syndrome) Leg erythema residential current use of anticoagulant Migraine Neuropathy Nocturnal hypoxia Obstructive sleep apnea (Chronic) a. Nocturnal CPAP Osteopenia PE (pulmonary thromboembolism) Periodic limb movement disorder Post poliomyelitis syndrome Prostate cancer Rectal bleeding Rectal pain Right ankle pain Saphenous vein phlebitis Sebaceous cyst Sensorineural hearing loss Sleep apnea Squamous cell carcinoma of hand Superficial phlebitis of leg Swelling of left lower extremity Vitamin B12 deficiency Surgical History ankle surgery, right Arthroplasty of knee bilat Arthroscopy, Shoulder left shoulder repair Colectomy x3 deep muscle biopsy, left calf muscle Hernia Repair, Incisional (03/22/16) intestinal obstruction with incarcerated incisional hernia, lysis of adhesions Family History Mother No problems noted. Father Kidney malignancy Son No problems noted. 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 Grew up in [facility] Home Medications and Allergies Home Medications Medication Instructions Recorded Confirmed Type omeprazole [Prilosec] 40 mg PO BID 01/23/13 10/01/19 History acetaminophen [Tylenol Extra 1,000 mg PO Q4H PRN PRN tab-cap NS 03/29/13 10/01/19 History Strength] Multaq 400 mg PO BID #180 tab-cap 04/15/15 10/01/19 History nitroglycerin [Nitrostat] 0.4 mg SUBLINGUAL Q5 MIN PRN X3 04/23/15 10/01/19 Rx PRN #15 tab balsalazide 2,250 mg PO TID 09/24/15 10/01/19 History hydrocodone-acetaminophen 1 - 2 tab PO Q4H PRN PRN #40 tab 03/25/16 10/01/19 Rx Excedrin Migraine 1 ea PO DAILY PRN 09/15/16 10/01/19 History Topicaine 1 appful TOPICAL PRN PRN 06/27/17 10/01/19 History calcium carbonate 1,000 mg CH QID 06/27/17 10/01/19 History enoxaparin [Lovenox] 100 mg SQ Q12H 06/27/17 10/01/19 History metoclopramide HCl [Reglan] 10 mg PO BID #4 tab 04/25/18 07/25/19 Rx diltiazem HCl 30 mg tablet 30 mg PO TID tab 04/27/18 10/01/19 History cyanocobalamin (vitamin B-12) 1,000 mcg IM QMONTH ml 01/23/19 10/01/19 History 1,000 mcg/mL injection solution ergocalciferol (vitamin D2) 1,250 50,000 unit PO .2x weekly cap 01/23/19 10/01/19 History mcg (50,000 unit) capsule ferrous gluconate 324 mg (37.5 mg 324 mg PO BID tab 01/23/19 10/01/19 History iron) tablet pramipexole 0.5 mg tablet 1 mg PO HS tab 01/23/19 10/01/19 History levothyroxine 75 mcg PO DAILY 04/29/19 10/01/19 History magnesium L-lactate 84 mg PO DAILY 04/29/19 10/01/19 History promethazine 12.5 mg PO Q6H PRN 04/29/19 10/01/19 History prednisone 5 mg tablet 10 mg PO BID tab 07/25/19 10/01/19 History famotidine 20 mg PO BID 10/01/19 10/01/19 History hydrocodone-acetaminophen 1 tab PO PRN PRN 10/01/19 10/01/19 History insulin glargine [Lantus Solostar 30 unit SUBCUT HS 10/01/19 10/01/19 History U-100 Insulin] Allergies Allergy/AdvReac Type Severity Reaction Status Date / Time Sulfa (Sulfonamide Allergy Mild Skin Rash Unverified 10/01/19 20:30 Antibiotics) atenolol Allergy Unverified 10/01/19 20:30 atorvastatin Allergy Unverified 10/01/19 20:30 gabapentin Allergy Unverified 10/01/19 20:30 nicardipine Allergy Unverified 10/01/19 20:30 salsalate Allergy Unverified 10/01/19 20:30 tramadol Allergy Unverified 10/01/19 20:30 venlafaxine Allergy Unverified 10/01/19 20:30 ciprofloxacin HCl AdvReac Severe ruptured Unverified 10/01/19 20:30 [From Cipro] achilles tendon hydrochlorothiazide AdvReac Severe myalgias Unverified 10/01/19 20:30 [From Benicar HCT] indapamide AdvReac Severe chest pain Unverified 10/01/19 20:30 olmesartan medoxomil AdvReac Severe myalgias Unverified 10/01/19 20:30 [From Benicar HCT] terazosin [Terazosin] AdvReac Severe tremor, GI Unverified 10/01/19 20:30 upset aliskiren [Aliskiren] AdvReac Intermediate diarrhea Unverified 10/01/19 20:30 amlodipine AdvReac Intermediate fatigue Unverified 10/01/19 20:30 enalapril [Enalapril] AdvReac Intermediate shakes, Unverified 10/01/19 20:30 weakness montelukast sodium AdvReac Intermediate rectal Unverified 10/01/19 20:30 [From Singulair] irritation pregabalin [From Lyrica] AdvReac Intermediate sleep Unverified 10/01/19 20:30 issues spironolactone AdvReac Intermediate headache Unverified 10/01/19 20:30 Exam Narrative Exam Narrative: General: Alert and oriented, sitting up on the commode, speaking in full sentences, no distress. HEENT: Atraumatic. Clear, no icterus. No rhinorrhea. Moist mucous membranes oropharynx benign. Neck is supple with no masses or lymphadenopathy, trachea midline. Lungs: Diminished breath sounds diffusely, but no focal rales or wheezes. Exam somewhat limited due to PAPR jacques. Cardiovascular: Regular rate and rhythm, no murmurs gallops or rubs. Abdomen: Audible bowel sounds, mildly distended, but soft and nontender. No palpable masses. Midline scar noted. Extremities: No cyanosis clubbing or edema. Calf nontender palpation. MSK: No joint redness or swelling. Skin: No significant bruising or petechiae. May need dark pink plaques on fore arms. Neurologic: Cranial nerves grossly intact. Normal speech and coordination. Normal gross movement [address] CHEST W contrast: IMPRESSION: 1. There are likely right lower lobe segmental and subsegmental pulmonary emboli however evaluation is limited by suboptimal contrast bolus timing. 2. Right basilar atelectasis with air bronchograms could reflect small superimposed consolidation. CT A/P: IMPRESSION: 1. No acute abnormality in the abdomen and pelvis. 2. Stable chronic findings as described above. Labs Result diagrams: 10/01/19 19:30 10/01/19 23:30 Labs: Laboratory Results - last 24 hr 10/01/19 10/01/19 10/01/19 19:30 19:30 19:30 WBC 7.78 RBC 4.13 L Hgb 13.5 Hct 38.5 L MCV 93.2 MCH 32.7 MCHC 35.1 RDW 15.0 H Plt Count 239 MPV 9.6 Immature Gran % 0.6 Neutrophils % 82.2 Lymphocytes % 10.0 Monocytes % 6.0 Eosinophils % 0.9 Basophils % 0.3 Absolute Neutrophils 6.39 Absolute Lymphocytes 0.78 L Absolute Monocytes 0.47 Absolute Eosinophils 0.07 Absolute Basophils 0.02 PT Cancelled INR Cancelled APTT Cancelled D-Dimer Sodium 131 L Potassium 4.0 Chloride 95 L Carbon Dioxide 24.6 Anion Gap 11.4 H BUN 22 H Creatinine 0.90 Estimated GFR/1.73 m2 >= 60.00 Glucose 284 H Lactate Calcium 9.3 Magnesium 1.6 L Ferritin Total Bilirubin 0.6 AST 60 H ALT 81 H Alkaline Phosphatase 134 H Lactate Dehydrogenase 237 H Troponin I < 0.05 C-Reactive Protein 1.21 H NT-Pro-B Natriuret Pep 36 Total Protein 7.5 Albumin 3.8 Lipase Procalcitonin TSH Free T4 10/01/19 10/01/19 10/01/19 19:30 19:30 19:30 WBC RBC Hgb Hct MCV MCH MCHC RDW Plt Count MPV Immature Gran % Neutrophils % Lymphocytes % Monocytes % Eosinophils % Basophils % Absolute Neutrophils Absolute Lymphocytes Absolute Monocytes Absolute Eosinophils Absolute Basophils PT INR APTT D-Dimer 415 Sodium Potassium Chloride Carbon Dioxide Anion Gap BUN Creatinine Estimated GFR/1.73 m2 Glucose Lactate Calcium Magnesium Ferritin 216 Total Bilirubin AST ALT Alkaline Phosphatase Lactate Dehydrogenase Cancelled Troponin I C-Reactive Protein Cancelled NT-Pro-B Natriuret Pep Total Protein Albumin Lipase Procalcitonin TSH 6.02 H Free T4 0.93 10/01/19 10/01/19 10/01/19 19:30 20:00 23:30 WBC RBC Hgb Hct MCV MCH MCHC RDW Plt Count MPV Immature Gran % Neutrophils % Lymphocytes % Monocytes % Eosinophils % Basophils % Absolute Neutrophils Absolute Lymphocytes Absolute Monocytes Absolute Eosinophils Absolute Basophils PT INR APTT D-Dimer Sodium Potassium Chloride Carbon Dioxide Anion Gap BUN Creatinine Estimated GFR/1.73 m2 Glucose Lactate 4.5 H* Calcium Magnesium Ferritin Total Bilirubin AST ALT Alkaline Phosphatase Lactate Dehydrogenase Troponin I < 0.05 C-Reactive Protein NT-Pro-B Natriuret Pep Total Protein Albumin Lipase 146 Procalcitonin 0.2 TSH Free T4 10/01/19 10/01/19 10/02/19 23:30 23:30 06:40 WBC RBC Hgb Hct MCV MCH MCHC RDW Plt Count MPV Immature Gran % Neutrophils % Lymphocytes % Monocytes % Eosinophils % Basophils % Absolute Neutrophils Absolute Lymphocytes Absolute Monocytes Absolute Eosinophils Absolute Basophils PT INR APTT D-Dimer Sodium 133 L Potassium 3.9 Chloride 98 Carbon Dioxide 26.5 Anion Gap 8.5 BUN 20 H Creatinine 0.58 L D Estimated GFR/1.73 m2 >= 60.00 Glucose 237 H Lactate 3.2 H* 3.1 H* Calcium 7.9 L Magnesium Ferritin Total Bilirubin AST ALT Alkaline Phosphatase Lactate Dehydrogenase Troponin I C-Reactive Protein NT-Pro-B Natriuret Pep Total Protein Albumin Lipase Procalcitonin TSH Free T4 Last Vital Signs Temp 36.6 C 10/02/19 00:39 Pulse 82 10/02/19 00:39 Resp 28 H 10/02/19 00:39 BP 159/93 H 10/02/19 06:57 Pulse Ox 92 L 10/02/19 06:57 COVID-19 Screening Traveled to [place] from one of the affected countries or regions?: NO Recent travel in the [place] within the last 14 days?: No Recent out of the country travel within the last 14 days?: No Exposure or possible exposure to illness during travel?: No Had IN PERSON contact w/suspected or confirmed C-19 person: No Have you had the following symptoms in the past few days?: Yes
[2019-10-02 07:08] LABS: Abs Immature Grans 0.06 k/cumm (0.0-0.09); Absolute Basophil Count 0.01 k/cumm (0.0-0.2); Absolute Eosinophil Count 0.11 k/cumm (0.0-0.7); Absolute Lymphocyte Count 0.91 k/cumm (1.2-3.4); Absolute Monocyte Count 0.61 k/cumm (0.11-0.7); Absolute Neutrophil Count 6.03 k/cumm (1.2-6.7); Basophils % 0.1; Eosinophils % 1.4; HGB 13.2 g/dL (13.5-17.5); Immature Grans % 0.8 %; Lymphocytes % 11.8; Mean Corp. HGB Concentration 33.8 g/dL (32.0-36.0); Mean Corpuscular Hemoglobin 31.1 pg (27.0-33.0); Mean Platelet Volume 8.9 fL (8.0-11.0); Monocytes % 7.9; Platelet Count 230 x1000/uL (130-400); RBC 4.24 m/cumm (4.50-6.00); RBC Distribution Width 15.1 % (11.8-14.1); White Blood Cell Count 7.73 k/cumm (4.4-10.8)
[2019-10-02 07:13] LABS: Anion Gap 11.1 mmol/L (3-11); BUN 17 mg/dL (7-18); CO2 25.9 mmol/L (21.0-32.0); CREATININE 0.76 mg/dL (0.70-1.30); Calcium 8.5 mg/dL (8.5-10.1); Chloride 99 mmol/L (98-107); Glucose 190 mg/dL (74-106); Potassium 3.4 mmol/L (3.5-5.1); Sodium 136 mmol/L (136-145)
[2019-10-02 07:14] LABS: Magnesium 1.9 mg/dL (1.8-2.4)
[2019-10-02] MEDS: Calcium Carbonate *TUMS* 500 MG CHEW 1000 MG CH ×4 (07:55→19:50)
[2019-10-02] MEDS: predniSONE 10 MG TAB 30 MG PO (07:55)
[2019-10-02] MEDS: Omeprazole 20 MG CAPCR 40 MG PO ×2 (07:55→19:50)
[2019-10-02] MEDS: Famotidine 20 MG TAB PO ×2 (07:56→19:50)
[2019-10-02] MEDS: dilTIAZem 30 MG TAB PO ×3 (07:56→19:50)
[2019-10-02] MEDS: Magnesium Lactate-SR 84 MG TABCR PO (07:56)
[2019-10-02] MEDS: Insulin Aspart 300 UNITS/3 ML PEN SC ×3 (08:18→17:06)
[2019-10-02] MEDS: Normal Saline 250 ML IV (08:54)
[2019-10-02] MEDS: Normal Saline Flush 10 ML SYR IVP (09:06)
[2019-10-02] MEDS: Enoxaparin 120 MG/0.8 ML SYR 115 MG SC ×2 (09:06→21:16)
[2019-10-02] MEDS: Acetaminophen 325 MG TAB PO (09:06)
--- NOTE | 2019-10-02 10:25 | PDOC.CMIN ---
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, migraine, neuropathy, nocturnal hypoxia, JULIANA, Osteopenia, PE, periodic limb movement disorder, post poliomyelitis syndrome, prostate cancer, rectal bleeding, rectal pain, right ankle pain, saphenous vein phlebitis, sebaceous cyst, sensorineural hearing loss, sleep apnea, squamous cell carcinoma of hand, superficial phlebitis of leg, swelling of left lower extremity, vitamin B12 deficiency, ankle surgery, knee arthroplasty, should arthroscopy, coectomy, deep muscle biopsy, left calf muscle, incisional hernia repair PREVIOUS FUNCTIONAL STATUS/SOCIAL/FAMILY SUPPORTS:: Alonso resides in a single family home in [facility] with his Carol. 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 Alonso is independent at baseline but has had difficulty with his legs. He uses a cane and walker at home and occasionally a motorized wheelchair when available in public places. CURRENT FUNCTIONAL STATUS:: Alonso is sitting up on the side of his bed, door closed when CM observed him. He remains on CV-19 precautions at this time. Has patient been provided with information about the portal?: Yes Did the patient sign up for the portal?: No CODE STATUS:: Full Code INSURANCE COVERAGE / FINANCIAL ISSUES:: Medicare CURRENT HOME/COMMUNITY SERVICES/EQUIPMENT:: Walker and cane for ambulation PRIMARY CARE PHYSICIAN:: Kenney Greer POTENTIAL DISCHARGE NEEDS:: Possible PC Consult, evaluation for increased service supports in home setting, review of community based supports. PATIENT/FAMILY EDUCATION NEEDS:: Review of discharge instructions, discuss Ask Me Three. ANTICIPATED BARRIERS TO DISCHARGE:: None identified. TRANSPORTATION:: Via private vehicle with his . PLAN:: Alonso will continue to be closely monitored and treated at this time, in the ICU. CM continues to follow and support treatment and discharge planning considerations. Alonso will transport via private vehicle with his .
[2019-10-02] MEDS: Potassium Chloride 20 MEQ TABCR 40 MEQ PO (10:42)
[2019-10-02] MEDS: Methocarbamol 750 MG TAB 1500 MG PO ×2 (10:42→19:50)
[2019-10-02 12:32] LABS: Total Iron Binding Capacity 376 ug/dL (250-450); Transferrin Sat 14 % (20-55)
[2019-10-02 12:34] LABS: Iron 52 ug/dL (65-175)
--- NOTE | 2019-10-02 13:29 | PHA.REVIEW ---
Pharmacy Admission Review - Admission Clinical Review (Last Updated 10/02/19 @ 08:23 by Oscar Vann) Elevated liver enzymes (Acute) Discharge planning issues (Acute) DVT prophylaxis (Acute) Anemia (Acute) Pulmonary emboli Sulfa (Sulfonamide Antibiotics) Allergy (Mild, Unverified 10/01/19 20:30) Skin Rash atenolol Allergy (Unverified 10/01/19 20:30) atorvastatin Allergy (Unverified 10/01/19 20:30) gabapentin Allergy (Unverified 10/01/19 20:30) nicardipine Allergy (Unverified 10/01/19 20:30) salsalate Allergy (Unverified 10/01/19 20:30) tramadol Allergy (Unverified 10/01/19 20:30) venlafaxine Allergy (Unverified 10/01/19 20:30) ciprofloxacin HCl [From Cipro] Adverse Reaction (Severe, Unverified 10/01/19 20:30) ruptured achilles tendon hydrochlorothiazide [From Benicar HCT] Adverse Reaction (Severe, Unverified 10/01/19 20:30) myalgias indapamide Adverse Reaction (Severe, Unverified 10/01/19 20:30) chest pain olmesartan medoxomil [From Benicar HCT] Adverse Reaction (Severe, Unverified 10/01/19 20:30) myalgias terazosin [Terazosin] Adverse Reaction (Severe, Unverified 10/01/19 20:30) tremor, GI upset aliskiren [Aliskiren] Adverse Reaction (Intermediate, Unverified 10/01/19 20:30) diarrhea amlodipine Adverse Reaction (Intermediate, Unverified 10/01/19 20:30) fatigue enalapril [Enalapril] Adverse Reaction (Intermediate, Unverified 10/01/19 20:30) shakes, weakness montelukast sodium [From Singulair] Adverse Reaction (Intermediate, Unverified 10/01/19 20:30) rectal irritation pregabalin [From Lyrica] Adverse Reaction (Intermediate, Unverified 10/01/19 20:30) sleep issues spironolactone Adverse Reaction (Intermediate, Unverified 10/01/19 20:30) headache Height 5 ft 10 in Weight 113.398 kg - Renal Dosing Renal Dosing: BUN 17 mg/dL (7-18) 10/02/19 06:40 Creatinine 0.76 mg/dL (0.70-1.30) 10/02/19 06:40 Medications needing adjustments: Reviewed (Crcl ~115.7 mL/min using adjusted body weight. Current meds okay) - Anticoagulation Anticoagulation: Hgb 13.2 g/dL (13.5-17.5) L 10/02/19 06:40 Hct 39.0 % (40.0-50.0) L 10/02/19 06:40 Plt Count 230 x1000/uL (130-400) 10/02/19 06:40 INR Cancelled 10/01/19 19:30 Creatinine 0.76 mg/dL (0.70-1.30) 10/02/19 06:40 DVT Prohphylaxis: N/A Therapeutic Anticoagulation: Reviewed Medications: Enoxaparin - Opiate Usage Evaluate Pain Scale/Pains Meds: Reviewed Scheduled Bowel Reg ordered if on Opiates?: No (will mention to MD) - Relevant Labs Sodium 136 mmol/L (136-145) 10/02/19 06:40 Potassium 3.4 mmol/L (3.5-5.1) L 10/02/19 06:40 Chloride 99 mmol/L (98-107) 10/02/19 06:40 Magnesium 1.9 mg/dL (1.8-2.4) 10/02/19 06:40 C-Reactive Protein 1.21 mg/dL (0.0-0.3) H 10/01/19 19:30 C-Reactive Protein Cancelled 10/01/19 19:30 Electrolytes, C-Reactive P, ESR: Reviewed (potassium replacement given this morning) - DM Control DM Control: Glucose 190 mg/dL (74-106) H 10/02/19 06:40 Finger Stick Blood Glucose 272 Finger Stick Blood Glucose 272 Finger Stick Blood Glucose 146 Finger Stick Blood Glucose 146 Insulin Dosing: Reviewed (scheduled glargine and sliding scale aspart ordered) - Heart Failure/SC Heart Failure/SC: Troponin I < 0.05 ng/Ml (<0.06) 10/01/19 23:30 NT-Pro-B Natriuret Pep 36 pg/mL (<300) 10/01/19 19:30 EF%, CLAIRE's, B-Blockers, Diuretics: N/A - BP Control BP Control: Blood Pressure 151/96 Blood Pressure 140/93 Blood Pressure 159/91 Blood Pressure 148/81 Blood Pressure 148/81 If elevated: Reviewed (has diltiazem ordered) - Qtc Review If Elevated: N/A (QTc 433) - IV to PO Switch IV Medications: N/A - Home Meds Home Med List reviewed: Reviewed (It's recommended to avoid using promethazine and metoclopramide together due to increased risk for adverse/toxic effects. Diltiazem may enhance the AV-blocking effect and other electrophysiologic effects of dronedarone; monitor patients closely especially when starting or with dose changes.Separate admin of levothyroxine from calcium, magesium, and ferrous sulfate. Separate admin of ferrous sulfate from calcium and magnesium. Multiple PRINTING PRESS OPERATOR APPRENTICE depressants: hydrocodone/APAP, promethazine, metoclopramide, pramipexole. Aspirin may enhance the anticoagulation effect of enoxaparin; monitor for signs/symptons of bleeding.) Relevent Home Meds Not ordered & why?: cyanocobalamin, ergocalciferol, excedrine migraine, ferrous gluconate, metoclopramide, nitroglycerin - Current meds Current Medication Order Review: Intervened (discontinued DI meds and duplicate orders, adjusted time of morning omeprazole dose) - Comments Comments/Follow Ups: watch BP, K+, for BM meds if needed, serology, micro
[2019-10-02 16:47] LABS: INR 1.1 Ratio (0.9-1.1); PTT (UVM) 37 secs (26-37)
[2019-10-02] MEDS: Insulin Glargine 300 UNITS/3 ML PEN 30 UNITS SC (19:51)
[2019-10-02] MEDS: predniSONE 10 MG TAB PO (19:51)
[2019-10-02] MEDS: Pramipexole 0.5 MG TAB 1 MG PO (21:16)
[2019-10-02 22:25] LABS: COVID-19 RT-PCR UVMMC Result Negative (Negative)
[2019-10-03] VITALS (31 sets, daily range): BP systolic 144–156; BP diastolic 66–103; PULSE 76–101; RESP 17–28; TEMP 35.8–36.8; O2SAT 93–95
[2019-10-03] MEDS: HYDROcodone 10/Acetaminophen 325 TAB PO ×2 (03:15→12:15)
[2019-10-03] MEDS: Omeprazole 20 MG CAPCR 40 MG PO (06:33)
[2019-10-03] MEDS: Levothyroxine 75 MCG TAB PO (06:33)
[2019-10-03 06:36] LABS: Lactate 3.3 mmol/L (0.6-1.4)
[2019-10-03 07:00] LABS: Albumin 3.2 g/dL (3.4-5.0); Alkaline Phosphatase 92 U/L (46-116); Anion Gap 9.1 mmol/L (3-11); BUN 17 mg/dL (7-18); Bilirubin, Total 0.6 mg/dL (0.2-1.0); CO2 26.9 mmol/L (21.0-32.0); CREATININE 1.04 mg/dL (0.70-1.30); Calcium 8.8 mg/dL (8.5-10.1); Chloride 100 mmol/L (98-107); Glucose 194 mg/dL (74-106); Potassium 3.5 mmol/L (3.5-5.1); Sodium 136 mmol/L (136-145); Total Protein 7.2 g/dL (6.4-8.2)
[2019-10-03 07:01] LABS: Abs Immature Grans 0.05 k/cumm (0.0-0.09); Absolute Basophil Count 0.02 k/cumm (0.0-0.2); Absolute Eosinophil Count 0.09 k/cumm (0.0-0.7); Absolute Lymphocyte Count 0.82 k/cumm (1.2-3.4); Absolute Monocyte Count 0.68 k/cumm (0.11-0.7); Absolute Neutrophil Count 6.22 k/cumm (1.2-6.7); Basophils % 0.3; Eosinophils % 1.1; HCT 37.6 % (40.0-50.0); HGB 12.4 g/dL (13.5-17.5); Immature Grans % 0.6 %; Lymphocytes % 10.4; Mean Corpuscular Hemoglobin 30.8 pg (27.0-33.0); Mean Corpuscular Volume 93.3 fL (80-95); Mean Platelet Volume 9.1 fL (8.0-11.0); Monocytes % 8.6; Platelet Count 207 x1000/uL (130-400); RBC 4.03 m/cumm (4.50-6.00); RBC Distribution Width 15.2 % (11.8-14.1); White Blood Cell Count 7.88 k/cumm (4.4-10.8)
[2019-10-03 07:18] LABS: Magnesium 1.7 mg/dL (1.8-2.4)
[2019-10-03] MEDS: Promethazine 25 MG TAB 12.5 MG PO (07:35)
[2019-10-03 07:52] LABS: ALT 68 U/L (16-63); AST 38 U/L (15-37)
[2019-10-03] MEDS: Calcium Carbonate *TUMS* 500 MG CHEW 1000 MG CH ×2 (08:01→12:15)
[2019-10-03] MEDS: predniSONE 10 MG TAB PO (08:02)
[2019-10-03] MEDS: Famotidine 20 MG TAB PO (08:02)
[2019-10-03] MEDS: Magnesium Lactate-SR 84 MG TABCR PO (08:02)
[2019-10-03] MEDS: dilTIAZem 30 MG TAB PO (08:02)
[2019-10-03] MEDS: Insulin Aspart 300 UNITS/3 ML PEN SC ×2 (09:05→12:15)
[2019-10-03] MEDS: Acetaminophen 325 MG TAB PO (09:27)
[2019-10-03] MEDS: Enoxaparin 120 MG/0.8 ML SYR 115 MG SC (09:28)
[2019-10-03] MEDS: Methocarbamol 750 MG TAB 1500 MG PO (09:28)
--- NOTE | 2019-10-03 09:32 | PDOC.CMPRO ---
Care Management Progress Note S/O: Alonso continues to be closely monitored in the ICU, CV-19 result negative. CM requested Palliative Consult, and will support coordination. CM continues to follow. A: 69 year old male admitted to [facility] 10/01/19 for Right Lower Lobe PE P: Alonso will continue to be closely monitored and treated at this time, in the ICU. CM continues to follow and support treatment and discharge planning considerations. Anticipate he will meet with Palliative Care either while inpatient, or follow up as an outpatient. Alonso will transport via private vehicle with his .
--- NOTE | 2019-10-03 09:51 | PDOC.CMDIS ---
LACE Index Scoring Tool - Questions: Length of Stay (in days): 2 Acuity (Admit via E.D.?): Yes Comorbidities: Diabetes w/o Complication, Any Tumor E.D. Visits: 6 - Answers: Total Score: 12 Risk of Readmission: High Risk Care Management Discharge Reason for Hospitalization: Right Lower Lobe PE Discharge Plan: Alonso will return home when ready per MD. He will follow up with his PCP and oncologist as well as his discharge plan as prescribed. Anticipate he will follow up with Palliative Care as an outpatient. Alonso will transport via private vehicle with his . Patient/Family Education Needs: Review discharge instructions, discuss Ask Me Three.
[2019-10-03 10:45] LABS: Hepatitis B Surface Ag Negative (Negative)
[2019-10-03 10:45] LABS: Hepatitis C Ab w Rflx HCV PCR Negative (Negative)
--- NOTE | 2019-10-03 12:58 | W.INDIABCONS ---
Date of service: 10/03/19 Time of Service: 12:59 Diabetes Inpatient Consult DESCRIPTION/ASSESSMENT: In patient diabetes consult received for Mr. Wiley. Mr. Wiley admitted to ICU with SOB, with pulmonary embolism. PMH: includes IDDM, porstate CA with mets, inactive Crohns Dx. BMI indicates class 2 obesity. Met with Mr. Wiley who is very frustrated about his health conditions, especially concerned about having to take prednison daily which leads to elevated glucose levels. Recent labs indicate well controlled diabetes (07/20/19 A1C%=6.7% ) in last 90 days and finger sticks in AM range from 146-199 mg/dl indicating mildly elevated blood sugars during this hospitalization. Following Diabetic diet with 100% intake. Diet recall indicates mostly home cooked meals but high reliance on starches. Encouraged reduction of starches at meals, provided education material and contact info. INTERVENTION: Diabetes Education Diabetes Diet Provided contact information on diabetic outpatient education PLAN: Alonso will follow up with PCP and outpatient diabetes CDE after discharge to assist with optimal diabetic control Time Spent in Nutritional Counseling and Treatment: 20 min spent face to face
--- NOTE | 2019-10-03 13:25 | DSE_ITS ---
Date of service: 10/03/19 Time of Service: 13:25 DS: Diagnosis Discharge Diagnosis (1) Pulmonary emboli: Status: Acute Asessment and Plan: Patient present with 1 to 2-week history of dyspnea and right-sided pleuritic chest pain was found to have right lower lobe segmental and subsegmental pulmonary emboli and that appeared to be new. Patient was restarted on his Lovenox and an increased dose of 115 mg subcutaneous every 12 hours. He will be discharged on increased dose of 120 mg subcutaneous every 12 hours since Lovenox is not available at a dose of 115 mg in retail pharmacy. COVID-19 nasopharyngeal swab was negative per PCR. (2) Atrial fibrillation: Status: Chronic Asessment and Plan: Heart rate was initially tachycardic on admission but after initiation of Lovenox his heart rate stabilized overnight. He was kept on his usual dose of diltiazem 30 mg 3 times daily and Multitak 4 mg twice a day. Anticoagulation will be maintained with an increased dose of Lovenox. (3) Anemia: Status: Acute Asessment and Plan: Patient's anemia remained stable. Hemoglobin varied between 12-1/2 and 13 g. This appears to be his baseline. (4) Elevated liver enzymes: Status: Acute Asessment and Plan: Transaminases were mildly elevated on admission with an AST of 60 and ALT of 81 and alkaline phosphatase 134. Total bilirubin was normal at 0.6. Repeat levels at the time of discharge showed his levels were declining towards normal with an AST of 38 and ALT of 68 and alkaline phosphatase of 92. This may represent some hepatic congestion secondary to his pulmonary embolism. Hepatitis profile was obtained on admission and came back negative for hepatitis B and C. Further outpatient monitoring is recommended (5) Discharge planning issues: Status: Acute Asessment and Plan: Patient is discharged home on increased dose of Lovenox at 120 mg subcutaneously twice a day. Patient will follow-up with his primary care provider for further (6) Exacerbation of Crohn's disease: Status: Chronic Asessment and Plan: Patient had some large soft stools as well as some liquid diarrhea. There have been some alleged blood with the stools however nursing documented that his stool was heme-negative. His hemoglobin remained stable through his hospital course. Further follow-up of his Crohn's is recommended with his GI specialist Discharge Plan Disposition Patient Disposition: HOME Condition: Good Discharge Details Chief Complaint: SOB Clinical Impression: Pulmonary emboli Reason For Visit: RIGHT LOWER LOBE PE Admit Date/Time: 10/01/19 22:15 Admit Provider: Oscar Vann Attending Provider: Oscar Vann Primary Care Provider: Kenney Greer ED Provider: Eran Huang Hospital Course Hospital Course: 69-year-old male with a past medical history of postpolio syndrome, bilateral pulmonary emboli on chronic low molecular weight heparin, metastatic prostate cancer on GnRH analog therapy, diabetes mellitus on insulin, Crohn's disease on chronic prednisone who presented with a 1 to 2-week history of increasing shortness of breath along with pleuritic chest pain. CTA of the chest was pe rformed and demonstrated right lower lobe segmental and subsegmental pulmonary emboli that appear to be new. Apparently the patient had decreased his Lovenox dose recently due to nosebleeds. Patient had been on 100 mg of Lovenox subcu twice a day. Patient was admitted to the hospital overnight and had no hemodynamic or respiratory compromise. He was mildly tachycardic on admission with heart rates in the high 90s to low 100s which resolved. At the time of discharge his heart rate was in the 70s. Blood pressure throughout his hospital stay from 130s to 160 systolic. As pulse oximetry varied from 91% to 95% on room air. At the time of discharge she had no further pleuritic chest pain. He was treated with a higher dose of Lovenox at 115 mg subcutaneously every 12 hours. His case was discussed with his primary care provider who recommended continuation of Lovenox at a higher dose. Patient will be discharged with a new prescription for Lovenox 120 mg subcutaneously every 12 hours. Home Meds and New Rx's Prescriptions: New enoxaparin [Lovenox] 120 mg/0.8 mL Syringe 120 mg subcut 1000,2200 Qty: 60 RF: 1 Continued prednisone 5 mg tablet 10 mg PO BID RF: 0 diltiazem HCl [Cardizem] 30 mg tablet 30 mg PO TID RF: 0 acetaminophen [Tylenol Extra Strength] 500 MG tablet 1,000 mg PO Q4H PRN PRNRF: 0 Multaq 400 MG tablet 400 mg PO BID Qty: 180 RF: 4 balsalazide 750 MG capsule 2,250 mg PO TID RF: 0 Excedrin Migraine 1 EACH tablet 1 ea PO DAILY PRNRF: 0 omeprazole [Prilosec] 20 MG capsule,delayed release(DR/EC) 40 mg PO BID RF: 0 ferrous gluconate 324 mg (37.5 mg iron) tablet 324 mg PO BID RF: 0 nitroglycerin [Nitrostat] 0.4 MG tablet, sublingual 0.4 mg Sublingual Q5 MIN PRN X3 PRNQty: 15 RF: 0 hydrocodone-acetaminophen 1 TAB tablet 1 - 2 tab PO Q4H PRN PRNQty: 40 RF: 0 cyanocobalamin (vitamin B-12) 1,000 mcg/mL solution 1,000 mcg IM QMONTH RF: 0 ergocalciferol (vitamin D2) [Vitamin D2] 50,000 unit capsule 50,000 unit PO .2x weekly RF: 0 metoclopramide HCl [Reglan] 10 mg tablet 10 mg PO BID Qty: 4 RF: 0 hydrocodone-acetaminophen 10-325 mg tablet 1 tab PO PRN PRNRF: 0 famotidine 20 mg Tablet 20 mg PO BID RF: 0 Lantus Solostar U-100 Insulin 100 unit/mL (3 mL) Insulin Pen 30 unit SUBCUT HS RF: 0 calcium carbonate 500 MG tablet,chewable 1,000 mg CH QID RF: 0 Topicaine 30 GM gel 1 appful Topical PRN PRNRF: 0 pramipexole 0.5 mg tablet 1 mg PO HS RF: 0 promethazine 12.5 mg Tablet 12.5 mg PO Q6H PRNRF: 0 levothyroxine 75 mcg Tablet 75 mcg PO DAILY RF: 0 magnesium L-lactate 84 mg Tablet Extended Release 84 mg PO DAILY RF: 0 Discontinued enoxaparin [Lovenox] 100 MG/ML syringe 100 mg SQ Q12H RF: 0 Discharge Instructions Instructions: Enoxaparin (Injection), Pulmonary Embolism (DC) Additional Instructions: Increase your Lovenox dose to 120 mg subcutaneously every 12 hours. Please get a new prescription which was sent to [facility] in [facility]. Activity:: Activity as Tolerated Equipment/Supplies:: No Equipment Needed Diet:: As Tolerated Discharge Orders Discharge Orders: Discharge Order (Routine); Ordered 10/03/19 Ordered By: Eran Love DS: Summary Status at Discharge Functional status at discharge: independent ambulation Overall status at discharge: patient is back to baseline Mental Status: mental status grossly normal Speech and Movement: speech and movement normal Mood: congruent mood Affect: normal affect Exam Narrative Exam Narrative: A&OX3 Lungs: CTA Cor: RRR Abdomen: soft, nontender Psych Mental Status: mental status grossly normal Speech and Movement: speech and movement normal Mood: congruent mood Affect: normal affect DS: Data Vitals/I&O Vitals and I&O: Vital Signs Temperature 35.8 C L 10/03/19 12:00 Temperature Source Temporal Artery Scan 10/03/19 12:00 Pulse 87 10/03/19 11:59 Pulse Rhythm Regular 10/02/19 22:53 Pulse 94 H 10/03/19 11:59 Respiratory Rate 21 10/03/19 11:59 Respiratory Effort Non-Labored 10/02/19 22:53 Respiratory Depth Normal 10/02/19 22:53 Respiratory Pattern Normal 10/02/19 22:53 Blood Pressure 147/95 H 10/03/19 11:59 Blood Pressure Mean 104 10/03/19 11:59 Blood Pressure Position Sitting 10/01/19 19:07 Pulse Oximetry 93 L 10/03/19 11:59 Oxygen Delivery Method Room Air 10/03/19 12:00 Oxygen Flow Rate 0 10/03/19 12:00 Fraction of Inspired Oxygen (FIO2) 21 10/02/19 20:57 Pain Level 10 10/03/19 12:15 Comment 10/03/19 12:00 Intake & Output 10/02/19 10/03/19 10/03/19 23:59 11:59 23:59 Intake Total 600 / 1500 300 / 750 450 / 750 Output Total 700 / 950 225 / 225 Balance -100 / 550 75 / 525 450 / 525 Intake: Oral 600 / 1250 300 / 750 450 / 750 Output: Urine 700 / 950 225 / 225 Other: Urine Color Yellow Dark Nitza Urine Appearance Clear Clear Urine Odor Strong Normal Stool Occult Blood Negative Stool Size Large Large Small Stool Characteristics Soft Soft Liquid Brown Voiding Methods Urinal Bedside Commode Data Completed and Pending Labs on day of discharge: Labs from last 24 hours 10/03/19 10/03/19 10/03/19 06:15 06:15 06:15 WBC 7.88 RBC 4.03 L Hgb 12.4 L Hct 37.6 L MCV 93.3 MCH 30.8 MCHC 33.0 RDW 15.2 H Plt Count 207 MPV 9.1 Immature Gran % 0.6 Neutrophils % 79.0 Lymphocytes % 10.4 Monocytes % 8.6 Eosinophils % 1.1 Basophils % 0.3 Absolute Neutrophils 6.22 Absolute Lymphocytes 0.82 L Absolute Monocytes 0.68 Absolute Eosinophils 0.09 Absolute Basophils 0.02 PT INR APTT Sodium 136 Potassium 3.5 Chloride 100 Carbon Dioxide 26.9 Anion Gap 9.1 BUN 17 Creatinine 1.04 Estimated GFR/1.73 m2 >= 60.00 Glucose 194 H Lactate 3.3 H* Calcium 8.8 Magnesium 1.7 L Total Bilirubin 0.6 AST 38 H ALT 68 H Alkaline Phosphatase 92 Total Protein 7.2 Albumin 3.2 L COVID-19 PCR Nasopharyn COVID-19 PCR Hep Bs Antigen Hepatitis C Antibody Ref Test Perform Site 10/01/19 10/01/19 10/01/19 20:00 20:00 19:43 WBC RBC Hgb Hct MCV MCH MCHC RDW Plt Count MPV Immature Gran % Neutrophils % Lymphocytes % Monocytes % Eosinophils % Basophils % Absolute Neutrophils Absolute Lymphocytes Absolute Monocytes Absolute Eosinophils Absolute Basophils PT INR APTT Sodium Potassium Chloride Carbon Dioxide Anion Gap BUN Creatinine Estimated GFR/1.73 m2 Glucose Lactate Calcium Magnesium Total Bilirubin AST ALT Alkaline Phosphatase Total Protein Albumin COVID-19 PCR Negative Nasopharyn COVID-19 PCR Not Applicable Hep Bs Antigen Negative Hepatitis C Antibody Negative Ref Test Perform Site [facility] hospital lab 10/01/19 19:30 WBC RBC Hgb Hct MCV MCH MCHC RDW Plt Count MPV Immature Gran % Neutrophils % Lymphocytes % Monocytes % Eosinophils % Basophils % Absolute Neutrophils Absolute Lymphocytes Absolute Monocytes Absolute Eosinophils Absolute Basophils PT 12.3 INR 1.1 APTT 37 Sodium Potassium Chloride Carbon Dioxide Anion Gap BUN Creatinine Estimated GFR/1.73 m2 Glucose Lactate Calcium Magnesium Total Bilirubin AST ALT Alkaline Phosphatase Total Protein Albumin COVID-19 PCR Nasopharyn COVID-19 PCR Hep Bs Antigen Hepatitis C Antibody Ref Test Perform Site Preliminary micro results at discharge 10/01/19 19:30 Blood Culture - Preliminary Blood NO GROWTH 24 HOURS 10/01/19 20:00 Blood Culture - Preliminary Blood NO GROWTH 24 HOURS [facility] Medical History (Updated 10/03/19 @ 13:36 by Eran Love) Afib Bilateral hip pain Bone lesion Chest pain Crohn's disease Diabetes (Chronic) Drug hypersensitivity Dyspepsia Elevated liver enzymes (Acute) Fibromyalgia GERD (gastroesophageal reflux disease) Hot flash in male HTN (hypertension) Hx of adenomatous colonic polyps Hx of melanoma excision Hypomania IBS (irritable bowel syndrome) 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 Nocturnal CPAP Osteopenia PE (pulmonary thromboembolism) Periodic limb movement disorder Post poliomyelitis syndrome Prostate cancer Rectal bleeding Rectal pain Right ankle pain Saphenous vein phlebitis Sebaceous cyst Sensorineural hearing loss Sleep apnea Squamous cell carcinoma of hand Superficial phlebitis of leg Swelling of left lower extremity Vitamin B12 deficiency Surgical History ankle surgery, right Arthroplasty of knee bilat Arthroscopy, Shoulder left shoulder repair Colectomy x3 deep muscle biopsy, left calf muscle Hernia Repair, Incisional (03/22/16) intestinal obstruction with incarcerated incisional hernia, lysis of adhesions Family History Mother No problems noted. Father Kidney malignancy Son No problems noted. 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 Grew up in [place]
[2019-10-05 09:47] LABS: PSA, Diagnostic 5.6 ng/mL (0.0-4.5)
[2019-10-06 02:40] LABS: Testosterone, Total <7.0 ng/dL (240-950)
== END 2019-10-03 13:30 | disposition home or self-care (01) | DRG 176 ==
LOC: ER 22:27 → ICU 23:42
PROVIDERS: Internal Medicine; Admitting Provider Family Medicine; Emergency Provider Physician Assistant; PCP Internal Medicine; Visit Provider Internal Medicine
DX: I26.94 Multiple subsegmental thrombotic pulmonary emboli without acute cor pulmonale (principal); K50.90 Crohn's disease, unspecified, without complications; C79.9 Secondary malignant neoplasm of unspecified site; T45.516A Underdosing of anticoagulants, initial encounter; Z91.128 Patient's intentional underdosing of medication regimen for other reason; Z11.59 Encounter for screening for other viral diseases; I48.91 Unspecified atrial fibrillation; D64.9 Anemia, unspecified; R74.0 Nonspecific elevation of levels of transaminase and lactic acid dehydrogenase [LDH]; Z86.711 Personal history of pulmonary embolism; E11.9 Type 2 diabetes mellitus without complications; C61 Malignant neoplasm of prostate; Z79.899 Other long term (current) drug therapy; Z79.4 Long term (current) use of insulin; G47.33 Obstructive sleep apnea (adult) (pediatric); G89.29 Other chronic pain; Z79.891 Long term (current) use of opiate analgesic; Z79.52 Long term (current) use of systemic steroids; Z71.3 Dietary counseling and surveillance
CPT/HCPCS: 36415; 71275; 74177; 80048; 80053; 83690; 84145; 84403; 85610; 85730; 86803; 87040; 87340; 87449; 93005; 96360; 96361; 96372; 99219; 99239; 99285; U0003; 82728; 83540; 83550; 83605; 83615; 83735; 83880; 84153; 84439; 84443; 84484; 85025; 85379; 86140; 93010; J1650; J2060; J3490; J7512

== ENCOUNTER 2019-10-06 02:11 | Outpatient (CLI) | payer MEDICARE, SELFPAY ==
--- NOTE | 2019-10-06 09:00 | DI.RAD_ITS ---
EXAM: XR KNEE RT 3V AP,LAT,CHELY CLINICAL HISTORY: CHRONIC KNEE PAIN, M25.561, H/O CA. TECHNIQUE: 2D digital imaging was performed. COMPARISON: No exams were available for comparison FINDINGS: There is severe narrowing of the lateral femoral tibial joint space, with a [id number] appearance. There is prominent periarticular spurring. Spurring is also seen at the medial femoral condyle and medial tibial plateau as well as patellofemoral joint. Vascular calcifications are seen. There is a small joint effusion. 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 DATA REPOSITORY: RADIATION DOSE DELIVERED:
== END 2019-10-06 02:31 ==
PROVIDERS: PCP Internal Medicine; Visit Provider Internal Medicine
DX: M25.561 Pain in right knee (principal); M25.461 Effusion, right knee; M17.11 Unilateral primary osteoarthritis, right knee
CPT/HCPCS: 73562

== ENCOUNTER 2019-10-30 03:27 | Outpatient (CLI) | payer MEDICARE, SELFPAY ==
[2019-10-30 11:30] LABS: Abs Immature Grans 0.06 k/cumm (0.0-0.09); Absolute Basophil Count 0.01 k/cumm (0.0-0.2); Absolute Eosinophil Count 0.04 k/cumm (0.0-0.7); Absolute Lymphocyte Count 0.77 k/cumm (1.2-3.4); Absolute Monocyte Count 0.51 k/cumm (0.11-0.7); Absolute Neutrophil Count 5.62 k/cumm (1.2-6.7); Basophils % 0.1; Eosinophils % 0.6; HCT 38.1 % (40.0-50.0); HGB 12.3 g/dL (13.5-17.5); Immature Grans % 0.9 %; Mean Corp. HGB Concentration 32.3 g/dL (32.0-36.0); Mean Corpuscular Hemoglobin 30.2 pg (27.0-33.0); Mean Corpuscular Volume 93.6 fL (80-95); Mean Platelet Volume 9.4 fL (8.0-11.0); Monocytes % 7.3; Neutrophils % 80.1; Platelet Count 194 x1000/uL (130-400); RBC 4.07 m/cumm (4.50-6.00); RBC Distribution Width 16.4 % (11.8-14.1); White Blood Cell Count 7.01 k/cumm (4.4-10.8)
[2019-10-30 12:23] LABS: ALT 80 U/L (16-63); Albumin 3.6 g/dL (3.4-5.0); Alkaline Phosphatase 112 U/L (46-116); Anion Gap 10.7 mmol/L (3-11); BUN 19 mg/dL (7-18); Bilirubin, Total 0.6 mg/dL (0.2-1.0); CO2 25.3 mmol/L (21.0-32.0); CREATININE 0.91 mg/dL (0.70-1.30); Calcium 9.1 mg/dL (8.5-10.1); Chloride 101 mmol/L (98-107); Glucose 240 mg/dL (74-106); Sodium 137 mmol/L (136-145); Total Protein 7.4 g/dL (6.4-8.2)
[2019-10-30 12:30] LABS: FREE T4 1.13 ng/dL (0.76-1.46); TSH 3.54 uIU/mL (0.36-3.74)
[2019-10-30 12:34] LABS: AST 68 U/L (15-37)
[2019-11-02 08:19] LABS: Testosterone, Total <7.0 ng/dL (240-950)
== END 2019-10-30 03:47 ==
PROVIDERS: PCP Internal Medicine; Visit Provider Internal Medicine
DX: C61 Malignant neoplasm of prostate (principal); R53.83 Other fatigue
CPT/HCPCS: 36415; 80053; 84403; 84153; 84439; 84443; 85025

== ENCOUNTER 2019-11-01 11:45 | Emergency (ER) | payer MEDICARE, SELFPAY ==
[2019-11-01 11:50] VITALS: BP 149/97; PULSE 100; RESP 16; TEMP 36.5; O2SAT 96
--- NOTE | 2019-11-01 11:58 | ED.GENADUL_ITS ---
Discharge Plan Disposition Patient Disposition: HOME Condition: Stable Discharge Details Chief Complaint: Orthopedic Clinical Impression: Chronic hip pain after total replacement of left hip joint Primary Care Provider: Kenney Greer ED Provider: Leora Payne Home Meds and New Rx's Prescriptions: Continued prednisone 5 mg tablet 10 mg PO BID RF: 0 diltiazem HCl [Cardizem] 30 mg tablet 30 mg PO TID RF: 0 acetaminophen [Tylenol Extra Strength] 500 MG tablet 1,000 mg PO Q4H PRN PRNRF: 0 Multaq 400 MG tablet 400 mg PO BID Qty: 180 RF: 4 balsalazide 750 MG capsule 2,250 mg PO TID RF: 0 Excedrin Migraine 1 EACH tablet 1 ea PO DAILY PRNRF: 0 omeprazole [Prilosec] 20 MG capsule,delayed release(DR/EC) 40 mg PO BID RF: 0 ferrous gluconate 324 mg (37.5 mg iron) tablet 324 mg PO BID RF: 0 nitroglycerin [Nitrostat] 0.4 MG tablet, sublingual 0.4 mg Sublingual Q5 MIN PRN X3 PRNQty: 15 RF: 0 hydrocodone-acetaminophen 1 TAB tablet 1 - 2 tab PO Q4H PRN PRNQty: 40 RF: 0 cyanocobalamin (vitamin B-12) 1,000 mcg/mL solution 1,000 mcg IM QMONTH RF: 0 ergocalciferol (vitamin D2) [Vitamin D2] 50,000 unit capsule 50,000 unit PO .2x weekly RF: 0 metoclopramide HCl [Reglan] 10 mg tablet 10 mg PO BID Qty: 4 RF: 0 hydrocodone-acetaminophen 10-325 mg tablet 1 tab PO PRN PRNRF: 0 famotidine 20 mg Tablet 20 mg PO BID RF: 0 Lantus Solostar U-100 Insulin 100 unit/mL (3 mL) Insulin Pen 30 unit SUBCUT HS RF: 0 enoxaparin [Lovenox] 120 mg/0.8 mL Syringe 120 mg subcut 1000,2200 Qty: 60 RF: 1 calcium carbonate 500 MG tablet,chewable 1,000 mg CH QID RF: 0 Topicaine 30 GM gel 1 appful Topical PRN PRNRF: 0 pramipexole 0.5 mg tablet 1 mg PO HS RF: 0 promethazine 12.5 mg Tablet 12.5 mg PO Q6H PRNRF: 0 levothyroxine 75 mcg Tablet 75 mcg PO DAILY RF: 0 magnesium L-lactate 84 mg Tablet Extended Release 84 mg PO DAILY RF: 0 Discharge Instructions Instructions: Precautions after Total Joint Replacement Surgery (ED), Total Hip Replacement (DC) Additional Instructions: Use walker and wheelchair at home as much as possible. Take medications as directed. Keep surgical appointment on Wednesday. Return to the ED for any recurrent falling, fever, vomiting, swelling to your leg. Your x-rays taken today look unchanged from the x-rays taken on October 24. I did speak with orthopedics at [facility]. Follow up with primary care provider in 3-5 days. Return to ED sooner if any worsening or concerns. Increase oral fluids. Referrals: Kenney Greer MD [Primary Care Provider] - Medical Decision Making 69-year-old male with history of Crohn's disease, insulin-dependent diabetes mellitus, bilateral pulmonary embolism, hypertension, A. fib and other multiple comorbidities presents for with left hip pain. Patient states that 1 week ago he fell when his walker broke since then has been gingerly ambulating on his left hip with pain. He normally does take Vicodin for pain but last night pain increased. He received 100 mics of fentanyl IV per EMS prior to arrival. Brought his pain from a 10 down to a 4 out of 10. He was able to transfer from the EMS gurney onto the stretcher. He has decreased sensation to his lower extremities at baseline due to her history of polio. There is no obvious de formity or shortening or rotation noted upon arrival. He does have some bruises noted to his abdominal wall from Lovenox injections Medical records from [facility] reviewed from 10/25/2019 which shows previous bilateral hybrid total hip arthroplasties are in place right total hip appears to be intact left hip is notable for proximal femur fracture or displacement of the lesser counter as well as subsidence of the femoral stem to the varus. X-ray left hip AP pelvis: Comparison AP pelvis from 04/30/2018 Three views were obtained. There are sclerotic metastases involving the pelvis bilaterally. There are bilateral joint replacements in position. There is a fracture through the intertrochanteric region of the left femur with some displacement of the prosthesis. The acetabular component remains well seated. 1255: Received a call from radiology stating patient states that there is nothing wrong with his left knee he is complaining of right knee pain. X-ray change from left knee to right knee, left knee x-ray was ordered to obtain the joint below possible injury. 1330: [facility] paged for orthopedics consult, x-rays pushed to [facility]. Patient reevaluation, he does state that he has another walker and a wheelchair at home is having difficulty ambulating does live with his . 1355: Spoke with Stevan Ortho resident at [facility] regarding patient, he states that she is I x-rays are very similar to the ones obtained on October 24. He will speak with his attending physician and unless there is any other further recommendations plan is to keep patient scheduled for surgery Wednesday. Will do road test here in the department with a walker if patient ambulate safely will plan to discharge home. 1406: Patient bedside commode in room, discussed results with patient, verbalized understanding discussed discussion with Ortho at this time I will give him his normal noon meds hydrocodone prednisone and famotidine and discussed need for use of walker and wheelchair at home. He states that his does help him. Given strict return instructions, at this time I do feel like it is a pain control issue until scheduled surgery on Wednesday at [facility]. Patient encouraged to keep surgical appointment. Patient discharged with , this text was generated using [employer] dictation system, please disregard any oddities of phrase or misspellings. HPI General Mode of arrival: EMS . Date/Time Provider Initiated Documentation: 11/01/19 11:53 . Limitations to Documentation: no limitations . Information obtained by: patient and EMS . HPI Narrative: 69-year-old male with history of Crohn's disease, insulin-dependent diabetes mellitus, bilateral pulmonary embolism, hypertension, A. fib and other multiple comorbidities presents for with left hip pain. Patient states that 1 week ago he fell when his walker broke since then has been gingerly ambulating on his left hip with pain. He normally does take Vicodin for pain but last night pain increased. He received 100 mics of fentanyl IV per EMS prior to arrival. Brought his pain from a 10 down to a 4 out of 10. He was able to transfer from the EMS gurney onto the stretcher. He has decreased sensation to his lower extremities at baseline due to her history of polio. There is no obvious deformity or shortening or rotation noted upon arrival. He does have some bruises noted to his abdominal wall from Lovenox injections. Related Data Home Medications Medication Instructions Recorded Confirmed omeprazole [Prilosec] 40 mg PO BID 01/23/13 11/01/19 acetaminophen [Tylenol Extra 1,000 mg PO Q4H PRN PRN tab-cap NS 03/29/13 11/01/19 Strength] Multaq 400 mg PO BID #180 tab-cap 04/15/15 11/01/19 nitroglycerin [Nitrostat] 0.4 mg SUBLINGUAL Q5 MIN PRN X3 04/23/15 11/01/19 PRN #15 tab balsalazide 2,250 mg PO TID 09/24/15 11/01/19 hydrocodone-acetaminophen 1 - 2 tab PO Q4H PRN PRN #40 tab 03/25/16 10/01/19 Excedrin Migraine 1 ea PO DAILY PRN 09/15/16 11/01/19 Topicaine 1 appful TOPICAL PRN PRN 06/27/17 11/01/19 calcium carbonate 1,000 mg CH QID 06/27/17 11/01/19 metoclopramide HCl [Reglan] 10 mg PO BID #4 tab 04/25/18 11/01/19 diltiazem HCl 30 mg tablet 30 mg PO TID tab 04/27/18 11/01/19 cyanocobalamin (vitamin B-12) 1,000 mcg IM QMONTH ml 01/23/19 11/01/19 1,000 mcg/mL injection solution ergocalciferol (vitamin D2) 1,250 50,000 unit PO .2x weekly cap 01/23/19 11/01/19 mcg (50,000 unit) capsule ferrous gluconate 324 mg (37.5 mg 324 mg PO BID tab 01/23/19 11/01/19 iron) tablet pramipexole 0.5 mg tablet 1 mg PO HS tab 01/23/19 11/01/19 levothyroxine 75 mcg PO DAILY 04/29/19 11/01/19 magnesium L-lactate 84 mg PO DAILY 04/29/19 11/01/19 promethazine 12.5 mg PO Q6H PRN 04/29/19 11/01/19 prednisone 5 mg tablet 10 mg PO BID tab 07/25/19 11/01/19 Lantus Solostar U-100 Insulin 30 unit SUBCUT HS 10/01/19 11/01/19 famotidine 20 mg PO BID 10/01/19 11/01/19 hydrocodone-acetaminophen 1 tab PO PRN PRN 10/01/19 11/01/19 enoxaparin [Lovenox] 120 mg SUBCUT 1000,2200 #60 syringe 10/03/19 11/01/19 Previous Rx's Medication Instructions Recorded nitroglycerin [Nitrostat] 0.4 mg SUBLINGUAL Q5 MIN PRN X3 04/23/15 PRN #15 tab hydrocodone-acetaminophen 1 - 2 tab PO Q4H PRN PRN #40 tab 03/25/16 metoclopramide HCl [Reglan] 10 mg PO BID #4 tab 04/25/18 enoxaparin [Lovenox] 120 mg SUBCUT 1000,2200 #60 syringe 10/03/19 Allergies Allergy/AdvReac Type Severity Reaction Status Date / Time Sulfa (Sulfonamide Allergy Mild Skin Rash Unverified 11/01/19 11:57 Antibiotics) atenolol Allergy Unverified 11/01/19 11:57 atorvastatin Allergy Unverified 11/01/19 11:57 gabapentin Allergy Unverified 11/01/19 11:57 nicardipine Allergy Unverified 11/01/19 11:57 salsalate Allergy Unverified 11/01/19 11:57 tramadol Allergy Unverified 11/01/19 11:57 venlafaxine Allergy Unverified 11/01/19 11:57 ciprofloxacin HCl AdvReac Severe ruptured Unverified 11/01/19 11:57 [From Cipro] achilles tendon hydrochlorothiazide AdvReac Severe myalgias Unverified 11/01/19 11:57 [From Benicar HCT] indapamide AdvReac Severe chest pain Unverified 11/01/19 11:57 olmesartan medoxomil AdvReac Severe myalgias Unverified 11/01/19 11:57 [From Benicar HCT] terazosin [Terazosin] AdvReac Severe tremor, GI Unverified 06/03/20 11:57 upset aliskiren [Aliskiren] AdvReac Intermediate diarrhea Unverified 11/01/19 11:57 amlodipine AdvReac Intermediate fatigue Unverified 11/01/19 11:57 enalapril [Enalapril] AdvReac Intermediate shakes, Unverified 11/01/19 11:57 weakness montelukast sodium AdvReac Intermediate rectal Unverified 11/01/19 11:57 [From Singulair] irritation pregabalin [From Lyrica] AdvReac Intermediate sleep Unverified 11/01/19 11:57 issues spironolactone AdvReac Intermediate headache Unverified 11/01/19 11:57 General Stated Complaint: Orthopedic ELMO: 3 Review of Systems Narrative: Constitutional: Negative for weight loss, alert and oriented, well groomed, normal body habitus, appears comfortable. HEENT: Denies trauma, headaches, blurry vision, nasal discharge, sore throat, trouble swallowing. Chest: Denies chest pain, palpitations, irregular rhythm, hypertension. Respiratory: Denies Shortness of breath, cough, hemoptysis. GI: Denies abdominal pain, nausea, vomiting, diarrhea, constipation. : Denies dysuria, hematuria, flank pain, rectal bleeding. Neuro: Denies dizziness, blurry vision, weakness, syncope, headache or facial numbness. Hematologic: Denies easy bruising, intolerance to heat or cold, hair loss. 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 Nocturnal CPAP Osteopenia PE (pulmonary thromboembolism) Periodic limb movement disorder Post poliomyelitis syndrome Prostate cancer Rectal bleeding Rectal pain Right ankle pain Saphenous vein phlebitis Sebaceous cyst Sensorineural hearing loss Sleep apnea Squamous cell carcinoma of hand Superficial phlebitis of leg Swelling of left lower extremity Vitamin B12 deficiency Surgical History ankle surgery, right Arthroplasty of knee bilat Arthroscopy, Shoulder left shoulder repair Colectomy x3 deep muscle biopsy, left calf muscle Hernia Repair, Incisional (03/22/16) intestinal obstruction with incarcerated incisional hernia, lysis of adhesions Family History Mother No problems noted. Father Kidney malignancy Son No problems noted. 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 Grew up in [place] Exam Narrative Exam Narrative: Constitutional: Alert and oriented x3. Appears stated age. obese body habitus. Head: Normocephalic, no trauma. Eyes: Pupils PERRLA, Red reflex noted, EOM's intact. Eyelids symmetrical without lesions, discharge, or swelling. ENT: Bilateral TM's WNL, External ear normal to inspection, no mastoid TTP, swelling, or erythema, Nasal turbinates WNL, no nasal discharge. Normal dentition, Posterior pharynx WNL, no exudate. Chest: RRR, Normal S1, S2, distal pulses intact. Resp: Lungs clear to auscultation bilaterally, no wheezes, rales, or rhonchi. Musculoskeletal: Normal gait, 5/5 strength to all four extremities. Skin: No suspicious rashes or lesions. Capillary refill less than 2 sec. does have contusions noted to his anterior abdominal wall from Lovenox injections. Neurologic: Cranial nerves II-XII intact. Alert and oriented x 3. DTR's intact. Hematologic/Lymphatic: No ecchymosis, no lymphadenopathy. Course Vital Signs Vital signs: Vital Signs Temperature 36.5 C 11/01/19 11:50 Pulse 100 H 11/01/19 11:50 Respiratory Rate 16 11/01/19 11:50 Blood Pressure 149/97 H 11/01/19 11:50 Pulse Oximetry 96 11/01/19 11:50 Temperature 36.5 C 11/01/19 11:50 Temperature Source Skin 11/01/19 11:50 Pulse 100 H 11/01/19 11:50 Respiratory Rate 16 11/01/19 11:50 Respiratory Effort Non-Labored 11/01/19 11:50 Blood Pressure 149/97 H 11/01/19 11:50 Pulse Oximetry 96 11/01/19 11:50 Oxygen Delivery Method Room Air 11/01/19 11:50 Oxygen Flow Rate 0 11/01/19 11:50 Pain Level 8 11/01/19 11:50
[2019-11-01 12:40] LABS: Abs Immature Grans 0.06 k/cumm (0.0-0.09); Absolute Basophil Count 0.01 k/cumm (0.0-0.2); Absolute Eosinophil Count 0.07 k/cumm (0.0-0.7); Absolute Lymphocyte Count 0.61 k/cumm (1.2-3.4); Absolute Monocyte Count 0.51 k/cumm (0.11-0.7); Basophils % 0.1; Eosinophils % 0.9; HCT 37.1 % (40.0-50.0); HGB 11.9 g/dL (13.5-17.5); Immature Grans % 0.8 %; Lymphocytes % 7.7; Mean Corp. HGB Concentration 32.1 g/dL (32.0-36.0); Mean Corpuscular Volume 93.5 fL (80-95); Mean Platelet Volume 9.3 fL (8.0-11.0); Monocytes % 6.4; Neutrophils % 84.1; Platelet Count 182 x1000/uL (130-400); RBC 3.97 m/cumm (4.50-6.00); RBC Distribution Width 16.8 % (11.8-14.1); White Blood Cell Count 7.96 k/cumm (4.4-10.8)
[2019-11-01 12:51] LABS: ALT 70 U/L (16-63); AST 48 U/L (15-37); Albumin 3.5 g/dL (3.4-5.0); Alkaline Phosphatase 96 U/L (46-116); Anion Gap 8.5 mmol/L (3-11); BUN 20 mg/dL (7-18); Bilirubin, Total 0.7 mg/dL (0.2-1.0); CO2 26.5 mmol/L (21.0-32.0); Calcium 9.1 mg/dL (8.5-10.1); Chloride 101 mmol/L (98-107); Glucose 206 mg/dL (74-106); Potassium 3.8 mmol/L (3.5-5.1); Sodium 136 mmol/L (136-145); Total Protein 7.4 g/dL (6.4-8.2)
[2019-11-01 12:58] LABS: INR 1.1 (0.9-1.1)
--- NOTE | 2019-11-01 12:59 | DI.RAD_ITS ---
EXAM: XR HIP LT COMPLETE AP PELVIS CLINICAL HISTORY: h/o replacement, fall r/o dislocation, fracture TECHNIQUE: COMPARISON: CR XR hip RT complete AP pelvis from 04/30/2018 CR XR KNEE RT 3V AP,LAT,CHELY from 11/01/2019 FINDINGS: Three views were obtained. There are sclerotic metastases involving the pelvis bilaterally. There a re bilateral joint replacements in position. There is a fracture through the intertrochanteric regio n of the left femur with some displacement of the prosthesis. The acetabular component remains well seated. IMPRESSION:
--- NOTE | 2019-11-01 13:05 | DI.RAD_ITS ---
EXAM: XR KNEE RT 3V AP,LAT,CHELY CLINICAL HISTORY: Right knee pain TECHNIQUE: COMPARISON: CR XR KNEE RT 3V AP,LAT,CHELY from 10/06/2019 FINDINGS: Three views were obtained. There are degenerative changes involving the joints the prominent hypertr ophic marginal osteophyte formation at multiple sites and narrowing of the lateral tibiofemoral carti laginous joint space and probably the patellofemoral cartilaginous joint space as well. Regions of s clerosis are seen the femoral shaft. Patient has reported prostatic metastatic disease. There is no evidence of acute fracture. IMPRESSION:
[2019-11-01] MEDS: HYDROmorphone 2 MG/ML VIAL 0.5 MG IVP (13:25)
[2019-11-01] MEDS: HYDROcodone 5/Acetaminophen 325 TAB PO (14:22)
[2019-11-01] MEDS: Famotidine 20 MG TAB PO (14:22)
[2019-11-01] MEDS: predniSONE 20 MG TAB PO (14:22)
[2019-11-01 14:50] VITALS: BP 143/89; PULSE 93; RESP 16; TEMP 37; O2SAT 96
== END 2019-11-01 14:46 | disposition home or self-care (01) ==
PROVIDERS: Emergency Provider Registered Nurse Emergency; PCP Internal Medicine
DX: M25.552 Pain in left hip (principal); S72.142A Displaced intertrochanteric fracture of left femur, initial encounter for closed fracture; V00.181A Fall from other rolling-type pedestrian conveyance, initial encounter; G89.29 Other chronic pain; G14 Postpolio syndrome; Y83.1 Surgical operation with implant of artificial internal device as the cause of abnormal reaction of the patient, or of later complication, without mention of misadventure at the time of the procedure; C61 Malignant neoplasm of prostate; C79.51 Secondary malignant neoplasm of bone; E11.9 Type 2 diabetes mellitus without complications; Z79.4 Long term (current) use of insulin; I10 Essential (primary) hypertension
CPT/HCPCS: 36415; 73562; 80053; 93005; 96374; 99285; 73502; 85025; 85610; 93010; J7512

== ENCOUNTER 2020-02-07 02:28 | Outpatient (CLI) | payer MEDICARE, SELFPAY ==
[2020-02-07 14:28] LABS: Abs Immature Grans 0.06 10^3/uL (0.0-0.06); Absolute Basophil Count 0.02 10^3/uL (0.0-0.2); Absolute Eosinophil Count 0.13 10^3/uL (0.0-0.7); Absolute Lymphocyte Count 1.11 10^3/uL (1.2-3.4); Absolute Monocyte Count 0.61 10^3/uL (0.1-0.8); Absolute Neutrophil Count 4.77 10^3/uL (1.2-6.7); Basophils % 0.3; Eosinophils % 1.9; HCT 37.4 % (40.0-50.0); HGB 11.8 g/dL (13.5-17.5); Immature Grans % 0.9; Lymphocytes % 16.6; MCH 30.6 pg (27.0-33.0); MCHC 31.6 % (32.0-36.0); MCV 97.1 fL (80-95); Monocytes % 9.1; Neutrophils % 71.2; Nucleated RBC 0 %; Platelet Count 195 10^3/uL (130-400); RBC 3.85 10^6/uL (4.36-5.78); RDW 16.2 % (11.8-14.1); RDW-SD 57.5 fL
[2020-02-07 15:27] LABS: Albumin 3.7 g/dL (3.4-5.0); Alkaline Phosphatase 94 U/L (46-116); Anion Gap 9.8 mmol/L (3-11); BUN 20 mg/dL (7-18); Bilirubin, Total 0.4 mg/dL (0.2-1.0); CO2 25.2 mmol/L (21.0-32.0); CREATININE 0.81 mg/dL (0.70-1.30); Calcium 8.9 mg/dL (8.5-10.1); Chloride 102 mmol/L (98-107); Glucose 121 mg/dL (74-106); Potassium 4.2 mmol/L (3.5-5.1); Sodium 137 mmol/L (136-145); Total Protein 7.1 g/dL (6.4-8.2)
[2020-02-07 15:44] LABS: ALT 24 U/L (16-63); AST 30 U/L (15-37)
[2020-02-07 22:12] LABS: PSA, Diagnostic 17.7 ng/mL (0.0-4.5)
[2020-02-12 11:54] LABS: Testosterone, Total <7.0 ng/dL (240-950)
== END 2020-02-07 02:48 ==
PROVIDERS: PCP Internal Medicine; Visit Provider Internal Medicine
DX: C61 Malignant neoplasm of prostate (principal)
CPT/HCPCS: 36415; 80053; 84403; 84153; 85025

== ENCOUNTER 2020-02-09 10:48 | Outpatient (REF) | payer MEDICARE, SELFPAY ==
[2020-02-14 09:27] LABS: Misc Referral (VDH) See Comments
== END 2020-02-09 11:08 ==
LOC: NCHCN 10:48
PROVIDERS: PCP Internal Medicine; Visit Provider Internal Medicine
DX: R19.7 Diarrhea, unspecified (principal)
CPT/HCPCS: 87329; 82272; 83630; 87324

== ENCOUNTER 2020-02-22 11:56 | Outpatient (REF) | payer MEDICARE, SELFPAY ==
[2020-02-22 21:03] LABS: Magnesium 1.8 mg/dL (1.8-2.4)
== END 2020-02-22 12:16 ==
LOC: NCHCN 11:56
PROVIDERS: PCP Internal Medicine; Visit Provider Internal Medicine
DX: E83.42 Hypomagnesemia (principal)
CPT/HCPCS: 83735

== ENCOUNTER 2020-02-29 02:49 | Outpatient (CLI) | payer MEDICARE, MEDICAID, SELFPAY ==
--- NOTE | 2020-02-29 | DI.CT_ITS ---
EXAM: CT CHEST/ABD/PEL W CLINICAL HISTORY: PROSTATE CA METASTATIC TO BONE,C61,C79.51,ASSESS TREATMENT RESPONSE. TECHNIQUE: Imaging Protocol: Axial computed tomography images with coronal and sagittal reformatted images were created and reviewed CONTRAST MATERIAL: Intravenous: Omnipaque 350 Contrast volume:100 ml Oral: yes / COMPARISON: CT CT CHEST PE ABD PELVIS W from 10/01/[address] CHEST PE ABD PELVIS W from 10/01/2019 CR XR HIP LT COMPLETE AP PELVIS from 11/01/2019 FINDINGS: CHEST: Tracheobronchial tree: Patent where visualized. Mediastinum and Beryl: No dominant adenopathy or fluid collection. Pulmonary parenchyma: No consolidation or dominant measurable mass. Limited by respiratory motion. Pleura: No effusion or pneumothorax. Lymph nodes: Within normal limits. Aorta: Thoracic portion non-dilated. Heart: Mildly enlarged. Mild coronary artery calcifications. No pericardial effusion. Bones: Diffuse mottled, sclerotic appearance consistent with widespread bony metastases. Symmetric m ild bilateral gynecomastia. ABDOMEN: Liver: Moderate hepatic steatosis with some improvement when compared with the previous exam. No me asurable mass. Gallbladder and biliary tract: Status post cholecystectomy. Pancreas: Normal density, no abnormal calcifications or inflammatory process. Spleen: Normal. Kidneys: Normal size, contour and axis. No radiodense stones or obstructive uropathy. No masses seen. A few small cysts are noted. Adrenal glands: No masses seen. Aorta: Abdominal portion non-dilated. Lymph nodes: Within normal limits. PELVIS: Bladder: Not well seen due to bilateral hip prostheses. Bowel: No obstruction or bowel wall thickening. Mild diverticulosis. Peritoneal cavity: No ascites, collection or mesenteric inflammatory response. Bones: Widespread sclerotic metastases. Reproductive organs: Prostate region obscured by metallic artifact from hip prostheses. Soft tissues: Increased densities are again noted in the anterior abdominal wall consistent with inje ction sites. There is mild dependent body wall edema. There is an apparent fluid collection adjacen t to the left hip prosthesis measuring roughly 12 millimeters in cephalo caudad dimension. This cou ld represent joint effusion versus bursitis. IMPRESSION: Widespread sclerotic bony metastases. No acute fractures. Fluid collection around the right hip cou ld represent bursitis versus joint effusion. Limited evaluation of the lungs due to respiratory hannah on. RADIATION DOSE DELIVERED: 2,538.27mGy.cm Total DLP DATA REPOSITORY: All CT scans at this facility are submitted to the National Radiology Data Registry (NRDR) Dose Index Registry (DIR) with the [employer] (A[employer]). RADIATION OPTIMIZATION: All CT scans at this facility use at least one of these dose optimization te chniques: automated exposure control; mA and/or kV adjustment per patient size (includes targeted exa ms where dose is matched to clinical indication); or iterative reconstruction.
[2020-02-29] MEDS: Breeza Beverage 473 ML BTL PO ×2 (08:24→08:25)
[2020-02-29] MEDS: Omnipaque 350 MG/ML 50 ML BTL PO (08:25)
[2020-02-29 09:01] LABS: Abs Immature Grans 0.04 10^3/uL (0.0-0.06); Absolute Basophil Count 0.02 10^3/uL (0.0-0.2); Absolute Eosinophil Count 0.27 10^3/uL (0.0-0.7); Absolute Lymphocyte Count 0.98 10^3/uL (1.2-3.4); Absolute Monocyte Count 0.55 10^3/uL (0.1-0.8); Absolute Neutrophil Count 5.34 10^3/uL (1.2-6.7); Basophils % 0.3; Eosinophils % 3.8; HCT 40.1 % (40.0-50.0); Immature Grans % 0.6; Lymphocytes % 13.6; MCHC 32.4 % (32.0-36.0); MCV 95.7 fL (80-95); MPV 9.3 fL (8.0-11.0); Monocytes % 7.6; Neutrophils % 74.1; Nucleated RBC 0 %; Platelet Count 219 10^3/uL (130-400); RBC 4.19 10^6/uL (4.36-5.78); RDW 15.2 % (11.8-14.1); RDW-SD 53.1 fL
[2020-02-29 09:14] LABS: Albumin 3.6 g/dL (3.4-5.0); Alkaline Phosphatase 91 U/L (46-116); BUN 24 mg/dL (7-18); Bilirubin, Total 0.6 mg/dL (0.2-1.0); CREATININE 0.94 mg/dL (0.70-1.30); Calcium 8.7 mg/dL (8.5-10.1); Chloride 102 mmol/L (98-107); Glucose 168 mg/dL (74-106); Potassium 3.5 mmol/L (3.5-5.1); Sodium 137 mmol/L (136-145); Total Protein 7.3 g/dL (6.4-8.2)
[2020-02-29] MEDS: Omnipaque 350 MG/ML 100 ML BTL IV (10:03)
[2020-02-29] MEDS: Normal Saline - Diluent 50 ML VIAL IV (10:03)
[2020-02-29 10:05] LABS: ALT 27 U/L (16-63); AST 23 U/L (15-37)
[2020-03-02 11:30] LABS: PSA, Ultrasensitive 21.4 ng/mL (<= 4.5)
[2020-03-05 23:23] LABS: Testosterone, Total <7.0 ng/dL (240-950)
== END 2020-02-29 03:09 ==
PROVIDERS: PCP Internal Medicine; Visit Provider Nurse Practitioner Adult Health
DX: C61 Malignant neoplasm of prostate (principal); C79.51 Secondary malignant neoplasm of bone
CPT/HCPCS: 74177; 80053; 84153; 84403; 71260; 85025; J3490; Q9967

== ENCOUNTER 2020-03-05 13:33 | Emergency (ER) | payer MEDICARE, MEDICAID, SELFPAY ==
[2020-03-05] VITALS (22 sets, daily range): BP systolic 147–179; BP diastolic 76–99; PULSE 82–106; RESP 15–28; TEMP 36.2–36.8; O2SAT 81–97
--- NOTE | 2020-03-05 13:44 | ED.GENADUL_ITS ---
Discharge Plan Disposition Patient Disposition: [facility] Condition: Serious Discharge Details Clinical Impression: Small bowel obstruction Primary Care Provider: Kenney Greer ED Provider: Viet Zhu Home Meds and New Rx's Prescriptions: No Action prednisone 5 mg tablet 10 mg PO BID RF: 0 diltiazem HCl [Cardizem] 30 mg tablet 30 mg PO TID RF: 0 acetaminophen [Tylenol Extra Strength] 500 MG tablet 1,000 mg PO Q4H PRN PRNRF: 0 Multaq 400 MG tablet 400 mg PO BID Qty: 180 RF: 4 balsalazide 750 MG capsule 2,250 mg PO TID RF: 0 Excedrin Migraine 1 EACH tablet 1 ea PO DAILY PRNRF: 0 omeprazole [Prilosec] 20 MG capsule,delayed release(DR/EC) 40 mg PO BID RF: 0 ferrous gluconate 324 mg (37.5 mg iron) tablet 324 mg PO BID RF: 0 nitroglycerin [Nitrostat] 0.4 MG tablet, sublingual 0.4 mg Sublingual Q5 MIN PRN X3 PRNQty: 15 RF: 0 hydrocodone-acetaminophen 1 TAB tablet 1 - 2 tab PO Q4H PRN PRNQty: 40 RF: 0 cyanocobalamin (vitamin B-12) 1,000 mcg/mL solution 1,000 mcg IM QMONTH RF: 0 ergocalciferol (vitamin D2) [Vitamin D2] 50,000 unit capsule 50,000 unit PO .2x weekly RF: 0 metoclopramide HCl [Reglan] 10 mg tablet 10 mg PO BID Qty: 4 RF: 0 hydrocodone-acetaminophen 10-325 mg tablet 1 tab PO PRN PRNRF: 0 famotidine 20 mg Tablet 20 mg PO BID RF: 0 Lantus Solostar U-100 Insulin 100 unit/mL (3 mL) Insulin Pen 30 unit SUBCUT HS RF: 0 enoxaparin [Lovenox] 120 mg/0.8 mL Syringe 120 mg subcut 1000,2200 Qty: 60 RF: 1 (DME) BD SafetyGlide Syringe 3 mL 25 x 5/8 syringe MISCELLANEOUS RF: 0 (DME) OneTouch Verio test strips Strip MISCELLANEOUS RF: 0 clotrimazole 1 % cream TOPICAL RF: 0 calcium carbonate 500 MG tablet,chewable 1,000 mg CH QID RF: 0 Topicaine 30 GM gel 1 appful Topical PRN PRNRF: 0 pramipexole 0.5 mg tablet 1 mg PO HS RF: 0 promethazine 12.5 mg Tablet 12.5 mg PO Q6H PRNRF: 0 levothyroxine 75 mcg Tablet 75 mcg PO DAILY RF: 0 magnesium L-lactate 84 mg Tablet Extended Release 84 mg PO DAILY RF: 0 Medical Decision Making 69-year-old male presents from home with hours of abdominal bloating, distention, pain associated with nausea. He states he had a hard bowel movement this morning and has not had emesis. This feels similar to previous episodes of both bowel obstruction as well as Crohn's disease exacerbation. He has a complex past medical history including diabetes, A. fib, pulmonary embolism, hypertension, and Crohn's disease. He arrives to the ER in some distress. His abdomen is distended, tympanitic, and diffusely tender with high-pitched bowel sounds. Most consistent with a bowel obstruction, would also consider ileus or enteritis. Patient IV access established, screening laboratories obtained and he is referred for CT images. Patient has an elevated lactic acid, white blood cell count of 9 with left shift present. His chemistries are essentially reassuring. Lipase is negative. CT with high-grade bowel obstruction. NG tube placed for bowel decompression. Patient's pain improving with parenteral analgesia. Review of records reveals CT of the chest, abdomen, pelvis obtained February 28 for staging of known bony metastases from prostate cancer. There was no bowel obstruction present on that study. Reviewed the patient's records which show Crohn's disease diagnosed in 1987. He had a terminal ileum resection. Patient reports additional small bowel resection x1. Our records reveal at least 1 admission for laparotomy, lysis of adhesions and treatment for an incarcerated ventral incisional hernia. He is anticoagulated for history of PE. He has been on chronic prednisone. He has been followed by GI at [facility]. Case discussed with on-call surgery, Dr. Musa. She feels the patient has potential for rapid decline and would not be a candidate for operative management at [facility]. She requested I consult [facility]; Case discussed with Dr. Robles who accepts in transfer. Medical Records Medical records reviewed: Yes I reviewed the patient's medical records. Lab Data Lab results reviewed: Yes I reviewed the patient's lab results. Lab results narrative: Laboratory Results - last 24 hr 03/05/20 03/05/20 03/05/20 13:49 13:49 13:49 WBC RBC Hgb Hct MCV MCH MCHC RDW Plt Count MPV Immature Gran % Neutrophils % Band Neutrophils % Lymphocytes % Atypical Lymphs % Monocytes % Eosinophils % Basophils % Metamyelocytes % Myelocytes % Promyelocytes % Other Cells % Nucleated RBC % Absolute Neutrophils Absolute Lymphocytes Absolute Monocytes Absolute Eosinophils Absolute Basophils RBC Morphology Polychromasia Hypochromasia Poikilocytosis Basophilic Stippling Anisocytosis Microcytosis Macrocytosis Spherocytes Tear Drop Cells Ovalocytes Stomatocytes [place] Bodies Christina Cells/Echinocytes Acanthocytes (Spur) Schistocytes PT INR APTT VBG Lactate 3.2 H* Sodium 134 L Potassium 4.8 Chloride 99 Carbon Dioxide 25.1 Anion Gap 9.9 BUN 19 H Creatinine 0.95 Estimated GFR/1.73 m2 >= 60.00 Glucose 136 H Calcium 9.9 Total Bilirubin 0.6 AST 58 H ALT 40 Alkaline Phosphatase 84 C-Reactive Protein 0.66 H Total Protein 8.0 Albumin 3.9 Lipase 49 03/05/20 03/05/20 03/05/20 13:49 14:22 14:22 WBC Cancelled 9.23 RBC Cancelled 4.37 Hgb Cancelled 13.1 L Hct Cancelled 40.8 MCV Cancelled 93.4 MCH Cancelled 30.0 MCHC Cancelled 32.1 RDW Cancelled 14.6 H Plt Count Cancelled 196 MPV Cancelled 9.0 Immature Gran % Cancelled 0.4 Neutrophils % Cancelled 83.7 Band Neutrophils % Cancelled Lymphocytes % Cancelled 10.6 Atypical Lymphs % Cancelled Monocytes % Cancelled 5.1 Eosinophils % Cancelled 0.0 Basophils % Cancelled 0.2 Metamyelocytes % Cancelled Myelocytes % Cancelled Promyelocytes % Cancelled Other Cells % Cancelled Nucleated RBC % Cancelled 0 Absolute Neutrophils Cancelled 7.72 H Absolute Lymphocytes Cancelled 0.98 L Absolute Monocytes Cancelled 0.47 Absolute Eosinophils Cancelled 0.00 Absolute Basophils Cancelled 0.02 RBC Morphology Cancelled Polychromasia Cancelled Hypochromasia Cancelled Poikilocytosis Cancelled Basophilic Stippling Cancelled Anisocytosis Cancelled Microcytosis Cancelled Macrocytosis Cancelled Spherocytes Cancelled Tear Drop Cells Cancelled Ovalocytes Cancelled Stomatocytes Cancelled [place] Bodies Cancelled Christina Cells/Echinocytes Cancelled Acanthocytes (Spur) Cancelled Schistocytes Cancelled PT 10.6 INR 1.1 APTT 22.7 VBG Lactate Sodium Potassium Chloride Carbon Dioxide Anion Gap BUN Creatinine Estimated GFR/1.73 m2 Glucose Calcium Total Bilirubin AST ALT Alkaline Phosphatase C-Reactive Protein Total Protein Albumin Lipase HPI General Mode of arrival: ambulatory . Date/Time Provider Initiated Documentation: 03/05/20 13:34 . Limitations to Documentation: no limitations . Information obtained by: patient . History of Present Illness 69 year old M presents to the emergency department with the chief complaint of Abdominal pain, bloating, nausea, described as moderate and similar to prior episodes, Quality is described as dull and constant, and is localized to the abdomen. Patient reports no radiation. Patient started experiencing this hour(s) and it has been constant. No relieving factors improve symptom(s), No exacerbating factors reported . Patient notes loss of appetite; denies fever/chills. Patient did receive the following treatments prior to arrival, none Related Data Home Medications Medication Instructions Recorded Confirmed omeprazole [Prilosec] 40 mg PO BID 01/23/13 11/01/19 acetaminophen [Tylenol Extra 1,000 mg PO Q4H PRN PRN tab-cap NS 03/29/13 03/05/20 Strength] Multaq 400 mg PO BID #180 tab-cap 04/15/15 03/05/20 nitroglycerin [Nitrostat] 0.4 mg SUBLINGUAL Q5 MIN PRN X3 04/23/15 03/05/20 PRN #15 tab balsalazide 2,250 mg PO TID 09/24/15 03/05/20 hydrocodone-acetaminophen 1 - 2 tab PO Q4H PRN PRN #40 tab 03/25/16 03/05/20 Excedrin Migraine 1 ea PO DAILY PRN 09/15/16 03/05/20 Topicaine 1 appful TOPICAL PRN PRN 06/27/17 11/01/19 calcium carbonate 1,000 mg CH QID 06/27/17 11/01/19 metoclopramide HCl [Reglan] 10 mg PO BID #4 tab 04/25/18 11/01/19 diltiazem HCl 30 mg tablet 30 mg PO TID tab 04/27/18 03/05/20 cyanocobalamin (vitamin B-12) 1,000 mcg IM QMONTH ml 01/23/19 03/05/20 1,000 mcg/mL injection solution ergocalciferol (vitamin D2) 1,250 50,000 unit PO .2x weekly cap 01/23/19 03/05/20 mcg (50,000 unit) capsule ferrous gluconate 324 mg (37.5 mg 324 mg PO BID tab 01/23/19 03/05/20 iron) tablet pramipexole 0.5 mg tablet 1 mg PO HS tab 01/23/19 11/01/19 levothyroxine 75 mcg PO DAILY 04/29/19 03/05/20 magnesium L-lactate 84 mg PO DAILY 04/29/19 11/01/19 promethazine 12.5 mg PO Q6H PRN 04/29/19 11/01/19 prednisone 5 mg tablet 10 mg PO BID tab 07/25/19 03/05/20 Lantus Solostar U-100 Insulin 30 unit SUBCUT HS 10/01/19 11/01/19 famotidine 20 mg PO BID 10/01/19 03/05/20 hydrocodone-acetaminophen 1 tab PO PRN PRN 10/01/19 03/05/20 enoxaparin [Lovenox] 120 mg SUBCUT 1000,2200 #60 syringe 10/03/19 03/05/20 blood sugar diagnostic [OneTouch 03/05/20 03/05/20 Verio test strips] clotrimazole applic TOPICAL 03/05/20 03/05/20 syringe with needle [BD 03/05/20 03/05/20 SafetyGlide Syringe] Previous Rx's Medication Instructions Recorded nitroglycerin [Nitrostat] 0.4 mg SUBLINGUAL Q5 MIN PRN X3 04/23/15 PRN #15 tab hydrocodone-acetaminophen 1 - 2 tab PO Q4H PRN PRN #40 tab 03/25/16 metoclopramide HCl [Reglan] 10 mg PO BID #4 tab 04/25/18 enoxaparin [Lovenox] 120 mg SUBCUT 1000,2200 #60 syringe 10/03/19 Allergies Allergy/AdvReac Type Severity Reaction Status Date / Time Sulfa (Sulfonamide Allergy Mild Skin Rash Unverified 11/01/19 11:57 Antibiotics) atenolol Allergy Unverified 11/01/19 11:57 atorvastatin Allergy Unverified 11/01/19 11:57 gabapentin Allergy Unverified 11/01/19 11:57 nicardipine Allergy Unverified 11/01/19 11:57 salsalate Allergy Unverified 11/01/19 11:57 tramadol Allergy Unverified 11/01/19 11:57 venlafaxine Allergy Unverified 11/01/19 11:57 ciprofloxacin HCl AdvReac Severe ruptured Unverified 11/01/19 11:57 [From Cipro] achilles tendon hydrochlorothiazide AdvReac Severe myalgias Unverified 11/01/19 11:57 [From Benicar HCT] indapamide AdvReac Severe chest pain Unverified 11/01/19 11:57 olmesartan medoxomil AdvReac Severe myalgias Unverified 11/01/19 11:57 [From Benicar HCT] terazosin [Terazosin] AdvReac Severe tremor, GI Unverified 11/01/19 11:57 upset aliskiren [Aliskiren] AdvReac Intermediate diarrhea Unverified 11/01/19 11:57 amlodipine AdvReac Intermediate fatigue Unverified 11/01/19 11:57 enalapril [Enalapril] AdvReac Intermediate shakes, Unverified 11/01/19 11:57 weakness montelukast sodium AdvReac Intermediate rectal Unverified 11/01/19 11:57 [From Singulair] irritation pregabalin [From Lyrica] AdvReac Intermediate sleep Unverified 11/01/19 11:57 issues spironolactone AdvReac Intermediate headache Unverified 11/01/19 11:57 General Stated Complaint: Abd Prob ELMO: 3 Review of Systems Narrative: No fever, cough, recent travel. 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 Nocturnal CPAP Osteopenia PE (pulmonary thromboembolism) Periodic limb movement disorder Post poliomyelitis syndrome Prostate cancer Rectal bleeding Rectal pain Right ankle pain Saphenous vein phlebitis Sebaceous cyst Sensorineural hearing loss Sleep apnea Squamous cell carcinoma of hand Superficial phlebitis of leg Swelling of left lower extremity Vitamin B12 deficiency Surgical History ankle surgery, right Arthroplasty of knee bilat Arthroscopy, Shoulder left shoulder repair Colectomy x3 deep muscle biopsy, left calf muscle Hernia Repair, Incisional (03/22/16) intestinal obstruction with incarcerated incisional hernia, lysis of adhesions Family History Mother No problems noted. Father Kidney malignancy Son No problems noted. 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 Grew up in [place] Exam Narrative Exam Narrative: GEN: awake, alert, oriented 3. Anxious and in some distress HEAD: Normocephalic, atraumatic ENT: Mucous membranes dry, oropharynx unremarkable, External ear exam unremarkable EYES: PERRL, EOMI NECK: Full ROM, no [place], no menigismus CHEST/RESP: Nontender, clear to auscultation bilateral, no wheeze/rhonchi/rales CARDIOVASCULAR: RRR, no murmur, rub jose guadalupe. 2+ Rad pulse bilateral ABDOMEN: Soft, distended and tympanitic with high-pitched bowel sounds, diffusely tender. EXT: Full ROM, no rash Neuro: Grossly normal neurologic exam, conversant, interactive. Psych: Speech fluent, thoughts congruent, affect anxious Course Vital Signs Vital signs: Respiratory Effort Non-Labored 03/05/20 13:41 Blood Pressure Position Sitting 03/05/20 13:39 Pain Level 10 03/05/20 13:41
--- NOTE | 2020-03-05 14:00 | RT.EKG_ITS ---
APPROVED REPORT Exam: Resting ECG Patient Location: E HR:82 bpm ECG Measurements Heart Rate 82 AXIS NV 243 P 52 QRSd 98 QRS -9 QT 380 T 11 QTc 443 Conclusion Sinus rhythm...normal P axis, V-rate 60- 99 Prolonged NV interval...NV >220, V-rate 50- 90
[2020-03-05 14:02] LABS: Lactate 3.2 mmol/L (0.6-1.4)
[2020-03-05] MEDS: HYDROmorphone 2 MG/ML VIAL 1 MG IVP ×4 (14:06→16:25)
[2020-03-05] MEDS: Ondansetron 4 MG/2 ML VIAL IVP ×2 (14:07→15:45)
[2020-03-05 14:12] LABS: C-Reactive Protein 0.66 mg/dL (0.0-0.3); Lipase 49 U/L (73-393)
[2020-03-05 14:15] LABS: ALT 40 U/L (16-63); Albumin 3.9 g/dL (3.4-5.0); Alkaline Phosphatase 84 U/L (46-116); Anion Gap 9.9 mmol/L (3-11); BUN 19 mg/dL (7-18); Bilirubin, Total 0.6 mg/dL (0.2-1.0); CO2 25.1 mmol/L (21.0-32.0); CREATININE 0.95 mg/dL (0.70-1.30); Calcium 9.9 mg/dL (8.5-10.1); Chloride 99 mmol/L (98-107); Glucose 136 mg/dL (74-106); Potassium 4.8 mmol/L (3.5-5.1); Sodium 134 mmol/L (136-145)
[2020-03-05 14:27] LABS: AST 58 U/L (15-37)
[2020-03-05 14:39] LABS: Abs Immature Grans 0.04 10^3/uL (0.0-0.06); Absolute Basophil Count 0.02 10^3/uL (0.0-0.2); Absolute Lymphocyte Count 0.98 10^3/uL (1.2-3.4); Absolute Monocyte Count 0.47 10^3/uL (0.1-0.8); Absolute Neutrophil Count 7.72 10^3/uL (1.2-6.7); Basophils % 0.2; HCT 40.8 % (40.0-50.0); HGB 13.1 g/dL (13.5-17.5); Immature Grans % 0.4; Lymphocytes % 10.6; MCHC 32.1 % (32.0-36.0); MCV 93.4 fL (80-95); Monocytes % 5.1; Neutrophils % 83.7; Nucleated RBC 0 %; Platelet Count 196 10^3/uL (130-400); RBC 4.37 10^6/uL (4.36-5.78); RDW 14.6 % (11.8-14.1); RDW-SD 50.2 fL; WBC 9.23 10^3/uL (4.4-10.8)
[2020-03-05] MEDS: Omnipaque 350 MG/ML 100 ML BTL IJ (14:51)
[2020-03-05] MEDS: Normal Saline - Diluent 50 ML VIAL IV (14:51)
[2020-03-05] MEDS: Normal Saline Flush 10 ML SYR IVP (14:52)
[2020-03-05 14:54] LABS: INR 1.1 (0.9-1.1); PTT Activated 22.7 sec (21.0-31.4); Prothrombin Time 10.6 sec (9.3-11.0)
--- NOTE | 2020-03-05 15:00 | DI.CT_ITS ---
EXAM: CT ABDOMEN PELVIS W CLINICAL HISTORY: bloated, nausea, hx crohns/sbo TECHNIQUE: COMPARISON: CT CT CHEST/ABD/PEL W from 02/29/2020 FINDINGS: CT examination of the abdomen and pelvis was performed with bolus infusion of 100 cc of Omnipaque 350 . There are areas of apparent atelectasis lung bases particularly right. Minimal consolidation excl uded. The liver and spleen appear normal. Pancreas appears intact. Prior cholecystectomy noted. No bilia ry dilatation. Abdominal aorta is of normal diameter and major visceral branches appear intact. No upper abdominal adenopathy. Patient reportedly has a history of prostate carcinoma, portions of the pelvis are obscured by artifa ct from bilateral hip prostheses but no gross pelvic adenopathy is seen. There are numerous apparent post-injection subcutaneous abscesses in the anterior abdominal wall, unchanged from prior study. In comparison prior scan of February 28, there is marked interval development high-grade small-bowel obstruction, transition zone appears to lie in the mid to distal small bowel which lies in the pelvis superiorly. Colon contains some fecal material but is nondistended. The distal small bowel is of n ormal caliber. Adrenals appear normal bilaterally. Kidneys show multiple cysts and nonobstructing calculi are noted bilaterally. Multiple sclerotic bony metastases from prostatic carcinoma again seen. IMPRESSION: Interval development of high-grade small bowel obstruction in the mid to distal small bowel since brice or scan of February 28. RADIATION DOSE DELIVERED: 1,367.82mGy.cm Total DLP
--- NOTE | 2020-03-05 15:30 | DI.RAD_ITS ---
EXAM: XR ABDOMEN FLAT PLATE CLINICAL HISTORY: s/p ng tube TECHNIQUE: COMPARISON: No exams were available for comparison FINDINGS: Single view was obtained and shows an NG tube in the body of the stomach. There are multiple vascula r clips in right upper quadrant consistent with prior cholecystectomy. Multiple dilated small bowel loops noted as seen on today's CT. IMPRESSION: RADIATION DOSE DELIVERED: Total DLP
[2020-03-05] MEDS: Benzocaine 20% 60 ML CAN (15:40)
[2020-03-05] MEDS: Lidocaine 2% Viscous 15 ML CUP ×2 (15:41)
[2020-03-05] MEDS: HYDROmorphone 2 MG/ML VIAL 0.5 MG IVP (16:08)
[2020-03-05] MEDS: Normal Saline 500 ML IV (16:09)
--- NOTE | 2020-03-05 16:13 | DI.VRAD_ITS ---
PROCEDURE INFORMATION: Exam: XR Abdomen, 1 View Exam date and time: 03/05/2020 4:02 PM Age: 69 years old Clinical indication: Other: S/P ng tube TECHNIQUE: Imaging protocol: XR of the abdomen. Views: Frontal supine view of the abdomen. 1 View. COMPARISON: CT ABDOMEN PELVIS W 03/05/2020 2:34 PM FINDINGS: Tubes, catheters and devices: There is a nasogastric tube terminating in the proximal gastric body. Gastrointestinal tract: Unobstructed. No bowel wall thickening or pneumatosis. Intraperitoneal space: No ascites or pneumoperitoneum. Organs: Surgical clips are present in the right upper quadrant, consistent with previous cholecystectomy. Renal collecting system contrast from a recently performed contrast-enhanced CT study. Bones/joints: No fracture. IMPRESSION: Satisfactory nasogastric tube position. Dictated and Authenticated by: Manny Flores MD. Ordering:SHAMA Llanos MD
[2020-03-05] MEDS: Lidocaine 2% Jelly 11 ML SYR (16:22)
== END 2020-03-05 16:40 | disposition short-term general hospital (02) ==
PROVIDERS: Emergency Provider Emergency Medicine; PCP Internal Medicine
DX: K50.912 Crohn's disease, unspecified, with intestinal obstruction (principal); E11.9 Type 2 diabetes mellitus without complications; Z79.4 Long term (current) use of insulin; I10 Essential (primary) hypertension; C61 Malignant neoplasm of prostate; C79.51 Secondary malignant neoplasm of bone
CPT/HCPCS: 36415; 51702; 80053; 83690; 93005; 96361; 96374; 96375; 96376; 99285; 74018; 74177; 81003; 83605; 85025; 85610; 85730; 86140; 93010; J2405; J3490

== ENCOUNTER 2020-03-18 10:34 | Emergency (ER) | payer MEDICARE, MEDICAID, SELFPAY ==
[2020-03-18] VITALS (22 sets, daily range): BP systolic 119–139; BP diastolic 68–90; PULSE 79–90; RESP 19–24; TEMP 36.2; O2SAT 88–95
[2020-03-18 11:45] LABS: Lactate 2.2 mmol/L (0.6-1.4)
[2020-03-18 11:46] LABS: Absolute Basophil Count 0.04 10^3/uL (0.0-0.2); Absolute Lymphocyte Count 0.87 10^3/uL (1.2-3.4); Absolute Monocyte Count 0.74 10^3/uL (0.1-0.8); Basophils % 0.3; Eosinophils % 0.7; Immature Grans % 0.8; Lymphocytes % 7.2; MCH 29.3 pg (27.0-33.0); MCHC 32.4 % (32.0-36.0); MCV 90.7 fL (80-95); MPV 9.5 fL (8.0-11.0); Monocytes % 6.1; Neutrophils % 84.9; Nucleated RBC 0 %; Platelet Count 374 10^3/uL (130-400); RBC 3.75 10^6/uL (4.36-5.78); RDW 14.5 % (11.8-14.1); RDW-SD 48.6 fL; WBC 12.05 10^3/uL (4.4-10.8)
[2020-03-18 11:47] LABS: Absolute Eosinophil Count 0.08 10^3/uL (0.0-0.7); Absolute Neutrophil Count 10.23 10^3/uL (1.2-6.7)
--- NOTE | 2020-03-18 11:56 | NUR.NOTE ---
med list verified with [facility] list pt states last vist to [facility] on wednesday verified discrepencies with pt Nursing Note:
[2020-03-18] MEDS: metroNIDAZOLE 500 MG/100 ML BAG 100 MG IVPB (12:00)
[2020-03-18] MEDS: Lactated Ringers 1,000 ML 1000 ML IV (12:00)
[2020-03-18 12:03] LABS: ALT 18 U/L (16-63); AST 16 U/L (15-37); Albumin 2.9 g/dL (3.4-5.0); Alkaline Phosphatase 120 U/L (46-116); Anion Gap 9.4 mmol/L (3-11); BUN 22 mg/dL (7-18); Bilirubin, Total 0.3 mg/dL (0.2-1.0); CO2 24.6 mmol/L (21.0-32.0); CREATININE 0.96 mg/dL (0.70-1.30); Calcium 9.1 mg/dL (8.5-10.1); Chloride 98 mmol/L (98-107); Glucose 184 mg/dL (74-106); Magnesium 1.8 mg/dL (1.8-2.4); Potassium 4.4 mmol/L (3.5-5.1); Sodium 132 mmol/L (136-145); Total Protein 7.3 g/dL (6.4-8.2)
--- NOTE | 2020-03-18 12:08 | NUR.NOTE ---
pt unsure of medications - unable to verify further information Nursing Note:
[2020-03-18] MEDS: PIPERACILLIN/TAZO 4.5 GM in Normal Saline 100 ML IVPB (12:14)
[2020-03-18] MEDS: Ondansetron 4 MG/2 ML VIAL (12:28)
--- NOTE | 2020-03-18 12:47 | ED.GENADUL_ITS ---
Discharge Plan Discharge Details Chief Complaint: Abd Prob Primary Care Provider: Kenney Greer ED Provider: Zakiya Leach Home Meds and New Rx's Prescriptions: No Action prednisone 5 mg tablet 10 mg PO BID RF: 0 diltiazem HCl [Cardizem] 30 mg tablet 30 mg PO TID RF: 0 acetaminophen [Tylenol Extra Strength] 500 MG tablet 1,000 mg PO Q8H PRN PRNRF: 0 Multaq 400 MG tablet 400 mg PO BID Qty: 180 RF: 4 balsalazide 750 MG capsule 2,250 mg PO TID RF: 0 Excedrin Migraine 1 EACH tablet 1 ea PO DAILY PRNRF: 0 omeprazole [Prilosec] 20 MG capsule,delayed release(DR/EC) 20 mg PO BID RF: 0 ferrous gluconate 324 mg (37.5 mg iron) tablet 324 mg PO BID RF: 0 nitroglycerin [Nitrostat] 0.4 MG tablet, sublingual 0.4 mg Sublingual Q5 MIN PRN X3 PRNQty: 15 RF: 0 cyanocobalamin (vitamin B-12) 1,000 mcg/mL solution 1,000 mcg IM QMONTH RF: 0 ergocalciferol (vitamin D2) [Vitamin D2] 50,000 unit capsule 50,000 unit PO .2x weekly RF: 0 metoclopramide HCl [Reglan] 10 mg tablet 10 mg PO BID Qty: 4 RF: 0 hydrocodone-acetaminophen 10-325 mg tablet 1 tab PO Q4H PRNRF: 0 famotidine 20 mg Tablet 20 mg PO BID RF: 0 Lantus Solostar U-100 Insulin 100 unit/mL (3 mL) Insulin Pen 30 unit SUBCUT HS RF: 0 (DME) BD SafetyGlide Syringe 3 mL 25 x 5/8 syringe MISCELLANEOUS RF: 0 (DME) OneTouch Verio test strips Strip MISCELLANEOUS RF: 0 calcium carbonate 500 MG tablet,chewable 1,000 mg CH QID PRNRF: 0 Topicaine 30 GM gel 1 appful Topical PRN PRNRF: 0 pramipexole 0.5 mg tablet 1 mg PO HS RF: 0 promethazine 12.5 mg Tablet 12.5 mg PO Q6H PRNRF: 0 levothyroxine 75 mcg Tablet 75 mcg PO DAILY RF: 0 magnesium L-lactate 84 mg Tablet Extended Release 84 mg PO DAILY RF: 0 loratadine 10 mg Tablet 10 mg PO DAILY PRNRF: 0 loperamide 2 mg Capsule 2 mg PO QID PRNRF: 0 enoxaparin [Lovenox] 120 mg/0.8 mL syringe 120 mg subcut BID RF: 0 clotrimazole 1 % cream 1 applic TOPICAL DIRECTED PRNRF: 0 (DME) pen needle, diabetic [BD Ultra-Fine Mini Pen Needle] 31 gauge x 3/16 needle MISCELLANEOUS RF: 0 Basaglar KwikPen U-100 Insulin 100 unit/mL (3 mL) insulin pen 25 unit SUBCUT HS RF: 0 cholestyramine (with sugar) 4 gram powder in packet 1 packet PO BID RF: 0 cholestyramine (with sugar) [Questran] 4 gram Powder In Packet 1 packet PO BID PRNRF: 0 diphenhydramine HCl [Benadryl] 25 mg Capsule 25 mg PO BID RF: 0 melatonin 3 mg Tablet 6 mg PO HS RF: 0 lidocaine [Lidoderm] 5 % Adhesive Patch,Medicated 1 patch transdermal DAILY RF: 0 trazodone 50 mg tablet 50 mg PO HS RF: 0 insulin lispro protamin-lispro [Humalog Mix 75-25 KwikPen] 100 unit/mL (75-25) Insulin Pen 5 unit SUBCUT AC RF: 0 Discharge Data Discharge Date/Time-TO BE ENTERED AT DEPARTURE: 03/18/20 12:47 Medical Decision Making Alonso Wiley is a 69-year-old man with laparotomy for SBO and discharged from [facility] 03/15 presenting to the emergency department with wound dehiscence, discharge of stool-like material. On exam patient is diaphoretic but does not appear to be in distress. Abdominal surgical incision with 3 cm area of dehiscence with feculent appearing discharge. Concern for postoperative complication, early sepsis. Exam/history at this time is not consistent with me senteric ischemia, acute coronary syndrome. Plan for screening labs, IV Zosyn, Flagyl, IVF hydration. Patient recently deemed to not be a surgical candidate at [facility] given multiple comorbidities. Patient currently hemodynamically stable, plan for transfer to [facility]. Patient needs emergent evaluation by his surgery team, imaging here would potentially delay transfer, not indicated at this time. Patient accepted by Dr. Carrasco at [facility], no further recommendations at this time. Patient left emergency department with transfer team without further incident. Impression: Postoperative complication, incision dehiscence Disposition: [facility] Medical Records Medical records reviewed: Yes I reviewed the patient's medical records. Lab Data Lab results reviewed: Yes I reviewed the patient's lab results. Labs: 03/18/20 11:45 Blood Blood Culture - Pending 03/18/20 11:37 Blood Blood Culture - Pending Laboratory Tests Range/Units 03/18/20 03/18/20 03/18/20 11:37 11:37 11:37 WBC (4.4-10.8) 10^3/uL 12.05 H RBC (4.36-5.78) 10^6/uL 3.75 L Hgb (13.5-17.5) g/dL 11.0 L Hct (40.0-50.0) % 34.0 L MCV (80-95) fL 90.7 MCH (27.0-33.0) pg 29.3 MCHC (32.0-36.0) % 32.4 RDW (11.8-14.1) % 14.5 H Plt Count (130-400) 10^3/uL 374 D MPV (8.0-11.0) fL 9.5 Immature Gran % 0.8 Neutrophils % 84.9 Lymphocytes % 7.2 Monocytes % 6.1 Eosinophils % 0.7 Basophils % 0.3 Nucleated RBC % % 0 Absolute Neutrophils (1.2-6.7) 10^3/uL 10.23 H Absolute Lymphocytes (1.2-3.4) 10^3/uL 0.87 L Absolute Monocytes (0.1-0.8) 10^3/uL 0.74 Absolute Eosinophils (0.0-0.7) 10^3/uL 0.08 Absolute Basophils (0.0-0.2) 10^3/uL 0.04 VBG Lactate (0.6-1.4) mmol/L 2.2 H* Sodium (136-145) mmol/L 132 L Potassium (3.5-5.1) mmol/L 4.4 Chloride (98-107) mmol/L 98 Carbon Dioxide (21.0-32.0) mmol/L 24.6 Anion Gap (3-11) mmol/L 9.4 BUN (7-18) mg/dL 22 H Creatinine (0.70-1.30) mg/dL 0.96 Estimated GFR/1.73 m2 (mL/min/1.73m2) >= 60.00 Glucose (74-106) mg/dL 184 H Calcium (8.5-10.1) mg/dL 9.1 Magnesium (1.8-2.4) mg/dL 1.8 Total Bilirubin (0.2-1.0) mg/dL 0.3 AST (15-37) U/L 16 ALT (16-63) U/L 18 Alkaline Phosphatase (46-116) U/L 120 H Total Protein (6.4-8.2) g/dL 7.3 Albumin (3.4-5.0) g/dL 2.9 L HPI General Mode of arrival: EMS . Date/Time Provider Initiated Documentation: 03/18/20 11:19 . Limitations to Documentation: no limitations . Information obtained by: patient, RN notes reviewed and old records reviewed . HPI Narrative: Alonso Wiley is a 69-year-old man with history of hypertension, pulmonary embolism, Crohn's disease, insulin-dependent diabetes presenting to the emergency department for wound dehiscence. Patient reports that he recently underwent abdominal surgery for small bowel obstruction, and was discharged from [facility] for this on 03/15. Patient reports that yesterday he noticed that his abdominal wound was opened and seem to be draining material similar to stool. Patient reports that this has continued today. He reports that he feels generally weak since yesterday he has had subjective fevers. He denies pain, vomiting, shortness of breath, cough, rash, focal weakness. Patient reports that he has been eating and drinking similarly to when he was discharged from the hospital. Related Data Home Medications Medication Instructions Recorded Confirmed omeprazole [Prilosec] 20 mg PO BID 01/23/13 03/18/20 acetaminophen [Tylenol Extra 1,000 mg PO Q8H PRN PRN tab-cap NS 03/29/13 03/18/20 Strength] Multaq 400 mg PO BID #180 tab-cap 04/15/15 03/18/20 nitroglycerin [Nitrostat] 0.4 mg SUBLINGUAL Q5 MIN PRN X3 04/23/15 03/18/20 PRN #15 tab balsalazide 2,250 mg PO TID 09/24/15 03/18/20 Excedrin Migraine 1 ea PO DAILY PRN 09/15/16 03/05/20 Topicaine 1 appful TOPICAL PRN PRN 06/27/17 03/18/20 calcium carbonate 1,000 mg CH QID PRN 06/27/17 03/18/20 metoclopramide HCl [Reglan] 10 mg PO BID #4 tab 04/25/18 11/01/19 diltiazem HCl 30 mg tablet 30 mg PO TID tab 04/27/18 03/18/20 cyanocobalamin (vitamin B-12) 1,000 mcg IM QMONTH ml 01/23/19 03/18/20 1,000 mcg/mL injection solution ergocalciferol (vitamin D2) 1,250 50,000 unit PO .2x weekly cap 01/23/19 03/18/20 mcg (50,000 unit) capsule ferrous gluconate 324 mg (37.5 mg 324 mg PO BID tab 01/23/19 03/18/20 iron) tablet pramipexole 0.5 mg tablet 1 mg PO HS tab 01/23/19 11/01/19 levothyroxine 75 mcg PO DAILY 04/29/19 03/18/20 magnesium L-lactate 84 mg PO DAILY 04/29/19 11/01/19 promethazine 12.5 mg PO Q6H PRN 04/29/19 11/01/19 prednisone 5 mg tablet 10 mg PO BID tab 07/25/19 03/18/20 Lantus Solostar U-100 Insulin 30 unit SUBCUT HS 10/01/19 11/01/19 famotidine 20 mg PO BID 10/01/19 03/05/20 hydrocodone-acetaminophen 1 tab PO Q4H PRN 10/01/19 03/18/20 blood sugar diagnostic [OneTouch 03/05/20 03/05/20 Verio test strips] syringe with needle [BD 03/05/20 03/05/20 SafetyGlide Syringe] cholestyramine (with sugar) 1 packet PO BID 03/18/20 03/18/20 cholestyramine (with sugar) 1 packet PO BID PRN 03/18/20 03/18/20 [Questran] clotrimazole 1 applic TOPICAL DIRECTED PRN 03/18/20 03/18/20 diphenhydramine HCl [Benadryl] 25 mg PO BID 03/18/20 03/18/20 enoxaparin [Lovenox] 120 mg SUBCUT BID 03/18/20 03/18/20 insulin glargine [Basaglar KwikPen 25 unit SUBCUT HS 03/18/20 03/18/20 U-100 Insulin] insulin lispro protamin-lispro 5 unit SUBCUT AC 03/18/20 03/18/20 [Humalog Mix 75-25 KwikPen] lidocaine [Lidoderm] 1 patch TRANSDERMAL DAILY 03/18/20 03/18/20 loperamide 2 mg PO QID PRN 03/18/20 03/18/20 loratadine 10 mg PO DAILY PRN 03/18/20 03/18/20 melatonin 6 mg PO HS 03/18/20 03/18/20 pen needle, diabetic [BD 03/18/20 03/18/20 Ultra-Fine Mini Pen Needle] trazodone 50 mg PO HS 03/18/20 03/18/20 Previous Rx's Medication Instructions Recorded nitroglycerin [Nitrostat] 0.4 mg SUBLINGUAL Q5 MIN PRN X3 04/23/15 PRN #15 tab metoclopramide HCl [Reglan] 10 mg PO BID #4 tab 04/25/18 Allergies Allergy/AdvReac Type Severity Reaction Status Date / Time Sulfa (Sulfonamide Allergy Mild Skin Rash Unverified 03/18/20 11:21 Antibiotics) atenolol Allergy Unverified 03/18/20 11:21 atorvastatin Allergy Unverified 03/18/20 11:21 gabapentin Allergy Unverified 03/18/20 11:21 nicardipine Allergy Unverified 03/18/20 11:21 salsalate Allergy Unverified 03/18/20 11:21 tramadol Allergy Unverified 03/18/20 11:21 venlafaxine Allergy Unverified 03/18/20 11:21 ciprofloxacin HCl AdvReac Severe ruptured Unverified 03/18/20 11:21 [From Cipro] achilles tendon hydrochlorothiazide AdvReac Severe myalgias Unverified 03/18/20 11:21 [From Benicar HCT] indapamide AdvReac Severe chest pain Unverified 03/18/20 11:21 olmesartan medoxomil AdvReac Severe myalgias Unverified 03/18/20 11:21 [From Benicar HCT] terazosin [Terazosin] AdvReac Severe tremor, GI Unverified 03/18/20 11:21 upset aliskiren [Aliskiren] AdvReac Intermediate diarrhea Unverified 03/18/20 11:21 amlodipine AdvReac Intermediate fatigue Unverified 03/18/20 11:21 enalapril [Enalapril] AdvReac Intermediate shakes, Unverified 03/18/20 11:21 weakness montelukast sodium AdvReac Intermediate rectal Unverified 03/18/20 11:21 [From Singulair] irritation pregabalin [From Lyrica] AdvReac Intermediate sleep Unverified 03/18/20 11:21 issues spironolactone AdvReac Intermediate headache Unverified 03/18/20 11:21 General Stated Complaint: Abd Prob ELMO: 3 Review of Systems Narrative: Constitutional: Reports subjective fevers Eyes: denies eye pain ENT: denies ear pain, dental pain, sore throat Cardiovascular: denies chest pain Respiratory: denies SOB, cough GI: denies abdominal pain, vomiting, reports wound dehiscence with output of feculent material : denies flank pain MSK: denies back pain, neck pain, arthralgias, myalgias Skin: denies rash Neuro: denies headaches, numbness, focal weakness PFSH Medical History Afib Bilateral hip pain Bone lesion Chest pain Crohn's disease Diabetes Drug hypersensitivity Dyspepsia Elevated liver enzymes Fibromyalgia GERD (gastroesophageal reflux disease) Hot flash in male HTN (hypertension) Hx of adenomatous colonic polyps Hx of melanoma excision Hypomania IBS (irritable bowel syndrome) 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 Nocturnal CPAP Osteopenia PE (pulmonary thromboembolism) Periodic limb movement disorder Post poliomyelitis syndrome Prostate cancer Rectal bleeding Rectal pain Right ankle pain Saphenous vein phlebitis Sebaceous cyst Sensorineural hearing loss Sleep apnea Squamous cell carcinoma of hand Superficial phlebitis of leg Swelling of left lower extremity Vitamin B12 deficiency Surgical History ankle surgery, right Arthroplasty of knee bilat Arthroscopy, Shoulder left shoulder repair Colectomy x3 deep muscle biopsy, left calf muscle Hernia Repair, Incisional (03/22/16) intestinal obstruction with incarcerated incisional hernia, lysis of adhesions Family History Mother No problems noted. Father Kidney malignancy Son No problems noted. 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 Grew up in [place] Exam Narrative Exam Narrative: Constitutional: Diaphoretic, pleasant, conversing normally HENT: head atraumatic/normocephalic/normal inspection, mucous membranes moist Eyes: conjunctiva normal, sclera normal, pupils 3mm b/l Neck: no stridor, normal ROM, trachea midline Chest: normal inspection Resp: normal work of breathing Cardio: normal rate, irregular rhythm GI: abdomen soft, non-tender, non-distended, central incision with 3 cm area of dehiscence with copious feculent appearing/smelling discharge Back: normal inspection, no rash Skin: warm, dry, normal color, no rash Neuro: alert, not altered, grossly non-focal, normal tone Ext: Moving all extremities equally Psych: normal mood, normal affect, normal behavior Course Vital Signs Vital signs: Vital Signs Temperature 36.2 C L 03/18/20 10:38 Pulse 88 03/18/20 10:38 Respiratory Rate 20 03/18/20 10:38 Blood Pressure 127/83 03/18/20 10:38 Pulse Oximetry 94 03/18/20 10:38 Temperature 36.2 C L 03/18/20 12:36 Temperature Source Skin 03/18/20 10:38 Pulse 79 03/18/20 12:36 Pulse 83 03/18/20 12:31 Respiratory Rate 23 03/18/20 12:36 Respiratory Effort 03/18/20 11:17 Blood Pressure 121/81 03/18/20 12:36 Blood Pressure Mean 89 03/18/20 12:30 Pulse Oximetry 94 03/18/20 12:36 Oxygen Delivery Method Room Air 03/18/20 10:38 Oxygen Flow Rate 0 03/18/20 10:38 Pain Level 8 03/18/20 12:35 Lab/Test Results Lab/Test Results: 03/18/20 11:45 Blood Blood Culture - Pending 03/18/20 11:37 Blood Blood Culture - Pending Laboratory Tests Range/Units 03/18/20 03/18/20 03/18/20 11:37 11:37 11:37 WBC (4.4-10.8) 10^3/uL 12.05 H RBC (4.36-5.78) 10^6/uL 3.75 L Hgb (13.5-17.5) g/dL 11.0 L Hct (40.0-50.0) % 34.0 L MCV (80-95) fL 90.7 MCH (27.0-33.0) pg 29.3 MCHC (32.0-36.0) % 32.4 RDW (11.8-14.1) % 14.5 H Plt Count (130-400) 10^3/uL 374 D MPV (8.0-11.0) fL 9.5 Immature Gran % 0.8 Neutrophils % 84.9 Lymphocytes % 7.2 Monocytes % 6.1 Eosinophils % 0.7 Basophils % 0.3 Nucleated RBC % % 0 Absolute Neutrophils (1.2-6.7) 10^3/uL 10.23 H Absolute Lymphocytes (1.2-3.4) 10^3/uL 0.87 L Absolute Monocytes (0.1-0.8) 10^3/uL 0.74 Absolute Eosinophils (0.0-0.7) 10^3/uL 0.08 Absolute Basophils (0.0-0.2) 10^3/uL 0.04 VBG Lactate (0.6-1.4) mmol/L 2.2 H* Sodium (136-145) mmol/L 132 L Potassium (3.5-5.1) mmol/L 4.4 Chloride (98-107) mmol/L 98 Carbon Dioxide (21.0-32.0) mmol/L 24.6 Anion Gap (3-11) mmol/L 9.4 BUN (7-18) mg/dL 22 H Creatinine (0.70-1.30) mg/dL 0.96 Estimated GFR/1.73 m2 (mL/min/1.73m2) >= 60.00 Glucose (74-106) mg/dL 184 H Calcium (8.5-10.1) mg/dL 9.1 Magnesium (1.8-2.4) mg/dL 1.8 Total Bilirubin (0.2-1.0) mg/dL 0.3 AST (15-37) U/L 16 ALT (16-63) U/L 18 Alkaline Phosphatase (46-116) U/L 120 H Total Protein (6.4-8.2) g/dL 7.3 Albumin (3.4-5.0) g/dL 2.9 L
== END 2020-03-18 12:47 ==
LOC: ER 12:06
PROVIDERS: Emergency Provider Student in an Organized Health Care Education/Training Program; PCP Internal Medicine
DX: K91.89 Other postprocedural complications and disorders of digestive system (principal); T81.31XA Disruption of external operation (surgical) wound, not elsewhere classified, initial encounter; I10 Essential (primary) hypertension; E11.9 Type 2 diabetes mellitus without complications; Z79.4 Long term (current) use of insulin
CPT/HCPCS: 36410; 36415; 80053; 87040; 96361; 96365; 96375; 99285; 81003; 83605; 83735; 85025; J2405; J2543

== ENCOUNTER 2020-05-17 17:13 | Outpatient (REF) | payer MEDICARE, SELFPAY ==
[2020-05-17 17:57] LABS: HCT 39.2 % (40.0-50.0); HGB 12.2 g/dL (13.5-17.5); MCH 25.8 pg (27.0-33.0); MCHC 31.1 % (32.0-36.0); MCV 83.1 fL (80-95); MPV 10.7 fL (8.0-11.0); Platelet Count 204 10^3/uL (130-400); RBC 4.72 10^6/uL (4.36-5.78); RDW 16.4 % (11.8-14.1); RDW-SD 49.1 fL; WBC 6.79 10^3/uL (4.4-10.8)
[2020-05-17 18:15] LABS: ALT 58 U/L (16-63); AST 39 U/L (15-37); Albumin 2.9 g/dL (3.4-5.0); Alkaline Phosphatase 156 U/L (46-116); Anion Gap 6.3 mmol/L (3-11); BUN 27 mg/dL (7-18); Bilirubin, Total 0.7 mg/dL (0.2-1.0); CO2 28.7 mmol/L (21.0-32.0); CREATININE 0.76 mg/dL (0.70-1.30); Calcium 8.7 mg/dL (8.5-10.1); Chloride 99 mmol/L (98-107); Glucose 106 mg/dL (74-106); Magnesium 1.8 mg/dL (1.8-2.4); Potassium 4.5 mmol/L (3.5-5.1); Sodium 134 mmol/L (136-145); Total Protein 6.8 g/dL (6.4-8.2); Triglyceride 310 mg/dL (<150)
[2020-05-17 18:32] LABS: PHOSPHORUS 3.8 mg/dL (2.6-4.7)
[2020-05-20 11:24] LABS: Prealbumin 25 mg/dL (20-40)
== END 2020-05-17 17:33 ==
LOC: NCHCN 17:13
PROVIDERS: PCP Internal Medicine; Visit Provider Internal Medicine
DX: E46 Unspecified protein-calorie malnutrition (principal); E83.42 Hypomagnesemia; E11.9 Type 2 diabetes mellitus without complications; I10 Essential (primary) hypertension
CPT/HCPCS: 80053; 85027; 83735; 84100; 84134; 84478

== ENCOUNTER 2020-05-23 16:06 | Outpatient (REF) | payer MEDICARE, SELFPAY ==
[2020-05-23 16:42] LABS: Absolute Basophil Count 0.03 10^3/uL (0.0-0.2); Absolute Eosinophil Count 0.05 10^3/uL (0.0-0.7); Absolute Lymphocyte Count 1.37 10^3/uL (1.2-3.4); Absolute Monocyte Count 0.72 10^3/uL (0.1-0.8); Absolute Neutrophil Count 5.27 10^3/uL (1.2-6.7); Basophils % 0.4; Eosinophils % 0.7; HCT 40.3 % (40.0-50.0); HGB 12.6 g/dL (13.5-17.5); Immature Grans % 1.3; Lymphocytes % 18.2; MCH 25.8 pg (27.0-33.0); MCHC 31.3 % (32.0-36.0); MCV 82.4 fL (80-95); MPV 10.5 fL (8.0-11.0); Monocytes % 9.5; Neutrophils % 69.9; Nucleated RBC 0 %; Platelet Count 211 10^3/uL (130-400); RBC 4.89 10^6/uL (4.36-5.78); RDW 16.6 % (11.8-14.1); RDW-SD 49.2 fL; WBC 7.54 10^3/uL (4.4-10.8)
[2020-05-23 20:30] LABS: ALT 57 U/L (16-63); AST 37 U/L (15-37); Albumin 3.3 g/dL (3.4-5.0); Alkaline Phosphatase 160 U/L (46-116); Anion Gap 7.6 mmol/L (3-11); BUN 30 mg/dL (7-18); Bilirubin, Total 0.7 mg/dL (0.2-1.0); CO2 24.4 mmol/L (21.0-32.0); CREATININE 1.16 mg/dL (0.70-1.30); Calcium 10.9 mg/dL (8.5-10.1); Chloride 98 mmol/L (98-107); Glucose 159 mg/dL (74-106); Magnesium 2.8 mg/dL (1.8-2.4); Potassium 5.8 mmol/L (3.5-5.1); Sodium 130 mmol/L (136-145); Total Protein 7.4 g/dL (6.4-8.2); Triglyceride 365 mg/dL (<150)
[2020-05-27 11:06] LABS: Prealbumin 35 mg/dL (20-40)
== END 2020-05-23 16:26 ==
LOC: NCHCN 16:06
PROVIDERS: PCP Internal Medicine; Visit Provider Internal Medicine
DX: K50.913 Crohn's disease, unspecified, with fistula (principal)
CPT/HCPCS: 80053; 83735; 84100; 84134; 84478; 85025

== ENCOUNTER 2020-05-30 12:35 | Inpatient (IN) | payer MEDICARE, MEDICAID, SELFPAY ==
[2020-05-30] VITALS (78 sets, daily range): BP systolic 101–147; BP diastolic 42–90; PULSE 96–171; RESP 18–39; TEMP 37.1–39.8; O2SAT 93–100
--- NOTE | 2020-05-30 12:30 | RT.EKG_ITS ---
APPROVED REPORT Exam: Resting ECG Patient Location: E HR:122 bpm ECG Measurements Heart Rate 122 AXIS MA 191 P 62 QRSd 95 QRS 26 QT 288 T 25 QTc 411 Conclusion Sinus tachycardia...rate> 99 Ventricular premature complex...V complex w/ short R-R interval Aberrant conduction of SV complex(es)...aberrant shape, MA 80-220 artifact
--- NOTE | 2020-05-30 12:37 | ED.GENADUL_ITS ---
Discharge Plan Disposition Condition: Serious Discharge Details Chief Complaint: Fever Admit Date/Time: 05/30/20 18:05 Admit Provider: Eran Love Attending Provider: Eran Love Primary Care Provider: Kenney Greer ED Provider: Cornelio Leach Discharge Instructions Activity:: bedrest Diet:: npo Discharge Orders Discharge Orders: Discharge Order (Routine); Ordered 05/31/20 Ordered By: Eran Love Discharge Data Discharge Date/Time-TO BE ENTERED AT DEPARTURE: 05/30/20 17:55 Medical Decision Making <SHEREEN Hernandez - Last Filed: 05/30/20 16:07> This is a sickly 70-year-old gentleman presenting via EMS for fever, chills, decreased mentation, abdominal pain, nausea, vomiting after a recent 50-day admission, a, discharged on May 13. Patient did receive 500 cc normal via EMS. Clinically patient appears toxic, we do not have access to his PICC line, additional IV access obtained. Upon evaluating the patient, I immediately spoke with Dr. Leach. Who personally evaluated the patient, please see his note. Patient to receive a liter of IV normal saline and lactated Ringer's. Blood cultures obtained and initiated both Zosyn and vancomycin IV antibiotic therapy. Initiating both a cardiac and septic work-up. Will obtain CT imaging of his head given his altered mental status. CTA of his chest given his history of PE and recent surgery. Will obtain CT of abdomen and pelvis with contrast given his recent surgery. Differential is wide, including but not excluded to sepsis, bacteremia, pneumonia, Covid, intracranial hemorrhage, bowel obstruction, peritonitis, UTI, etc. Laboratory values reveal a white blood cell count of 11.79 hemoglobin 12.3 hematocrit 37.5 platelet count 181. VBG pH 7.42. Lactate 5.4. Sodium 123 potassium 5.0 anion gap 14, BUN 38, creatinine 1.13 with GFR greater than 30. Magnesium 1.7 total bili 1.3 AST 83 ALT 133 alk phosphatase 165 ammonia 24 BNP 118. Urinalysis trace blood, 3-5 red blood cells otherwise unremarkable. Covid, flu, RSV all negative Heart rate down to 112, respiratory rate improving, now at 22. Patient remains normotensive. Awaiting CT imaging. CT imaging of the chest read by radiology as no obvious PE, poor quality. Abdomen and pelvis with contrast shows blastic disease in the spine, known from his previous scan in 2016. Right lower lobe pneumonia. No acute intra- abdominal process. No free fluid or abscess. All images were sent to [facility]. I initiated a transfer with the transfer center at 1545. I have not received a phone call back by 1605. Care signed out to Dr. Leach awaiting likely transfer to [facility] for sepsis, pneumonia, abdominal pain. Medical Records Medical records reviewed: Yes I reviewed the patient's medical records. Imaging Data Radiologic Study: Attestation: I personally reviewed and interpreted this imaging study as follows: Imaging: CT Scan Radiologist's impression: EXAM: CT HEAD WO CLINICAL HISTORY: AMS. TECHNIQUE: Imaging Protocol: Axial computed tomography images with coronal and sagittal reformatted images were created and reviewed COMPARISON: CT HEAD WITHOUT CONTRAST from 03/06/2016 NM WHOLE BODY BONE SCAN from 05/05/2016 NM WHOLE BODY BONE SCAN from 05/05/2016 FINDINGS: There are no skull fractures nor fluid in the visualized paranasal sinuses. However, there is incompletely seeing abnormal sclerotic density in the skull base-basiocciput/clivus which is probably blastic. There is no evidence of intracranial hemorrhage, mass effect, or shift of midline structures. There are no extra-axial fluid collections. The ventricles are not enlarged or shifted and there is no blood within the ventricular system nor within the basal cisterns. Vascular calcification is noted in both vertebral arteries at the skull base level. Also within the intracavernous internal carotid arteries. 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 Male patient this age group most probably prostate. No new brain findings evident on this noninfused study. ECG Data Attestation: I personally reviewed and interpreted this ECG (s) as follows: Interpretation: Please see official report by Dr. Leach. Sinus tachycardia, ventricular 122. No STEMI. <Cornelio Leach MD - Last Filed: 06/02/20 14:06> 1500 -- Patient seen, examined, and discussed with SHEREEN Huang. I agreed with initial treatment plan as discussed/documented. 1630 -- Care signed out by SHEREEN Huang with plan to discuss potential transfer with [facility]. I did speak with the hospitalist production or plant engineer at [facility] and discussed ED presentation course including diagnostics and prior history. Unfortunately, due to bed capacity, [facility] is unable to accept patient to medical surge floor level of care at this time and recommends admission here with potential transfer if necessary when bed available. Call to [facility] hospitalist for admission. HPI <SHEREEN Hernandez - Last Filed: 05/30/20 16:07> General Mode of arrival: EMS . Date/Time Provider Initiated Documentation: 05/30/20 12:37 . Limitations to Documentation: altered mental status . Information obtained by: patient, family and EMS . HPI Narrative: This is a 70-year-old gentleman with a significant and complicated past medical history presenting via EMS. Past medical history includes PE, diabetes, Crohn's disease, A. fib, hypertension, obesity, anemia, small bowel obstruction, myalgia, GERD, and now he is on baseline O2 nasal cannula. He was admitted to [facility] in February, the OR for ex lap and closure of enterocutaneous fistula complicated by dehiscence of anastomotic site status post washout. PICC line placed at that time. He was admitted to their facility for a total of 56 days, had J-tube placed, abdominal wound changed to nephrostomy appliance. Patient was discharged home where he lives with his , home health coming irregularly. They have continued outpatient wound care, follow-up, and doing the best they can. Dr. Leach was able to speak with the patient's for additional history. Patient is awake and alert, answers yes and no questions but unable to provide additional history. states that he is usually awake, alert, able to converse clearly. Began with nausea, vomiting, shaking, or fever overnight, altered mental status this morning. Records were obtained from [facility] for additional collateral information. Related Data Home Medications Medication Instructions Recorded Confirmed omeprazole [Prilosec] 20 mg PO BID 01/23/13 03/18/20 acetaminophen [Tylenol Extra 1,000 mg PO Q8H PRN PRN tab-cap NS 03/29/13 05/30/20 Strength] Multaq 400 mg PO BID #180 tab-cap 04/15/15 03/18/20 nitroglycerin [Nitrostat] 0.4 mg SUBLINGUAL Q5 MIN PRN X3 04/23/15 05/30/20 PRN #15 tab balsalazide 2,250 mg PO TID 09/24/15 03/18/20 Excedrin Migraine 1 ea PO DAILY PRN 09/15/16 03/05/20 Topicaine 1 appful TOPICAL PRN PRN 06/27/17 03/18/20 calcium carbonate 1,000 mg CH QID PRN 06/27/17 05/30/20 metoclopramide HCl [Reglan] 10 mg PO BID #4 tab 04/25/18 11/01/19 diltiazem HCl 30 mg tablet 30 mg PO TID tab 04/27/18 05/30/20 cyanocobalamin (vitamin B-12) 1,000 mcg IM QMONTH ml 01/23/19 03/18/20 1,000 mcg/mL injection solution ergocalciferol (vitamin D2) 1,250 50,000 unit PO .2x weekly cap 01/23/19 05/30/20 mcg (50,000 unit) capsule ferrous gluconate 324 mg (37.5 mg 324 mg PO BID tab 01/23/19 05/30/20 iron) tablet pramipexole 0.5 mg tablet 1 mg PO HS tab 01/23/19 11/01/19 levothyroxine 75 mcg PO DAILY 04/29/19 05/30/20 magnesium L-lactate 84 mg PO DAILY 04/29/19 11/01/19 promethazine 12.5 mg PO Q6H PRN 04/29/19 11/01/19 prednisone 5 mg tablet 10 mg PO BID tab 07/25/19 03/18/20 Lantus Solostar U-100 Insulin 30 unit SUBCUT HS 10/01/19 11/01/19 famotidine 20 mg PO BID 10/01/19 03/05/20 hydrocodone-acetaminophen 1 tab PO Q4H PRN 10/01/19 05/30/20 blood sugar diagnostic [OneTouch 03/05/20 03/05/20 Verio test strips] syringe with needle [BD 03/05/20 03/05/20 SafetyGlide Syringe] cholestyramine (with sugar) 1 packet PO BID 03/18/20 03/18/20 cholestyramine (with sugar) 1 packet PO BID PRN 03/18/20 03/18/20 [Questran] clotrimazole 1 applic TOPICAL DIRECTED PRN 03/18/20 05/30/20 diphenhydramine HCl [Benadryl] 25 mg PO BID 03/18/20 03/18/20 enoxaparin [Lovenox] 120 mg SUBCUT BID 03/18/20 03/18/20 insulin glargine [Basaglar KwikPen 25 unit SUBCUT HS 03/18/20 05/30/20 U-100 Insulin] insulin lispro protamin-lispro 5 unit SUBCUT AC 03/18/20 05/30/20 [Humalog Mix 75-25 KwikPen] lidocaine [Lidoderm] 1 patch TRANSDERMAL DAILY 03/18/20 05/30/20 loperamide 2 mg PO QID PRN 03/18/20 03/18/20 loratadine 10 mg PO DAILY PRN 03/18/20 05/30/20 melatonin 6 mg PO HS 03/18/20 05/30/20 pen needle, diabetic [BD 03/18/20 03/18/20 Ultra-Fine Mini Pen Needle] trazodone 50 mg PO HS 03/18/20 05/30/20 cyclobenzaprine 10 mg PO TID 05/30/20 05/30/20 diphenhydramine HCl 25 mg PO Q6H PRN 05/30/20 05/30/20 methyl salicylate-menthol 1 applic TOPICAL BID PRN 05/30/20 05/30/20 ondansetron 4 mg PO DIRECTED PRN 05/30/20 05/30/20 prednisone 20 mg PO DIRECTED 05/30/20 05/30/20 Previous Rx's Medication Instructions Recorded nitroglycerin [Nitrostat] 0.4 mg SUBLINGUAL Q5 MIN PRN X3 04/23/15 PRN #15 tab metoclopramide HCl [Reglan] 10 mg PO BID #4 tab 04/25/18 Allergies Allergy/AdvReac Type Severity Reaction Status Date / Time Sulfa (Sulfonamide Allergy Mild Skin Rash Unverified 05/30/20 13:01 Antibiotics) atenolol Allergy Unverified 05/30/20 13:01 atorvastatin Allergy Unverified 05/30/20 13:01 gabapentin Allergy Unverified 05/30/20 13:01 nicardipine Allergy Unverified 05/30/20 13:01 salsalate Allergy Unverified 05/30/20 13:01 tramadol Allergy Unverified 05/30/20 13:01 venlafaxine Allergy Unverified 05/30/20 13:01 ciprofloxacin HCl AdvReac Severe ruptured Unverified 05/30/20 13:01 [From Cipro] achilles tendon hydrochlorothiazide AdvReac Severe myalgias Unverified 03/18/20 11:21 [From Benicar HCT] indapamide AdvReac Severe chest pain Unverified 05/30/20 13:01 olmesartan medoxomil AdvReac Severe myalgias Unverified 05/30/20 13:01 [From Benicar HCT] terazosin [Terazosin] AdvReac Severe tremor, GI Unverified 05/30/20 13:01 upset aliskiren [Aliskiren] AdvReac Intermediate diarrhea Unverified 05/30/20 13:01 amlodipine AdvReac Intermediate fatigue Unverified 05/30/20 13:01 denosumab [From Xgeva] AdvReac Intermediate Unverified 05/30/20 13:01 enalapril [Enalapril] AdvReac Intermediate shakes, Unverified 05/30/20 13:01 weakness montelukast sodium AdvReac Intermediate rectal Unverified 05/30/20 13:01 [From Singulair] irritation pregabalin [From Lyrica] AdvReac Intermediate sleep Unverified 05/30/20 13:01 issues spironolactone AdvReac Intermediate headache Unverified 05/30/20 13:01 General ELMO: 3 Review of Systems <SHEREEN Hernandez - Last Filed: 05/30/20 16:07> Unobtainable due to mental status PFSH <SHEREEN Hernandez - Last Filed: 05/30/20 16:07> Medical History (Updated 05/31/20 @ 13:07 by Eran Love) Afib Bilateral hip pain Bone lesion Chest pain Crohn's disease Diabetes Drug hypersensitivity Dyspepsia Elevated liver enzymes Fibromyalgia GERD (gastroesophageal reflux disease) Hot flash in male HTN (hypertension) Hx of adenomatous colonic polyps Hx of melanoma excision Hypomania IBS (irritable bowel syndrome) 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 Nocturnal CPAP Osteopenia PE (pulmonary thromboembolism) Periodic limb movement disorder Post poliomyelitis syndrome Prostate cancer Rectal bleeding Rectal pain Right ankle pain Saphenous vein phlebitis Sebaceous cyst Sensorineural hearing loss Sleep apnea Squamous cell carcinoma of hand Superficial phlebitis of leg Swelling of left lower extremity Vitamin B12 deficiency Surgical History ankle surgery, right Arthroplasty of knee bilat Arthroscopy, Shoulder left shoulder repair Colectomy x3 deep muscle biopsy, left calf muscle Hernia Repair, Incisional (03/22/16) intestinal obstruction with incarcerated incisional hernia, lysis of adhesions Family History Mother No problems noted. Father Kidney malignancy Son No problems noted. 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 Grew up in [place] Exam <SHEREEN Hernandez - Last Filed: 05/30/20 16:07> Const General: acute distress, frail appearing and ill appearing Orientation: alert, awake, oriented to person, not oriented to place and not oriented to time Limitations: altered mental status [facility] Head: normal to inspection, normocephalic and atraumatic Face and sinus: normal facial exam Mouth: moist mucous membranes abnormal (Dry) Eyes General: appearance normal, both eyes and all related structures Conjunctivae: conjunctivae normal Sclera: sclerae normal Neck Neck: normal visual inspection, full ROM, no lymphadenopathy, no meningeal signs, trachea midline and supple Chest Chest: abnormal inspection of the chest (Right-sided PICC line) Resp Effort & Inspection: normal respiratory effort, able to speak in complete sentences and tachypneic Auscultation: diminished lung sounds (Bilateral bases) and rales (Bilateral bases) Cardio Rate: tachycardic (120's) Rhythm: regular rhythm GI Inspection: abnormal to inspection and obesity Palpation: soft, not firm, no guarding, no masses and tender Auscultation: normal bowel sounds Other: J tube present. Right-sided open draining abdominal wound. Overlies this wound. Stoma appears beefy and red. Copious amount of yellow-feculent material coming from the wound Male General Exam: Yes normal external exam Back/Spine/Pelvis Back: No back tenderness Skin General skin exam: no rashes or lesions noted Neuro General: patient alert, patient awake, oriented Patient Orientation: Person, moves all extremities and no focal motor deficits Speech: speech normal Extrem General: normal to inspection, full ROM, capillary refill normal, no pedal edema and no calf tenderness Psych Appearance: grossly normal Mental Status: mental status grossly normal Critical Care Time <SHEREEN Hernandez - Last Filed: 05/30/20 16:07> Critical Care Time Critical Care Time: Yes Total Critical Care Time: 45 Attestation: Upon my evaluation, this patient had a high probability of c linically significant, life-threatening deterioration due to their current medical conditions, which required my direct attention, intervention, and personal management. I have personally provided greater than 30 minutes of critical care time exclusive of the time spend on separately billable procedures. Time includes obtaining a history, examining the patient, pulse oximetry, review of laboratory data, radiology results, discussion with consultants, arranging urgent treatment with development of a management plan, evaluation of patient's response to treatment, and monitoring for potential dec ompensation. Interventions were performed as documented above.
[2020-05-30] MEDS: Normal Saline 1,000 ML 1000 ML IV (12:45)
--- NOTE | 2020-05-30 12:45 | DI.CT_ITS ---
EXAM: CT HEAD WO CLINICAL HISTORY: AMS. TECHNIQUE: Imaging Protocol: Axial computed tomography images with coronal and sagittal reformatted images were created and reviewed COMPARISON: CT HEAD WITHOUT CONTRAST from 03/06/2016 NM WHOLE BODY BONE SCAN from 05/05/2016 NM WHOLE BODY BONE SCAN from 05/05/2016 FINDINGS: There are no skull fractures nor fluid in the visualized paranasal sinuses. However, there is incompletely seeing abnormal sclerotic density in the skull base-basiocciput/clivus which is probably blastic. There is no evidence of intracranial hemorrhage, mass effect, or shift of midline structures. There are no extra-axial fluid collections. The ventricles are not enlarged or shifted and there is no blo od within the ventricular system nor within the basal cisterns. Vascular calcification is noted in both vertebral arteries at the skull base level. Also within the intracavernous internal carotid arteries. 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 Male patient this age nishant up most probably prostate. No new brain findings evident on this noninfused study. Both RADIATION DOSE DELIVERED: 782.52mGy.cm Total DLP DATA REPOSITORY: All CT scans at this facility are submitted to the National Radiology Data Registry (NRDR) Dose Index Registry (DIR) with the [employer] (ACR). RADIATION OPTIMIZATION: All CT scans at this facility use at least one of these dose optimization te chniques: automated exposure control; mA and/or kV adjustment per patient size (includes targeted exa ms where dose is matched to clinical indication); or iterative reconstruction.
--- NOTE | 2020-05-30 12:55 | DI.CT_ITS ---
EXAM: CT CHEST PE ABD PELVIS W CLINICAL HISTORY: sob, hx of pe, recent surgery. TECHNIQUE: Imaging Protocol: Axial CT angiography was performed with multi-slice acquisition and m ulti-planar and/or 3D reconstructions. CONTRAST MATERIAL: Intravenous: Omnipaque 350 Contrast volume:100 ml Oral: None COMPARISON: CT CT ABDOMEN PELVIS W from 03/05/2020 FINDINGS: CHEST: PULMONARY ARTERIES: Less than optimal injection +respiratory motion. However, there are no obvious c entral pulmonary emboli nor 2nd order pulmonary emboli evident. LUNGS: There is some mild infiltrate in the posterior basal segment of the right lower lobe. No pleu ral effusion. The right hemidiaphragm is elevated.. No left lung infiltrates. No left pleural effu randy.. MEDIASTINUM: There is no hilar nor mediastinal adenopathy. Visualized thyroid unremarkable. CARDIAC: Heart size is normal. There is no pericardial effusion. There is no significant shift of t he interventricular septum.Caliber of the thoracic aorta is within normal limits. No evidence for ao rtic dissection. OSSEOUS: Degenerative changes in right joint and left glenohumeral joint. No lytic osseous lesions i dentified.. ABDOMEN: There is no ascites. However, there is an anterior open wound gauze. There is a Star drain enterin g from left of center anterior abdominal wall. There does not appear to be an intra-abdominal absces s. LIVER: There are no focal hepatic lesions nor dilatation of intrahepatic ducts. GALLBLADDER/BILIARY: Gallbladder surgically absent. CBD is not dilated. PANCREAS: Small 6 millimeter cystic lesion in the body pancreas. No peripancreatic streaking. No di latation of the pancreatic duct. SPLEEN: Spleen is not enlarged. There are no intrasplenic lesions. Splenic and portal veins are mcdaniel nt. ADRENALS: There are no significant adrenal masses. KIDNEYS:There are bilateral benign renal cysts. The largest of these is 4 x 3 centimetres. No calcu li nor hydronephrosis. No solid renal masses. ABDOMINAL AORTA: Abdominal aorta is not enlarged and there is no vzokbjypmnpzxsm-ersq-czfrac adenopat hy. ABDOMINAL WALL/GI: Anterior abdominal wall midline open wound. No bowel obstruction. PELVIS: LYMPH NODES: There is no intrapelvic nor inguinal adenopathy. GI: No evidence of acute inflammatory process in the pelvis.Sigmoid diverticuli but no evidence of ac shi diverticulitis.No obvious appendicitis. URINARY BLADDER: There is a Shannon catheter in the urinary bladder. The bladder is not distended but difficult to evaluate because of bilateral hip prostheses causing artifact. REPRODUCTIVE: Prostate not visible due to beam hardening artifact from bilateral hip prostheses. OSSEOUS: Bilateral hip prostheses. Blastic metastatic osseous lesions throughout the bones of the pelvis and lumbosacral spinal column. No fractures. IMPRESSION: 1. Suboptimal injection but no obvious pulmonary emboli. There is mild infiltrate in the posterior b sergey segment of the right lower lobe. No pleural effusions on either side. 2. Port-A-Cath in the SVC. 3. Open anterior abdominal wall abdominal wound. Blank drain. No drainable abscess within the abdom en-pelvic cavity. No ascites. 4. Shannon catheter in place in the urinary bladder. Prostate bladder cannot be assessed due to beam h ardening artifact from bilateral hip prostheses. 5. Extensive blastic metastatic disease in the bones of the lumbosacral spine and the pelvis. No obv ious fracture. 6. There are benign cysts in both kidneys. No hydronephrosis. No calculi. RADIATION DOSE DELIVERED: 1,778.95mGy.cm Total DLP DATA REPOSITORY: All CT scans at this facility are submitted to the National Radiology Data Registry (NRDR) Dose Index Registry (DIR) with the [employer] (ACR). RADIATION OPTIMIZATION: All CT scans at this facility use at least one of these dose optimization te chniques: automated exposure control; mA and/or kV adjustment per patient size (includes targeted exa ms where dose is matched to clinical indication); or iterative reconstruction.
[2020-05-30 13:06] LABS: Source Nasopharynx
[2020-05-30 13:06] LABS: Abs Immature Grans 0.15 10^3/uL (0.0-0.06); Absolute Monocyte Count 0.57 10^3/uL (0.1-0.8); Absolute Neutrophil Count 10.28 10^3/uL (1.2-6.7); Basophils % 0.3; HCT 37.5 % (40.0-50.0); HGB 12.3 g/dL (13.5-17.5); Immature Grans % 1.3; Lymphocytes % 6.4; MCH 26.3 pg (27.0-33.0); MCHC 32.8 % (32.0-36.0); MCV 80.3 fL (80-95); MPV 9.8 fL (8.0-11.0); Monocytes % 4.8; Neutrophils % 87.2; Nucleated RBC 0 %; Platelet Count 181 10^3/uL (130-400); RBC 4.67 10^6/uL (4.36-5.78); RDW 17.7 % (11.8-14.1); RDW-SD 50.3 fL; WBC 11.79 10^3/uL (4.4-10.8)
[2020-05-30 13:13] LABS: Lactate 5.4 mmol/L (0.6-1.4)
[2020-05-30 13:14] LABS: Absolute Basophil Count 0.04 10^3/uL (0.0-0.2); Absolute Lymphocyte Count 0.75 10^3/uL (1.2-3.4)
[2020-05-30] MEDS: Lidocaine 2% Jelly 6 ML SYR (13:15)
[2020-05-30 13:25] LABS: Ammonia 24 umol/L (11-32)
[2020-05-30 13:28] LABS: Bilirubin Negative (Negative); Blood Trace-intact (Negative); Clarity Clear (Clear); Glucose Negative (Negative); Ketones Negative (Negative); Leukocyte Esterase Negative (Negative); Nitrite Negative (Negative); Urobilinogen 0.2 EU/dL (Up TO 0.2); pH 5.5 (5-8)
[2020-05-30 13:29] LABS: ALT 133 U/L (16-63); AST 83 U/L (15-37); Alkaline Phosphatase 165 U/L (46-116); BUN 38 mg/dL (7-18); Bilirubin, Total 1.3 mg/dL (0.2-1.0); CREATININE 1.13 mg/dL (0.70-1.30); Calcium 9.6 mg/dL (8.5-10.1); Chloride 91 mmol/L (98-107); Glucose 199 mg/dL (74-106); Magnesium 1.7 mg/dL (1.8-2.4); TCO2 (Venous) 16 mmol/L (24-29); Total Protein 7.9 g/dL (6.4-8.2); pCO2 (Venous) 27 mmHg (41-51); pH (Venous) 7.42 (7.31-7.41); pO2 (Venous) 124 mmHg
[2020-05-30 13:30] LABS: BE (Venous) -7 mmol/L (-2-3); HCO3 (Venous) 18 mmol/L (23-28); O2 Sat (Venous) 99 %
[2020-05-30 13:34] LABS: Sodium 123 mmol/L (136-145); Troponin I < 0.05 ng/mL (<0.06)
[2020-05-30 13:35] LABS: NT-proBNP 116 pg/mL (<300)
[2020-05-30 13:37] LABS: Bacteria Rare HPF (Negative); C & S Indicated? No; Casts Negative LPF (Negative); Crystals Negative HPF (Negative); Epithelial Cells Few HPF (Negative); Mucus Negative (Negative); WBC Negative HPF (0-5)
[2020-05-30] MEDS: PIPERACILLIN/TAZO 4.5 GM in Normal Saline 100 ML IVPB ×2 (13:45→22:31)
[2020-05-30] MEDS: Lactated Ringers 1,000 ML 1000 ML IV ×2 (13:45→14:50)
[2020-05-30 13:47] LABS: COVID-19 PCR Negative (Negative); Influenza A PCR Negative (Negative); Influenza B PCR Negative (Negative); RSV PCR Negative (Negative)
[2020-05-30] MEDS: VANCOMYCIN/WATER (PEG) 1.75 GM/350 ML BAG IV (13:50)
[2020-05-30] MEDS: Normal Saline 1,000 ML 100 ML IV ×2 (13:51→23:19)
[2020-05-30] MEDS: Normal Saline Flush 10 ML SYR IVP ×3 (13:57→22:44)
[2020-05-30] MEDS: Omnipaque 350 MG/ML 100 ML BTL IJ (14:35)
[2020-05-30] MEDS: Normal Saline - Diluent 50 ML VIAL IV (14:36)
[2020-05-30 14:58] LABS: Procalcitonin 0.9 ng/mL
[2020-05-30 16:38] LABS: Lactate 3.7 mmol/L (0.6-1.4)
--- NOTE | 2020-05-30 17:01 | NUR.NOTE ---
patient unable to verify medications verified using [facility] most recent d/c summary list some medications on [facility] list but unable to verify both lists sent to M/S with patient Nursing Note:
[2020-05-30 17:20] LABS: Troponin I < 0.05 ng/mL (<0.06)
[2020-05-30 18:41] LABS: BE -3 mmol/L (-2-3); HCO3 21 mmol/L (22-26); pCO2 30 mmHg (35-45); pH 7.45 (7.35-7.45); pO2 73 mmHg (80-105); sO2 96 % (95-98); tCO2 19 mmol/L (23-27)
[2020-05-30 18:43] LABS: FIO2L 4 L; Site Left Radial
[2020-05-30] MEDS: ACETAMINOPHEN 1,000 MG/100 ML BTL 400 MG IVPB (19:59)
[2020-05-30] MEDS: dilTIAZem 25 MG/5 ML VIAL 10 MG IVP (20:22)
[2020-05-30] MEDS: MAGNESIUM SULFATE 2 GM/50 ML BAG IVPB (20:27)
[2020-05-30] MEDS: Enoxaparin 120 MG/0.8 ML SYR SC (20:59)
[2020-05-30 21:10] LABS: Lactate 3.3 mmol/L (0.6-1.4)
[2020-05-30 21:25] LABS: Anion Gap 10.8 mmol/L (3-11); BUN 23 mg/dL (7-18); CO2 21.2 mmol/L (21.0-32.0); CREATININE 0.94 mg/dL (0.70-1.30); Calcium 8.5 mg/dL (8.5-10.1); Chloride 95 mmol/L (98-107); Glucose 112 mg/dL (74-106); Potassium 4.5 mmol/L (3.5-5.1); Sodium 127 mmol/L (136-145)
[2020-05-30 21:27] LABS: Troponin I < 0.05 ng/mL (<0.06)
--- NOTE | 2020-05-30 22:00 | W.PM.HP.N ---
Date of service: 05/30/20 Time of Service: 19:28 Assessment and Plan Assessment and plan (1) Crohn's disease: Status: None Assessment and plan: s/p repair of fistula. Subsequent wound dehiscence. Qualifiers: Digestive disease complication type: with fistula (2) Atrial fibrillation: Status: Chronic Assessment and plan: In sinus rhythm; tachycardic d/t sepsis/fever. Cont multaq and cardizem. His states he receives meds via J tube. (3) Pneumonia: Status: Acute Assessment and plan: Infiltrate in RLL. Procalcitonin 0.9. Supplemental O2 Vancomycin and Zosyn. Monitor WBC count and procal. (4) Sepsis: Status: Acute Assessment and plan: Secondary to PNA vs abd wound infection. Received 3L IV fluids in ED. NS at 100ml/hr. Lactate improving; follow. Zosyn and Vanc. (5) IDDM (insulin dependent diabetes mellitus): Status: Chronic Assessment and plan: Low carb diet. He does eat a soft diet, supplemented with TPN 4x week. Clear liquids for now. Cont basal/bolus insulin. Decrease his usual basal dose by 1/2. Monitor (6) Abdominal wound dehiscence: Status: Acute Assessment and plan: Wound care consult. (7) Malnutrition following gastrointestinal surgery: Status: Acute Assessment and plan: Pharmacy to verify with , the type of TPN and IV vitamin suppplementation he receives and the scheduling of those. History of Present Illness History of Present Illness Chief Complaint: Altered mental status, fever. Narrative: This is a 70-year-old gentleman with a significant and complicated past medical history presenting via EMS. Past medical history includes PE, diabetes, Crohn's disease, A. fib, hypertension, obesity, anemia, small bowel obstruction, myalgia, GERD, and now he is on baseline O2 nasal cannula. He is s/p admission to [facility] in February. He underwent an exploratory lap and closure of enterocutaneous fistula. This was complicated by dehiscence of anastomotic site status post washout. He has a central line that he receives TPN through. He was admitted to their facility for a total of 56 days, had J-tube placed, abdominal wound changed to nephrostomy appliance. He was discharged home where he lives with his , home health coming irregularly. They have continued outpatient wound care, follow-up, and doing the best they can. In the ED it was documented that he was awake and alert, answered yes and no questions but unable to provide additional history. stated that he is usually awake, alert, able to converse clearly. He developed nausea, vomiting, shaking, or fever overnight, then altered mental status on the AM of admission. Records were obtained from [facility] for additional collateral information. CT chest showed mild infiltrate in the posterior basal segment of the right lower lobe. CT abd w/o abscess. CT head negative for acute process. WBC count mildly elevated at 11.79. ABG with pO2 of 73, pCO2 30, pH 7.45. Lactate 5.4. Na 127. Creatinine 0.94. Mg 1.7. IV Vancomycin and Zosyn initiated in the ED. Review of Systems Narrative: All systems reviewed & are unremarkable except as noted in HPI and below (Obtained from ) [facility] Medical History (Updated 05/30/20 @ 22:31 by Alonso Covarrubias MD) Afib Bilateral hip pain Bone lesion Chest pain Crohn's disease Diabetes Drug hypersensitivity Dyspepsia Elevated liver enzymes Fibromyalgia GERD (gastroesophageal reflux disease) Hot flash in male HTN (hypertension) Hx of adenomatous colonic polyps Hx of melanoma excision Hypomania IBS (irritable bowel syndrome) Leg erythema half-way current use of anticoagulant Migraine Neuropathy Nocturnal hypoxia Obstructive sleep apnea a. Nocturnal CPAP Osteopenia PE (pulmonary thromboembolism) Periodic limb movement disorder Post poliomyelitis syndrome Prostate cancer Rectal bleeding Rectal pain Right ankle pain Saphenous vein phlebitis Sebaceous cyst Sensorineural hearing loss Sleep apnea Squamous cell carcinoma of hand Superficial phlebitis of leg Swelling of left lower extremity Vitamin B12 deficiency Surgical History ankle surgery, right Arthroplasty of knee bilat Arthroscopy, Shoulder left shoulder repair Colectomy x3 deep muscle biopsy, left calf muscle Hernia Repair, Incisional (03/22/16) intestinal obstruction with incarcerated incisional hernia, lysis of adhesions Family History Mother No problems noted. Father Kidney malignancy Son No problems noted. 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 Grew up in [facility] Home Medications and Allergies Home Medications Medication Instructions Recorded Confirmed Type omeprazole [Prilosec] 20 mg PO BID 01/23/13 03/18/20 History acetaminophen [Tylenol Extra 1,000 mg PO Q8H PRN PRN tab-cap NS 03/29/13 05/30/20 History Strength] Multaq 400 mg PO BID #180 tab-cap 04/15/15 03/18/20 History nitroglycerin [Nitrostat] 0.4 mg SUBLINGUAL Q5 MIN PRN X3 04/23/15 05/30/20 Rx PRN #15 tab balsalazide 2,250 mg PO TID 09/24/15 03/18/20 History Excedrin Migraine 1 ea PO DAILY PRN 09/15/16 03/05/20 History Topicaine 1 appful TOPICAL PRN PRN 06/27/17 03/18/20 History calcium carbonate 1,000 mg CH QID PRN 06/27/17 05/30/20 History metoclopramide HCl [Reglan] 10 mg PO BID #4 tab 04/25/18 11/01/19 Rx diltiazem HCl 30 mg tablet 30 mg PO TID tab 04/27/18 05/30/20 History cyanocobalamin (vitamin B-12) 1,000 mcg IM QMONTH ml 01/23/19 03/18/20 History 1,000 mcg/mL injection solution ergocalciferol (vitamin D2) 1,250 50,000 unit PO .2x weekly cap 01/23/19 05/30/20 History mcg (50,000 unit) capsule ferrous gluconate 324 mg (37.5 mg 324 mg PO BID tab 01/23/19 05/30/20 History iron) tablet pramipexole 0.5 mg tablet 1 mg PO HS tab 01/23/19 11/01/19 History levothyroxine 75 mcg PO DAILY 04/29/19 05/30/20 History magnesium L-lactate 84 mg PO DAILY 04/29/19 11/01/19 History promethazine 12.5 mg PO Q6H PRN 04/29/19 11/01/19 History prednisone 5 mg tablet 10 mg PO BID tab 07/25/19 03/18/20 History Lantus Solostar U-100 Insulin 30 unit SUBCUT HS 10/01/19 11/01/19 History famotidine 20 mg PO BID 10/01/19 03/05/20 History hydrocodone-acetaminophen 1 tab PO Q4H PRN 10/01/19 05/30/20 History blood sugar diagnostic [OneTouch 03/05/20 03/05/20 History Verio test strips] syringe with needle [BD 03/05/20 03/05/20 History SafetyGlide Syringe] cholestyramine (with sugar) 1 packet PO BID 03/18/20 03/18/20 History cholestyramine (with sugar) 1 packet PO BID PRN 03/18/20 03/18/20 History [Questran] clotrimazole 1 applic TOPICAL DIRECTED PRN 03/18/20 05/30/20 History diphenhydramine HCl [Benadryl] 25 mg PO BID 03/18/20 03/18/20 History enoxaparin [Lovenox] 120 mg SUBCUT BID 03/18/20 03/18/20 History insulin glargine [Basaglar KwikPen 25 unit SUBCUT HS 03/18/20 05/30/20 History U-100 Insulin] insulin lispro protamin-lispro 5 unit SUBCUT AC 03/18/20 05/30/20 History [Humalog Mix 75-25 KwikPen] lidocaine [Lidoderm] 1 patch TRANSDERMAL DAILY 03/18/20 05/30/20 History loperamide 2 mg PO QID PRN 03/18/20 03/18/20 History loratadine 10 mg PO DAILY PRN 03/18/20 05/30/20 History melatonin 6 mg PO HS 03/18/20 05/30/20 History pen needle, diabetic [BD 03/18/20 03/18/20 History Ultra-Fine Mini Pen Needle] trazodone 50 mg PO HS 03/18/20 05/30/20 History cyclobenzaprine 10 mg PO TID 05/30/20 05/30/20 History diphenhydramine HCl 25 mg PO Q6H PRN 05/30/20 05/30/20 History methyl salicylate-menthol 1 applic TOPICAL BID PRN 05/30/20 05/30/20 History ondansetron 4 mg PO DIRECTED PRN 05/30/20 05/30/20 History prednisone 20 mg PO DIRECTED 05/30/20 05/30/20 History Allergies Allergy/AdvReac Type Severity Reaction Status Date / Time Sulfa (Sulfonamide Allergy Mild Skin Rash Unverified 05/30/20 13:01 Antibiotics) atenolol Allergy Unverified 05/30/20 13:01 atorvastatin Allergy Unverified 05/30/20 13:01 gabapentin Allergy Unverified 05/30/20 13:01 nicardipine Allergy Unverified 05/30/20 13:01 salsalate Allergy Unverified 05/30/20 13:01 tramadol Allergy Unverified 05/30/20 13:01 venlafaxine Allergy Unverified 05/30/20 13:01 ciprofloxacin HCl AdvReac Severe ruptured Unverified 05/30/20 13:01 [From Cipro] achilles tendon hydrochlorothiazide AdvReac Severe myalgias Unverified 03/18/20 11:21 [From Benicar HCT] indapamide AdvReac Severe chest pain Unverified 05/30/20 13:01 olmesartan medoxomil AdvReac Severe myalgias Unverified 05/30/20 13:01 [From Benicar HCT] terazosin [Terazosin] AdvReac Severe tremor, GI Unverified 05/30/20 13:01 upset aliskiren [Aliskiren] AdvReac Intermediate diarrhea Unverified 05/30/20 13:01 amlodipine AdvReac Intermediate fatigue Unverified 05/30/20 13:01 denosumab [From Xgeva] AdvReac Intermediate Unverified 05/30/20 13:01 enalapril [Enalapril] AdvReac Intermediate shakes, Unverified 05/30/20 13:01 weakness montelukast sodium AdvReac Intermediate rectal Unverified 05/30/20 13:01 [From Singulair] irritation pregabalin [From Lyrica] AdvReac Intermediate sleep Unverified 05/30/20 13:01 issues spironolactone AdvReac Intermediate headache Unverified 05/30/20 13:01 Exam Const General: no acute distress and ill appearing Nutritional Appearance: overweight Orientation: awake and confused [facility] Head: normocephalic and atraumatic Eyes Sclera: sclerae normal Pupils: PERRL Neck Neck: full ROM and no JVD Resp Effort & Inspection: normal respiratory effort Auscultation: clear to auscultation bilaterally Cardio Rate: tachycardic Rhythm: regular rhythm Heart Sounds: S1 normal and S2 normal GI Palpation: soft Abdomen image: 1. Open surgical wound and stoma within an appliance. Watery yellow stool bathing the area and draining into bag. 2. J-tube Skin Rashes: no rashes Wounds: wounds noted (See abd.) Extrem General: no pedal edema and no calf tenderness Results Labs Result diagrams: 05/30/20 12:50 05/30/20 20:50 Labs: Laboratory Results - last 24 hr 05/30/20 05/30/20 05/30/20 12:50 12:50 12:50 WBC RBC Hgb Hct MCV MCH MCHC RDW Plt Count MPV Immature Gran % Neutrophils % Lymphocytes % Monocytes % Eosinophils % Basophils % Nucleated RBC % Absolute Neutrophils Absolute Lymphocytes Absolute Monocytes Absolute Eosinophils Absolute Basophils ABG Sample Site ABG pH ABG pCO2 ABG pO2 ABG HCO3 ABG Total CO2 ABG O2 Saturation ABG Base Excess VBG pH VBG pCO2 VBG pO2 VBG HCO3 VBG Total CO2 VBG O2 Saturation VBG Base Excess VBG Lactate 5.4 H* Oxygen Liter Flow Sodium 123 L* Potassium 5.0 Chloride 91 L Carbon Dioxide 18.0 L Anion Gap 14.0 H BUN 38 H Creatinine 1.13 Estimated GFR/1.73 m2 >= 60.00 Glucose 199 H Calcium 9.6 Magnesium 1.7 L Total Bilirubin 1.3 H AST 83 H ALT 133 H Alkaline Phosphatase 165 H Ammonia 24 Troponin I < 0.05 C-Reactive Protein NT-Pro-B Natriuret Pep Total Protein 7.9 Albumin 3.0 L Procalcitonin 0.9 Urine Color Urine Clarity Urine pH Ur Specific [place] Urine Protein Urine Ketones Urine Blood Urine Nitrite Urine Bilirubin Urine Urobilinogen Ur Leukocyte Esterase Urine RBC Urine WBC Ur Epithelial Cells Urine Crystals Urine Bacteria Urine Casts Urine Mucus Ur Culture Indicated? Urine Glucose COVID-19 Source SARS-CoV-2 (PCR) Influenza Type A (PCR) Influenza Type B (PCR) RSV (PCR) 05/30/20 05/30/20 05/30/20 12:50 12:50 12:50 WBC 11.79 H RBC 4.67 Hgb 12.3 L Hct 37.5 L MCV 80.3 MCH 26.3 L MCHC 32.8 RDW 17.7 H Plt Count 181 MPV 9.8 Immature Gran % 1.3 Neutrophils % 87.2 Lymphocytes % 6.4 Monocytes % 4.8 Eosinophils % 0.0 Basophils % 0.3 Nucleated RBC % 0 Absolute Neutrophils 10.28 H Absolute Lymphocytes 0.75 L Absolute Monocytes 0.57 Absolute Eosinophils 0.00 Absolute Basophils 0.04 ABG Sample Site ABG pH ABG pCO2 ABG pO2 ABG HCO3 ABG Total CO2 ABG O2 Saturation ABG Base Excess VBG pH 7.42 H VBG pCO2 27 L VBG pO2 124 VBG HCO3 18 L VBG Total CO2 16 L VBG O2 Saturation 99 VBG Base Excess -7 L VBG Lactate Oxygen Liter Flow Sodium Potassium Chloride Carbon Dioxide Anion Gap BUN Creatinine Estimated GFR/1.73 m2 Glucose Calcium Magnesium Total Bilirubin AST ALT Alkaline Phosphatase Ammonia Troponin I C-Reactive Protein NT-Pro-B Natriuret Pep 116 Total Protein Albumin Procalcitonin Urine Color Urine Clarity Urine pH Ur Specific [place] Urine Protein Urine Ketones Urine Blood Urine Nitrite Urine Bilirubin Urine Urobilinogen Ur Leukocyte Esterase Urine RBC Urine WBC Ur Epithelial Cells Urine Crystals Urine Bacteria Urine Casts Urine Mucus Ur Culture Indicated? Urine Glucose COVID-19 Source SARS-CoV-2 (PCR) Influenza Type A (PCR) Influenza Type B (PCR) RSV (PCR) 05/30/20 05/30/20 05/30/20 13:04 13:10 16:30 WBC RBC Hgb Hct MCV MCH MCHC RDW Plt Count MPV Immature Gran % Neutrophils % Lymphocytes % Monocytes % Eosinophils % Basophils % Nucleated RBC % Absolute Neutrophils Absolute Lymphocytes Absolute Monocytes Absolute Eosinophils Absolute Basophils ABG Sample Site ABG pH ABG pCO2 ABG pO2 ABG HCO3 ABG Total CO2 ABG O2 Saturation ABG Base Excess VBG pH VBG pCO2 VBG pO2 VBG HCO3 VBG Total CO2 VBG O2 Saturation VBG Base Excess VBG Lactate Oxygen Liter Flow Sodium Potassium Chloride Carbon Dioxide Anion Gap BUN Creatinine Estimated GFR/1.73 m2 Glucose Calcium Magnesium Total Bilirubin AST ALT Alkaline Phosphatase Ammonia Troponin I < 0.05 C-Reactive Protein NT-Pro-B Natriuret Pep Total Protein Albumin Procalcitonin Urine Color Yellow Urine Clarity Clear Urine pH 5.5 Ur Specific [place] 1.020 Urine Protein Negative Urine Ketones Negative Urine Blood Trace-intact H Urine Nitrite Negative Urine Bilirubin Negative Urine Urobilinogen 0.2 Ur Leukocyte Esterase Negative Urine RBC 3-5 H Urine WBC Negative Ur Epithelial Cells Few Urine Crystals Negative Urine Bacteria Rare Urine Casts Negative Urine Mucus Negative Ur Culture Indicated? No Urine Glucose Negative COVID-19 Source Nasopharynx SARS-CoV-2 (PCR) Negative Influenza Type A (PCR) Negative Influenza Type B (PCR) Negative RSV (PCR) Negative 05/30/20 05/30/20 05/30/20 16:30 18:38 20:50 WBC RBC Hgb Hct MCV MCH MCHC RDW Plt Count MPV Immature Gran % Neutrophils % Lymphocytes % Monocytes % Eosinophils % Basophils % Nucleated RBC % Absolute Neutrophils Absolute Lymphocytes Absolute Monocytes Absolute Eosinophils Absolute Basophils ABG Sample Site Left radial ABG pH 7.45 ABG pCO2 30 L ABG pO2 73 L ABG HCO3 21 L ABG Total CO2 19 L ABG O2 Saturation 96 ABG Base Excess -3 L VBG pH VBG pCO2 VBG pO2 VBG HCO3 VBG Total CO2 VBG O2 Saturation VBG Base Excess VBG Lactate 3.7 H* Oxygen Liter Flow 4 Sodium 127 L Potassium 4.5 Chloride 95 L Carbon Dioxide 21.2 Anion Gap 10.8 BUN 23 H D Creatinine 0.94 Estimated GFR/1.73 m2 >= 60.00 Glucose 112 H D Calcium 8.5 Magnesium Total Bilirubin AST ALT Alkaline Phosphatase Ammonia Troponin I < 0.05 C-Reactive Protein 8.70 H NT-Pro-B Natriuret Pep Total Protein Albumin Procalcitonin Urine Color Urine Clarity Urine pH Ur Specific [place] Urine Protein Urine Ketones Urine Blood Urine Nitrite Urine Bilirubin Urine Urobilinogen Ur Leukocyte Esterase Urine RBC Urine WBC Ur Epithelial Cells Urine Crystals Urine Bacteria Urine Casts Urine Mucus Ur Culture Indicated? Urine Glucose COVID-19 Source SARS-CoV-2 (PCR) Influenza Type A (PCR) Influenza Type B (PCR) RSV (PCR) 05/30/20 20:50 WBC RBC Hgb Hct MCV MCH MCHC RDW Plt Count MPV Immature Gran % Neutrophils % Lymphocytes % Monocytes % Eosinophils % Basophils % Nucleated RBC % Absolute Neutrophils Absolute Lymphocytes Absolute Monocytes Absolute Eosinophils Absolute Basophils ABG Sample Site ABG pH ABG pCO2 ABG pO2 ABG HCO3 ABG Total CO2 ABG O2 Saturation ABG Base Excess VBG pH VBG pCO2 VBG pO2 VBG HCO3 VBG Total CO2 VBG O2 Saturation VBG Base Excess VBG Lactate 3.3 H* Oxygen Liter Flow Sodium Potassium Chloride Carbon Dioxide Anion Gap BUN Creatinine Estimated GFR/1.73 m2 Glucose Calcium Magnesium Total Bilirubin AST ALT Alkaline Phosphatase Ammonia Troponin I C-Reactive Protein NT-Pro-B Natriuret Pep Total Protein Albumin Procalcitonin Urine Color Urine Clarity Urine pH Ur Specific [place] Urine Protein Urine Ketones Urine Blood Urine Nitrite Urine Bilirubin Urine Urobilinogen Ur Leukocyte Esterase Urine RBC Urine WBC Ur Epithelial Cells Urine Crystals Urine Bacteria Urine Casts Urine Mucus Ur Culture Indicated? Urine Glucose COVID-19 Source SARS-CoV-2 (PCR) Influenza Type A (PCR) Influenza Type B (PCR) RSV (PCR) Last Vital Signs Temp 39.1 C H 05/30/20 19:59 Pulse 133 H 05/30/20 20:02 Resp 27 H 05/30/20 20:02 BP 113/52 L 05/30/20 19:46 Pulse Ox 96 05/30/20 20:02 COVID-19 Screening Have you, or household traveled for leisure in last 14 days?: No
[2020-05-30 22:45] LABS: C Diff PCR Negative (Negative)
[2020-05-30] MEDS: Insulin Glargine 300 UNITS/3 ML PEN 15 UNITS SC (22:48)
[2020-05-30] MEDS: Hydrocortisone SOD SUC. 100 MG VIAL 50 MG IVP (23:19)
[2020-05-30] MEDS: Ketorolac 15 MG/ML VIAL IVP (23:33)
[2020-05-31] VITALS (78 sets, daily range): BP systolic 74–174; BP diastolic 44–99; PULSE 49–134; RESP 1–30; TEMP 35.9–39.1; O2SAT 89–105
[2020-05-31] MEDS: HYDROmorphone 2 MG/ML VIAL 0.5 MG IVP (01:06)
[2020-05-31] MEDS: Albuterol/Ipratropium 3 ML UPD VIAL UPD ×3 (01:08→13:40)
[2020-05-31] MEDS: VANCOMYCIN 1,500 MG in Normal Saline 250 ML 166.667 MG IV (01:19)
[2020-05-31] MEDS: Normal Saline Flush 10 ML SYR IVP ×7 (02:47→17:31)
[2020-05-31] MEDS: Normal Saline 500 ML 999 ML IV (03:50)
[2020-05-31] MEDS: ACETAMINOPHEN 1,000 MG/100 ML BTL 400 MG IVPB ×2 (03:53→12:07)
[2020-05-31] MEDS: PIPERACILLIN/TAZO 4.5 GM in Normal Saline 100 ML IVPB ×2 (05:55→14:18)
[2020-05-31 06:12] LABS: Lactate 1.4 mmol/L (0.6-1.4)
[2020-05-31] MEDS: Normal Saline 500 ML 100 ML IV (06:14)
[2020-05-31 06:15] LABS: Absolute Basophil Count 0.01 10^3/uL (0.0-0.2); Absolute Lymphocyte Count 0.29 10^3/uL (1.2-3.4); Absolute Monocyte Count 0.55 10^3/uL (0.1-0.8); Basophils % 0.1; HCT 30.2 % (40.0-50.0); HGB 9.4 g/dL (13.5-17.5); Immature Grans % 1.4; Lymphocytes % 4.2; MCH 26.3 pg (27.0-33.0); MCHC 31.1 % (32.0-36.0); MCV 84.4 fL (80-95); MPV 9.8 fL (8.0-11.0); Monocytes % 7.9; Neutrophils % 86.4; Nucleated RBC 0 %; Platelet Count 145 10^3/uL (130-400); RBC 3.58 10^6/uL (4.36-5.78); RDW 18.3 % (11.8-14.1); WBC 6.95 10^3/uL (4.4-10.8)
[2020-05-31 06:36] LABS: ALT 86 U/L (16-63); AST 42 U/L (15-37); Albumin 2.2 g/dL (3.4-5.0); Alkaline Phosphatase 106 U/L (46-116); Anion Gap 9.8 mmol/L (3-11); BUN 21 mg/dL (7-18); Bilirubin, Total 1.4 mg/dL (0.2-1.0); CO2 24.2 mmol/L (21.0-32.0); CREATININE 0.95 mg/dL (0.70-1.30); Calcium 8.2 mg/dL (8.5-10.1); Chloride 99 mmol/L (98-107); Glucose 137 mg/dL (74-106); Magnesium 2.1 mg/dL (1.8-2.4); Potassium 4.1 mmol/L (3.5-5.1); Sodium 133 mmol/L (136-145); TSH 1.66 uIU/mL (0.36-3.74); TSH (W/Ref FT4) 1.51 uIU/mL (0.36-3.74)
[2020-05-31 06:40] LABS: Hemoglobin A1C 6.2 % (<5.7)
[2020-05-31] MEDS: Hydrocortisone SOD SUC. 100 MG VIAL IVP (08:24)
[2020-05-31] MEDS: Pantoprazole 40 MG VIAL IVP (08:26)
--- NOTE | 2020-05-31 08:26 | PDOC.CMIN ---
- If Service Date Differs Date of service: 05/31/20 Time of Service: 08:26 Care Management Initial Assess REASON FOR HOSPITALIZATION:: Sepsis. 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 Nocturnal hypoxia, Obstructive sleep apnea - a. Nocturnal CPAP, Osteopenia, PE (pulmonary thromboembolism), Periodic limb movement disorder, Post poliomyelitis syndrome, Prostate cancer, Rectal bleeding,. Rectal pain, Right ankle pain, Saphenous vein phlebitis, Sebaceous cyst,. Sensorineural hearing loss, Sleep apnea, Squamous cell carcinoma of hand, Superficial phlebitis of leg, Swelling of left lower extremity, and. Vitamin B12 deficiency. Surgical History: ankle surgery, right, Arthroplasty of knee - bilat,. Arthroscopy, Shoulder - left shoulder repair, Colectomy x3, deep muscle biopsy, left calf muscle, and Hernia Repair, Incisional (03/22/16) - intestinal obstruction with incarcerated incisional hernia, lysis of adhesions. PREVIOUS FUNCTIONAL STATUS/SOCIAL/FAMILY SUPPORTS:: Alonso and his , Carol, live in [facility]. Together they have three children (two daughters and one son). The oldest daughter, Carri, lives in [place], [place], and the other two children reside in the [place] area. 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 She shares her parents have been for 47 years. CURRENT FUNCTIONAL STATUS:: is unable to meet with Alonso due to a decline in his condition. EVELIA speaks with his daughter, Carri, by telephone ([phone]). Carri provides background information on her dad. offers to arrange a video call between Alonso and his and children but family declines at this time. CM will continue to follow. ADVANCE DIRECTIVES:: On file; Carol is health care agent. Has patient been provided with info about the portal/API?: Yes Did the patient sign up for the portal?: Yes (Previously enrolled) CODE STATUS:: Full Code INSURANCE COVERAGE / FINANCIAL ISSUES:: Medicare. CURRENT HOME/COMMUNITY SERVICES/EQUIPMENT:: Alonso has an ostomy and he ambulates with a cane and a walker. PRIMARY CARE PHYSICIAN:: Kenney Greer MD POTENTIAL DISCHARGE NEEDS:: Follow up appointment with PCP and discharge plan of care. PATIENT/FAMILY EDUCATION NEEDS:: Discharge instructions, limitations, and follow up plan of care. ANTICIPATED BARRIERS TO DISCHARGE:: Anticipate transfer to [facility] for further evaluation and treatment. TRANSPORTATION:: Transfer to [facility] via [facility] [employer] [facility]. PLAN:: Anticipate Alonso will transfer to [facility] for ongoing treatment. Transport will be done via [employer].
--- NOTE | 2020-05-31 09:05 | W.PM.PROGNOT ---
Date of Service Date of service: 05/31/20 Time of Service: 09:05 Assessment and Plan Assessment and plan (1) Sepsis: Status: Acute Assessment and plan: Continue current antibiotic regimen as he seems to be responding to this. Awaiting results of blood and urine cultures. Continue aggressive pulmonary toiletry with aerosol treatments. Supportive care with nasal cannula and CPAP or BiPAP. Remains full CODE STATUS. Continue stress dose hydrocortisone. I have sent his films down to [facility] requested telephone consultation with his surgeon Dr. Whittington as a suspect that his sepsis is secondary to intra-abdominal source and not due to his pneumonia. Rapid PCR test for COVID-19 was done on admission and came back negative. Qualifiers: Sepsis type: sepsis due to unspecified organism Sepsis acute organ dysfunction status: with acute organ dysfunction Severe sepsis acute organ dysfunction type: acute renal failure Acute renal failure type: unspecified Severe sepsis shock status: without septic shock Qualified Code(s): A41.9 - Sepsis, unspecified organism; R65.20 - Severe sepsis without septic shock; N17.9 - Acute kidney failure, unspecified (2) Abdominal wound dehiscence: Status: Acute Assessment and plan: Continue current wound management with [place] ostomy bag, however, I think that surgery needs to evaluate his wound since it appears that his J tube is not functional and any meds/feedings seem to leak from his ostomy into his abdominal wound. For now will keep NPO and provide parenteral meds and TPN; I will discuss possible transfer to [facility] Qualifiers: Encounter type: sequela Qualified Code(s): T81.30XS - Disruption of wound, unspecified, sequela (3) Pneumonia: Status: Acute Assessment and plan: pulmonary toiletry, antibiotics as above (Zosyn and Vancomycin), stress does hydrocortisone, supplemental oxygen and either CPAP or BIPAP. keep NPO for now as his mental status is too encephalopathy to safely eat. Qualifiers: Pneumonia type: due to unspecified organism Laterality: right Lung location: lower lobe of lung Qualified Code(s): J18.9 - Pneumonia, unspecified organism (4) Malnutrition following gastrointestinal surgery: Status: Acute Assessment and plan: start TPN. I have asked our pharmacist to contract [facility] pharmacy to clarify his home meds and obtain his current TPN formulation. (5) Crohn's disease: Status: None Assessment and plan: stress dose hydrocortisone for now. Apparently he is followed by Dr. Harjinder Abdi, gastroenterology at [facility] and patient has been tried on various immune modulating drugs w/ various ill effects. Patient has responded well in the past to corticosteriods and it appears that he has been chronically on prednisone. Qualifiers: Digestive disease complication type: with fistula Gastrointestinal tract location: small and large intestine Qualified Code(s): K50.813 - Crohn's disease of both small and large intestine with fistula (6) IDDM (insulin dependent diabetes mellitus): Status: Chronic Assessment and plan: monitor finger stick glucose q6h while NPO and cover w/ SSI; continue low dose basal insulin. Once he is on TPN he will require higher coverage and in fact probably will need further coverage from the corticosteroids. (7) Obstructive sleep apnea: Status: Chronic Assessment and plan: patient will be supported w/ BIPAP while asleep (8) Hypertension: Status: Chronic Assessment and plan: antihypertensives on hold d/t sepsis and hypotension last night Qualifiers: Hypertension type: essential hypertension Qualified Code(s): I10 - Essential (primary) hypertension (9) Atrial fibrillation: Status: Chronic Assessment and plan: Multaq on hold; can use prn iv lopressor if needed for HR >130 if his SBP will allow. continue current lovenox dosing (has been on therapeutic dosing of lovenox for PE) Qualifiers: Atrial fibrillation type: unspecified Qualified Code(s): I48.91 - Unspecified atrial fibrillation (10) Hx pulmonary embolism: Status: Chronic Assessment and plan: cont. lovenox as above (11) DVT prophylaxis: Status: Acute Assessment and plan: lovenox as above Subjective Subjective Interval history since last seen: 70-year-old male with complicated history including failed attempt at repair of an enterocutaneous fistula and subsequent wound dehiscence requiring a prolonged stay at [facility] and recently discharged May 13, 2020. 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 Patient's other comorbidities include atrial fibrillation, pulmonary embolism for which he has been on Lovenox, type 2 diabetes mellitus requiring insulin, post polio syndrome, obstructive sleep apnea. See Dr. Covarrubias's note for details of his HPI. Patient presented with nausea vomiting and abdominal pain fever and rigors and had a work-up in the ER including CT scan of his chest and abdomen pelvis. He was found to have a right lower lobe posterior infiltrate. CT of the abdomen did not show any abscess. He has an open abdominal wound with urostomy bag appliance and he has a J-tube which the nurses state was not sutured to the skin and the tube apparently had migrated. Reportedly last night any oral meds seem to be coming out of the enteral stoma into the urostomy bag. Patient remains encephalopathic and unsafe to receive any oral medications. At home patient had been receiving TPN 4 times a week but was on an oral diet. Throughout the night patient had relative hypotension despite aggressive IV fluid hydration. Blood pressures throughout the day in the emergency department were adequate running in the 110s to 120s however beginning around 1 AM blood pressures dropped into the 80s and 90s systolic. This morning his blood pressure has recovered is again running from low 100s to 110s. His mean arterial pressures been running from the mid 60s to low 70s this morning. His blood lactate has resolved from a peak of 5.4 yesterday afternoon down to 1.4 this morning and his leukocytosis yesterday was 11,790 and is down to 6900 this morning. His hemoglobin hematocrit dropped a bit with the fluid hydration with his hemoglobin dropping from 12.3 g to 9.4 g. Patient remains on Zosyn 4.5 g IV every 8 hours and vancomycin 1.25 g IV every 12 hours. I have withheld his oral medications and switched his levothyroxine to IV form. He is now on stress dose hydrocortisone at 50 mg every 6 hours. He did receive a bolus of hydrocortisone 100 mg IV this morning. He has not required any vasopressors. Exam Narrative Exam Narrative: Elderly gentleman lying in bed in semifowler position who was diaphoretic and having rigors which is now resolved. He is encephalopathic and that he will open his eyes to his name and he knows he is in the hospital but otherwise cannot tell me how he got to the hospital nor any of the events leading up to his illness nor can he tell me the time or date. HEENT is unremarkable. Neck is supple no JVD. He has a catheter underneath the right clavicle that is tunneled under the skin leading up to the right internal jugular vein. Lungs are clear to auscultation anteriorly posterior bases with rales in the right base with some rhonchorous sounds posteriorly Heart is regular no appreciable murmur rub or gallop Abdomen has a large open abdominal wound with a stomas releasing bowel fluid into the open wound which drains into a large collection bag. Per [facility] notes this is an Julee pouch. Lower extremities are not mottled although cool, decreased pedal pulses; no open sores on his feet or legs Neuro exam is non-focal; he moans and he opens his eyes to his name and withdraws his arms or legs to tactile stimulation but no purposeful motion. GSC 13 (e4,v4,m5) Objective Last Vital Signs Temp 36.8 C 05/31/20 04:24 Pulse 87 05/31/20 08:00 Resp 21 05/31/20 08:00 BP 104/57 L 05/31/20 08:00 Pulse Ox 99 05/31/20 08:17 Laboratory Results - last 24 hr 05/30/20 05/30/20 05/30/20 12:50 12:50 12:50 WBC RBC Hgb Hct MCV MCH MCHC RDW Plt Count MPV Immature Gran % Neutrophils % Lymphocytes % Monocytes % Eosinophils % Basophils % Nucleated RBC % Absolute Neutrophils Absolute Lymphocytes Absolute Monocytes Absolute Eosinophils Absolute Basophils ABG Sample Site ABG pH ABG pCO2 ABG pO2 ABG HCO3 ABG Total CO2 ABG O2 Saturation ABG Base Excess VBG pH VBG pCO2 VBG pO2 VBG HCO3 VBG Total CO2 VBG O2 Saturation VBG Base Excess VBG Lactate 5.4 H* Oxygen Liter Flow Sodium 123 L* Potassium 5.0 Chloride 91 L Carbon Dioxide 18.0 L Anion Gap 14.0 H BUN 38 H Creatinine 1.13 Estimated GFR/1.73 m2 >= 60.00 Glucose 199 H Hemoglobin A1c Calcium 9.6 Magnesium 1.7 L Total Bilirubin 1.3 H AST 83 H ALT 133 H Alkaline Phosphatase 165 H Ammonia 24 Troponin I < 0.05 C-Reactive Protein NT-Pro-B Natriuret Pep Total Protein 7.9 Albumin 3.0 L Procalcitonin 0.9 TSH Urine Color Urine Clarity Urine pH Ur Specific [place] Urine Protein Urine Ketones Urine Blood Urine Nitrite Urine Bilirubin Urine Urobilinogen Ur Leukocyte Esterase Urine RBC Urine WBC Ur Epithelial Cells Urine Crystals Urine Bacteria Urine Casts Urine Mucus Ur Culture Indicated? Urine Glucose Stl C.difficile Tox PCR COVID-19 Source SARS-CoV-2 (PCR) Influenza Type A (PCR) Influenza Type B (PCR) RSV (PCR) 05/30/20 05/30/20 05/30/20 12:50 12:50 12:50 WBC 11.79 H RBC 4.67 Hgb 12.3 L Hct 37.5 L MCV 80.3 MCH 26.3 L MCHC 32.8 RDW 17.7 H Plt Count 181 MPV 9.8 Immature Gran % 1.3 Neutrophils % 87.2 Lymphocytes % 6.4 Monocytes % 4.8 Eosinophils % 0.0 Basophils % 0.3 Nucleated RBC % 0 Absolute Neutrophils 10.28 H Absolute Lymphocytes 0.75 L Absolute Monocytes 0.57 Absolute Eosinophils 0.00 Absolute Basophils 0.04 ABG Sample Site ABG pH ABG pCO2 ABG pO2 ABG HCO3 ABG Total CO2 ABG O2 Saturation ABG Base Excess VBG pH 7.42 H VBG pCO2 27 L VBG pO2 124 VBG HCO3 18 L VBG Total CO2 16 L VBG O2 Saturation 99 VBG Base Excess -7 L VBG Lactate Oxygen Liter Flow Sodium Potassium Chloride Carbon Dioxide Anion Gap BUN Creatinine Estimated GFR/1.73 m2 Glucose Hemoglobin A1c Calcium Magnesium Total Bilirubin AST ALT Alkaline Phosphatase Ammonia Troponin I C-Reactive Protein NT-Pro-B Natriuret Pep 116 Total Protein Albumin Procalcitonin TSH Urine Color Urine Clarity Urine pH Ur Specific [place] Urine Protein Urine Ketones Urine Blood Urine Nitrite Urine Bilirubin Urine Urobilinogen Ur Leukocyte Esterase Urine RBC Urine WBC Ur Epithelial Cells Urine Crystals Urine Bacteria Urine Casts Urine Mucus Ur Culture Indicated? Urine Glucose Stl C.difficile Tox PCR COVID-19 Source SARS-CoV-2 (PCR) Influenza Type A (PCR) Influenza Type B (PCR) RSV (PCR) 05/30/20 05/30/20 05/30/20 13:04 13:10 16:30 WBC RBC Hgb Hct MCV MCH MCHC RDW Plt Count MPV Immature Gran % Neutrophils % Lymphocytes % Monocytes % Eosinophils % Basophils % Nucleated RBC % Absolute Neutrophils Absolute Lymphocytes Absolute Monocytes Absolute Eosinophils Absolute Basophils ABG Sample Site ABG pH ABG pCO2 ABG pO2 ABG HCO3 ABG Total CO2 ABG O2 Saturation ABG Base Excess VBG pH VBG pCO2 VBG pO2 VBG HCO3 VBG Total CO2 VBG O2 Saturation VBG Base Excess VBG Lactate Oxygen Liter Flow Sodium Potassium Chloride Carbon Dioxide Anion Gap BUN Creatinine Estimated GFR/1.73 m2 Glucose Hemoglobin A1c Calcium Magnesium Total Bilirubin AST ALT Alkaline Phosphatase Ammonia Troponin I < 0.05 C-Reactive Protein NT-Pro-B Natriuret Pep Total Protein Albumin Procalcitonin TSH Urine Color Yellow Urine Clarity Clear Urine pH 5.5 Ur Specific [place] 1.020 Urine Protein Negative Urine Ketones Negative Urine Blood Trace-intact H Urine Nitrite Negative Urine Bilirubin Negative Urine Urobilinogen 0.2 Ur Leukocyte Esterase Negative Urine RBC 3-5 H Urine WBC Negative Ur Epithelial Cells Few Urine Crystals Negative Urine Bacteria Rare Urine Casts Negative Urine Mucus Negative Ur Culture Indicated? No Urine Glucose Negative Stl C.difficile Tox PCR COVID-19 Source Nasopharynx SARS-CoV-2 (PCR) Negative Influenza Type A (PCR) Negative Influenza Type B (PCR) Negative RSV (PCR) Negative 05/30/20 05/30/20 05/30/20 16:30 18:38 20:50 WBC RBC Hgb Hct MCV MCH MCHC RDW Plt Count MPV Immature Gran % Neutrophils % Lymphocytes % Monocytes % Eosinophils % Basophils % Nucleated RBC % Absolute Neutrophils Absolute Lymphocytes Absolute Monocytes Absolute Eosinophils Absolute Basophils ABG Sample Site Left radial ABG pH 7.45 ABG pCO2 30 L ABG pO2 73 L ABG HCO3 21 L ABG Total CO2 19 L ABG O2 Saturation 96 ABG Base Excess -3 L VBG pH VBG pCO2 VBG pO2 VBG HCO3 VBG Total CO2 VBG O2 Saturation VBG Base Excess VBG Lactate 3.7 H* Oxygen Liter Flow 4 Sodium 127 L Potassium 4.5 Chloride 95 L Carbon Dioxide 21.2 Anion Gap 10.8 BUN 23 H D Creatinine 0.94 Estimated GFR/1.73 m2 >= 60.00 Glucose 112 H D Hemoglobin A1c Calcium 8.5 Magnesium Total Bilirubin AST ALT Alkaline Phosphatase Ammonia Troponin I < 0.05 C-Reactive Protein 8.70 H NT-Pro-B Natriuret Pep Total Protein Albumin Procalcitonin TSH Urine Color Urine Clarity Urine pH Ur Specific [place] Urine Protein Urine Ketones Urine Blood Urine Nitrite Urine Bilirubin Urine Urobilinogen Ur Leukocyte Esterase Urine RBC Urine WBC Ur Epithelial Cells Urine Crystals Urine Bacteria Urine Casts Urine Mucus Ur Culture Indicated? Urine Glucose Stl C.difficile Tox PCR COVID-19 Source SARS-CoV-2 (PCR) Influenza Type A (PCR) Influenza Type B (PCR) RSV (PCR) 05/30/20 05/30/20 05/31/20 20:50 21:25 06:00 WBC RBC Hgb Hct MCV MCH MCHC RDW Plt Count MPV Immature Gran % Neutrophils % Lymphocytes % Monocytes % Eosinophils % Basophils % Nucleated RBC % Absolute Neutrophils Absolute Lymphocytes Absolute Monocytes Absolute Eosinophils Absolute Basophils ABG Sample Site ABG pH ABG pCO2 ABG pO2 ABG HCO3 ABG Total CO2 ABG O2 Saturation ABG Base Excess VBG pH VBG pCO2 VBG pO2 VBG HCO3 VBG Total CO2 VBG O2 Saturation VBG Base Excess VBG Lactate 3.3 H* 1.4 Oxygen Liter Flow Sodium Potassium Chloride Carbon Dioxide Anion Gap BUN Creatinine Estimated GFR/1.73 m2 Glucose Hemoglobin A1c Calcium Magnesium Total Bilirubin AST ALT Alkaline Phosphatase Ammonia Troponin I C-Reactive Protein NT-Pro-B Natriuret Pep Total Protein Albumin Procalcitonin TSH Urine Color Urine Clarity Urine pH Ur Specific [place] Urine Protein Urine Ketones Urine Blood Urine Nitrite Urine Bilirubin Urine Urobilinogen Ur Leukocyte Esterase Urine RBC Urine WBC Ur Epithelial Cells Urine Crystals Urine Bacteria Urine Casts Urine Mucus Ur Culture Indicated? Urine Glucose Stl C.difficile Tox PCR Negative COVID-19 Source SARS-CoV-2 (PCR) Influenza Type A (PCR) Influenza Type B (PCR) RSV (PCR) 05/31/20 05/31/20 05/31/20 06:00 06:00 06:00 WBC 6.95 D RBC 3.58 L Hgb 9.4 L D Hct 30.2 L MCV 84.4 D MCH 26.3 L MCHC 31.1 L RDW 18.3 H Plt Count 145 MPV 9.8 Immature Gran % 1.4 Neutrophils % 86.4 Lymphocytes % 4.2 Monocytes % 7.9 Eosinophils % 0.0 Basophils % 0.1 Nucleated RBC % 0 Absolute Neutrophils 6.00 Absolute Lymphocytes 0.29 L Absolute Monocytes 0.55 Absolute Eosinophils 0.00 Absolute Basophils 0.01 ABG Sample Site ABG pH ABG pCO2 ABG pO2 ABG HCO3 ABG Total CO2 ABG O2 Saturation ABG Base Excess VBG pH VBG pCO2 VBG pO2 VBG HCO3 VBG Total CO2 VBG O2 Saturation VBG Base Excess VBG Lactate Oxygen Liter Flow Sodium 133 L Potassium 4.1 Chloride 99 Carbon Dioxide 24.2 Anion Gap 9.8 BUN 21 H Creatinine 0.95 Estimated GFR/1.73 m2 >= 60.00 Glucose 137 H Hemoglobin A1c 6.2 H Calcium 8.2 L Magnesium 2.1 Total Bilirubin 1.4 H AST 42 H ALT 86 H Alkaline Phosphatase 106 Ammonia Troponin I C-Reactive Protein NT-Pro-B Natriuret Pep Total Protein 6.0 L Albumin 2.2 L Procalcitonin TSH 1.66 Urine Color Urine Clarity Urine pH Ur Specific [place] Urine Protein Urine Ketones Urine Blood Urine Nitrite Urine Bilirubin Urine Urobilinogen Ur Leukocyte Esterase Urine RBC Urine WBC Ur Epithelial Cells Urine Crystals Urine Bacteria Urine Casts Urine Mucus Ur Culture Indicated? Urine Glucose Stl C.difficile Tox PCR COVID-19 Source SARS-CoV-2 (PCR) Influenza Type A (PCR) Influenza Type B (PCR) RSV (PCR) 05/31/20 06:00 WBC RBC Hgb Hct MCV MCH MCHC RDW Plt Count MPV Immature Gran % Neutrophils % Lymphocytes % Monocytes % Eosinophils % Basophils % Nucleated RBC % Absolute Neutrophils Absolute Lymphocytes Absolute Monocytes Absolute Eosinophils Absolute Basophils ABG Sample Site ABG pH ABG pCO2 ABG pO2 ABG HCO3 ABG Total CO2 ABG O2 Saturation ABG Base Excess VBG pH VBG pCO2 VBG pO2 VBG HCO3 VBG Total CO2 VBG O2 Saturation VBG Base Excess VBG Lactate Oxygen Liter Flow Sodium Potassium Chloride Carbon Dioxide Anion Gap BUN Creatinine Estimated GFR/1.73 m2 Glucose Hemoglobin A1c Calcium Magnesium Total Bilirubin AST ALT Alkaline Phosphatase Ammonia Troponin I C-Reactive Protein NT-Pro-B Natriuret Pep Total Protein Albumin Procalcitonin TSH 1.51 Urine Color Urine Clarity Urine pH Ur Specific [place] Urine Protein Urine Ketones Urine Blood Urine Nitrite Urine Bilirubin Urine Urobilinogen Ur Leukocyte Esterase Urine RBC Urine WBC Ur Epithelial Cells Urine Crystals Urine Bacteria Urine Casts Urine Mucus Ur Culture Indicated? Urine Glucose Stl C.difficile Tox PCR COVID-19 Source SARS-CoV-2 (PCR) Influenza Type A (PCR) Influenza Type B (PCR) RSV (PCR)
[2020-05-31] MEDS: Levothyroxine 100 MCG VIAL 56 MCG IVP (10:35)
[2020-05-31] MEDS: Ketorolac 15 MG/ML VIAL IVP (10:54)
[2020-05-31] MEDS: Insulin Aspart 300 UNITS/3 ML PEN SC ×2 (12:00→17:31)
[2020-05-31] MEDS: Hydrocortisone SOD SUC. 100 MG VIAL 50 MG IVP ×2 (12:07→17:30)
--- NOTE | 2020-05-31 13:00 | RT.EKG_ITS ---
APPROVED REPORT Exam: Resting ECG Patient Location: I HR:94 bpm ECG Measurements Heart Rate 94 AXIS AL 238 P 47 QRSd 103 QRS 4 QT 350 T 2 QTc 438 Conclusion Sinus rhythm...normal P axis, V-rate 60- 99 Prolonged AL interval...AL >215, V-rate 91-120 Nonspecific T abnormalities, anterior leads...T <-0.10mV, V2-V4
[2020-05-31 13:17] LABS: Abs Immature Grans 0.07 10^3/uL (0.0-0.06); Absolute Basophil Count 0.01 10^3/uL (0.0-0.2); Absolute Lymphocyte Count 0.27 10^3/uL (1.2-3.4); Absolute Monocyte Count 0.39 10^3/uL (0.1-0.8); Absolute Neutrophil Count 4.82 10^3/uL (1.2-6.7); Basophils % 0.2; HCT 30.5 % (40.0-50.0); HGB 9.5 g/dL (13.5-17.5); Immature Grans % 1.3; Lymphocytes % 4.9; MCH 25.9 pg (27.0-33.0); MCHC 31.1 % (32.0-36.0); MCV 83.1 fL (80-95); MPV 9.3 fL (8.0-11.0); Neutrophils % 86.6; Nucleated RBC 0 %; Platelet Count 129 10^3/uL (130-400); RBC 3.67 10^6/uL (4.36-5.78); RDW 18.3 % (11.8-14.1); RDW-SD 55.5 fL; WBC 5.56 10^3/uL (4.4-10.8)
--- NOTE | 2020-05-31 14:12 | W.PM.DS.N ---
Date of service: 05/31/20 Time of Service: 14:12 DS: Diagnosis Discharge Diagnosis (1) Sepsis: Status: Acute (2) Abdominal wound dehiscence: Status: Acute (3) Pneumonia: Status: Acute (4) Malnutrition following gastrointestinal surgery: Status: Acute (5) Crohn's disease: Status: None (6) IDDM (insulin dependent diabetes mellitus): Status: Chronic (7) Obstructive sleep apnea: Status: Chronic (8) Hypertension: Status: Chronic (9) Atrial fibrillation: Status: Chronic (10) Hx pulmonary embolism: Status: Chronic (11) DVT prophylaxis: Status: Acute Discharge Plan Disposition Patient Disposition: [facility] Condition: Serious Discharge Details Reason For Visit: SEPSIS Admit Date/Time: 05/30/20 18:05 Admit Provider: Eran Love Attending Provider: Eran Love Primary Care Provider: Kenney Greer Hospital Course Hospital Course: 70-year-old male with history of Crohn's disease, diabetes mellitus, paroxysmal atrial fibrillation, pulmonary embolism currently treated with Lovenox, obstructive sleep apnea, malnutrition requiring TPN, who had a prolonged hospitalization at [facility] after a failed repair of enterocutaneous fistula that was complicated by wound dehiscence subsequently required washout and appliance of an ostomy bag over the abdominal wound. Patient presented [facility] on May 30, 2020 via EMS with acute onset of fever chills and rigors and abdominal pain that had begun the night before associated with nausea and vomiting and acute mental status change and hypoxemia with a room air saturation 88%. Evaluation in the emergency department included CT scan of his chest and abdomen and pelvis as well as blood cultures and routine labs. Upon arrival to the emergency department he was tachycardic with heart rate in the 120s but is stable blood pressure in the 140s. He was resuscitated with over 3 L IV fluids and antibiotics were initiated including Zosyn and vancomycin. Initial labs showed that he was chronically anemic with a hemoglobin 12.3 g and had a leukocytosis of 11,000. After fluid resuscitation overnight his hemoglobin is dropped to 9.4 g but he said no evidence of bleeding. White count has improved down to 6900. On admission was found to have a lactic acidosis with a blood lactate level of 5.4 which is since resolved and come down to 1.4. Chemistries on admission were consistent with an anion gap acidosis with anion gap of 14 and a carbon dioxide level 18 and he was hyponatremic with a serum sodium of 123. He had prerenal azotemia with a BUN of 38 with a normal creatinine 1.13. Overnight his anion gap acidosis is resolved and his anion gap is down to 9.8 And his hyponatremia is improved. Renal function is remained stable with a BUN of 21 and creatinine 0.95. Patient exhibited transaminitis on admission with elevated AST of 83, ALT 133, alkaline phosphatase 165 and this is also improving we will repeat liver enzymes with an AST of 42, ALT 86, normal alkaline phosphatase 106. Procalcitonin level on admission was in the intermediate range at 0.9. Troponin I levels were checked and were negative x 3 sets. During his first night at [facility] he experienced hypotension beginning around 1 AM with systolic blood pressures in the 80s to 90s systolic and diastolic readings in the 40s to 50s. He received further fluid boluses by the following morning systolic blood pressure was back above 100 and has remained in the low 100s to 1 teens 110s. He remains on supplemental nasal cannula at 2 L with oxygen saturations at 97%. He remains mildly tachycardic with a heart rate in the high 90s to low 100s. Patient has been started on stress dose hydrocortisone at 50 mg IV every 6 hours. And remains on Zosyn at 4.5 g IV every 8 hours along with vancomycin 1000 her 50 mg IV every 12 hours. All relevant radiologic studies were sent to [facility] and I contacted the transfer center to discuss the case with Dr. Denilson Jade, general surgeon on-call, who is excepted the patient in transfer to the surgical ICU at [facility]. I then spoke with the medical aviation safety equipment technician fellow on-call Dr. Montenegro. Patient will be transferred to [facility] for management by the surgical team. At present time patient remains hemodynamically stable. Of note patient was swabbed with nasopharyngeal sampling for rapid COVID-19 test and was found to be negative. Since speaking with Dr. Oreilly patient's blood cultures are now growing a gram-negative michael from yesterday. While awaiting transfer to [facility] Mr. Wiley has had further drops in his blood pressure necessitating initiation of norepinephrine for vasopressor support. Transfer center was updated on his condition. Home Meds and New Rx's Prescriptions: No Action prednisone 5 mg tablet 10 mg PO BID RF: 0 diltiazem HCl [Cardizem] 30 mg tablet 30 mg PO TID RF: 0 acetaminophen [Tylenol Extra Strength] 500 MG tablet 1,000 mg PO Q8H PRN PRNRF: 0 Multaq 400 MG tablet 400 mg PO BID Qty: 180 RF: 4 balsalazide 750 MG capsule 2,250 mg PO TID RF: 0 Excedrin Migraine 1 EACH tablet 1 ea PO DAILY PRNRF: 0 omeprazole [Prilosec] 20 MG capsule,delayed release(DR/EC) 20 mg PO BID RF: 0 ferrous gluconate 324 mg (37.5 mg iron) tablet 324 mg PO BID RF: 0 nitroglycerin [Nitrostat] 0.4 MG tablet, sublingual 0.4 mg Sublingual Q5 MIN PRN X3 PRNQty: 15 RF: 0 cyanocobalamin (vitamin B-12) 1,000 mcg/mL solution 1,000 mcg IM QMONTH RF: 0 ergocalciferol (vitamin D2) [Vitamin D2] 50,000 unit capsule 50,000 unit PO .2x weekly RF: 0 metoclopramide HCl [Reglan] 10 mg tablet 10 mg PO BID Qty: 4 RF: 0 hydrocodone-acetaminophen 10-325 mg tablet 1 tab PO Q4H PRNRF: 0 famotidine 20 mg Tablet 20 mg PO BID RF: 0 Lantus Solostar U-100 Insulin 100 unit/mL (3 mL) Insulin Pen 30 unit SUBCUT HS RF: 0 (DME) BD SafetyGlide Syringe 3 mL 25 x 5/8 syringe MISCELLANEOUS RF: 0 (DME) OneTouch Verio test strips Strip MISCELLANEOUS RF: 0 calcium carbonate 500 MG tablet,chewable 1,000 mg CH QID PRNRF: 0 Topicaine 30 GM gel 1 appful Topical PRN PRNRF: 0 pramipexole 0.5 mg tablet 1 mg PO HS RF: 0 promethazine 12.5 mg Tablet 12.5 mg PO Q6H PRNRF: 0 levothyroxine 75 mcg Tablet 75 mcg PO DAILY RF: 0 magnesium L-lactate 84 mg Tablet Extended Release 84 mg PO DAILY RF: 0 loratadine 10 mg Tablet 10 mg PO DAILY PRNRF: 0 loperamide 2 mg Capsule 2 mg PO QID PRNRF: 0 enoxaparin [Lovenox] 120 mg/0.8 mL syringe 120 mg subcut BID RF: 0 clotrimazole 1 % cream 1 applic TOPICAL DIRECTED PRNRF: 0 (DME) pen needle, diabetic [BD Ultra-Fine Mini Pen Needle] 31 gauge x 3/16 needle MISCELLANEOUS RF: 0 Basaglar KwikPen U-100 Insulin 100 unit/mL (3 mL) insulin pen 25 unit SUBCUT HS RF: 0 cholestyramine (with sugar) 4 gram powder in packet 1 packet PO BID RF: 0 cholestyramine (with sugar) [Questran] 4 gram Powder In Packet 1 packet PO BID PRNRF: 0 diphenhydramine HCl [Benadryl] 25 mg Capsule 25 mg PO BID RF: 0 melatonin 3 mg Tablet 6 mg PO HS RF: 0 lidocaine [Lidoderm] 5 % Adhesive Patch,Medicated 1 patch transdermal DAILY RF: 0 trazodone 50 mg tablet 50 mg PO HS RF: 0 insulin lispro protamin-lispro [Humalog Mix 75-25 KwikPen] 100 unit/mL (75-25) Insulin Pen 5 unit SUBCUT AC RF: 0 ondansetron 4 mg tablet,disintegrating 4 mg PO DIRECTED PRNRF: 0 diphenhydramine HCl 12.5 mg/5 mL Elixir 25 mg PO Q6H PRNRF: 0 methyl salicylate-menthol Cream 1 applic TOPICAL BID PRNRF: 0 cyclobenzaprine 10 mg tablet 10 mg PO TID RF: 0 prednisone 10 mg Tablet 20 mg PO DIRECTED RF: 0 Discharge Instructions Instructions: Sepsis (DC) Referrals: Denilson Jade [ NON-[facility] STAFF PHYSICIAN] - Activity:: bedrest Diet:: npo DS: Summary Status at Discharge Functional status at discharge: bed bound Overall status at discharge: patient is not back to baseline Mental Status: other Speech and Movement: restless Mood: other Affect: other Time Spent with Patient providing and/or coordinating discharge services: Greater than 30 minutes Exam Narrative Exam Narrative: Elderly gentleman lying in bed in semifowler position who was diaphoretic and having rigors which is now resolved. He is encephalopathic and that he will open his eyes to his name and he knows he is in the hospital but otherwise cannot tell me how he got to the hospital nor any of the events leading up to his illness nor can he tell me the time or date. HEENT is unremarkable. Neck is supple no JVD. He has a catheter underneath the right clavicle that is tunneled under the skin leading up to the right internal jugular vein. Lungs are clear to auscultation anteriorly posterior bases with rales in the right base with some rhonchorous sounds posteriorly Heart is regular no appreciable murmur rub or gallop Abdomen has a large open abdominal wound with a stomas releasing bowel fluid into the open wound which drains into a large collection bag. Per [facility] [place] [place] notes this is an Julee pouch. Lower extremities are not mottled although cool, decreased pedal pulses; no open sores on his feet or legs Neuro exam is non-focal; he moans and he opens his eyes to his name and withdraws his arms or legs to tactile stimulation but no purposeful motion. GSC 13 (e4,v4,m5) Psych Mental Status: other Speech and Movement: restless Mood: other Affect: other DS: Data Vitals/I&O Vitals and I&O: Vital Signs Temperature 38.2 C H 05/31/20 11:25 Temperature Source Tympanic 05/31/20 11:25 Pulse 96 H 05/31/20 13:52 Pulse 102 H 05/31/20 12:00 Respiratory Rate 22 05/31/20 13:52 Respiratory Effort 05/31/20 12:48 Respiratory Depth Normal 05/31/20 12:48 Respiratory Pattern Normal 05/31/20 12:48 Blood Pressure 102/60 05/31/20 12:00 Blood Pressure Mean 70 05/31/20 12:00 Blood Pressure Position Supine 05/31/20 12:48 Pulse Oximetry 97 05/31/20 13:52 Oxygen Delivery Method Nasal Cannula 05/31/20 13:52 Oxygen Flow Rate 2 05/31/20 13:52 Pain Level 8 05/31/20 08:12 Comment 05/31/20 13:52 Intake & Output 05/30/20 05/31/20 05/31/20 23:59 11:59 23:59 Intake Total 4546.667 / 4546.667 1550 / 1550 Output Total 2475 / 2475 1025 / 1025 Balance 2071.667 / 2071.667 525 / 525 Weight 91 kg Intake: IV 4546.667 / 4546.667 1050 / 1050 Oral 500 / 500 Output: Urine 1725 / 1725 350 / 350 Stool 750 / 750 675 / 675 Other: Urine Color Light Leslee Dark Leslee Urine Appearance Clear Sediment Comment unable to determine at this time Shannon catheter intact draining clear light leslee urine with sediment. Shannon catheter intact draining clear light leslee urine with sediment. Stool Occult Blood Negative Stool Size Large Stool Characteristics Liquid Liquid Data Completed and Pending Labs on day of discharge: Labs from last 24 hours 05/31/20 05/31/20 05/31/20 13:39 13:11 10:00 WBC 5.56 RBC 3.67 L Hgb 9.5 L Hct 30.5 L MCV 83.1 MCH 25.9 L MCHC 31.1 L RDW 18.3 H Plt Count 129 L MPV 9.3 Immature Gran % 1.3 Neutrophils % 86.6 Lymphocytes % 4.9 Monocytes % 7.0 Eosinophils % 0.0 Basophils % 0.2 Nucleated RBC % 0 Absolute Neutrophils 4.82 Absolute Lymphocytes 0.27 L Absolute Monocytes 0.39 Absolute Eosinophils 0.00 Absolute Basophils 0.01 ABG Sample Site ABG pH ABG pCO2 ABG pO2 ABG HCO3 ABG Total CO2 ABG O2 Saturation ABG Base Excess VBG Lactate Oxygen Liter Flow Sodium Potassium Chloride Carbon Dioxide Anion Gap BUN Creatinine Estimated GFR/1.73 m2 Glucose Hemoglobin A1c Calcium Magnesium Total Bilirubin AST ALT Alkaline Phosphatase Troponin I Pending C-Reactive Protein Total Protein Albumin Procalcitonin TSH Stl C.difficile Tox PCR Urine Legionella Ag M. pneumoniae Source Pending M. pneumoniae (PCR) Pending Ur Strep pneumoniae Ag 05/31/20 05/31/20 05/31/20 06:00 06:00 06:00 WBC 6.95 D RBC 3.58 L Hgb 9.4 L D Hct 30.2 L MCV 84.4 D MCH 26.3 L MCHC 31.1 L RDW 18.3 H Plt Count 145 MPV 9.8 Immature Gran % 1.4 Neutrophils % 86.4 Lymphocytes % 4.2 Monocytes % 7.9 Eosinophils % 0.0 Basophils % 0.1 Nucleated RBC % 0 Absolute Neutrophils 6.00 Absolute Lymphocytes 0.29 L Absolute Monocytes 0.55 Absolute Eosinophils 0.00 Absolute Basophils 0.01 ABG Sample Site ABG pH ABG pCO2 ABG pO2 ABG HCO3 ABG Total CO2 ABG O2 Saturation ABG Base Excess VBG Lactate Oxygen Liter Flow Sodium Potassium Chloride Carbon Dioxide Anion Gap BUN Creatinine Estimated GFR/1.73 m2 Glucose Hemoglobin A1c 6.2 H Calcium Magnesium Total Bilirubin AST ALT Alkaline Phosphatase Troponin I C-Reactive Protein Total Protein Albumin Procalcitonin TSH 1.51 Stl C.difficile Tox PCR Urine Legionella Ag M. pneumoniae Source M. pneumoniae (PCR) Ur Strep pneumoniae Ag 05/31/20 05/31/20 05/30/20 06:00 06:00 21:35 WBC RBC Hgb Hct MCV MCH MCHC RDW Plt Count MPV Immature Gran % Neutrophils % Lymphocytes % Monocytes % Eosinophils % Basophils % Nucleated RBC % Absolute Neutrophils Absolute Lymphocytes Absolute Monocytes Absolute Eosinophils Absolute Basophils ABG Sample Site ABG pH ABG pCO2 ABG pO2 ABG HCO3 ABG Total CO2 ABG O2 Saturation ABG Base Excess VBG Lactate 1.4 Oxygen Liter Flow Sodium 133 L Potassium 4.1 Chloride 99 Carbon Dioxide 24.2 Anion Gap 9.8 BUN 21 H Creatinine 0.95 Estimated GFR/1.73 m2 >= 60.00 Glucose 137 H Hemoglobin A1c Calcium 8.2 L Magnesium 2.1 Total Bilirubin 1.4 H AST 42 H ALT 86 H Alkaline Phosphatase 106 Troponin I C-Reactive Protein Total Protein 6.0 L Albumin 2.2 L Procalcitonin TSH 1.66 Stl C.difficile Tox PCR Urine Legionella Ag Pending M. pneumoniae Source M. pneumoniae (PCR) Ur Strep pneumoniae Ag 05/30/20 05/30/20 05/30/20 21:25 21:25 20:50 WBC RBC Hgb Hct MCV MCH MCHC RDW Plt Count MPV Immature Gran % Neutrophils % Lymphocytes % Monocytes % Eosinophils % Basophils % Nucleated RBC % Absolute Neutrophils Absolute Lymphocytes Absolute Monocytes Absolute Eosinophils Absolute Basophils ABG Sample Site ABG pH ABG pCO2 ABG pO2 ABG HCO3 ABG Total CO2 ABG O2 Saturation ABG Base Excess VBG Lactate 3.3 H* Oxygen Liter Flow Sodium Potassium Chloride Carbon Dioxide Anion Gap BUN Creatinine Estimated GFR/1.73 m2 Glucose Hemoglobin A1c Calcium Magnesium Total Bilirubin AST ALT Alkaline Phosphatase Troponin I C-Reactive Protein Total Protein Albumin Procalcitonin TSH Stl C.difficile Tox PCR Negative Urine Legionella Ag M. pneumoniae Source M. pneumoniae (PCR) Ur Strep pneumoniae Ag Pending 05/30/20 05/30/20 05/30/20 20:50 18:38 16:30 WBC RBC Hgb Hct MCV MCH MCHC RDW Plt Count MPV Immature Gran % Neutrophils % Lymphocytes % Monocytes % Eosinophils % Basophils % Nucleated RBC % Absolute Neutrophils Absolute Lymphocytes Absolute Monocytes Absolute Eosinophils Absolute Basophils ABG Sample Site Left radial ABG pH 7.45 ABG pCO2 30 L ABG pO2 73 L ABG HCO3 21 L ABG Total CO2 19 L ABG O2 Saturation 96 ABG Base Excess -3 L VBG Lactate 3.7 H* Oxygen Liter Flow 4 Sodium 127 L Potassium 4.5 Chloride 95 L Carbon Dioxide 21.2 Anion Gap 10.8 BUN 23 H D Creatinine 0.94 Estimated GFR/1.73 m2 >= 60.00 Glucose 112 H D Hemoglobin A1c Calcium 8.5 Magnesium Total Bilirubin AST ALT Alkaline Phosphatase Troponin I < 0.05 C-Reactive Protein 8.70 H Total Protein Albumin Procalcitonin TSH Stl C.difficile Tox PCR Urine Legionella Ag M. pneumoniae Source M. pneumoniae (PCR) Ur Strep pneumoniae Ag 05/30/20 05/30/20 16:30 12:50 WBC RBC Hgb Hct MCV MCH MCHC RDW Plt Count MPV Immature Gran % Neutrophils % Lymphocytes % Monocytes % Eosinophils % Basophils % Nucleated RBC % Absolute Neutrophils Absolute Lymphocytes Absolute Monocytes Absolute Eosinophils Absolute Basophils ABG Sample Site ABG pH ABG pCO2 ABG pO2 ABG HCO3 ABG Total CO2 ABG O2 Saturation ABG Base Excess VBG Lactate Oxygen Liter Flow Sodium Potassium Chloride Carbon Dioxide Anion Gap BUN Creatinine Estimated GFR/1.73 m2 Glucose Hemoglobin A1c Calcium Magnesium Total Bilirubin AST ALT Alkaline Phosphatase Troponin I < 0.05 C-Reactive Protein Total Protein Albumin Procalcitonin 0.9 TSH Stl C.difficile Tox PCR Urine Legionella Ag M. pneumoniae Source M. pneumoniae (PCR) Ur Strep pneumoniae Ag 05/30/20 21:25 Nose MRSA Screen - Pending 05/30/20 13:23 Blood Blood Culture - Pending Preliminary micro results at discharge 05/30/20 13:40 Blood Culture - Preliminary Blood Gram Negative Michael 05/30/20 21:25 MRSA Screen - Pending Nose 05/30/20 13:23 Blood Culture - Pending Blood [facility] Medical History (Updated 05/31/20 @ 13:07 by Eran Love) Afib Bilateral hip pain Bone lesion Chest pain Crohn's disease Diabetes Drug hypersensitivity Dyspepsia Elevated liver enzymes Fibromyalgia GERD (gastroesophageal reflux disease) Hot flash in male HTN (hypertension) Hx of adenomatous colonic polyps Hx of melanoma excision Hypomania IBS (irritable bowel syndrome) Leg erythema penitentiary current use of anticoagulant Migraine Neuropathy Nocturnal hypoxia Obstructive sleep apnea a. Nocturnal CPAP Osteopenia PE (pulmonary thromboembolism) Periodic limb movement disorder Post poliomyelitis syndrome Prostate cancer Rectal bleeding Rectal pain Right ankle pain Saphenous vein phlebitis Sebaceous cyst Sensorineural hearing loss Sleep apnea Squamous cell carcinoma of hand Superficial phlebitis of leg Swelling of left lower extremity Vitamin B12 deficiency Surgical History ankle surgery, right Arthroplasty of knee bilat Arthroscopy, Shoulder left shoulder repair Colectomy x3 deep muscle biopsy, left calf muscle Hernia Repair, Incisional (03/22/16) intestinal obstruction with incarcerated incisional hernia, lysis of adhesions Family History Mother No problems noted. Father Kidney malignancy Son No problems noted. 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 Grew up in [place]
[2020-05-31] MEDS: VANCOMYCIN/WATER (PEG) 1.25 GM/250 ML BAG IV (14:18)
[2020-05-31 14:57] LABS: Troponin I < 0.05 ng/mL (<0.06)
--- NOTE | 2020-05-31 15:54 | NUR.NOTE ---
The family (Carri: Daughter and : Carol) have been updated several times this afternoon on the patient's condition and decline. Visitors are firmly restricted at this time but did offer to do virtual video calling with the patient and family. Daughter declined but did have me hold the phone up so she could talk with her dad. Arrangements were discussed that we would call the when we had a transfer time and she could come to the hospital parking lot to see her off. The was uncertain if she wanted to see him in his current condition and states she will decide when we call if she wants to come. Spoke with Erika Marquez (Nursing Allergist Immunologist) and opted to call [facility] [employer] and patient condition continues to deteriorate. [facility] agreed to transfer pending weather ability when the patient is able to transfer. [facility] [place] regarding bed status and transfer center updated on decline of patient condition (hypotensive, obtunded with minimal verbal response). No beds available until [facility] [place]. Dr. Love has been kept abreast of the patient condition and has been in to see the patient several times in the last 2 hours. He ordered to norepinephrine and continue ABX. Patient getting fluid support. Monitoring BP, Urine output, Mental status (airway) closely. Pt very diaphoretic. Patient started on norepi 0.5mcg/kg/min and repositioned. Cardiac rhythm became very ectopic within minutes of starting norepi and moving patient from his side to his back. BP spiked quickly to systolic 170s (within 5 min) and drip was turned off. Patient more awake and wanting to drink. Talking in short sentences. BP dropped to 74/55 and drip was restarted at 0.1mcg/kg/min. Nursing Note:
[2020-05-31] MEDS: MEROPENEM 1 GM in Normal Saline 100 ML IVPB (16:18)
[2020-05-31] MEDS: Normal Saline 1,000 ML 100 ML IV (17:19)
--- NOTE | 2020-05-31 20:12 | NUR.NOTE ---
Nursing Note: This nurse called patient's at 1940 to notify her patient was on ambulance stretcher and being transferred to [place].
[2020-06-01 19:01] LABS: Legionella Ag Detection Urine Negative (Negative)
[2020-06-04 15:57] LABS: Streptococcus Pneumoniae Ag, U Negative (Negative)
[2020-06-05 00:39] LABS: Mycoplasma Pneumoniae PCR Negative
== END 2020-05-31 19:40 | disposition short-term general hospital (02) | DRG 871 ==
LOC: ER 17:25 → ICU 18:06
PROVIDERS: Family Medicine; Physician Assistant; Admitting Provider Internal Medicine; Emergency Provider Student in an Organized Health Care Education/Training Program; PCP Internal Medicine; Visit Provider Internal Medicine
DX: A41.9 Sepsis, unspecified organism (principal); J18.9 Pneumonia, unspecified organism; I48.20 Chronic atrial fibrillation, unspecified; K50.90 Crohn's disease, unspecified, without complications; N17.9 Acute kidney failure, unspecified; K91.2 Postsurgical malabsorption, not elsewhere classified; I27.82 Chronic pulmonary embolism; G93.40 Encephalopathy, unspecified; E87.1 Hypo-osmolality and hyponatremia; Z79.4 Long term (current) use of insulin; I10 Essential (primary) hypertension; D64.9 Anemia, unspecified; K21.9 Gastro-esophageal reflux disease without esophagitis; Z99.81 Dependence on supplemental oxygen; M79.7 Fibromyalgia; Z79.01 Long term (current) use of anticoagulants; C61 Malignant neoplasm of prostate; G14 Postpolio syndrome; E11.40 Type 2 diabetes mellitus with diabetic neuropathy, unspecified; E53.8 Deficiency of other specified B group vitamins; H90.5 Unspecified sensorineural hearing loss; Z93.4 Other artificial openings of gastrointestinal tract status; R65.20 Severe sepsis without septic shock; T81.31XD Disruption of external operation (surgical) wound, not elsewhere classified, subsequent encounter; G47.33 Obstructive sleep apnea (adult) (pediatric); Z93.6 Other artificial openings of urinary tract status
CPT/HCPCS: 36415; 51702; 71275; 74177; 80048; 80053; 82805; 84145; 87040; 87077; 87081; 87449; 87493; 87637; 93005; 96361; 96365; 96368; 99223; 99239; 99291; 36600; 70450; 81003; 81015; 82140; 83036; 83605; 83735; 83880; 84443; 84484; 85025; 86140; 87086; 87186; 87450; 87581; 93010; 94640; J0131; J1650; J1720; J1885; J2543; J3490; J7620

== ENCOUNTER 2020-06-07 17:39 | Outpatient (REF) | payer MEDICARE, SELFPAY ==
[2020-06-07 18:05] LABS: HGB 11.6 g/dL (13.5-17.5); MCH 26.2 pg (27.0-33.0); MCHC 31.4 % (32.0-36.0); MCV 83.7 fL (80-95); MPV 9.6 fL (8.0-11.0); RBC 4.42 10^6/uL (4.36-5.78); RDW 18.2 % (11.8-14.1); RDW-SD 54.4 fL; WBC 8.82 10^3/uL (4.4-10.8)
[2020-06-07 18:14] LABS: Platelet Count 292 10^3/uL (130-400)
[2020-06-07 18:41] LABS: ALT 39 U/L (16-63); AST 18 U/L (15-37); Albumin 3.3 g/dL (3.4-5.0); Alkaline Phosphatase 166 U/L (46-116); Anion Gap 10.5 mmol/L (3-11); BUN 38 mg/dL (7-18); Bilirubin, Total 0.9 mg/dL (0.2-1.0); CO2 24.5 mmol/L (21.0-32.0); CREATININE 0.61 mg/dL (0.70-1.30); Calcium 8.9 mg/dL (8.5-10.1); Chloride 100 mmol/L (98-107); Glucose 103 mg/dL (74-106); Magnesium 2.2 mg/dL (1.8-2.4); PHOSPHORUS 3.8 mg/dL (2.6-4.7); Potassium 5.1 mmol/L (3.5-5.1); Sodium 135 mmol/L (136-145); Total Protein 7.3 g/dL (6.4-8.2)
[2020-06-07 19:00] LABS: Triglyceride 397 mg/dL (<150)
== END 2020-06-07 17:59 ==
LOC: LBN 17:39
PROVIDERS: PCP Internal Medicine; Visit Provider Internal Medicine
DX: Z48.815 Encounter for surgical aftercare following surgery on the digestive system (principal)
CPT/HCPCS: 80053; 85027; 83735; 84100; 84478

== ENCOUNTER 2020-06-14 18:59 | Outpatient (REF) | payer MEDICARE, SELFPAY ==
[2020-06-14 15:46] LABS: HCT 38.1 % (40.0-50.0); MCH 26.5 pg (27.0-33.0); MCHC 31.5 % (32.0-36.0); MCV 84.1 fL (80-95); MPV 9.7 fL (8.0-11.0); Platelet Count 234 10^3/uL (130-400); RBC 4.53 10^6/uL (4.36-5.78); RDW 18.9 % (11.8-14.1); RDW-SD 58.6 fL; WBC 7.53 10^3/uL (4.4-10.8)
[2020-06-14 17:10] LABS: ALT 60 U/L (16-63); AST 33 U/L (15-37); Albumin 3.1 g/dL (3.4-5.0); Alkaline Phosphatase 160 U/L (46-116); Anion Gap 8.2 mmol/L (3-11); BUN 38 mg/dL (7-18); Bilirubin, Total 1.2 mg/dL (0.2-1.0); CO2 25.8 mmol/L (21.0-32.0); CREATININE 0.72 mg/dL (0.70-1.30); Calcium 9.3 mg/dL (8.5-10.1); Chloride 98 mmol/L (98-107); Glucose 102 mg/dL (74-106); Magnesium 1.9 mg/dL (1.8-2.4); PHOSPHORUS 4.1 mg/dL (2.6-4.7); Potassium 4.5 mmol/L (3.5-5.1); Sodium 132 mmol/L (136-145); Total Protein 7.1 g/dL (6.4-8.2)
[2020-06-14 17:31] LABS: Triglyceride 352 mg/dL (<150)
[2020-06-17 10:15] LABS: Prealbumin 33 mg/dL (20-40)
== END 2020-06-14 19:19 ==
LOC: NCHCN 18:59
PROVIDERS: PCP Internal Medicine; Visit Provider Internal Medicine
DX: K50.913 Crohn's disease, unspecified, with fistula (principal)
CPT/HCPCS: 80053; 85027; 83735; 84100; 84134; 84478

== ENCOUNTER 2020-06-21 15:08 | Outpatient (REF) | payer MEDICARE, SELFPAY ==
[2020-06-21 16:06] LABS: Abs Immature Grans 0.02 10^3/uL (0.0-0.06); Absolute Basophil Count 0.02 10^3/uL (0.0-0.2); Absolute Eosinophil Count 0.03 10^3/uL (0.0-0.7); Absolute Lymphocyte Count 0.95 10^3/uL (1.2-3.4); Absolute Monocyte Count 0.56 10^3/uL (0.1-0.8); Basophils % 0.3; Eosinophils % 0.5; HCT 37.9 % (40.0-50.0); HGB 11.9 g/dL (13.5-17.5); Immature Grans % 0.3; Lymphocytes % 14.9; MCH 26.6 pg (27.0-33.0); MCHC 31.4 % (32.0-36.0); MCV 84.6 fL (80-95); MPV 9.4 fL (8.0-11.0); Monocytes % 8.8; Neutrophils % 75.2; Nucleated RBC 0 %; Platelet Count 195 10^3/uL (130-400); RBC 4.48 10^6/uL (4.36-5.78); RDW 18.8 % (11.8-14.1); RDW-SD 58.2 fL; WBC 6.38 10^3/uL (4.4-10.8)
[2020-06-21 16:27] LABS: ALT 70 U/L (16-63); AST 36 U/L (15-37); Alkaline Phosphatase 183 U/L (46-116); BUN 30 mg/dL (7-18); Bilirubin, Total 1.1 mg/dL (0.2-1.0); CREATININE 0.67 mg/dL (0.70-1.30); Chloride 96 mmol/L (98-107); Glucose 101 mg/dL (74-106); Magnesium 1.8 mg/dL (1.8-2.4); Potassium 4.4 mmol/L (3.5-5.1); Sodium 130 mmol/L (136-145); Total Protein 6.8 g/dL (6.4-8.2); Triglyceride 268 mg/dL (<150)
[2020-06-21 17:23] LABS: PHOSPHORUS 4.3 mg/dL (2.6-4.7)
[2020-06-24 11:43] LABS: Prealbumin 25 mg/dL (20-40)
== END 2020-06-21 15:28 ==
LOC: NCHCN 15:08
PROVIDERS: PCP Internal Medicine; Visit Provider Internal Medicine
DX: K50.913 Crohn's disease, unspecified, with fistula (principal); I10 Essential (primary) hypertension; E11.9 Type 2 diabetes mellitus without complications; Z79.4 Long term (current) use of insulin
CPT/HCPCS: 80053; 83735; 84100; 84134; 84478; 85025

== ENCOUNTER 2020-06-28 19:04 | Outpatient (REF) | payer MEDICARE, SELFPAY ==
[2020-06-28 15:39] LABS: Abs Immature Grans 0.02 10^3/uL (0.0-0.06); Absolute Basophil Count 0.02 10^3/uL (0.0-0.2); Absolute Eosinophil Count 0.02 10^3/uL (0.0-0.7); Absolute Lymphocyte Count 0.84 10^3/uL (1.2-3.4); Absolute Monocyte Count 0.55 10^3/uL (0.1-0.8); Absolute Neutrophil Count 5.01 10^3/uL (1.2-6.7); Basophils % 0.3; Eosinophils % 0.3; HCT 34.5 % (40.0-50.0); HGB 10.9 g/dL (13.5-17.5); Immature Grans % 0.3; MCH 26.8 pg (27.0-33.0); MCHC 31.6 % (32.0-36.0); MCV 84.8 fL (80-95); MPV 9.8 fL (8.0-11.0); Monocytes % 8.5; Neutrophils % 77.6; Nucleated RBC 0 %; Platelet Count 195 10^3/uL (130-400); RBC 4.07 10^6/uL (4.36-5.78); RDW 18.4 % (11.8-14.1); RDW-SD 56.7 fL; WBC 6.46 10^3/uL (4.4-10.8)
[2020-06-28 16:10] LABS: ALT 77 U/L (16-63); AST 50 U/L (15-37); Albumin 2.8 g/dL (3.4-5.0); Alkaline Phosphatase 186 U/L (46-116); Anion Gap 8.8 mmol/L (3-11); BUN 28 mg/dL (7-18); Bilirubin, Total 0.9 mg/dL (0.2-1.0); CO2 24.2 mmol/L (21.0-32.0); CREATININE 0.7 mg/dL (0.70-1.30); Calcium 8.6 mg/dL (8.5-10.1); Chloride 99 mmol/L (98-107); Glucose 87 mg/dL (74-106); Magnesium 1.7 mg/dL (1.8-2.4); Potassium 4.5 mmol/L (3.5-5.1); Sodium 132 mmol/L (136-145); Total Protein 6.3 g/dL (6.4-8.2); Triglyceride 198 mg/dL (<150)
[2020-06-28 16:19] LABS: PHOSPHORUS 3.7 mg/dL (2.6-4.7)
[2020-07-01 10:33] LABS: Prealbumin 25 mg/dL (20-40)
== END 2020-06-28 19:24 ==
LOC: LBN 19:04
PROVIDERS: PCP Internal Medicine; Visit Provider Internal Medicine
DX: K50.913 Crohn's disease, unspecified, with fistula (principal)
CPT/HCPCS: 80053; 83735; 84100; 84134; 84478; 85025

== ENCOUNTER → 2020-07-01 11:36 | Outpatient (BNVA) | payer MEDICARE, SELFPAY | PROVIDERS: PCP Internal Medicine; Referring Provider Internal Medicine; Visit Provider Internal Medicine Cardiovascular Disease | DX: I48.91 Unspecified atrial fibrillation (principal); Z86.711 Personal history of pulmonary embolism; I10 Essential (primary) hypertension; Z79.01 Long term (current) use of anticoagulants | CPT/HCPCS: 99214; 99443 ==

== ENCOUNTER 2020-07-05 14:32 | Outpatient (REF) | payer MEDICARE, SELFPAY ==
[2020-07-05 14:59] LABS: Abs Immature Grans 0.03 10^3/uL (0.0-0.06); Absolute Basophil Count 0.02 10^3/uL (0.0-0.2); Absolute Eosinophil Count 0.04 10^3/uL (0.0-0.7); Absolute Lymphocyte Count 0.86 10^3/uL (1.2-3.4); Absolute Monocyte Count 0.54 10^3/uL (0.1-0.8); Absolute Neutrophil Count 4.86 10^3/uL (1.2-6.7); Basophils % 0.3; Eosinophils % 0.6; HCT 35.3 % (40.0-50.0); Immature Grans % 0.5; Lymphocytes % 13.5; MCHC 31.2 % (32.0-36.0); MCV 86.5 fL (80-95); MPV 9.7 fL (8.0-11.0); Monocytes % 8.5; Neutrophils % 76.6; Nucleated RBC 0 %; Platelet Count 194 10^3/uL (130-400); RBC 4.08 10^6/uL (4.36-5.78); RDW 18.1 % (11.8-14.1); WBC 6.35 10^3/uL (4.4-10.8)
[2020-07-05 15:15] LABS: ALT 106 U/L (16-63); AST 70 U/L (15-37); Albumin 2.7 g/dL (3.4-5.0); Alkaline Phosphatase 239 U/L (46-116); Anion Gap 10.9 mmol/L (3-11); BUN 25 mg/dL (7-18); Bilirubin, Total 1.1 mg/dL (0.2-1.0); CO2 24.1 mmol/L (21.0-32.0); CREATININE 0.7 mg/dL (0.70-1.30); Calcium 8.8 mg/dL (8.5-10.1); Chloride 101 mmol/L (98-107); Glucose 92 mg/dL (74-106); Magnesium 1.7 mg/dL (1.8-2.4); Potassium 4.6 mmol/L (3.5-5.1); Sodium 136 mmol/L (136-145); Total Protein 6.5 g/dL (6.4-8.2); Triglyceride 190 mg/dL (<150)
[2020-07-05 15:41] LABS: PHOSPHORUS 3.9 mg/dL (2.6-4.7)
[2020-07-08 10:58] LABS: Prealbumin 20 mg/dL (20-40)
== END 2020-07-05 14:33 | disposition home or self-care (01) ==
LOC: LBN 14:32
PROVIDERS: PCP Internal Medicine; Visit Provider Internal Medicine
DX: K50.913 Crohn's disease, unspecified, with fistula (principal)
CPT/HCPCS: 80053; 83735; 84100; 84134; 84478; 85025

== ENCOUNTER 2020-07-05 15:13 | Emergency (ER) | payer MEDICARE, MEDICAID, SELFPAY ==
--- NOTE | 2020-07-05 15:06 | W.ED.GENAD ---
Discharge Plan Disposition Patient Disposition: HOME Condition: Stable Discharge Details Clinical Impression: Malfunctioning jejunostomy tube Primary Care Provider: Kenney Greer ED Provider: Sandrita Fox Home Meds and New Rx's Prescriptions: Continued prednisone 5 mg tablet 10 mg PO BID RF: 0 diltiazem HCl [Cardizem] 30 mg tablet 30 mg PO TID RF: 0 acetaminophen [Tylenol Extra Strength] 500 MG tablet 1,000 mg PO Q8H PRN PRNRF: 0 Multaq 400 MG tablet 400 mg PO BID Qty: 180 RF: 4 balsalazide 750 MG capsule 2,250 mg PO TID RF: 0 ferrous gluconate 324 mg (37.5 mg iron) tablet 324 mg PO BID RF: 0 nitroglycerin [Nitrostat] 0.4 MG tablet, sublingual 0.4 mg Sublingual Q5 MIN PRN X3 PRNQty: 15 RF: 0 cyanocobalamin (vitamin B-12) 1,000 mcg/mL solution 1,000 mcg IM QMONTH RF: 0 ergocalciferol (vitamin D2) [Vitamin D2] 50,000 unit capsule 50,000 unit PO .2x weekly RF: 0 hydrocodone-acetaminophen 10-325 mg tablet 1 tab PO Q4H PRNRF: 0 (DME) BD SafetyGlide Syringe 3 mL 25 x 5/8 syringe MISCELLANEOUS RF: 0 (DME) OneTouch Verio test strips Strip MISCELLANEOUS RF: 0 calcium carbonate 500 MG tablet,chewable 1,000 mg CH QID PRNRF: 0 pramipexole 0.5 mg tablet 1 mg PO HS RF: 0 levothyroxine 75 mcg Tablet 75 mcg PO DAILY RF: 0 loratadine 10 mg Tablet 10 mg PO DAILY PRNRF: 0 loperamide 2 mg Capsule 2 mg PO QID PRNRF: 0 clotrimazole 1 % cream 1 applic TOPICAL DIRECTED PRNRF: 0 (DME) pen needle, diabetic [BD Ultra-Fine Mini Pen Needle] 31 gauge x 3/16 needle MISCELLANEOUS RF: 0 Basaglar KwikPen U-100 Insulin 100 unit/mL (3 mL) insulin pen 25 unit SUBCUT HS RF: 0 cholestyramine (with sugar) [Questran] 4 gram Powder In Packet 1 packet PO BID PRNRF: 0 trazodone 50 mg tablet 50 mg PO HS RF: 0 ondansetron 4 mg tablet,disintegrating 4 mg PO DIRECTED PRNRF: 0 Dexilant 30 mg capsule,biphase delayed releas 30 mg feeding tube DAILY RF: 0 cholecalciferol (vitamin D3) 10 mcg/mL (400 unit/mL) drops 20 mcg feeding tube DAILY RF: 0 No Action sennosides [senna] 8.6 mg Tablet 8.6 mg PO BID RF: 0 enoxaparin [Lovenox] 100 mg/mL Syringe 100 mg SUBCUT Q12H RF: 0 lidocaine 5 % ointment 1 applic topical QID PRNRF: 0 Discharge Instructions Additional Instructions: We are also unable to flush your J-tube while here. We consulted with general surgery at [facility] who has been following you throughout your healing process. They advised to not use the [address] in [address]. They advised that they will see him in the clinic on Wednesday for reevaluation and discuss further care of the J-tube. Please call the general surgery clinic to schedule follow-up appointment. If you develop any abdominal pain, fever/chills or other new/worsening symptoms please seek care urgently once again. Otherwise, please continue to take your medications by mouth as previously instructed. Referrals: Davion Whittington [ [facility] STAFF PHYSICIAN] - Medical Decision Making Patient is a 70-year-old male, brought in via EMS, with chief complaint of J-tube displacement. Patient has complex medical history which includes history of Crohn's disease. Patient has undergone multiple bowel resections. He has had multiple SBO's and strictures. Past medical history also pertinent for paroxysmal atrial fibrillation, pulmonary embolism, portal vein thrombosis, type 2 diabetes, JULIANA. Patient's been admitted multiple times recently for postsurgical complications as well as central line sepsis. He has been home for a few weeks now. 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 This sounds to be a postsurgical dehiscence. Patient history reviewed is quite complex. The J-tube also seems to be draining fistula as well based on chart review from [facility]. Patient is denying any abdominal pain. No fevers or chills. He reports he does have some nausea but associates this with the EMS ride. States he does have issues with nausea chronically and does have Zofran at home. Patient is able to tolerate medications p.o. Since his J-tube has been 2015, he has been taking medications orally although he did not take all of this as well medications. He reports that the J-tube was displaced approximately 1 week ago and replaced by family. He subsequently been evaluated by general surgery at [facility]. Today however, home health noted they are unable to flush the J-tube and advised that he should come for evaluation. On exam, patient appears chronically ill. He does not appear acutely septic. Patient has been septic recently. His vital signs are stable. His abdomen is soft and nondistended. He does have stool draining from the fistulas that are draining into a colostomy bag. The J-tube is just to the left of the draining fistulas. He does have a brown fluid in it. Patient has no tenderness with palpation around this area. Nursing staff attempted to flush this and were unsuccessful. But usually is this sounds to the very complicated J-tube, I feel the consultation with the surgical team at [facility] would be appropriate. Consulted with Dr. Carrasco and Dr. Whittington with [facility] general surgery. They have seen this patietn historically, Dr. Whittington saw him this week. Advised that we are unclear on placement of tube but are also unable to flush. they advised that patient may take his medications orally and f/u in the clinic with them on Wednesday. I discussed this plan with the patient who is in agreement. He will contact them to schedule follow-up appointment. Patient was given Tylenol to help with his headache. He reports he would typically take this at home. Headache is not any worse than his baseline. States that he does have difficulty with chronic pain. There are some delay in the patient being discharged. He states that typically he is transported via EMS to his appointment secondary to his history of polio. Patient does sit in a wheelchair at home and is able to tolerate a wheelchair for short periods of time. I did speak with the EMS who offered to bring him home which is the patient's initial request. However, EMS was concerned for their own safety as the driveway has been reportedly poorly maintained. There is been 3 incidents recently, as reported by EMS, in which they had difficulty on the driveway. human resources benefits coordinator spoke directly with the patient's family regarding this needs. However, family has opted to transport the patient via private vehicle and will come to pick him up. Patient was able to transfer into wheelchair with 1 person assist. Daniella discharged home with . Return precautions were discussed. He will leave J tube in place and take his medications orally. Allof his questions ad concerns were addressed, he is in agreement with this plan. HPI General Mode of arrival: EMS. Date/Time Provider Initiated Documentation: 07/05/20 15:23. Limitations to Documentation: no limitations. Information obtained by: patient, EMS, RN notes reviewed and old records reviewed. History of Present Illness 70 year old M presents to the emergency department with the chief complaint of J tub malfunction, Quality is described as other (patient denies any pain at this time), and is localized to the abdomen. Patient started experiencing this hour(s) (displaced one week ago, now unable to flush) No relieving factors improve symptom(s), No exacerbating factors reported . Patient notes no other symptoms.. Patient did receive the following treatments prior to arrival, none Related Data Home Medications Medication Instructions Recorded Confirmed acetaminophen [Tylenol Extra 1,000 mg PO Q8H PRN PRN tab-cap NS 03/29/13 07/05/20 Strength] Multaq 400 mg PO BID #180 tab-cap 04/15/15 07/05/20 nitroglycerin [Nitrostat] 0.4 mg SUBLINGUAL Q5 MIN PRN X3 04/23/15 07/05/20 PRN #15 tab balsalazide 2,250 mg PO TID 09/24/15 07/05/20 calcium carbonate 1,000 mg CH QID PRN 06/27/17 07/05/20 diltiazem HCl 30 mg tablet 30 mg PO TID tab 04/27/18 07/05/20 cyanocobalamin (vitamin B-12) 1,000 mcg IM QMONTH ml 01/23/19 07/05/20 1,000 mcg/mL injection solution ergocalciferol (vitamin D2) 1,250 50,000 unit PO .2x weekly cap 01/23/19 05/30/20 mcg (50,000 unit) capsule ferrous gluconate 324 mg (37.5 mg 324 mg PO BID tab 01/23/19 07/05/20 iron) tablet pramipexole 0.5 mg tablet 1 mg PO HS tab 01/23/19 11/01/19 levothyroxine 75 mcg PO DAILY 04/29/19 07/05/20 prednisone 5 mg tablet 10 mg PO BID tab 07/25/19 07/05/20 hydrocodone-acetaminophen 1 tab PO Q4H PRN 10/01/19 07/05/20 BD SafetyGlide Syringe 03/05/20 03/05/20 OneTouch Verio test strips 03/05/20 03/05/20 Basaglar KwikPen U-100 Insulin 25 unit SUBCUT HS 03/18/20 07/05/20 cholestyramine (with sugar) 1 packet PO BID PRN 03/18/20 07/05/20 [Questran] clotrimazole 1 applic TOPICAL DIRECTED PRN 03/18/20 07/05/20 loperamide 2 mg PO QID PRN 03/18/20 07/05/20 loratadine 10 mg PO DAILY PRN 03/18/20 07/05/20 pen needle, diabetic [BD 03/18/20 03/18/20 Ultra-Fine Mini Pen Needle] trazodone 50 mg PO HS 03/18/20 07/05/20 ondansetron 4 mg PO DIRECTED PRN 05/30/20 07/05/20 Dexilant 30 mg FEEDING TUBE DAILY 07/05/20 07/05/20 cholecalciferol (vitamin D3) 20 mcg FEEDING TUBE DAILY 07/05/20 07/05/20 enoxaparin [Lovenox] 100 mg SUBCUT Q12H 07/05/20 07/05/20 lidocaine 1 applic TOPICAL QID PRN 07/05/20 07/05/20 sennosides [senna] 8.6 mg PO BID 07/05/20 07/05/20 Previous Rx's Medication Instructions Recorded nitroglycerin [Nitrostat] 0.4 mg SUBLINGUAL Q5 MIN PRN X3 04/23/15 PRN #15 tab Allergies Allergy/AdvReac Type Severity Reaction Status Date / Time Sulfa (Sulfonamide Allergy Mild Skin Rash Verified 07/05/20 15:23 Antibiotics) atenolol Allergy Verified 07/01/20 11:11 atorvastatin Allergy Verified 07/01/20 11:11 gabapentin Allergy Verified 07/05/20 15:23 nicardipine Allergy Verified 07/01/20 11:11 salsalate Allergy Verified 07/01/20 11:11 tramadol Allergy Verified 07/01/20 11:11 venlafaxine Allergy Verified 07/01/20 11:11 ciprofloxacin HCl AdvReac Severe ruptured Verified 07/01/20 11:11 [From Cipro] achilles tendon hydrochlorothiazide AdvReac Severe myalgias Verified 07/01/20 11:11 [From Benicar HCT] indapamide AdvReac Severe chest pain Verified 07/01/20 11:11 olmesartan medoxomil AdvReac Severe myalgias Verified 07/01/20 11:11 [From Benicar HCT] terazosin [Terazosin] AdvReac Severe tremor, GI Verified 07/01/20 11:11 upset aliskiren [Aliskiren] AdvReac Intermediate diarrhea Verified 07/01/20 11:11 amlodipine AdvReac Intermediate fatigue Verified 07/01/20 11:11 denosumab [From Xgeva] AdvReac Intermediate Verified 07/01/20 11:11 enalapril [Enalapril] AdvReac Intermediate shakes, Verified 07/01/20 11:11 weakness montelukast sodium AdvReac Intermediate rectal Verified 07/01/20 11:11 [From Singulair] irritation pregabalin [From Lyrica] AdvReac Intermediate sleep Verified 07/01/20 11:11 issues spironolactone AdvReac Intermediate headache Verified 07/01/20 11:11 General ELMO: 1 Review of Systems Constitutional Constitutional: Reports as per HPI, Denies chills, Denies fatigue, Denies fever(s) and Reports headache(s) (reports chronic and unchanged) ENT Ears, Nose, Mouth, and Throat: Reports headache(s) (reports chronic and unchanged) Cardiovascular Cardiovascular: Reports as per HPI, Denies chest pain and Denies dyspnea Respiratory Respiratory: Reports as per HPI, Denies cough and Denies dyspnea Gastrointestinal Gastrointestinal: Reports as per HPI and Reports nausea (chronic issue, brought on by riding with EMS) Genitourinary Genitourinary: Denies system reviewed and no additional complaints, except as documented (patient denies any change in urinary habits) Musculoskeletal Musculoskeletal: Reports as per HPI and Denies back pain Integumentary/Breasts Skin/Breast: Reports as per HPI and Denies rash Neurologic Neurologic: Reports as per HPI and Reports headache(s) (reports chronic and unchanged) Endocrine Endocrine: Denies fatigue [facility] Medical History (Updated 07/05/20 @ 16:17 by SHEREEN Ashley) Afib Bilateral hip pain Bone lesion Chest pain Crohn's disease Diabetes Drug hypersensitivity Dyspepsia Elevated liver enzymes Fibromyalgia GERD (gastroesophageal reflux disease) Hot flash in male HTN (hypertension) Hx of adenomatous colonic polyps Hx of melanoma excision Hypomania IBS (irritable bowel syndrome) Leg erythema shelter current use of anticoagulant Migraine Neuropathy Nocturnal hypoxia Obstructive sleep apnea a. Nocturnal CPAP Osteopenia PE (pulmonary thromboembolism) Periodic limb movement disorder Post poliomyelitis syndrome Prostate cancer Rectal bleeding Rectal pain Right ankle pain Saphenous vein phlebitis Sebaceous cyst Sensorineural hearing loss Sleep apnea Squamous cell carcinoma of hand Superficial phlebitis of leg Swelling of left lower extremity Vitamin B12 deficiency Surgical History ankle surgery, right Arthroplasty of knee bilat Arthroscopy, Shoulder left shoulder repair Colectomy x3 deep muscle biopsy, left calf muscle Hernia Repair, Incisional (03/22/16) intestinal obstruction with incarcerated incisional hernia, lysis of adhesions Family History Mother No problems noted. Father Kidney malignancy Son No problems noted. 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 Grew up in [place] Exam Const General: cooperative, comfortable, no acute distress, well developed and ill appearing chronically Nutritional Appearance: well nourished and overweight Orientation: alert and awake [facility] Head: normal to inspection Mouth: moist mucous membranes Resp Effort & Inspection: normal respiratory effort, able to speak in complete sentences and no respiratory distress Auscultation: clear to auscultation bilaterally, no rales, no rhonchi and no wheezes Cardio Rate: regular rate Rhythm: regular rhythm Heart Sounds: S1 normal and S2 normal GI Inspection: other (fistulas actively putting stool into ostomy bag, J tube with brown liquid) Palpation: soft, not firm, no guarding, no pulsatile masses, not rigid and nontender Percussion: normal to percussion Auscultation: normal bowel sounds Skin General skin exam: no rashes or lesions noted Trauma: no lacerations or abrasions Neuro General: patient alert and patient awake Cognition: normal cognition Speech: speech normal Psych Appearance: grossly normal and well kempt Mental Status: mental status grossly normal Speech and Movement: speech and movement normal
[2020-07-05 15:14] VITALS: BP 126/76; PULSE 69; RESP 18; TEMP 36.8; O2SAT 95
[2020-07-05] MEDS: Ondansetron O.D.T. 4 MG TABEF (15:54)
[2020-07-05] MEDS: Acetaminophen 325 MG TAB 650 MG PO (16:03)
== END 2020-07-05 17:45 | disposition home or self-care (01) ==
PROVIDERS: Emergency Provider Physician Assistant; PCP Internal Medicine
DX: K94.13 Enterostomy malfunction (principal)
CPT/HCPCS: 99283; 99284

== ENCOUNTER 2020-07-12 15:22 | Outpatient (REF) | payer MEDICARE, MEDICAID, SELFPAY ==
[2020-07-12 15:53] LABS: ALT 151 U/L (16-63); AST 88 U/L (15-37); Albumin 3.1 g/dL (3.4-5.0); Alkaline Phosphatase 257 U/L (46-116); Anion Gap 8.9 mmol/L (3-11); BUN 28 mg/dL (7-18); Bilirubin, Total 1.4 mg/dL (0.2-1.0); CO2 26.1 mmol/L (21.0-32.0); CREATININE 0.7 mg/dL (0.70-1.30); Chloride 100 mmol/L (98-107); Glucose 80 mg/dL (74-106); Magnesium 1.8 mg/dL (1.8-2.4); Potassium 4.4 mmol/L (3.5-5.1); Sodium 135 mmol/L (136-145); Total Protein 6.8 g/dL (6.4-8.2); Triglyceride 252 mg/dL (<150)
[2020-07-13 17:04] LABS: Abs Immature Grans 0.02 10^3/uL (0.0-0.06); Absolute Basophil Count 0.02 10^3/uL (0.0-0.2); Absolute Eosinophil Count 0.08 10^3/uL (0.0-0.7); Absolute Lymphocyte Count 1.12 10^3/uL (1.2-3.4); Absolute Monocyte Count 0.61 10^3/uL (0.1-0.8); Absolute Neutrophil Count 4.68 10^3/uL (1.2-6.7); Basophils % 0.3; Eosinophils % 1.2; HCT 34.5 % (40.0-50.0); HGB 10.9 g/dL (13.5-17.5); Immature Grans % 0.3; Lymphocytes % 17.2; MCH 27.5 pg (27.0-33.0); MCHC 31.6 % (32.0-36.0); MCV 86.9 fL (80-95); MPV 11.1 fL (8.0-11.0); Monocytes % 9.3; Neutrophils % 71.7; Nucleated RBC 0 %; Platelet Count 218 10^3/uL (130-400); RBC 3.97 10^6/uL (4.36-5.78); RDW 18.4 % (11.8-14.1); WBC 6.53 10^3/uL (4.4-10.8)
[2020-07-15 09:16] LABS: Prealbumin 28 mg/dL (20-40)
== END 2020-07-12 15:23 | disposition home or self-care (01) ==
LOC: LBN 15:22
PROVIDERS: PCP Internal Medicine; Visit Provider Internal Medicine
DX: K50.913 Crohn's disease, unspecified, with fistula (principal)
CPT/HCPCS: 80053; 83735; 84134; 84478; 85025

== ENCOUNTER 2020-07-15 14:06 | Outpatient (REF) | payer MEDICARE, MEDICAID, SELFPAY ==
[2020-07-15 22:17] LABS: PSA, Diagnostic 54.4 ng/mL (0.0-6.5)
[2020-07-19 16:24] LABS: Testosterone, Total <7.0 ng/dL (240-950)
== END 2020-07-15 14:07 | disposition home or self-care (01) ==
LOC: LBN 14:06
PROVIDERS: PCP Internal Medicine; Visit Provider Internal Medicine
DX: C61 Malignant neoplasm of prostate (principal)
CPT/HCPCS: 84402; 84403; 84153

== ENCOUNTER 2020-07-19 11:15 | Outpatient (REF) | payer MEDICARE, MEDICAID, SELFPAY ==
[2020-07-19 12:13] LABS: ALT 111 U/L (16-63); AST 64 U/L (15-37); Albumin 2.7 g/dL (3.4-5.0); Alkaline Phosphatase 257 U/L (46-116); Anion Gap 7.2 mmol/L (3-11); BUN 26 mg/dL (7-18); CO2 27.8 mmol/L (21.0-32.0); CREATININE 0.6 mg/dL (0.70-1.30); Calcium 8.6 mg/dL (8.5-10.1); Chloride 102 mmol/L (98-107); Glucose 111 mg/dL (74-106); Magnesium 1.9 mg/dL (1.8-2.4); Potassium 4.8 mmol/L (3.5-5.1); Sodium 137 mmol/L (136-145); Total Protein 6.3 g/dL (6.4-8.2); Triglyceride 221 mg/dL (<150)
[2020-07-19 12:33] LABS: PHOSPHORUS 3.7 mg/dL (2.6-4.7)
[2020-07-19 13:07] LABS: Abs Immature Grans 0.02 10^3/uL (0.0-0.06); Absolute Basophil Count 0.01 10^3/uL (0.0-0.2); Absolute Monocyte Count 0.61 10^3/uL (0.1-0.8); Basophils % 0.2; Eosinophils % 1.6; HCT 34.4 % (40.0-50.0); HGB 10.7 g/dL (13.5-17.5); Immature Grans % 0.3; Lymphocytes % 14.7; MCH 27.4 pg (27.0-33.0); MCHC 31.1 % (32.0-36.0); MCV 88.2 fL (80-95); Monocytes % 9.9; Neutrophils % 73.3; Nucleated RBC 0 %; Platelet Count 203 10^3/uL (130-400); RDW 17.9 % (11.8-14.1); RDW-SD 57.1 fL; WBC 6.14 10^3/uL (4.4-10.8)
[2020-07-22 10:05] LABS: Prealbumin 21 mg/dL (20-40)
== END 2020-07-19 11:16 | disposition home or self-care (01) ==
LOC: LBN 11:15
PROVIDERS: PCP Internal Medicine; Visit Provider Internal Medicine
DX: K50.913 Crohn's disease, unspecified, with fistula (principal)
CPT/HCPCS: 80053; 83735; 84100; 84134; 84478; 85025

== ENCOUNTER 2020-07-25 13:06 | Outpatient (REF) | payer MEDICARE, MEDICAID, SELFPAY ==
[2020-07-25 14:17] LABS: Abs Immature Grans 0.02 10^3/uL (0.0-0.06); Absolute Basophil Count 0.01 10^3/uL (0.0-0.2); Absolute Eosinophil Count 0.04 10^3/uL (0.0-0.7); Absolute Lymphocyte Count 0.78 10^3/uL (1.2-3.4); Absolute Monocyte Count 0.55 10^3/uL (0.1-0.8); Absolute Neutrophil Count 7.22 10^3/uL (1.2-6.7); Basophils % 0.1; Eosinophils % 0.5; HCT 33.9 % (40.0-50.0); HGB 10.6 g/dL (13.5-17.5); Immature Grans % 0.2; MCH 27.5 pg (27.0-33.0); MCHC 31.3 % (32.0-36.0); MCV 87.8 fL (80-95); MPV 10.2 fL (8.0-11.0); Monocytes % 6.4; Neutrophils % 83.8; Nucleated RBC 0 %; Platelet Count 201 10^3/uL (130-400); RBC 3.86 10^6/uL (4.36-5.78); RDW 17.5 % (11.8-14.1); RDW-SD 56.6 fL; WBC 8.62 10^3/uL (4.4-10.8)
[2020-07-25 14:36] LABS: ALT 94 U/L (16-63); AST 56 U/L (15-37); Albumin 2.8 g/dL (3.4-5.0); Alkaline Phosphatase 207 U/L (46-116); Anion Gap 11.9 mmol/L (3-11); BUN 30 mg/dL (7-18); Bilirubin, Total 1.1 mg/dL (0.2-1.0); CO2 24.1 mmol/L (21.0-32.0); CREATININE 0.7 mg/dL (0.70-1.30); Calcium 8.5 mg/dL (8.5-10.1); Chloride 101 mmol/L (98-107); Glucose 136 mg/dL (74-106); Magnesium 1.8 mg/dL (1.8-2.4); Potassium 4.4 mmol/L (3.5-5.1); Sodium 137 mmol/L (136-145); Total Protein 6.4 g/dL (6.4-8.2); Triglyceride 149 mg/dL (<150)
[2020-07-25 14:56] LABS: PHOSPHORUS 3.8 mg/dL (2.6-4.7)
[2020-07-26 09:53] LABS: Prealbumin 23 mg/dL (20-40)
== END 2020-07-25 13:07 | disposition home or self-care (01) ==
LOC: NCHCN 13:06
PROVIDERS: PCP Internal Medicine; Visit Provider Internal Medicine
DX: K50.913 Crohn's disease, unspecified, with fistula (principal)
CPT/HCPCS: 80053; 83735; 84100; 84134; 84478; 85025

== ENCOUNTER 2020-08-02 11:17 | Outpatient (REF) | payer MEDICARE, MEDICAID, SELFPAY ==
[2020-08-02 12:01] LABS: Abs Immature Grans 0.03 10^3/uL (0.0-0.06); Absolute Basophil Count 0.02 10^3/uL (0.0-0.2); Absolute Eosinophil Count 0.07 10^3/uL (0.0-0.7); Absolute Lymphocyte Count 0.92 10^3/uL (1.2-3.4); Absolute Monocyte Count 0.61 10^3/uL (0.1-0.8); Basophils % 0.2; Eosinophils % 0.8; HCT 34.9 % (40.0-50.0); HGB 10.8 g/dL (13.5-17.5); Immature Grans % 0.4; Lymphocytes % 10.9; MCH 27.8 pg (27.0-33.0); MCHC 30.9 % (32.0-36.0); MCV 89.7 fL (80-95); MPV 9.4 fL (8.0-11.0); Monocytes % 7.2; Neutrophils % 80.5; Nucleated RBC 0 %; Platelet Count 209 10^3/uL (130-400); RBC 3.89 10^6/uL (4.36-5.78); RDW 17.4 % (11.8-14.1); RDW-SD 57.1 fL; WBC 8.45 10^3/uL (4.4-10.8)
[2020-08-02 12:06] LABS: ALT 96 U/L (16-63); AST 54 U/L (15-37); Alkaline Phosphatase 184 U/L (46-116); Anion Gap 9.4 mmol/L (3-11); BUN 33 mg/dL (7-18); Bilirubin, Total 1.1 mg/dL (0.2-1.0); CO2 25.6 mmol/L (21.0-32.0); CREATININE 0.8 mg/dL (0.70-1.30); Calcium 8.5 mg/dL (8.5-10.1); Chloride 101 mmol/L (98-107); Glucose 107 mg/dL (74-106); Magnesium 1.9 mg/dL (1.8-2.4); Potassium 4.5 mmol/L (3.5-5.1); Sodium 136 mmol/L (136-145); Total Protein 6.6 g/dL (6.4-8.2)
[2020-08-02 12:19] LABS: Triglyceride 234 mg/dL (<150)
[2020-08-05 10:05] LABS: Prealbumin 33 mg/dL (20-40)
== END 2020-08-02 11:18 | disposition home or self-care (01) ==
LOC: NCHCN 11:17
PROVIDERS: PCP Internal Medicine; Visit Provider Internal Medicine
DX: K50.913 Crohn's disease, unspecified, with fistula (principal)
CPT/HCPCS: 80053; 83735; 84100; 84134; 84478; 85025

== ENCOUNTER 2020-08-09 21:16 | Outpatient (REF) | payer MEDICARE, MEDICAID, SELFPAY ==
[2020-08-09 18:34] LABS: Abs Immature Grans 0.03 10^3/uL (0.0-0.06); Absolute Basophil Count 0.01 10^3/uL (0.0-0.2); Absolute Eosinophil Count 0.02 10^3/uL (0.0-0.7); Absolute Monocyte Count 0.28 10^3/uL (0.1-0.8); Basophils % 0.1; Eosinophils % 0.2; HCT 37.2 % (40.0-50.0); HGB 11.7 g/dL (13.5-17.5); Immature Grans % 0.4; Lymphocytes % 9.7; MCH 28.3 pg (27.0-33.0); MCHC 31.5 % (32.0-36.0); MCV 90.1 fL (80-95); MPV 9.7 fL (8.0-11.0); Monocytes % 3.4; Neutrophils % 86.2; Nucleated RBC 0 %; Platelet Count 177 10^3/uL (130-400); RBC 4.13 10^6/uL (4.36-5.78); RDW 17.7 % (11.8-14.1); RDW-SD 58.7 fL; WBC 8.24 10^3/uL (4.4-10.8)
[2020-08-09 19:07] LABS: ALT 103 U/L (16-63); AST 62 U/L (15-37); Albumin 3.3 g/dL (3.4-5.0); Alkaline Phosphatase 186 U/L (46-116); Anion Gap 11.5 mmol/L (3-11); BUN 37 mg/dL (7-18); Bilirubin, Total 1.6 mg/dL (0.2-1.0); CO2 24.5 mmol/L (21.0-32.0); CREATININE 0.9 mg/dL (0.70-1.30); Calcium 9.4 mg/dL (8.5-10.1); Chloride 102 mmol/L (98-107); Glucose 118 mg/dL (74-106); Potassium 4.7 mmol/L (3.5-5.1); Sodium 138 mmol/L (136-145); Total Protein 7.2 g/dL (6.4-8.2); Triglyceride 199 mg/dL (<150)
[2020-08-09 19:20] LABS: PHOSPHORUS 4.6 mg/dL (2.6-4.7)
[2020-08-12 09:00] LABS: Prealbumin 33 mg/dL (20-40)
== END 2020-08-09 21:17 | disposition home or self-care (01) ==
LOC: NCHCN 21:16
PROVIDERS: PCP Internal Medicine; Visit Provider Internal Medicine
DX: K50.913 Crohn's disease, unspecified, with fistula (principal)
CPT/HCPCS: 80053; 83735; 84100; 84134; 84478; 85025

== ENCOUNTER 2020-08-11 14:21 | Observation (INO) | payer MEDICARE, MEDICAID, SELFPAY ==
[2020-08-11] VITALS (8 sets, daily range): BP systolic 104–131; BP diastolic 72–86; PULSE 75–83; RESP 16–20; TEMP 36.6–37.1; O2SAT 92–98
[2020-08-11] MEDS: Lactated Ringers 500 ML IV (15:32)
[2020-08-11 15:43] LABS: Abs Immature Grans 0.02 10^3/uL (0.0-0.06); Absolute Basophil Count 0.02 10^3/uL (0.0-0.2); Absolute Monocyte Count 0.43 10^3/uL (0.1-0.8); Basophils % 0.2; Eosinophils % 0.5; HCT 43.6 % (40.0-50.0); HGB 13.7 g/dL (13.5-17.5); Immature Grans % 0.2; Lymphocytes % 5.4; MCH 28.4 pg (27.0-33.0); MCHC 31.4 % (32.0-36.0); MCV 90.3 fL (80-95); MPV 9.7 fL (8.0-11.0); Monocytes % 3.9; Neutrophils % 89.8; Nucleated RBC 0 %; Platelet Count 175 10^3/uL (130-400); RBC 4.83 10^6/uL (4.36-5.78); RDW 17.7 % (11.8-14.1); RDW-SD 57.9 fL; WBC 11.03 10^3/uL (4.4-10.8)
[2020-08-11 15:52] LABS: Absolute Eosinophil Count 0.06 10^3/uL (0.0-0.7)
[2020-08-11 15:54] LABS: Lipase 251 U/L (73-393)
[2020-08-11 15:58] LABS: ALT 118 U/L (16-63); AST 73 U/L (15-37); Albumin 3.9 g/dL (3.4-5.0); Alkaline Phosphatase 220 U/L (46-116); Anion Gap 14.2 mmol/L (3-11); BUN 43 mg/dL (7-18); Bilirubin, Total 1.9 mg/dL (0.2-1.0); CO2 22.8 mmol/L (21.0-32.0); Calcium 9.9 mg/dL (8.5-10.1); Chloride 98 mmol/L (98-107); Glucose 188 mg/dL (74-106); Magnesium 2.1 mg/dL (1.8-2.4); Sodium 135 mmol/L (136-145); Total Protein 8.9 g/dL (6.4-8.2)
--- NOTE | 2020-08-11 16:32 | W.ED.GENAD ---
Discharge Plan Discharge Details Chief Complaint: Nausea/Vomit/Diar Admit Date/Time: 08/11/20 16:36 Admit Provider: Alonso Covarrubias Attending Provider: Alonso Covarrubias Primary Care Provider: Kenney Greer ED Provider: Cornelio Leach Discharge Instructions Activity:: Activity as Tolerated Equipment/Supplies:: No Equipment Needed Diet:: resume clear liquids Discharge Orders Discharge Orders: Discharge Order (Routine); Ordered 08/12/20 Ordered By: Alonso Covarrubias Discharge Data Discharge Date/Time-TO BE ENTERED AT DEPARTURE: 08/11/20 17:15 Medical Decision Making 70-year-old male with history of Crohn's disease and ostomy here with significantly increased ostomy output, generalized weakness, nausea vomiting and dizziness. Patient is dehydrated. Normotensive. Abdominal exam benign. Labs reviewed and creatinine is mildly elevated. Plan to admit for IV fluids. I called and spoke with Dr. Covarrubias discussed ED presentation course, he will admit the patient. Disposition: Inpatient Diagnosis: Increased ostomy output, dehydration, dizziness, nausea vomiting Condition: Serious HPI General Date/Time Provider Initiated Documentation: 08/11/20 14:58. Limitations to Documentation: no limitations. Information obtained by: patient. HPI Narrative: 7-year-old male here with chief complaint of excessive colostomy output. Patient's usual output is 2500mL/day. He has had significantly increased output today. 1200 mL this morning, an additional 1800 mL this afternoon. He is also vomited 3 times and has felt weak. Symptoms are moderate with no modifiers. He has associated headache and dizziness. No associated fever. Related Data Home Medications Medication Instructions Recorded Confirmed acetaminophen [Tylenol Extra 1,000 mg PO Q8H PRN PRN tab-cap NS 03/29/13 08/11/20 Strength] nitroglycerin [Nitrostat] 0.4 mg SUBLINGUAL Q5 MIN PRN X3 04/23/15 08/11/20 PRN #15 tab balsalazide 2,250 mg PO TID 09/24/15 08/11/20 calcium carbonate 1,000 mg CH QID PRN 06/27/17 08/11/20 cyanocobalamin (vitamin B-12) 1,000 mcg IM QMONTH ml 01/23/19 08/11/20 1,000 mcg/mL injection solution ergocalciferol (vitamin D2) 1,250 50,000 unit PO .2x weekly cap 01/23/19 08/11/20 mcg (50,000 unit) capsule ferrous gluconate 324 mg (37.5 mg 324 mg PO BID tab 01/23/19 08/11/20 iron) tablet pramipexole 0.5 mg tablet 1 mg PO HS tab 01/23/19 08/11/20 levothyroxine 75 mcg PO DAILY 04/29/19 08/11/20 prednisone 5 mg tablet 10 mg PO BID tab 07/25/19 08/11/20 hydrocodone-acetaminophen 1 tab PO Q4H PRN 10/01/19 08/11/20 BD SafetyGlide Syringe 03/05/20 03/05/20 OneTouch Verio test strips 03/05/20 03/05/20 Basaglar KwikPen U-100 Insulin 25 unit SUBCUT HS 03/18/20 07/05/20 clotrimazole 1 applic TOPICAL DIRECTED PRN 03/18/20 08/11/20 loratadine 10 mg PO DAILY PRN 03/18/20 08/11/20 pen needle, diabetic [BD 03/18/20 03/18/20 Ultra-Fine Mini Pen Needle] trazodone 50 mg PO HS 03/18/20 08/11/20 ondansetron 4 mg PO DIRECTED PRN 05/30/20 08/11/20 enoxaparin [Lovenox] 100 mg SUBCUT Q12H 07/05/20 08/11/20 lidocaine 1 applic TOPICAL QID PRN 07/05/20 08/11/20 Previous Rx's Medication Instructions Recorded nitroglycerin [Nitrostat] 0.4 mg SUBLINGUAL Q5 MIN PRN X3 04/23/15 PRN #15 tab Allergies Allergy/AdvReac Type Severity Reaction Status Date / Time Sulfa (Sulfonamide Allergy Mild Skin Rash Verified 08/17/20 19:14 Antibiotics) atenolol Allergy Verified 08/17/20 19:14 atorvastatin Allergy Verified 08/17/20 19:14 gabapentin Allergy Verified 08/17/20 19:14 nicardipine Allergy Verified 08/17/20 19:14 salsalate Allergy Verified 08/17/20 19:14 tramadol Allergy Verified 08/17/20 19:14 venlafaxine Allergy Verified 08/17/20 19:14 ciprofloxacin HCl AdvReac Severe ruptured Verified 08/17/20 19:14 [From Cipro] achilles tendon hydrochlorothiazide AdvReac Severe myalgias Verified 08/17/20 19:14 [From Benicar HCT] indapamide AdvReac Severe chest pain Verified 08/17/20 19:14 olmesartan medoxomil AdvReac Severe myalgias Verified 08/17/20 19:14 [From Benicar HCT] terazosin [Terazosin] AdvReac Severe tremor, GI Verified 08/17/20 19:14 upset aliskiren [Aliskiren] AdvReac Intermediate diarrhea Verified 08/17/20 19:14 amlodipine AdvReac Intermediate fatigue Verified 08/17/20 19:14 denosumab [From Xgeva] AdvReac Intermediate Verified 08/17/20 19:14 enalapril [Enalapril] AdvReac Intermediate shakes, Verified 08/17/20 19:14 weakness montelukast sodium AdvReac Intermediate rectal Verified 08/17/20 19:14 [From Singulair] irritation pregabalin [From Lyrica] AdvReac Intermediate sleep Verified 08/17/20 19:14 issues spironolactone AdvReac Intermediate headache Verified 08/17/20 19:14 General Stated Complaint: Nausea/Vomit/Diar ELMO: 3 Review of Systems All systems reviewed & are unremarkable except as noted in HPI and below Constitutional Constitutional: Reports as per HPI, Denies fever(s) and Reports weakness Cardiovascular Cardiovascular: Denies chest pain Gastrointestinal Gastrointestinal: Denies abdominal pain Comments: Ostomy intact Neurologic Neurologic: Reports weakness [facility] Medical History Afib Bilateral hip pain Bone lesion Chest pain Crohn's disease Diabetes Drug hypersensitivity Dyspepsia Elevated liver enzymes Fibromyalgia GERD (gastroesophageal reflux disease) Hot flash in male HTN (hypertension) Hx of adenomatous colonic polyps Hx of melanoma excision Hypomania IBS (irritable bowel syndrome) 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 Nocturnal CPAP Osteopenia PE (pulmonary thromboembolism) Periodic limb movement disorder Post poliomyelitis syndrome Prostate cancer Rectal bleeding Rectal pain Right ankle pain Saphenous vein phlebitis Sebaceous cyst Sensorineural hearing loss Sleep apnea Squamous cell carcinoma of hand Superficial phlebitis of leg Swelling of left lower extremity Vitamin B12 deficiency Surgical History ankle surgery, right Arthroplasty of knee bilat Arthroscopy, Shoulder left shoulder repair Colectomy x3 deep muscle biopsy, left calf muscle Hernia Repair, Incisional (03/22/16) intestinal obstruction with incarcerated incisional hernia, lysis of adhesions Family History Mother No problems noted. Father Kidney malignancy Son No problems noted. Social History Smoking/Tobacco Use Status: Never Smoking risk assessment performed?: Yes Alcohol Intake: never Drug use: Never Substance use type: does not use What type of physical activity do you participate in: none Do you feel safe at home: Yes Do you feel safe in your relationship?: Yes Exam Const General: cooperative and no acute distress HENMT Mouth: moist mucous membranes Eyes Conjunctivae: normal conjunctivae Sclera: normal sclerae Neck Neck: trachea midline and supple Resp Auscultation: clear to auscultation bilaterally, no rales, no rhonchi and no wheezes Cardio Rate: regular rate and not tachycardic Rhythm: regular rhythm GI Palpation: soft, not firm, no guarding, no masses, not rigid and nontender Skin General skin exam: no rashes or lesions noted Neuro General: patient alert, patient awake and tone normal Course Vital Signs Vital signs: Vital Signs Temperature 36.6 C 08/11/20 14:32 Pulse 76 08/11/20 14:32 Respiratory Rate 16 08/11/20 14:32 Blood Pressure 106/75 08/11/20 14:32 Pulse Oximetry 95 08/11/20 14:32 Temperature 36.6 C 08/11/20 14:32 Temperature Source Skin 08/11/20 14:32 Pulse 76 08/11/20 14:32 Respiratory Rate 16 08/11/20 14:32 Respiratory Effort Non-Labored 08/11/20 14:40 Blood Pressure 106/75 08/11/20 14:32 Blood Pressure Position Sitting 08/11/20 14:32 Pulse Oximetry 95 08/11/20 14:32 Oxygen Delivery Method Room Air 08/11/20 14:32 Oxygen Flow Rate 0 08/11/20 14:32 Pain Level 4 08/11/20 14:32 Lab/Test Results Lab/Test Results: Laboratory Tests Range/Units 08/11/20 08/11/20 08/11/20 15:19 15:19 15:19 WBC (4.4-10.8) 10^3/uL 11.03 H RBC (4.36-5.78) 10^6/uL 4.83 Hgb (13.5-17.5) g/dL 13.7 Hct (40.0-50.0) % 43.6 MCV (80-95) fL 90.3 MCH (27.0-33.0) pg 28.4 MCHC (32.0-36.0) % 31.4 L RDW (11.8-14.1) % 17.7 H Plt Count (130-400) 10^3/uL 175 MPV (8.0-11.0) fL 9.7 Immature Gran % 0.2 Neutrophils % 89.8 Lymphocytes % 5.4 Monocytes % 3.9 Eosinophils % 0.5 Basophils % 0.2 Nucleated RBC % % 0 Absolute Neutrophils (1.2-6.7) 10^3/uL 9.90 H Absolute Lymphocytes (1.2-3.4) 10^3/uL 0.60 L Absolute Monocytes (0.1-0.8) 10^3/uL 0.43 Absolute Eosinophils (0.0-0.7) 10^3/uL 0.06 Absolute Basophils (0.0-0.2) 10^3/uL 0.02 Sodium (136-145) mmol/L 135 L Potassium (3.5-5.1) mmol/L 4.0 Chloride (98-107) mmol/L 98 Carbon Dioxide (21.0-32.0) mmol/L 22.8 Anion Gap (3-11) mmol/L 14.2 H BUN (7-18) mg/dL 43 H Creatinine (0.70-1.30) mg/dL 1.0 Estimated GFR/1.73 m2 (mL/min/1.73m2) >= 60.00 Glucose (74-106) mg/dL 188 H Calcium (8.5-10.1) mg/dL 9.9 Magnesium (1.8-2.4) mg/dL 2.1 Total Bilirubin (0.2-1.0) mg/dL 1.9 H AST (15-37) U/L 73 H ALT (16-63) U/L 118 H Alkaline Phosphatase (46-116) U/L 220 H Total Protein (6.4-8.2) g/dL 8.9 H Albumin (3.4-5.0) g/dL 3.9 Lipase (73-393) U/L 251
[2020-08-11 16:39] LABS: C Diff PCR Negative (Negative)
[2020-08-11] MEDS: Normal Saline 1,000 ML 125 ML IV (17:58)
[2020-08-11] MEDS: Normal Saline Flush 10 ML SYR IVP ×2 (18:04→21:19)
[2020-08-11] MEDS: Enoxaparin 100 MG/ML SYR SC (18:04)
[2020-08-11 18:44] LABS: COVID-19 PCR Negative (Negative); Influenza A PCR Negative (Negative); Influenza B PCR Negative (Negative); RSV PCR Negative (Negative)
[2020-08-11] MEDS: Acetaminophen 325 MG TAB 650 MG PO (19:44)
[2020-08-11] MEDS: DEXTROSE 5%-0.9% SALINE 1,000 ML 125 ML IV (19:45)
--- NOTE | 2020-08-11 20:11 | W.PM.HP.N ---
Date of service: 08/11/20 Time of Service: 17:17 Assessment and Plan Assessment and plan (1) Abdominal wound dehiscence: Status: Acute Assessment and plan: Ostomy site within the area of dehiscence. A special ostomy appliance is required d/t the size of adhesive area needed to maintain a seal. His will provide. Qualifiers: Encounter type: sequela Qualified Code(s): T81.30XS - Disruption of wound, unspecified, sequela (2) Elevated liver enzymes: Status: Acute Assessment and plan: Chronic. Bilirubin has trended upward. No abd pain. Monitor (3) Pulmonary emboli: Status: Acute Assessment and plan: Cont tx with enoxaparin 100 mg SQ Q12H. (4) Obstructive sleep apnea: Status: Chronic Assessment and plan: Home BiPAP to be brought in (5) IDDM (insulin dependent diabetes mellitus): Status: Chronic Assessment and plan: Cont basal insulin but at a lower dose than he uses at home; adjust when necessary. He has TPN running nightly. Clear liquids during the day. Diabetic diet clear liquids. SS correction dosing of insulin as needed. (6) Crohn's disease: Status: None Assessment and plan: Cont home balsalazide Qualifiers: Digestive disease complication type: with fistula Gastrointestinal tract location: small and large intestine Qualified Code(s): K50.813 - Crohn's disease of both small and large intestine with fistula (7) Exacerbation of Crohn's disease: Status: Chronic Assessment and plan: Exacerbation vs infectious process. C.Diff pending. Will hold home oral prednisone and give stress dose of hydrocortisone 100mg IV Q12H. (8) A-fib: Status: Chronic Assessment and plan: Now off Multaq and Diltiazem d/t bradycardia. Monitor Currently no tachycardia. (9) Prostate cancer: Status: None Assessment and plan: With mets to vertebrae. PRN hydrocodone per home routine. Currently w/o significant back pain. History of Present Illness History of Present Illness Chief Complaint: Emesis and weakness Narrative: This is a 70 yo male with a h/o DM2/insulin requiring, Crohn's disease s/o small resection with ostomy, post-op surgical wound dehiscence, metastatic prostate cancer, squamous cell cancer, melanoma. He presented to the ED with concern of significant increase in his ostomy output on the day of admission. His typical output is 2400ml/day. In the ED at appx 2:30 he endorsed having had 3000ml out already. He endorses weakness, and emesis x 3. He denied abd pain. Some back discomfort that attributes to lying on back for too long. No dysuria, frequency. cough/sputum, CP/palpitations. WBC count modestly elevated at 11.03. Hgb normal. Na 135, K 4.0, BUN 43, creatinine 1.9. Glucose 188. Mg 2.1. Total bilirubin 1.9. AST 73. ALT 118. No hypotension, hypoxia noted. No fever. 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 Nocturnal CPAP Osteopenia PE (pulmonary thromboembolism) Periodic limb movement disorder Post poliomyelitis syndrome Prostate cancer Rectal bleeding Rectal pain Right ankle pain Saphenous vein phlebitis Sebaceous cyst Sensorineural hearing loss Sleep apnea Squamous cell carcinoma of hand Superficial phlebitis of leg Swelling of left lower extremity Vitamin B12 deficiency Surgical History ankle surgery, right Arthroplasty of knee bilat Arthroscopy, Shoulder left shoulder repair Colectomy x3 deep muscle biopsy, left calf muscle Hernia Repair, Incisional (03/22/16) intestinal obstruction with incarcerated incisional hernia, lysis of adhesions Family History Mother No problems noted. Father Kidney malignancy Son No problems noted. 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 [place] Home Medications and Allergies Allergies Allergy/AdvReac Type Severity Reaction Status Date / Time Sulfa (Sulfonamide Allergy Mild Skin Rash Verified 08/11/20 14:53 Antibiotics) atenolol Allergy Verified 08/11/20 14:53 atorvastatin Allergy Verified 08/11/20 14:53 gabapentin Allergy Verified 08/11/20 14:53 nicardipine Allergy Verified 08/11/20 14:53 salsalate Allergy Verified 08/11/20 14:53 tramadol Allergy Verified 08/11/20 14:53 venlafaxine Allergy Verified 08/11/20 14:53 ciprofloxacin HCl AdvReac Severe ruptured Verified 08/11/20 14:53 [From Cipro] achilles tendon hydrochlorothiazide AdvReac Severe myalgias Verified 08/11/20 14:53 [From Benicar HCT] indapamide AdvReac Severe chest pain Verified 08/11/20 14:53 olmesartan medoxomil AdvReac Severe myalgias Verified 08/11/20 14:53 [From Benicar HCT] terazosin [Terazosin] AdvReac Severe tremor, GI Verified 08/11/20 14:53 upset aliskiren [Aliskiren] AdvReac Intermediate diarrhea Verified 08/11/20 14:53 amlodipine AdvReac Intermediate fatigue Verified 08/11/20 14:53 denosumab [From Xgeva] AdvReac Intermediate Verified 08/11/20 14:53 enalapril [Enalapril] AdvReac Intermediate shakes, Verified 08/11/20 14:53 weakness montelukast sodium AdvReac Intermediate rectal Verified 08/11/20 14:53 [From Singulair] irritation pregabalin [From Lyrica] AdvReac Intermediate sleep Verified 08/11/20 14:53 issues spironolactone AdvReac Intermediate headache Verified 08/11/20 14:53 Home Medications Medication Instructions Recorded Confirmed Type acetaminophen [Tylenol Extra 1,000 mg PO Q8H PRN PRN tab-cap NS 03/29/13 08/11/20 History Strength] nitroglycerin [Nitrostat] 0.4 mg SUBLINGUAL Q5 MIN PRN X3 04/23/15 08/11/20 Rx PRN #15 tab balsalazide 2,250 mg PO TID 09/24/15 08/11/20 History calcium carbonate 1,000 mg CH QID PRN 06/27/17 08/11/20 History cyanocobalamin (vitamin B-12) 1,000 mcg IM QMONTH ml 01/23/19 08/11/20 History 1,000 mcg/mL injection solution ergocalciferol (vitamin D2) 1,250 50,000 unit PO .2x weekly cap 01/23/19 08/11/20 History mcg (50,000 unit) capsule ferrous gluconate 324 mg (37.5 mg 324 mg PO BID tab 01/23/19 08/11/20 History iron) tablet pramipexole 0.5 mg tablet 1 mg PO HS tab 01/23/19 08/11/20 History levothyroxine 75 mcg PO DAILY 04/29/19 08/11/20 History prednisone 5 mg tablet 10 mg PO BID tab 07/25/19 08/11/20 History hydrocodone-acetaminophen 1 tab PO Q4H PRN 10/01/19 08/11/20 History BD SafetyGlide Syringe 03/05/20 03/05/20 History OneTouch Verio test strips 03/05/20 03/05/20 History Basaglar KwikPen U-100 Insulin 25 unit SUBCUT HS 03/18/20 07/05/20 History clotrimazole 1 applic TOPICAL DIRECTED PRN 03/18/20 08/11/20 History loratadine 10 mg PO DAILY PRN 03/18/20 08/11/20 History pen needle, diabetic [BD 03/18/20 03/18/20 History Ultra-Fine Mini Pen Needle] trazodone 50 mg PO HS 03/18/20 08/11/20 History ondansetron 4 mg PO DIRECTED PRN 05/30/20 08/11/20 History enoxaparin [Lovenox] 100 mg SUBCUT Q12H 07/05/20 08/11/20 History lidocaine 1 applic TOPICAL QID PRN 07/05/20 08/11/20 History Exam Const General: cooperative, no acute distress and frail appearing Nutritional Appearance: average body habitus Orientation: alert and oriented x3 Eyes Sclera: sclerae normal Pupils: PERRL Resp Effort & Inspection: normal respiratory effort Auscultation: clear to auscultation bilaterally Cardio Jugular venous pressure: no JVD Rate: regular rate Rhythm: regular rhythm Heart Sounds: S1 normal and S2 normal GI Inspection: other Palpation: soft and nontender Other: Mid right abd with open wound with ostomy within the open area. Ostomy appliance/bag in place. Thin brown liquid in bag. Skin General skin exam: no rashes or lesions noted Extrem General: no pedal edema and no calf tenderness Psych Appearance: grossly normal Mental Status: mental status grossly normal Affect: blunted Results Labs Result diagrams: 08/11/20 15:19 08/11/20 15:19 Labs: Laboratory Results - last 24 hr 08/11/20 08/11/20 08/11/20 15:19 15:19 15:19 WBC 11.03 H RBC 4.83 Hgb 13.7 Hct 43.6 MCV 90.3 MCH 28.4 MCHC 31.4 L RDW 17.7 H Plt Count 175 MPV 9.7 Immature Gran % 0.2 Neutrophils % 89.8 Lymphocytes % 5.4 Monocytes % 3.9 Eosinophils % 0.5 Basophils % 0.2 Nucleated RBC % 0 Absolute Neutrophils 9.90 H Absolute Lymphocytes 0.60 L Absolute Monocytes 0.43 Absolute Eosinophils 0.06 Absolute Basophils 0.02 Sodium 135 L Potassium 4.0 Chloride 98 Carbon Dioxide 22.8 Anion Gap 14.2 H BUN 43 H Creatinine 1.0 Estimated GFR/1.73 m2 >= 60.00 Glucose 188 H Calcium 9.9 Magnesium 2.1 Total Bilirubin 1.9 H AST 73 H ALT 118 H Alkaline Phosphatase 220 H Total Protein 8.9 H Albumin 3.9 Lipase 251 Stl C.difficile Tox PCR COVID-19 Source SARS-CoV-2 (PCR) Influenza Type A (PCR) Influenza Type B (PCR) RSV (PCR) 08/11/20 08/11/20 15:25 16:48 WBC RBC Hgb Hct MCV MCH MCHC RDW Plt Count MPV Immature Gran % Neutrophils % Lymphocytes % Monocytes % Eosinophils % Basophils % Nucleated RBC % Absolute Neutrophils Absolute Lymphocytes Absolute Monocytes Absolute Eosinophils Absolute Basophils Sodium Potassium Chloride Carbon Dioxide Anion Gap BUN Creatinine Estimated GFR/1.73 m2 Glucose Calcium Magnesium Total Bilirubin AST ALT Alkaline Phosphatase Total Protein Albumin Lipase Stl C.difficile Tox PCR Negative COVID-19 Source Nasopharyx SARS-CoV-2 (PCR) Negative Influenza Type A (PCR) Negative Influenza Type B (PCR) Negative RSV (PCR) Negative Last Vital Signs Temp 37.0 C 08/11/20 18:11 Pulse 80 08/11/20 18:11 Resp 18 08/11/20 18:11 BP 131/80 08/11/20 18:11 Pulse Ox 98 08/11/20 18:11 COVID-19 Screening Have you, or household traveled for leisure in last 14 days?: No Had IN PERSON contact w/suspected or confirmed C-19 person: No
[2020-08-11] MEDS: Calcium Carbonate *TUMS* 500 MG CHEW 1000 MG PO (21:18)
[2020-08-11] MEDS: HYDROcodone 10/Acetaminophen 325 TAB PO (21:18)
[2020-08-11] MEDS: traZODone 50 MG TAB PO (21:19)
[2020-08-11] MEDS: Hydrocortisone SOD SUC. 100 MG VIAL IVP (21:19)
[2020-08-11] MEDS: Pramipexole 0.5 MG TAB 1 MG PO (22:56)
[2020-08-12] MEDS: DEXTROSE 5%-0.9% SALINE 1,000 ML 125 ML IV (04:23)
[2020-08-12] MEDS: Enoxaparin 100 MG/ML SYR SC (05:56)
[2020-08-12] MEDS: Levothyroxine 75 MCG TAB PO (05:57)
[2020-08-12 07:03] LABS: Abs Immature Grans 0.02 10^3/uL (0.0-0.06); Absolute Basophil Count 0.02 10^3/uL (0.0-0.2); Absolute Eosinophil Count 0.01 10^3/uL (0.0-0.7); Absolute Lymphocyte Count 1.15 10^3/uL (1.2-3.4); Absolute Monocyte Count 0.52 10^3/uL (0.1-0.8); Absolute Neutrophil Count 5.25 10^3/uL (1.2-6.7); Basophils % 0.3; Eosinophils % 0.1; HCT 36.9 % (40.0-50.0); HGB 11.6 g/dL (13.5-17.5); Immature Grans % 0.3; Lymphocytes % 16.5; MCH 28.2 pg (27.0-33.0); MCHC 31.4 % (32.0-36.0); MCV 89.8 fL (80-95); MPV 9.2 fL (8.0-11.0); Monocytes % 7.5; Neutrophils % 75.3; Nucleated RBC 0 %; Platelet Count 176 10^3/uL (130-400); RBC 4.11 10^6/uL (4.36-5.78); RDW 17.4 % (11.8-14.1); RDW-SD 57.2 fL; WBC 6.97 10^3/uL (4.4-10.8)
[2020-08-12 07:10] LABS: Magnesium 1.9 mg/dL (1.8-2.4)
[2020-08-12 07:20] LABS: ALT 108 U/L (16-63); AST 66 U/L (15-37); Albumin 3.2 g/dL (3.4-5.0); Alkaline Phosphatase 198 U/L (46-116); Anion Gap 11.1 mmol/L (3-11); BUN 38 mg/dL (7-18); Bilirubin, Total 1.7 mg/dL (0.2-1.0); CO2 24.9 mmol/L (21.0-32.0); CREATININE 0.9 mg/dL (0.70-1.30); Calcium 9.2 mg/dL (8.5-10.1); Chloride 102 mmol/L (98-107); Glucose 127 mg/dL (74-106); Potassium 3.9 mmol/L (3.5-5.1); Sodium 138 mmol/L (136-145); Total Protein 7.4 g/dL (6.4-8.2)
[2020-08-12 08:06] VITALS: BP 96/58; PULSE 70; RESP 20; TEMP 36.6; O2SAT 96
[2020-08-12] MEDS: Calcium Carbonate *TUMS* 500 MG CHEW 1000 MG PO (08:31)
[2020-08-12] MEDS: Acetaminophen 325 MG TAB 650 MG PO (08:32)
[2020-08-12] MEDS: Hydrocortisone SOD SUC. 100 MG VIAL IVP (08:32)
[2020-08-12] MEDS: Normal Saline Flush 10 ML SYR IVP (08:32)
[2020-08-12] MEDS: HYDROcodone 10/Acetaminophen 325 TAB PO (08:33)
--- NOTE | 2020-08-12 09:37 | W.PM.DS.N ---
Date of service: 08/12/20 Time of Service: 09:37 DS: Diagnosis Discharge Diagnosis (1) Abdominal wound dehiscence: Status: Acute (2) Elevated liver enzymes: Status: Acute (3) Pulmonary emboli: Status: Acute (4) Obstructive sleep apnea: Status: Chronic (5) IDDM (insulin dependent diabetes mellitus): Status: Chronic (6) Crohn's disease: Status: None (7) Exacerbation of Crohn's disease: Status: Chronic (8) A-fib: Status: Chronic (9) Prostate cancer: Status: None Discharge Plan Disposition Patient Disposition: HOME W/HOME HEALTH SERVICE Condition: Improving Discharge Details Reason For Visit: DIARRHEA, VOLUME DEPLETION Admit Date/Time: 08/11/20 16:36 Admit Provider: Alonso Covarrubias Attending Provider: Alonso Covarrubias Primary Care Provider: Kenney Greer Hospital Course Hospital Course: This is a 70 yo male with a h/o DM2/insulin requiring, Crohn's disease s/o small resection with ostomy, post-op surgical wound dehiscence, metastatic prostate cancer, squamous cell cancer, melanoma. He presented to the ED with concern of significant increase in his ostomy output on the day of admission. His typical output is 2400ml/day. In the ED at appx 2:30 he endorsed having had 3000ml out already. He endorses weakness, and emesis x 3. He denied abd pain. Some back discomfort that attributes to lying on back for too long. No dysuria, frequency. cough/sputum, CP/palpitations. WBC count modestly elevated at 11.03. Hgb normal. Na 135, K 4.0, BUN 43, creatinine 1.9. Glucose 188. Mg 2.1. Total bilirubin 1.9. AST 73. ALT 118. No hypotension, hypoxia noted. No fever. A stress of steroid was initiated; hydrocortisone 100mg IV Q12 hours. His ostomy output normalized and he had no further emesis. He endorsed feeling that he was back to his normal baseline. Stool was negative for C. Difficile. Follow up with PCP in 1-2 weeks. Home Meds and New Rx's Prescriptions: Continued prednisone 5 mg tablet 10 mg PO BID RF: 0 acetaminophen [Tylenol Extra Strength] 500 MG tablet 1,000 mg PO Q8H PRN PRNRF: 0 balsalazide 750 MG capsule 2,250 mg PO TID RF: 0 ferrous gluconate 324 mg (37.5 mg iron) tablet 324 mg PO BID RF: 0 nitroglycerin [Nitrostat] 0.4 MG tablet, sublingual 0.4 mg Sublingual Q5 MIN PRN X3 PRNQty: 15 RF: 0 cyanocobalamin (vitamin B-12) 1,000 mcg/mL solution 1,000 mcg IM QMONTH RF: 0 ergocalciferol (vitamin D2) [Vitamin D2] 50,000 unit capsule 50,000 unit PO .2x weekly RF: 0 hydrocodone-acetaminophen 10-325 mg tablet 1 tab PO Q4H PRNRF: 0 (DME) BD SafetyGlide Syringe 3 mL 25 x 5/8 syringe MISCELLANEOUS RF: 0 (DME) OneTouch Verio test strips Strip MISCELLANEOUS RF: 0 calcium carbonate 500 MG tablet,chewable 1,000 mg CH QID PRNRF: 0 pramipexole 0.5 mg tablet 1 mg PO HS RF: 0 levothyroxine 75 mcg Tablet 75 mcg PO DAILY RF: 0 loratadine 10 mg Tablet 10 mg PO DAILY PRNRF: 0 clotrimazole 1 % cream 1 applic TOPICAL DIRECTED PRNRF: 0 (DME) pen needle, diabetic [BD Ultra-Fine Mini Pen Needle] 31 gauge x 3/16 needle MISCELLANEOUS RF: 0 Basaglar KwikPen U-100 Insulin 100 unit/mL (3 mL) insulin pen 25 unit SUBCUT HS RF: 0 trazodone 50 mg tablet 50 mg PO HS RF: 0 ondansetron 4 mg tablet,disintegrating 4 mg PO DIRECTED PRNRF: 0 enoxaparin [Lovenox] 100 mg/mL Syringe 100 mg SUBCUT Q12H RF: 0 lidocaine 5 % ointment 1 applic topical QID PRNRF: 0 Discharge Instructions Instructions: Crohn Disease (DC) Stand Alone Forms: Nursing Discharge Form Referrals: Kneney Greer MD [Primary Care Provider] - Activity:: Activity as Tolerated Equipment/Supplies:: No Equipment Needed Diet:: resume clear liquids Discharge Orders Discharge Orders: Discharge Order (Routine); Ordered 08/12/20 Ordered By: Alonso Covarrubias DS: Summary Time Spent with Patient providing and/or coordinating discharge services: Greater than 30 minutes Status at Discharge Functional status at discharge: uses cane/walker Overall status at discharge: patient is progressing back to baseline Mental Status: mental status grossly normal Speech and Movement: speech and movement normal Mood: congruent mood Affect: blunted Exam Const General: cooperative and no acute distress Nutritional Appearance: average body habitus Orientation: alert and oriented x3 Resp Effort & Inspection: normal respiratory effort Auscultation: clear to auscultation bilaterally Cardio Rate: regular rate Rhythm: regular rhythm Heart Sounds: S1 normal and S2 normal GI Inspection: other (stoma with ostomy appliance in place.) Palpation: soft and nontender Neuro General: moves all extremities Cognition: normal cognition Speech: speech normal Extrem General: no pedal edema and no calf tenderness Psych Mental Status: mental status grossly normal Speech and Movement: speech and movement normal Mood: congruent mood Affect: blunted DS: Data Vitals/I&O Vitals and I&O: Vital Signs Temperature 36.6 C 08/12/20 08:06 Temperature Source Tympanic 08/12/20 08:06 Pulse 70 08/12/20 08:06 Pulse Rhythm Regular 08/12/20 01:29 Respiratory Rate 20 08/12/20 08:06 Respiratory Effort Non-Labored 08/12/20 01:29 Respiratory Depth Normal 08/12/20 01:29 Respiratory Pattern Normal 08/12/20 01:29 Blood Pressure 96/58 L 08/12/20 08:06 Blood Pressure Mean 87 08/11/20 15:16 Blood Pressure Position Sitting 08/11/20 14:32 Pulse Oximetry 96 08/12/20 08:06 Oxygen Delivery Method Room Air 08/12/20 08:06 Oxygen Flow Rate 0 08/12/20 08:06 Fraction of Inspired Oxygen (FIO2) 08/12/20 00:41 Pain Level 8 08/12/20 08:33 Intake & Output 08/11/20 08/11/20 08/12/20 11:59 23:59 11:59 Intake Total 1000 / 1000 Output Total 950 / 950 1100 / 1100 Balance -950 / -950 -100 / -100 Weight 88.904 kg 87.9 kg Intake: IV 1000 / 1000 Output: Urine 100 / 100 650 / 650 Stool 850 / 850 450 / 450 Other: Urine Color Dark Nitza Light Nitza Urine Appearance Clear Clear Urine Odor None None Stool Size Large Stool Characteristics Liquid Liquid Emesis Description Clear/Water Voiding Methods Urinal Urinal Data Completed and Pending Labs on day of discharge: Labs from last 24 hours 08/12/20 08/12/20 08/12/20 06:50 06:50 06:50 WBC 6.97 D RBC 4.11 L Hgb 11.6 L D Hct 36.9 L MCV 89.8 MCH 28.2 MCHC 31.4 L RDW 17.4 H Plt Count 176 MPV 9.2 Immature Gran % 0.3 Neutrophils % 75.3 Lymphocytes % 16.5 Monocytes % 7.5 Eosinophils % 0.1 Basophils % 0.3 Nucleated RBC % 0 Absolute Neutrophils 5.25 Absolute Lymphocytes 1.15 L Absolute Monocytes 0.52 Absolute Eosinophils 0.01 Absolute Basophils 0.02 Sodium 138 Potassium 3.9 Chloride 102 Carbon Dioxide 24.9 Anion Gap 11.1 H BUN 38 H Creatinine 0.9 Estimated GFR/1.73 m2 >= 60.00 Glucose 127 H Calcium 9.2 Magnesium 1.9 Total Bilirubin 1.7 H AST 66 H ALT 108 H Alkaline Phosphatase 198 H Total Protein 7.4 Albumin 3.2 L Lipase Urine Color Urine Clarity Urine pH Ur Specific [employer] Urine Protein Urine Ketones Urine Blood Urine Nitrite Urine Bilirubin Urine Urobilinogen Ur Leukocyte Esterase Urine Glucose Stl C.difficile Tox PCR COVID-19 Source SARS-CoV-2 (PCR) Influenza Type A (PCR) Influenza Type B (PCR) RSV (PCR) 08/11/20 08/11/20 08/11/20 16:48 15:25 15:22 WBC RBC Hgb Hct MCV MCH MCHC RDW Plt Count MPV Immature Gran % Neutrophils % Lymphocytes % Monocytes % Eosinophils % Basophils % Nucleated RBC % Absolute Neutrophils Absolute Lymphocytes Absolute Monocytes Absolute Eosinophils Absolute Basophils Sodium Potassium Chloride Carbon Dioxide Anion Gap BUN Creatinine Estimated GFR/1.73 m2 Glucose Calcium Magnesium Total Bilirubin AST ALT Alkaline Phosphatase Total Protein Albumin Lipase Urine Color Pending Urine Clarity Pending Urine pH Pending Ur Specific [employer] [place] Pending Urine Protein Pending Urine Ketones Pending Urine Blood Pending Urine Nitrite Pending Urine Bilirubin Pending Urine Urobilinogen Pending Ur Leukocyte Esterase Pending Urine Glucose Pending Stl C.difficile Tox PCR Negative COVID-19 Source Nasopharyx SARS-CoV-2 (PCR) Negative Influenza Type A (PCR) Negative Influenza Type B (PCR) Negative RSV (PCR) Negative 08/11/20 08/11/20 08/11/20 15:19 15:19 15:19 WBC 11.03 H RBC 4.83 Hgb 13.7 Hct 43.6 MCV 90.3 MCH 28.4 MCHC 31.4 L RDW 17.7 H Plt Count 175 MPV 9.7 Immature Gran % 0.2 Neutrophils % 89.8 Lymphocytes % 5.4 Monocytes % 3.9 Eosinophils % 0.5 Basophils % 0.2 Nucleated RBC % 0 Absolute Neutrophils 9.90 H Absolute Lymphocytes 0.60 L Absolute Monocytes 0.43 Absolute Eosinophils 0.06 Absolute Basophils 0.02 Sodium 135 L Potassium 4.0 Chloride 98 Carbon Dioxide 22.8 Anion Gap 14.2 H BUN 43 H Creatinine 1.0 Estimated GFR/1.73 m2 >= 60.00 Glucose 188 H Calcium 9.9 Magnesium 2.1 Total Bilirubin 1.9 H AST 73 H ALT 118 H Alkaline Phosphatase 220 H Total Protein 8.9 H Albumin 3.9 Lipase 251 Urine Color Urine Clarity Urine pH Ur Specific [employer] [place] Urine Protein Urine Ketones Urine Blood Urine Nitrite Urine Bilirubin Urine Urobilinogen Ur Leukocyte Esterase Urine Glucose Stl C.difficile Tox PCR COVID-19 Source SARS-CoV-2 (PCR) Influenza Type A (PCR) Influenza Type B (PCR) RSV (PCR) PFSH Medical History Afib Bilateral hip pain Bone lesion Chest pain Crohn's disease Diabetes Drug hypersensitivity Dyspepsia Elevated liver enzymes Fibromyalgia GERD (gastroesophageal reflux disease) Hot flash in male HTN (hypertension) Hx of adenomatous colonic polyps Hx of melanoma excision Hypomania IBS (irritable bowel syndrome) Leg erythema residential current use of anticoagulant Migraine Neuropathy Nocturnal hypoxia Obstructive sleep apnea a. Nocturnal CPAP Osteopenia PE (pulmonary thromboembolism) Periodic limb movement disorder Post poliomyelitis syndrome Prostate cancer Rectal bleeding Rectal pain Right ankle pain Saphenous vein phlebitis Sebaceous cyst Sensorineural hearing loss Sleep apnea Squamous cell carcinoma of hand Superficial phlebitis of leg Swelling of left lower extremity Vitamin B12 deficiency Surgical History ankle surgery, right Arthroplasty of knee bilat Arthroscopy, Shoulder left shoulder repair Colectomy x3 deep muscle biopsy, left calf muscle Hernia Repair, Incisional (03/22/16) intestinal obstruction with incarcerated incisional hernia, lysis of adhesions Family History Mother No problems noted. Father Kidney malignancy Son No problems noted. 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 Grew up in [place]
--- NOTE | 2020-08-12 09:48 | PDOC.CMIN ---
- If Service Date Differs Date of service: 08/12/20 Time of Service: 09:48
--- NOTE | 2020-08-12 10:08 | PDOC.HHF2F_ITS ---
Home Health Certification Home Health Certification: 1. Encounter Date and Reason I certify that ALONSO TYLER was seen by Alonso Covarrubias MD on 08/12/20 and that I had a [id number] encounter with this patient that meets the physician face to face encounter requirements. 2. Clinical Findings Supporting Skilled Need and Homebound Status I certify that home health services are medically necessary, include either intermittent group home and/or physical/speech therapy, and that this pat ient is homebound in that absences from the home require considerable and taxing effort and are infrequent or of short duration, or are attributable to the need to receive medical care. [X] (a) Attached documentation from encounter provides clinical findings supporting skilled need and homebound status (including what assistance patient requires to leave the home). The encounter with the patient was in whole, or in part, for the following medical condition, which is the primary reason for home health care: DIARRHEA, VOLUME DEPLETION Resume Services Retirement: Physical Therapy: Speech Therapy: Homebound: 3. Certification and Authentication I certify that I composed the above information based on my clinical judgement relating to this patient's medical condition and, if applicable, clinical findings communicated to me by the NPP or inpatient physician who performed the Home Health Referral. All further orders will be obtained through _Dr Greer (Formerly [facility] Based Physician - PCP)
--- NOTE | 2020-08-12 10:08 | PDOC.CMIN ---
- If Service Date Differs Date of service: 08/12/20 Time of Service: 12:49 Care Management Initial Assess REASON FOR HOSPITALIZATION:: Abdominal wound dehiscence PAST MEDICAL HISTORY/PAST SURGICAL HISTORY:: Medical History (Updated 08/11/20 @ 20:28 by Alonso Covarrubias MD). Afib. Bilateral hip pain. Bone lesion. Chest pain. Crohn's disease. Diabetes. Drug hypersensitivity. Dyspepsia. Elevated liver enzymes. Fibromyalgia. GERD (gastroesophageal reflux disease). Hot flash in male. HTN (hypertension). Hx of adenomatous colonic polyps. Hx of melanoma excision. Hypomania. IBS (irritable bowel syndrome). Leg erythema. 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 Migraine. Neuropathy. Nocturnal hypoxia. Obstructive sleep apnea. a. Nocturnal CPAP. Osteopenia. PE (pulmonary thromboembolism). Periodic limb movement disorder. Post poliomyelitis syndrome. Prostate cancer. Rectal bleeding. Rectal pain. Right ankle pain. Saphenous vein phlebitis. Sebaceous cyst. Sensorineural hearing loss. Sleep apnea. Squamous cell carcinoma of hand. Superficial phlebitis of leg. Swelling of left lower extremity. Vitamin B12 deficiency. Surgical History . ankle surgery, right. Arthroplasty of knee. bilat. Arthroscopy, Shoulder. left shoulder repair. Colectomy. x3. deep muscle biopsy, left calf muscle. Hernia Repair, Incisional (03/22/16). intestinal obstruction with incarcerated incisional hernia, lysis of adhesions. Family History . Mother . No problems noted. Father . Kidney malignancy. Son. No problems noted. PREVIOUS FUNCTIONAL STATUS/SOCIAL/FAMILY SUPPORTS:: Alonso and his , Carol, live in [facility]. Together they have three children (two daughters and one son). The oldest daughter, Carri, lives in [place], [place], and the other two children reside in the [place] area. 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 She shares her parents have been for 47 years. CURRENT FUNCTIONAL STATUS:: Alonso was discharged at 10:55 this morning before CM was able to meet with him. ADVANCE DIRECTIVES:: On file. Carol Wiley - FERNANDO Has patient been provided with info about the portal/API?: Yes Did the patient sign up for the portal?: Yes (previously) CODE STATUS:: Full Code INSURANCE COVERAGE / FINANCIAL ISSUES:: Medicare. Medicaid CURRENT HOME/COMMUNITY SERVICES/EQUIPMENT:: SN - RN, PT, OT [facility] PRIMARY CARE PHYSICIAN:: Kenney Greer POTENTIAL DISCHARGE NEEDS:: Followup with PCP and discharge plan of care PATIENT/FAMILY EDUCATION NEEDS:: Discharge plan, limitations, folllow up plan, Ask Me Three TRANSPORTATION:: via private vehicle with PLAN:: Alonso will be discharged home with a resumption of home services which include caregivers and RN, PT, and OT. He will follow up with his community providers and plan of care and transport with via private vehicle.
--- NOTE | 2020-08-12 15:14 | CMDISCH_ITS ---
- If Service Date Differs Date of service: 08/12/20 Time of Service: 15:14 LACE Index Scoring Tool - Questions: Length of Stay (in days): 1 Acuity (Admit via E.D.?): Yes Comorbidities: Diabetes w/o Complication, Any Tumor E.D. Visits: 7 - Answers: Total Score: 11 Risk of Readmission: High Risk Care Management Discharge Reason for Hospitalization: Abdominal wound dehiscence Discharge Plan: Alonso will be discharged home with a resumption of home ser vices which include caregivers and RN, PT, and OT. He will follow up with his community providers and plan of care and transport with via private vehicle. Patient/Family Education Needs: Discharge plan, limitations, folllow up plan, Ask Me Three Services Needed at Discharge: Home Health Care Services
== END 2020-08-12 10:49 | disposition home health service (06) ==
LOC: ER 16:42 → MS 17:16
PROVIDERS: Admitting Provider Family Medicine; Emergency Provider Student in an Organized Health Care Education/Training Program; PCP Internal Medicine; Visit Provider Family Medicine
DX: T81.31XA Disruption of external operation (surgical) wound, not elsewhere classified, initial encounter (principal); Y73.2 Prosthetic and other implants, materials and accessory gastroenterology and urology devices associated with adverse incidents; G47.33 Obstructive sleep apnea (adult) (pediatric); Z79.4 Long term (current) use of insulin; I27.82 Chronic pulmonary embolism; K50.913 Crohn's disease, unspecified, with fistula; I48.20 Chronic atrial fibrillation, unspecified; C61 Malignant neoplasm of prostate; C79.51 Secondary malignant neoplasm of bone; M79.7 Fibromyalgia; K21.9 Gastro-esophageal reflux disease without esophagitis; I10 Essential (primary) hypertension; F30.8 Other manic episodes; K58.9 Irritable bowel syndrome, unspecified; Z79.01 Long term (current) use of anticoagulants; G43.909 Migraine, unspecified, not intractable, without status migrainosus; E11.40 Type 2 diabetes mellitus with diabetic neuropathy, unspecified; G47.61 Periodic limb movement disorder; G14 Postpolio syndrome; H90.5 Unspecified sensorineural hearing loss; E53.8 Deficiency of other specified B group vitamins
CPT/HCPCS: 36415; 80053; 83690; 87493; 96360; 96361; 99222; 99239; 99285; 81003; 83735; 85025; 99217; 99219; 99284; G0378; J1650; J1720; J3490; J7042; J7512

== ENCOUNTER 2020-08-14 16:30 | Outpatient (REF) | payer MEDICARE, MEDICAID, SELFPAY ==
[2020-08-14 18:45] LABS: Abs Immature Grans 0.02 10^3/uL (0.0-0.06); Absolute Basophil Count 0.01 10^3/uL (0.0-0.2); Absolute Eosinophil Count 0.01 10^3/uL (0.0-0.7); Absolute Lymphocyte Count 0.76 10^3/uL (1.2-3.4); Absolute Monocyte Count 0.32 10^3/uL (0.1-0.8); Absolute Neutrophil Count 5.52 10^3/uL (1.2-6.7); Basophils % 0.2; Eosinophils % 0.2; HCT 34.6 % (40.0-50.0); HGB 10.8 g/dL (13.5-17.5); Immature Grans % 0.3; Lymphocytes % 11.4; MCH 28.3 pg (27.0-33.0); MCHC 31.2 % (32.0-36.0); MCV 90.6 fL (80-95); Monocytes % 4.8; Neutrophils % 83.1; Nucleated RBC 0 %; Platelet Count 171 10^3/uL (130-400); RBC 3.82 10^6/uL (4.36-5.78); RDW 17.2 % (11.8-14.1); RDW-SD 57.2 fL; WBC 6.64 10^3/uL (4.4-10.8)
[2020-08-14 18:59] LABS: ALT 92 U/L (16-63); AST 55 U/L (15-37); Albumin 3.3 g/dL (3.4-5.0); Alkaline Phosphatase 177 U/L (46-116); Anion Gap 8.9 mmol/L (3-11); BUN 31 mg/dL (7-18); Bilirubin, Total 1.6 mg/dL (0.2-1.0); CO2 26.1 mmol/L (21.0-32.0); CREATININE 0.8 mg/dL (0.70-1.30); Chloride 100 mmol/L (98-107); Glucose 107 mg/dL (74-106); Potassium 4.4 mmol/L (3.5-5.1); Sodium 135 mmol/L (136-145)
[2020-08-21 15:12] LABS: Testosterone, Total <7.0 ng/dL (240-950)
== END 2020-08-14 16:31 | disposition home or self-care (01) ==
LOC: LBN 16:30
PROVIDERS: PCP Internal Medicine; Visit Provider Internal Medicine
DX: C61 Malignant neoplasm of prostate (principal)
CPT/HCPCS: 80053; 84403; 84153; 85025

== ENCOUNTER 2020-08-16 19:57 | Outpatient (REF) | payer MEDICARE, MEDICAID, SELFPAY ==
[2020-08-16 16:13] LABS: Abs Immature Grans 0.03 10^3/uL (0.0-0.06); Absolute Basophil Count 0.02 10^3/uL (0.0-0.2); Absolute Eosinophil Count 0.04 10^3/uL (0.0-0.7); Absolute Lymphocyte Count 0.85 10^3/uL (1.2-3.4); Absolute Monocyte Count 0.41 10^3/uL (0.1-0.8); Absolute Neutrophil Count 6.23 10^3/uL (1.2-6.7); Basophils % 0.3; Eosinophils % 0.5; HGB 10.4 g/dL (13.5-17.5); Immature Grans % 0.4; Lymphocytes % 11.2; MCH 28.7 pg (27.0-33.0); MCHC 31.5 % (32.0-36.0); MCV 90.9 fL (80-95); MPV 10.2 fL (8.0-11.0); Monocytes % 5.4; Neutrophils % 82.2; Nucleated RBC 0 %; Platelet Count 173 10^3/uL (130-400); RBC 3.63 10^6/uL (4.36-5.78); RDW 17.7 % (11.8-14.1); RDW-SD 58.6 fL; WBC 7.58 10^3/uL (4.4-10.8)
[2020-08-16 16:47] LABS: ALT 97 U/L (16-63); AST 62 U/L (15-37); Albumin 3.2 g/dL (3.4-5.0); Alkaline Phosphatase 165 U/L (46-116); Anion Gap 8.2 mmol/L (3-11); BUN 29 mg/dL (7-18); Bilirubin, Total 1.5 mg/dL (0.2-1.0); CO2 25.8 mmol/L (21.0-32.0); CREATININE 0.7 mg/dL (0.70-1.30); Calcium 8.6 mg/dL (8.5-10.1); Chloride 102 mmol/L (98-107); Glucose 100 mg/dL (74-106); Magnesium 1.8 mg/dL (1.8-2.4); Potassium 4.7 mmol/L (3.5-5.1); Sodium 136 mmol/L (136-145); Total Protein 6.7 g/dL (6.4-8.2); Triglyceride 254 mg/dL (<150)
[2020-08-16 17:02] LABS: PHOSPHORUS 3.3 mg/dL (2.6-4.7)
[2020-08-19 08:51] LABS: Prealbumin 31 mg/dL (20-40)
== END 2020-08-16 19:58 | disposition home or self-care (01) ==
LOC: NCHCN 19:57
PROVIDERS: PCP Internal Medicine; Visit Provider Internal Medicine
DX: K50.913 Crohn's disease, unspecified, with fistula (principal)
CPT/HCPCS: 80053; 83735; 84100; 84134; 84478; 85025

== ENCOUNTER 2020-08-17 19:07 | Emergency (ER) | payer MEDICARE, MEDICAID, SELFPAY ==
[2020-08-17] VITALS (21 sets, daily range): BP systolic 107–132; BP diastolic 71–86; PULSE 66–78; RESP 16–26; TEMP 36.7; O2SAT 94–95
--- NOTE | 2020-08-17 19:49 | W.ED.GENAD ---
Discharge Plan Disposition Patient Disposition: HOME Condition: Stable Discharge Details Clinical Impression: GI bleed Primary Care Provider: Kenney Greer ED Provider: Eran Huang Home Meds and New Rx's Prescriptions: Continued prednisone 5 mg tablet 10 mg PO BID RF: 0 acetaminophen [Tylenol Extra Strength] 500 MG tablet 1,000 mg PO Q8H PRN PRNRF: 0 balsalazide 750 MG capsule 2,250 mg PO TID RF: 0 ferrous gluconate 324 mg (37.5 mg iron) tablet 324 mg PO BID RF: 0 nitroglycerin [Nitrostat] 0.4 MG tablet, sublingual 0.4 mg Sublingual Q5 MIN PRN X3 PRNQty: 15 RF: 0 cyanocobalamin (vitamin B-12) 1,000 mcg/mL solution 1,000 mcg IM QMONTH RF: 0 ergocalciferol (vitamin D2) [Vitamin D2] 50,000 unit capsule 50,000 unit PO .2x weekly RF: 0 hydrocodone-acetaminophen 10-325 mg tablet 1 tab PO Q4H PRNRF: 0 (DME) BD SafetyGlide Syringe 3 mL 25 x 5/8 syringe MISCELLANEOUS RF: 0 (DME) OneTouch Verio test strips Strip MISCELLANEOUS RF: 0 calcium carbonate 500 MG tablet,chewable 1,000 mg CH QID PRNRF: 0 pramipexole 0.5 mg tablet 1 mg PO HS RF: 0 levothyroxine 75 mcg Tablet 75 mcg PO DAILY RF: 0 loratadine 10 mg Tablet 10 mg PO DAILY PRNRF: 0 clotrimazole 1 % cream 1 applic TOPICAL DIRECTED PRNRF: 0 (DME) pen needle, diabetic [BD Ultra-Fine Mini Pen Needle] 31 gauge x 3/16 needle MISCELLANEOUS RF: 0 Basaglar KwikPen U-100 Insulin 100 unit/mL (3 mL) insulin pen 25 unit SUBCUT HS RF: 0 trazodone 50 mg tablet 50 mg PO HS RF: 0 ondansetron 4 mg tablet,disintegrating 4 mg PO DIRECTED PRNRF: 0 enoxaparin [Lovenox] 100 mg/mL Syringe 100 mg SUBCUT Q12H RF: 0 lidocaine 5 % ointment 1 applic topical QID PRNRF: 0 Discharge Instructions Instructions: Gastrointestinal Bleeding (ED) Additional Instructions: At this time you appear hemodynamically stable, your hemoglobin and hematocrit appear to be at baseline, you are not requiring any blood transfusion. I personally spoke with Dr. Mark, surgery, at [facility]. He is aware of your case and your evaluation this evening. He feels as though you being discharged is reasonable with a clear understanding that if your symptoms worsen or evolve you must return back to our facility for likely transfer down to [facility] for observation. Otherwise the surgical clinic will be calling you on Wednesday and likely set up an appointment with you on Wednesday as an outpatient. Medical Decision Making This is a 70-year-old gentleman with complicated surgical abdominal history presenting to the ER today via EMS for evaluation after noticing blood in his colostomy bag. He has no other concerns or complaints. Patient appears well, nontoxic, hemodynamically stable. Guaiac positive stools. Will obtain IV access, obtain CBC, CMP, coag and reassess. Laboratory values do not reveal any obvious emergent process, anemia appears to be near baseline. Patient remains hemodynamically stable under my care. Coags unremarkable. I see no clear indication for emergent transfusion. Given the patient's complicated medical history, I would like to consult with surgery at [facility]. I was able to speak with Dr. Mark, surgery. He felt as though the patient did not require any emergent surgical intervention, transfer, or admission. Patient will be given strict return precautions such as return to our ER for worsening bleeding, development of fever, increasing pain, etc. The understanding would be that patient would likely require transfer to [facility]. Dr. Mark will have the surgical clinic contact the patient on Wednesday and will likely see him as an outpatient on Wednesday. I discussed this conversation with the patient, he is relieved as he would prefer to go home. He is asymptomatic. His stool remains to be brown. He believes that the overall appearance of his colostomy bag appears significantly better than this afternoon. I do not see any bright red blood, it does appear to be improving when compared to his initial presentation. Patient has no additional questions or concerns and is comfortable discharge. Patient contacted his family who is willing to pick him up in his current state. Patient remains hemodynamically stable. Medical Records Medical records reviewed: Yes I reviewed the patient's medical records. Lab Data Lab results reviewed: Yes I reviewed the patient's lab results. Lab results narrative: Laboratory Tests Range/Units 08/17/20 08/17/20 08/17/20 19:20 19:20 19:20 WBC (4.4-10.8) 10^3/uL 7.05 RBC (4.36-5.78) 10^6/uL 3.56 L Hgb (13.5-17.5) g/dL 10.3 L Hct (40.0-50.0) % 32.6 L MCV (80-95) fL 91.6 MCH (27.0-33.0) pg 28.9 MCHC (32.0-36.0) % 31.6 L RDW (11.8-14.1) % 17.9 H Plt Count (130-400) 10^3/uL 176 MPV (8.0-11.0) fL 9.5 Immature Gran % 0.4 Neutrophils % 83.8 Lymphocytes % 9.8 Monocytes % 5.5 Eosinophils % 0.4 Basophils % 0.1 Nucleated RBC % % 0 Absolute Neutrophils (1.2-6.7) 10^3/uL 5.90 Absolute Lymphocytes (1.2-3.4) 10^3/uL 0.69 L Absolute Monocytes (0.1-0.8) 10^3/uL 0.39 Absolute Eosinophils (0.0-0.7) 10^3/uL 0.03 Absolute Basophils (0.0-0.2) 10^3/uL 0.01 PT (9.3-11.0) sec 11.0 INR (0.9-1.1) 1.1 APTT (21.0-27.5) sec 24.2 Sodium (136-145) mmol/L 136 Potassium (3.5-5.1) mmol/L 4.7 Chloride (98-107) mmol/L 102 Carbon Dioxide (21.0-32.0) mmol/L 24.2 Anion Gap (3-11) mmol/L 9.8 BUN (7-18) mg/dL 28 H Creatinine (0.70-1.30) mg/dL 0.7 Estimated GFR/1.73 m2 (mL/min/1.73m2) >= 60.00 Glucose (74-106) mg/dL 145 H Calcium (8.5-10.1) mg/dL 9.1 Total Bilirubin (0.2-1.0) mg/dL 1.4 H AST (15-37) U/L 72 H ALT (16-63) U/L 102 H Alkaline Phosphatase (46-116) U/L 170 H Total Protein (6.4-8.2) g/dL 7.3 Albumin (3.4-5.0) g/dL 3.2 L Lipase (73-393) U/L 151 HPI General Mode of arrival: EMS. Date/Time Provider Initiated Documentation: 08/17/20 19:13. Limitations to Documentation: no limitations. Information obtained by: patient and EMS. HPI Narrative: This is a 70-year-old gentleman with a past medical history that includes A. fib, SBO, anemia, Crohn's disease, PE, diabetes, currently taking Lovenox, and a complicated abdominal surgical history. He has had multiple bowel resections which has led to multiple small bowel obstructions and adhesions. He had ventral hernias that were repaired and eventually dehisced. Recently he has had 3 fistulas that are draining into the colostomy bag. He is followed at [facility] by their surgical team. He states that earlier today his noticed there was blood coming from his fistulas into his colostomy bag. He feels as though it was heavier this afternoon and is better now. He denies any fever, chest pain, shortness of breath, abdominal pain, nausea, vomiting, black tarry stools. Patient denies any pain in his abdomen whatsoever. He reports chronic musculoskeletal pain, back pain, that is primarily positional. He reports that he is due for his nightly doses of 2 hydrocodone for his chronic pain. Related Data Home Medications Medication Instructions Recorded Confirmed acetaminophen [Tylenol Extra 1,000 mg PO Q8H PRN PRN tab-cap NS 03/29/13 08/11/20 Strength] nitroglycerin [Nitrostat] 0.4 mg SUBLINGUAL Q5 MIN PRN X3 04/23/15 08/11/20 PRN #15 tab balsalazide 2,250 mg PO TID 09/24/15 08/11/20 calcium carbonate 1,000 mg CH QID PRN 06/27/17 08/11/20 cyanocobalamin (vitamin B-12) 1,000 mcg IM QMONTH ml 01/23/19 08/11/20 1,000 mcg/mL injection solution ergocalciferol (vitamin D2) 1,250 50,000 unit PO .2x weekly cap 01/23/19 08/11/20 mcg (50,000 unit) capsule ferrous gluconate 324 mg (37.5 mg 324 mg PO BID tab 01/23/19 08/11/20 iron) tablet pramipexole 0.5 mg tablet 1 mg PO HS tab 01/23/19 08/11/20 levothyroxine 75 mcg PO DAILY 04/29/19 08/11/20 prednisone 5 mg tablet 10 mg PO BID tab 07/25/19 08/11/20 hydrocodone-acetaminophen 1 tab PO Q4H PRN 10/01/19 08/11/20 BD SafetyGlide Syringe 03/05/20 03/05/20 OneTouch Verio test strips 03/05/20 03/05/20 Basaglar KwikPen U-100 Insulin 25 unit SUBCUT HS 03/18/20 07/05/20 clotrimazole 1 applic TOPICAL DIRECTED PRN 03/18/20 08/11/20 loratadine 10 mg PO DAILY PRN 03/18/20 08/11/20 pen needle, diabetic [BD 03/18/20 03/18/20 Ultra-Fine Mini Pen Needle] trazodone 50 mg PO HS 03/18/20 08/11/20 ondansetron 4 mg PO DIRECTED PRN 05/30/20 08/11/20 enoxaparin [Lovenox] 100 mg SUBCUT Q12H 07/05/20 08/11/20 lidocaine 1 applic TOPICAL QID PRN 07/05/20 08/11/20 Previous Rx's Medication Instructions Recorded nitroglycerin [Nitrostat] 0.4 mg SUBLINGUAL Q5 MIN PRN X3 04/23/15 PRN #15 tab Allergies Allergy/AdvReac Type Severity Reaction Status Date / Time Sulfa (Sulfonamide Allergy Mild Skin Rash Verified 08/17/20 19:14 Antibiotics) atenolol Allergy Verified 08/17/20 19:14 atorvastatin Allergy Verified 08/17/20 19:14 gabapentin Allergy Verified 08/17/20 19:14 nicardipine Allergy Verified 08/17/20 19:14 salsalate Allergy Verified 08/17/20 19:14 tramadol Allergy Verified 08/17/20 19:14 venlafaxine Allergy Verified 08/17/20 19:14 ciprofloxacin HCl AdvReac Severe ruptured Verified 08/17/20 19:14 [From Cipro] achilles tendon hydrochlorothiazide AdvReac Severe myalgias Verified 08/17/20 19:14 [From Benicar HCT] indapamide AdvReac Severe chest pain Verified 08/17/20 19:14 olmesartan medoxomil AdvReac Severe myalgias Verified 08/17/20 19:14 [From Benicar HCT] terazosin [Terazosin] AdvReac Severe tremor, GI Verified 08/17/20 19:14 upset aliskiren [Aliskiren] AdvReac Intermediate diarrhea Verified 08/17/20 19:14 amlodipine AdvReac Intermediate fatigue Verified 08/17/20 19:14 denosumab [From Xgeva] AdvReac Intermediate Verified 08/17/20 19:14 enalapril [Enalapril] AdvReac Intermediate shakes, Verified 08/17/20 19:14 weakness montelukast sodium AdvReac Intermediate rectal Verified 08/17/20 19:14 [From Singulair] irritation pregabalin [From Lyrica] AdvReac Intermediate sleep Verified 08/17/20 19:14 issues spironolactone AdvReac Intermediate headache Verified 08/17/20 19:14 General Stated Complaint: GenMedical ELMO: 3 Review of Systems Constitutional Constitutional: Denies fatigue, Denies fever(s) and Denies headache(s) ENT Ears, Nose, Mouth, and Throat: Denies headache(s) Cardiovascular Cardiovascular: Denies chest pain and Denies dyspnea Respiratory Respiratory: Denies dyspnea Gastrointestinal Gastrointestinal: Denies abdominal pain, Denies melena, Reports hematochezia, Denies nausea and Denies vomiting Genitourinary Genitourinary: Denies hematuria and Denies dysuria Musculoskeletal Musculoskeletal: Denies myalgias Integumentary/Breasts Skin/Breast: Denies rash Neurologic Neurologic: Denies headache(s) Endocrine Endocrine: Denies fatigue Hematologic/Lymphatic Hematologic/Lymphatic: Reports easy bleeding and Reports easy bruising PFSH Medical History Afib Bilateral hip pain Bone lesion Chest pain Crohn's disease Diabetes Drug hypersensitivity Dyspepsia Elevated liver enzymes Fibromyalgia GERD (gastroesophageal reflux disease) Hot flash in male HTN (hypertension) Hx of adenomatous colonic polyps Hx of melanoma excision Hypomania 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 Nocturnal CPAP Osteopenia PE (pulmonary thromboembolism) Periodic limb movement disorder Post poliomyelitis syndrome Prostate cancer Rectal bleeding Rectal pain Right ankle pain Saphenous vein phlebitis Sebaceous cyst Sensorineural hearing loss Sleep apnea Squamous cell carcinoma of hand Superficial phlebitis of leg Swelling of left lower extremity Vitamin B12 deficiency Surgical History ankle surgery, right Arthroplasty of knee bilat Arthroscopy, Shoulder left shoulder repair Colectomy x3 deep muscle biopsy, left calf muscle Hernia Repair, Incisional (03/22/16) intestinal obstruction with incarcerated incisional hernia, lysis of adhesions Family History Mother No problems noted. Father Kidney malignancy Son No problems noted. Social History Smoking/Tobacco Use Status: Never Smoking risk assessment performed?: Yes Alcohol Intake: never Drug use: Never Substance use type: does not use What type of physical activity do you participate in: none Do you feel safe at home: Yes Do you feel safe in your relationship?: Yes Exam Const General: cooperative, comfortable and no acute distress Orientation: alert, awake and oriented x3 HENMT Head: normal to inspection, normocephalic and atraumatic Face and sinus: normal facial exam Mouth: moist mucous membranes Eyes General: appearance normal, both eyes and all related structures Conjunctivae: conjunctivae normal Neck Neck: normal visual inspection, full ROM, trachea midline and supple Resp Effort & Inspection: normal respiratory effort and able to speak in complete sentences Auscultation: clear to auscultation bilaterally Cardio Rate: regular rate Rhythm: abnormal rhythm irregularly irregular GI Inspection: non-distended and obesity Palpation: soft, not firm, no guarding, no pulsatile masses and nontender Auscultation: normal bowel sounds Rectal Exam: heme positive stool Other: Patient has 3 fistulas in the central-right aspect of his abdomen that are actively draining to a colostomy bag. Visualize brown stool with a tinge of red blood I do not appreciate any black tarry stools or bright red blood. Patient has multiple areas of ecchymosis to his abdomen, states baseline from his Lovenox. Back/Spine/Pelvis Back: back tenderness (Diffuse mild lumbar) Skin General skin exam: no rashes or lesions noted Neuro General: patient alert, patient awake, patient oriented x3, moves all extremities and no focal motor deficits Cognition: normal cognition Speech: speech normal Sensory Exam: no sensory deficits noted Extrem General: capillary refill normal Psych Appearance: grossly normal Mental Status: mental status grossly normal Course Vital Signs Vital signs: Vital Signs Temperature 36.7 C 08/17/20 19:05 Pulse 78 08/17/20 19:05 Respiratory Rate 16 08/17/20 19:05 Blood Pressure 132/74 08/17/20 19:05 Pulse Oximetry 95 08/17/20 19:05 Temperature 36.7 C 08/17/20 19:05 Temperature Source Skin 08/17/20 19:05 Pulse 78 08/17/20 19:05 Respiratory Rate 18 08/17/20 19:34 Respiratory Effort 08/17/20 19:34 Respiratory Depth Normal 08/17/20 19:34 Respiratory Pattern Normal 08/17/20 19:34 Blood Pressure 132/74 08/17/20 19:05 Blood Pressure Position Supine 08/17/20 19:05 Pulse Oximetry 95 08/17/20 19:05 Oxygen Delivery Method Room Air 08/17/20 19:05 Oxygen Flow Rate 0 08/17/20 19:05 Pain Level 4 08/17/20 19:05
[2020-08-17 19:52] LABS: Abs Immature Grans 0.03 10^3/uL (0.0-0.06); Absolute Basophil Count 0.01 10^3/uL (0.0-0.2); Absolute Eosinophil Count 0.03 10^3/uL (0.0-0.7); Absolute Lymphocyte Count 0.69 10^3/uL (1.2-3.4); Absolute Monocyte Count 0.39 10^3/uL (0.1-0.8); Basophils % 0.1; Eosinophils % 0.4; HCT 32.6 % (40.0-50.0); HGB 10.3 g/dL (13.5-17.5); Immature Grans % 0.4; Lymphocytes % 9.8; MCH 28.9 pg (27.0-33.0); MCHC 31.6 % (32.0-36.0); MCV 91.6 fL (80-95); MPV 9.5 fL (8.0-11.0); Monocytes % 5.5; Neutrophils % 83.8; Nucleated RBC 0 %; Platelet Count 176 10^3/uL (130-400); RBC 3.56 10^6/uL (4.36-5.78); RDW 17.9 % (11.8-14.1); RDW-SD 59.3 fL; WBC 7.05 10^3/uL (4.4-10.8)
[2020-08-17 19:54] LABS: ALT 102 U/L (16-63); AST 72 U/L (15-37); Albumin 3.2 g/dL (3.4-5.0); Alkaline Phosphatase 170 U/L (46-116); Anion Gap 9.8 mmol/L (3-11); BUN 28 mg/dL (7-18); Bilirubin, Total 1.4 mg/dL (0.2-1.0); CO2 24.2 mmol/L (21.0-32.0); CREATININE 0.7 mg/dL (0.70-1.30); Calcium 9.1 mg/dL (8.5-10.1); Chloride 102 mmol/L (98-107); Glucose 145 mg/dL (74-106); Lipase 151 U/L (73-393); Potassium 4.7 mmol/L (3.5-5.1); Sodium 136 mmol/L (136-145); Total Protein 7.3 g/dL (6.4-8.2)
[2020-08-17] MEDS: HYDROcodone 5/Acetaminophen 325 TAB PO (19:54)
[2020-08-17 20:27] LABS: INR 1.1 (0.9-1.1); PTT Activated 24.2 sec (21.0-27.5)
--- NOTE | 2020-08-18 08:38 | NUR.NOTE ---
[facility] R[facility] called for update about pt visit on 08/17/2020. Advised pt had labs, provider spoke to surgery at [facility] and pt [place] home.
== END 2020-08-17 21:40 | disposition home or self-care (01) ==
PROVIDERS: Emergency Provider Physician Assistant; PCP Internal Medicine
DX: K92.2 Gastrointestinal hemorrhage, unspecified (principal); Z43.3 Encounter for attention to colostomy
CPT/HCPCS: 80053; 83690; 99283; 85025; 85610; 85730

== ENCOUNTER 2020-08-23 17:53 | Outpatient (REF) | payer MEDICARE, MEDICAID, SELFPAY ==
[2020-08-23 13:29] LABS: Abs Immature Grans 0.02 10^3/uL (0.0-0.06); Absolute Basophil Count 0.02 10^3/uL (0.0-0.2); Absolute Eosinophil Count 0.06 10^3/uL (0.0-0.7); Absolute Lymphocyte Count 0.76 10^3/uL (1.2-3.4); Absolute Monocyte Count 0.37 10^3/uL (0.1-0.8); Basophils % 0.3; Eosinophils % 0.9; HCT 34.4 % (40.0-50.0); HGB 10.8 g/dL (13.5-17.5); Immature Grans % 0.3; Lymphocytes % 11.1; MCH 29.1 pg (27.0-33.0); MCHC 31.4 % (32.0-36.0); MCV 92.7 fL (80-95); MPV 9.4 fL (8.0-11.0); Monocytes % 5.4; Nucleated RBC 0 %; Platelet Count 199 10^3/uL (130-400); RBC 3.71 10^6/uL (4.36-5.78); RDW 17.6 % (11.8-14.1); RDW-SD 59.8 fL; WBC 6.83 10^3/uL (4.4-10.8)
[2020-08-23 13:48] LABS: ALT 103 U/L (16-63); AST 58 U/L (15-37); Alkaline Phosphatase 164 U/L (46-116); Anion Gap 6.7 mmol/L (3-11); BUN 35 mg/dL (7-18); Bilirubin, Total 1.4 mg/dL (0.2-1.0); CO2 25.3 mmol/L (21.0-32.0); CREATININE 0.8 mg/dL (0.70-1.30); Calcium 8.8 mg/dL (8.5-10.1); Chloride 105 mmol/L (98-107); Glucose 113 mg/dL (74-106); Potassium 4.6 mmol/L (3.5-5.1); Sodium 137 mmol/L (136-145); TSH 7.99 uIU/mL (0.36-3.74); Total Iron Binding Capacity 437 ug/dL (250-450); Total Protein 6.7 g/dL (6.4-8.2); Triglyceride 158 mg/dL (<150)
[2020-08-23 16:20] LABS: Iron 75 ug/dL (65-175)
[2020-08-23 16:26] LABS: FREE T4 0.96 ng/dL (0.76-1.46); PHOSPHORUS 4.4 mg/dL (2.6-4.7)
[2020-08-26 09:06] LABS: Prealbumin 29 mg/dL (20-40)
== END 2020-08-23 17:54 | disposition home or self-care (01) ==
LOC: NCHCN 17:53
PROVIDERS: PCP Internal Medicine; Visit Provider Internal Medicine
DX: K92.2 Gastrointestinal hemorrhage, unspecified (principal); R53.83 Other fatigue; K50.913 Crohn's disease, unspecified, with fistula; E03.9 Hypothyroidism, unspecified
CPT/HCPCS: 80053; 83540; 83550; 83735; 84100; 84134; 84439; 84443; 84478; 85025

== ENCOUNTER 2020-08-30 14:06 | Outpatient (REF) | payer MEDICARE, MEDICAID, SELFPAY ==
[2020-08-30 14:48] LABS: ALT 93 U/L (16-63); AST 52 U/L (15-37); Albumin 3.2 g/dL (3.4-5.0); Alkaline Phosphatase 165 U/L (46-116); Anion Gap 10.9 mmol/L (3-11); BUN 31 mg/dL (7-18); Bilirubin, Total 1.2 mg/dL (0.2-1.0); CO2 24.1 mmol/L (21.0-32.0); CREATININE 0.9 mg/dL (0.70-1.30); Chloride 102 mmol/L (98-107); Glucose 122 mg/dL (74-106); Magnesium 1.8 mg/dL (1.8-2.4); PHOSPHORUS 3.5 mg/dL (2.6-4.7); Potassium 4.6 mmol/L (3.5-5.1); Sodium 137 mmol/L (136-145); Total Protein 6.9 g/dL (6.4-8.2)
[2020-08-30 15:03] LABS: Abs Immature Grans 0.01 10^3/uL (0.0-0.06); Absolute Basophil Count 0.01 10^3/uL (0.0-0.2); Absolute Eosinophil Count 0.02 10^3/uL (0.0-0.7); Absolute Lymphocyte Count 0.76 10^3/uL (1.2-3.4); Absolute Monocyte Count 0.32 10^3/uL (0.1-0.8); Absolute Neutrophil Count 5.74 10^3/uL (1.2-6.7); Basophils % 0.1; Eosinophils % 0.3; HCT 36.1 % (40.0-50.0); HGB 11.3 g/dL (13.5-17.5); Immature Grans % 0.1; Lymphocytes % 11.1; MCHC 31.3 % (32.0-36.0); MCV 92.8 fL (80-95); MPV 9.8 fL (8.0-11.0); Monocytes % 4.7; Neutrophils % 83.7; Nucleated RBC 0 %; Platelet Count 169 10^3/uL (130-400); RBC 3.89 10^6/uL (4.36-5.78); RDW 16.8 % (11.8-14.1); RDW-SD 57.4 fL; WBC 6.86 10^3/uL (4.4-10.8)
[2020-08-30 15:06] LABS: Triglyceride 223 mg/dL (<150)
[2020-09-02 05:39] LABS: Vitamin D 25 Total 28.5 ng/mL (30-100)
[2020-09-02 10:03] LABS: Prealbumin 32 mg/dL (20-40)
== END 2020-08-30 14:07 | disposition home or self-care (01) ==
LOC: NCHCN 14:06
PROVIDERS: PCP Internal Medicine; Visit Provider Internal Medicine
DX: K50.913 Crohn's disease, unspecified, with fistula (principal)
CPT/HCPCS: 80053; 82306; 83735; 84100; 84134; 84478; 85025

== ENCOUNTER 2020-09-06 03:22 | Outpatient (CLI) | payer MEDICARE, MEDICAID, SELFPAY ==
--- NOTE | 2020-09-06 | DI.NM_ITS ---
EXAM: [place] BONE SCAN WHOLE BODY GRP CLINICAL HISTORY: METASTATIC PROSTATE CA,C61,C79.51,ANDROGEN THERAPY,Z79.818. TECHNIQUE: Injected Dose: 25 mCi Tc-99m MDP Delayed Images: 2-3 hours. COMPARISON: [facility] BONE SCAN WHOLE BODY GRP from 06/21/2019 FINDINGS: Symmetric axial uptake. Bilateral renal excretion is identified. There again seen multiple areas of i ncreased radiotracer uptake consistent with osseous metastatic disease. There is a new large area of increased radiotracer uptake involving the right iliac bone not present on the prior examination. I n addition, there has been increase in the degree of uptake in the left shoulder since the prior exam ination. Areas of osteopenia are again seen in the hips consistent with bilateral hip prostheses. IMPRESSION: 1. Findings of osseous metastatic disease. New areas involving the right iliac bone and increased up take compared to the prior examination in the left shoulder. DATA REPOSITORY:
--- NOTE | 2020-09-06 09:30 | DI.CT_ITS ---
EXAM: CT CHEST/ABD/PEL W CLINICAL HISTORY: METASTATIC PROSTATE CA,C61,C79.51,ANDROGEN THERAPY TECHNIQUE: Imaging Protocol: Axial computed tomography images with coronal and sagittal reformatted images were created and reviewed CONTRAST MATERIAL: Intravenous: Omnipaque 350 Contrast volume:100 mL Oral: Yes COMPARISON: CT CT CHEST PE ABD PELVIS W from 05/30/2020 FINDINGS: CHEST: Tracheobronchial tree: Patent where visualized. Pulmonary parenchyma: Linear atelectasis or scarring is seen in the right lower lobe which has a yonatan lar appearance compared to the prior examination. No new infiltrates or nodules are identified. Visualized thyroid gland: There is a 1.4 cm left thyroid nodule. It is of homogeneous low-density. Nonemergent thyroid ultrasound may be considered for further evaluation. Mediastinum and Beryl: No dominant adenopathy or fluid collection. Pleura: No effusion or pneumothorax. Heart: The heart is not dilated. Mild coronary artery calcification. No pericardial effusion. Aorta: Thoracic aorta non-dilated. Mild atherosclerosis. Lymph nodes: Within normal limits. Tubes, Catheters, and Lines: The tip of the Uyspmy-J-Aagt catheter is seen at the aortic caval juncti on. Soft tissues: Gynecomastia. Bones:Diffuse osseous sclerotic metastatic disease. ABDOMEN: Liver: There is diffuse decreased attenuation of the liver consistent with fatty infiltration. No me asurable mass. Portal, Superior Mesenteric, and Splenic Veins: Unremarkable. Gallbladder and Biliary Tract: Status post cholecystectomy. No biliary ductal dilatation. Pancreas: Normal density, no abnormal calcifications or inflammatory process. Spleen: Normal. Adrenals: No masses seen. Kidneys: Normal size, contour and axis. Left nephrolithiasis. No hydronephrosis. Stable bilateral r enal cysts. Abdominal Aorta: Abdominal portion non-dilated. Mild atherosclerosis. Bowel: No obstruction or bowel wall thickening. No evidence of acute appendicitis. Peritoneal Cavity: No ascites, collection or mesenteric inflammatory response. No free air. Lymph Nodes: Within normal limits. Bones: Findings of diffuse sclerotic metastatic disease. There are bilateral total hip replacements which cause artifact in the pelvis limiting evaluation of the inferior pelvis. There is a large agai n seen a large fluid attenuation lesion adjacent to the left hip prosthesis. It is partially obscure d but appears to measure at least 10 cm in diameter. Soft Tissues: There is is again seen a midline anterior abdominal wound in present with fluid in the surgical bed. Fat containing left inguinal hernia. PELVIS: Bladder: Portions of the urinary bladder are obscured by the artifact from the patient's hip prosthes is. The urinary bladder is grossly unremarkable. Reproductive Organs: Prostate gland is not visualized due to metallic artifact. Lymph Nodes: Within normal limits. Bones: Diffuse sclerotic metastatic disease. IMPRESSION: 1. Diffuse sclerotic metastatic disease. 2. Anterior abdominal wall midline wound. Please correlate with patient's surgical history. 3. Bilateral total hip replacements. Persistent large fluid collection adjacent to the left hip pros thesis. 4. No acute pulmonary process. RADIATION DOSE DELIVERED: 2,701.83mGy.cm Total DLP DATA REPOSITORY: All CT scans at this facility are submitted to the National Radiology Data Registry (NRDR) Dose Index Registry (DIR) with the [employer] (A[employer]). RADIATION OPTIMIZATION: All CT scans at this facility use at least one of these dose optimization te chniques: automated exposure control; mA and/or kV adjustment per patient size (includes targeted exa ms where dose is matched to clinical indication); or iterative reconstruction.
[2020-09-06] MEDS: Omnipaque 350 MG/ML 50 ML BTL IJ (11:41)
[2020-09-06] MEDS: Breeza Beverage 473 ML BTL PO (11:42)
[2020-09-06] MEDS: Omnipaque 350 MG/ML 100 ML BTL IJ (12:38)
[2020-09-06] MEDS: Normal Saline - Diluent 50 ML VIAL IV (12:39)
== END 2020-09-06 03:42 ==
PROVIDERS: PCP Internal Medicine; Visit Provider Nurse Practitioner Adult Health
DX: C61 Malignant neoplasm of prostate (principal); C79.51 Secondary malignant neoplasm of bone; Z79.818 Long term (current) use of other agents affecting estrogen receptors and estrogen levels
CPT/HCPCS: 74177; 78306; 71260; J3490; Q9967

== ENCOUNTER 2020-09-06 16:49 | Outpatient (REF) | payer MEDICARE, MEDICAID, SELFPAY ==
[2020-09-06 11:33] LABS: Abs Immature Grans 0.03 10^3/uL (0.0-0.06); Absolute Basophil Count 0.03 10^3/uL (0.0-0.2); Absolute Eosinophil Count 0.13 10^3/uL (0.0-0.7); Absolute Lymphocyte Count 1.05 10^3/uL (1.2-3.4); Absolute Neutrophil Count 6.09 10^3/uL (1.2-6.7); Basophils % 0.4; Eosinophils % 1.6; HCT 41.5 % (40.0-50.0); HGB 12.9 g/dL (13.5-17.5); Immature Grans % 0.4; Lymphocytes % 13.2; MCHC 31.1 % (32.0-36.0); MCV 93.3 fL (80-95); MPV 9.8 fL (8.0-11.0); Monocytes % 7.6; Neutrophils % 76.8; Nucleated RBC 0 %; Platelet Count 234 10^3/uL (130-400); RBC 4.45 10^6/uL (4.36-5.78); RDW 16.1 % (11.8-14.1); RDW-SD 55.2 fL; WBC 7.93 10^3/uL (4.4-10.8)
[2020-09-06 11:53] LABS: ALT 93 U/L (16-63); AST 50 U/L (15-37); Albumin 3.5 g/dL (3.4-5.0); Alkaline Phosphatase 179 U/L (46-116); Anion Gap 8.5 mmol/L (3-11); BUN 37 mg/dL (7-18); Bilirubin, Total 1.4 mg/dL (0.2-1.0); CO2 27.5 mmol/L (21.0-32.0); CREATININE 0.8 mg/dL (0.70-1.30); Calcium 9.4 mg/dL (8.5-10.1); Chloride 102 mmol/L (98-107); Glucose 97 mg/dL (74-106); Magnesium 2.2 mg/dL (1.8-2.4); PHOSPHORUS 4.4 mg/dL (2.6-4.7); Potassium 4.6 mmol/L (3.5-5.1); Sodium 138 mmol/L (136-145); Total Protein 7.5 g/dL (6.4-8.2)
[2020-09-06 14:44] LABS: Triglyceride 180 mg/dL (<150)
[2020-09-09 10:44] LABS: Prealbumin 32 mg/dL (20-40)
== END 2020-09-06 16:50 | disposition home or self-care (01) ==
LOC: NCHCN 16:49
PROVIDERS: PCP Internal Medicine; Visit Provider Internal Medicine
DX: K50.913 Crohn's disease, unspecified, with fistula (principal)
CPT/HCPCS: 80053; 83735; 84100; 84134; 84478; 85025

== ENCOUNTER 2020-09-09 17:14 | Outpatient (REF) | payer MEDICARE, MEDICAID, SELFPAY ==
[2020-09-09 17:41] LABS: Abs Immature Grans 0.02 10^3/uL (0.0-0.06); Absolute Basophil Count 0.01 10^3/uL (0.0-0.2); Absolute Eosinophil Count 0.03 10^3/uL (0.0-0.7); Absolute Lymphocyte Count 0.67 10^3/uL (1.2-3.4); Absolute Monocyte Count 0.37 10^3/uL (0.1-0.8); Basophils % 0.2; Eosinophils % 0.5; HCT 39.2 % (40.0-50.0); HGB 12.3 g/dL (13.5-17.5); Immature Grans % 0.3; Lymphocytes % 10.2; MCHC 31.4 % (32.0-36.0); MCV 92.5 fL (80-95); MPV 9.5 fL (8.0-11.0); Monocytes % 5.6; Neutrophils % 83.2; Nucleated RBC 0 %; Platelet Count 197 10^3/uL (130-400); RBC 4.24 10^6/uL (4.36-5.78); RDW 15.6 % (11.8-14.1); RDW-SD 52.8 fL
[2020-09-09 17:50] LABS: ALT 92 U/L (16-63); AST 53 U/L (15-37); Albumin 3.2 g/dL (3.4-5.0); Alkaline Phosphatase 179 U/L (46-116); BUN 31 mg/dL (7-18); Bilirubin, Total 0.9 mg/dL (0.2-1.0); CREATININE 0.9 mg/dL (0.70-1.30); Chloride 101 mmol/L (98-107); Glucose 87 mg/dL (74-106); Potassium 4.5 mmol/L (3.5-5.1); Sodium 139 mmol/L (136-145); Total Protein 6.9 g/dL (6.4-8.2)
[2020-09-10 17:09] LABS: PSA, Diagnostic 73.9 ng/mL (0.0-6.5)
[2020-09-12 16:15] LABS: Testosterone, Total <7.0 ng/dL (240-950)
== END 2020-09-09 17:15 | disposition home or self-care (01) ==
LOC: LBN 17:14
PROVIDERS: PCP Internal Medicine; Visit Provider Internal Medicine
DX: C61 Malignant neoplasm of prostate (principal)
CPT/HCPCS: 80053; 84153; 84403; 85025

== ENCOUNTER 2020-09-13 11:11 | Outpatient (REF) | payer MEDICARE, MEDICAID, SELFPAY ==
[2020-09-13 12:20] LABS: Abs Immature Grans 0.02 10^3/uL (0.0-0.06); Absolute Basophil Count 0.02 10^3/uL (0.0-0.2); Absolute Eosinophil Count 0.13 10^3/uL (0.0-0.7); Absolute Lymphocyte Count 0.61 10^3/uL (1.2-3.4); Absolute Monocyte Count 0.41 10^3/uL (0.1-0.8); Absolute Neutrophil Count 5.63 10^3/uL (1.2-6.7); Basophils % 0.3; Eosinophils % 1.9; HCT 38.3 % (40.0-50.0); HGB 11.8 g/dL (13.5-17.5); Immature Grans % 0.3; Lymphocytes % 8.9; MCH 28.9 pg (27.0-33.0); MCHC 30.8 % (32.0-36.0); MCV 93.6 fL (80-95); MPV 9.7 fL (8.0-11.0); Neutrophils % 82.6; Nucleated RBC 0 %; Platelet Count 183 10^3/uL (130-400); RBC 4.09 10^6/uL (4.36-5.78); RDW 15.6 % (11.8-14.1); RDW-SD 53.9 fL; WBC 6.82 10^3/uL (4.4-10.8)
[2020-09-13 12:54] LABS: ALT 82 U/L (16-63); AST 46 U/L (15-37); Albumin 3.1 g/dL (3.4-5.0); Alkaline Phosphatase 159 U/L (46-116); Anion Gap 10.9 mmol/L (3-11); BUN 31 mg/dL (7-18); CO2 25.1 mmol/L (21.0-32.0); CREATININE 0.9 mg/dL (0.70-1.30); Calcium 9.1 mg/dL (8.5-10.1); Chloride 104 mmol/L (98-107); Glucose 112 mg/dL (74-106); Potassium 4.4 mmol/L (3.5-5.1); Sodium 140 mmol/L (136-145); Total Protein 6.7 g/dL (6.4-8.2)
[2020-09-13 13:09] LABS: Triglyceride 149 mg/dL (<150)
[2020-09-16 10:47] LABS: Prealbumin 29 mg/dL (20-40)
== END 2020-09-13 11:12 | disposition home or self-care (01) ==
LOC: NCHCN 11:11
PROVIDERS: PCP Internal Medicine; Visit Provider Internal Medicine
DX: K50.913 Crohn's disease, unspecified, with fistula (principal)
CPT/HCPCS: 80053; 83735; 84100; 84134; 84478; 85025

== ENCOUNTER 2020-09-27 10:10 | Outpatient (REF) | payer MEDICARE, MEDICAID, SELFPAY ==
[2020-09-27 12:07] LABS: Abs Immature Grans 0.02 10^3/uL (0.0-0.06); Absolute Basophil Count 0.01 10^3/uL (0.0-0.2); Absolute Eosinophil Count 0.09 10^3/uL (0.0-0.7); Absolute Lymphocyte Count 0.84 10^3/uL (1.2-3.4); Absolute Neutrophil Count 4.22 10^3/uL (1.2-6.7); Basophils % 0.2; Eosinophils % 1.6; HGB 12.3 g/dL (13.5-17.5); Immature Grans % 0.4; Lymphocytes % 14.8; MCH 28.6 pg (27.0-33.0); MCHC 31.5 % (32.0-36.0); MCV 90.7 fL (80-95); MPV 9.7 fL (8.0-11.0); Monocytes % 8.8; Neutrophils % 74.2; Nucleated RBC 0 %; Platelet Count 165 10^3/uL (130-400); RDW 15.4 % (11.8-14.1); RDW-SD 51.1 fL; WBC 5.68 10^3/uL (4.4-10.8)
[2020-09-27 12:28] LABS: ALT 105 U/L (16-63); AST 45 U/L (15-37); Albumin 3.2 g/dL (3.4-5.0); Alkaline Phosphatase 172 U/L (46-116); Anion Gap 8.7 mmol/L (3-11); BUN 34 mg/dL (7-18); Bilirubin, Total 0.9 mg/dL (0.2-1.0); CO2 26.3 mmol/L (21.0-32.0); CREATININE 0.8 mg/dL (0.70-1.30); Calcium 8.7 mg/dL (8.5-10.1); Chloride 107 mmol/L (98-107); Glucose 109 mg/dL (74-106); Magnesium 1.9 mg/dL (1.8-2.4); Potassium 4.7 mmol/L (3.5-5.1); Sodium 142 mmol/L (136-145); Total Protein 6.8 g/dL (6.4-8.2); Triglyceride 185 mg/dL (<150)
[2020-09-27 12:39] LABS: PHOSPHORUS 4.3 mg/dL (2.6-4.7)
[2020-09-30 09:12] LABS: Prealbumin 34 mg/dL (20-40)
== END 2020-09-27 10:11 | disposition home or self-care (01) ==
LOC: NCHCN 10:10
PROVIDERS: PCP Internal Medicine; Visit Provider Internal Medicine
DX: K50.913 Crohn's disease, unspecified, with fistula (principal); R79.89 Other specified abnormal findings of blood chemistry
CPT/HCPCS: 80053; 83735; 84100; 84134; 84478; 85025

== ENCOUNTER 2020-10-07 18:11 | Outpatient (REF) | payer MEDICARE, MEDICAID, SELFPAY ==
[2020-10-07 19:08] LABS: Abs Immature Grans 0.02 10^3/uL (0.0-0.06); Absolute Basophil Count 0.01 10^3/uL (0.0-0.2); Absolute Eosinophil Count 0.07 10^3/uL (0.0-0.7); Absolute Lymphocyte Count 0.81 10^3/uL (1.2-3.4); Absolute Neutrophil Count 4.35 10^3/uL (1.2-6.7); Basophils % 0.2; Eosinophils % 1.2; HCT 40.5 % (40.0-50.0); HGB 12.8 g/dL (13.5-17.5); Immature Grans % 0.4; Lymphocytes % 14.3; MCHC 31.6 % (32.0-36.0); MCV 91.6 fL (80-95); MPV 9.9 fL (8.0-11.0); Monocytes % 7.1; Neutrophils % 76.8; Nucleated RBC 0 %; Platelet Count 165 10^3/uL (130-400); RBC 4.42 10^6/uL (4.36-5.78); RDW 15.2 % (11.8-14.1); RDW-SD 50.8 fL; WBC 5.66 10^3/uL (4.4-10.8)
[2020-10-07 19:33] LABS: ALT 68 U/L (16-63); AST 33 U/L (15-37); Albumin 3.4 g/dL (3.4-5.0); Alkaline Phosphatase 157 U/L (46-116); Anion Gap 10.7 mmol/L (3-11); BUN 33 mg/dL (7-18); CO2 26.3 mmol/L (21.0-32.0); CREATININE 0.9 mg/dL (0.70-1.30); Calcium 9.3 mg/dL (8.5-10.1); Chloride 103 mmol/L (98-107); Glucose 107 mg/dL (74-106); Potassium 4.8 mmol/L (3.5-5.1); Sodium 140 mmol/L (136-145); Total Protein 7.2 g/dL (6.4-8.2)
[2020-10-08 17:49] LABS: PSA, Diagnostic 66.9 ng/mL (0.0-6.5)
[2020-10-10 17:25] LABS: Testosterone, Total <7.0 ng/dL (240-950)
== END 2020-10-07 18:12 | disposition home or self-care (01) ==
LOC: LBN 18:11
PROVIDERS: PCP Internal Medicine; Visit Provider Internal Medicine
DX: C61 Malignant neoplasm of prostate (principal)
CPT/HCPCS: 80053; 84403; 84153; 85025

== ENCOUNTER 2020-10-11 11:43 | Outpatient (REF) | payer MEDICARE, MEDICAID, SELFPAY ==
[2020-10-11 12:40] LABS: Abs Immature Grans 0.02 10^3/uL (0.0-0.06); Absolute Basophil Count 0.02 10^3/uL (0.0-0.2); Absolute Eosinophil Count 0.14 10^3/uL (0.0-0.7); Absolute Lymphocyte Count 0.87 10^3/uL (1.2-3.4); Absolute Monocyte Count 0.49 10^3/uL (0.1-0.8); Absolute Neutrophil Count 6.18 10^3/uL (1.2-6.7); Basophils % 0.3; Eosinophils % 1.8; HCT 40.5 % (40.0-50.0); HGB 12.9 g/dL (13.5-17.5); Immature Grans % 0.3; Lymphocytes % 11.3; MCH 28.9 pg (27.0-33.0); MCHC 31.9 % (32.0-36.0); MCV 90.6 fL (80-95); MPV 9.8 fL (8.0-11.0); Monocytes % 6.3; Nucleated RBC 0 %; Platelet Count 172 10^3/uL (130-400); RBC 4.47 10^6/uL (4.36-5.78); RDW 15.5 % (11.8-14.1); RDW-SD 50.7 fL; WBC 7.72 10^3/uL (4.4-10.8)
[2020-10-11 12:51] LABS: ALT 67 U/L (16-63); AST 34 U/L (15-37); Albumin 3.3 g/dL (3.4-5.0); Alkaline Phosphatase 150 U/L (46-116); Anion Gap 11.1 mmol/L (3-11); BUN 31 mg/dL (7-18); Bilirubin, Total 1.5 mg/dL (0.2-1.0); CO2 24.9 mmol/L (21.0-32.0); CREATININE 0.8 mg/dL (0.70-1.30); Calcium 9.2 mg/dL (8.5-10.1); Chloride 103 mmol/L (98-107); Glucose 120 mg/dL (74-106); Magnesium 1.8 mg/dL (1.8-2.4); PHOSPHORUS 3.8 mg/dL (2.6-4.7); Potassium 4.3 mmol/L (3.5-5.1); Sodium 139 mmol/L (136-145); Total Protein 7.1 g/dL (6.4-8.2)
[2020-10-11 13:10] LABS: Triglyceride 208 mg/dL (<150)
[2020-10-14 11:10] LABS: Prealbumin 33 mg/dL (20-40)
== END 2020-10-11 11:44 | disposition home or self-care (01) ==
LOC: NCHCN 11:43
PROVIDERS: PCP Internal Medicine; Visit Provider Internal Medicine
DX: K50.913 Crohn's disease, unspecified, with fistula (principal); R79.89 Other specified abnormal findings of blood chemistry
CPT/HCPCS: 80053; 83735; 84100; 84134; 84478; 85025

== ENCOUNTER 2020-10-25 13:18 | Outpatient (REF) | payer MEDICARE, MEDICAID, SELFPAY ==
[2020-10-25 13:59] LABS: Abs Immature Grans 0.01 10^3/uL (0.0-0.06); Absolute Basophil Count 0.02 10^3/uL (0.0-0.2); Absolute Eosinophil Count 0.13 10^3/uL (0.0-0.7); Absolute Monocyte Count 0.44 10^3/uL (0.1-0.8); Absolute Neutrophil Count 3.78 10^3/uL (1.2-6.7); Basophils % 0.4; Eosinophils % 2.4; HCT 41.4 % (40.0-50.0); HGB 13.2 g/dL (13.5-17.5); Immature Grans % 0.2; Lymphocytes % 18.6; MCH 28.8 pg (27.0-33.0); MCHC 31.9 % (32.0-36.0); MCV 90.2 fL (80-95); MPV 9.7 fL (8.0-11.0); Monocytes % 8.2; Neutrophils % 70.2; Nucleated RBC 0 %; Platelet Count 209 10^3/uL (130-400); RBC 4.59 10^6/uL (4.36-5.78); RDW 15.6 % (11.8-14.1); RDW-SD 51.2 fL; WBC 5.38 10^3/uL (4.4-10.8)
[2020-10-25 14:25] LABS: AST 25 U/L (15-37); Albumin 3.1 g/dL (3.4-5.0); Alkaline Phosphatase 143 U/L (46-116); BUN 31 mg/dL (7-18); Bilirubin, Total 1.1 mg/dL (0.2-1.0); CREATININE 0.8 mg/dL (0.70-1.30); Calcium 9.2 mg/dL (8.5-10.1); Chloride 103 mmol/L (98-107); Glucose 152 mg/dL (74-106); Magnesium 1.9 mg/dL (1.8-2.4); Potassium 4.4 mmol/L (3.5-5.1); Sodium 141 mmol/L (136-145); Triglyceride 223 mg/dL (<150)
[2020-10-25 14:43] LABS: ALT 41 U/L (16-63)
[2020-10-25 15:00] LABS: PHOSPHORUS 4.7 mg/dL (2.6-4.7)
[2020-10-29 10:59] LABS: Prealbumin 28 mg/dL (20-40)
== END 2020-10-25 13:19 | disposition home or self-care (01) ==
LOC: NCHCN 13:18
PROVIDERS: PCP Internal Medicine; Visit Provider Internal Medicine
DX: C61 Malignant neoplasm of prostate (principal); C79.51 Secondary malignant neoplasm of bone
CPT/HCPCS: 80053; 82043; 82570; 83735; 84100; 84134; 84478; 85025

== ENCOUNTER 2020-11-01 17:07 | Outpatient (REF) | payer MEDICARE, MEDICAID, SELFPAY ==
[2020-11-01 19:30] LABS: Abs Immature Grans 0.02 10^3/uL (0.0-0.06); Absolute Basophil Count 0.01 10^3/uL (0.0-0.2); Absolute Eosinophil Count 0.12 10^3/uL (0.0-0.7); Absolute Lymphocyte Count 0.87 10^3/uL (1.2-3.4); Absolute Monocyte Count 0.52 10^3/uL (0.1-0.8); Absolute Neutrophil Count 3.89 10^3/uL (1.2-6.7); Basophils % 0.2; Eosinophils % 2.2; HCT 37.7 % (40.0-50.0); HGB 12.2 g/dL (13.5-17.5); Immature Grans % 0.4; MCH 29.4 pg (27.0-33.0); MCHC 32.4 % (32.0-36.0); MCV 90.8 fL (80-95); MPV 9.8 fL (8.0-11.0); Monocytes % 9.6; Neutrophils % 71.6; Nucleated RBC 0 %; Platelet Count 183 10^3/uL (130-400); RBC 4.15 10^6/uL (4.36-5.78); RDW 15.8 % (11.8-14.1); RDW-SD 51.6 fL; WBC 5.43 10^3/uL (4.4-10.8)
[2020-11-01 19:47] LABS: ALT 36 U/L (16-63); AST 28 U/L (15-37); Albumin 3.1 g/dL (3.4-5.0); Alkaline Phosphatase 137 U/L (46-116); Anion Gap 7.2 mmol/L (3-11); BUN 30 mg/dL (7-18); Bilirubin, Total 1.1 mg/dL (0.2-1.0); CO2 27.8 mmol/L (21.0-32.0); CREATININE 0.7 mg/dL (0.70-1.30); Calcium 9.1 mg/dL (8.5-10.1); Chloride 104 mmol/L (98-107); Glucose 139 mg/dL (74-106); Potassium 4.4 mmol/L (3.5-5.1); Sodium 139 mmol/L (136-145); Total Protein 6.8 g/dL (6.4-8.2)
[2020-11-04 09:21] LABS: PSA, Screening 55.1 ng/mL (0.0-6.5)
== END 2020-11-01 17:08 | disposition home or self-care (01) ==
LOC: LBN 17:07
PROVIDERS: PCP Internal Medicine; Visit Provider Internal Medicine
DX: C61 Malignant neoplasm of prostate (principal)
CPT/HCPCS: 80053; 84153; 84403; 85025

== ENCOUNTER 2020-11-04 14:44 | Outpatient (REF) | payer MEDICARE, MEDICAID, SELFPAY ==
[2020-11-07 11:11] LABS: Testosterone, Total <7.0 ng/dL (240-950)
== END 2020-11-04 14:45 | disposition home or self-care (01) ==
LOC: LBN 14:44
PROVIDERS: PCP Internal Medicine; Visit Provider Internal Medicine
DX: C61 Malignant neoplasm of prostate (principal)
CPT/HCPCS: 84403

== ENCOUNTER 2020-11-08 14:22 | Outpatient (REF) | payer MEDICARE, MEDICAID, SELFPAY ==
[2020-11-08 16:20] LABS: Abs Immature Grans 0.02 10^3/uL (0.0-0.06); Absolute Basophil Count 0.02 10^3/uL (0.0-0.2); Absolute Eosinophil Count 0.19 10^3/uL (0.0-0.7); Absolute Lymphocyte Count 0.83 10^3/uL (1.2-3.4); Absolute Monocyte Count 0.56 10^3/uL (0.1-0.8); Absolute Neutrophil Count 4.48 10^3/uL (1.2-6.7); Basophils % 0.3; Eosinophils % 3.1; HGB 12.1 g/dL (13.5-17.5); Immature Grans % 0.3; Lymphocytes % 13.6; MCH 29.2 pg (27.0-33.0); MCHC 31.8 % (32.0-36.0); MCV 91.8 fL (80-95); Monocytes % 9.2; Neutrophils % 73.5; Nucleated RBC 0 %; Platelet Count 171 10^3/uL (130-400); RBC 4.14 10^6/uL (4.36-5.78); RDW 15.8 % (11.8-14.1); RDW-SD 52.9 fL
[2020-11-08 16:22] LABS: ALT 32 U/L (16-63); AST 23 U/L (15-37); Alkaline Phosphatase 136 U/L (46-116); Anion Gap 10.4 mmol/L (3-11); BUN 28 mg/dL (7-18); Bilirubin, Total 0.9 mg/dL (0.2-1.0); CO2 24.6 mmol/L (21.0-32.0); CREATININE 0.9 mg/dL (0.70-1.30); Chloride 103 mmol/L (98-107); Glucose 192 mg/dL (74-106); Magnesium 1.7 mg/dL (1.8-2.4); Potassium 4.4 mmol/L (3.5-5.1); Sodium 138 mmol/L (136-145); Total Protein 6.6 g/dL (6.4-8.2); Triglyceride 273 mg/dL (<150)
[2020-11-11 09:11] LABS: Prealbumin 25 mg/dL (20-40)
== END 2020-11-08 14:23 | disposition home or self-care (01) ==
LOC: NCHCN 14:22
PROVIDERS: PCP Internal Medicine; Visit Provider Internal Medicine
DX: K50.913 Crohn's disease, unspecified, with fistula (principal)
CPT/HCPCS: 80053; 83735; 84100; 84134; 84478; 85025

== ENCOUNTER 2020-11-12 22:25 | Inpatient (IN) | payer MEDICARE, MEDICAID, SELFPAY ==
[2020-11-12] VITALS (14 sets, daily range): BP systolic 124–159; BP diastolic 72–86; PULSE 53–107; RESP 20–32; TEMP 37.7; O2SAT 88–93
--- NOTE | 2020-11-12 22:15 | RT.EKG_ITS ---
APPROVED REPORT Exam: Resting ECG Reason for Exam: weakness Patient Location: E HR:104 bpm ECG Measurements Heart Rate 104 AXIS IN 219 P 52 QRSd 96 QRS 31 QT 336 T 25 QTc 443 Conclusion Sinus tachycardia...rate> 99 Prolonged IN interval...IN >215, V-rate 91-120
[2020-11-12 22:50] LABS: Lactate 1.9 mmol/L (0.6-1.4)
[2020-11-12 22:53] LABS: Abs Immature Grans 0.02 10^3/uL (0.0-0.06); Absolute Basophil Count 0.02 10^3/uL (0.0-0.2); Absolute Eosinophil Count 0.14 10^3/uL (0.0-0.7); Absolute Lymphocyte Count 1.14 10^3/uL (1.2-3.4); Absolute Monocyte Count 0.76 10^3/uL (0.1-0.8); Absolute Neutrophil Count 5.83 10^3/uL (1.2-6.7); Basophils % 0.3; Eosinophils % 1.8; HCT 36.3 % (40.0-50.0); HGB 11.8 g/dL (13.5-17.5); Immature Grans % 0.3; Lymphocytes % 14.4; MCHC 32.5 % (32.0-36.0); MCV 92.4 fL (80-95); MPV 9.3 fL (8.0-11.0); Monocytes % 9.6; Neutrophils % 73.6; Nucleated RBC 0 %; Platelet Count 186 10^3/uL (130-400); RBC 3.93 10^6/uL (4.36-5.78); RDW 15.8 % (11.8-14.1); RDW-SD 53.2 fL; WBC 7.91 10^3/uL (4.4-10.8)
--- NOTE | 2020-11-12 22:57 | ED.GENADUL_ITS ---
Discharge Plan Disposition Patient Disposition: [facility] INPATIENT Condition: Stable Discharge Details Clinical Impression: Prostate cancer metastatic to multiple sites, Pneumonia, Altered mental status Admit Date/Time: 11/13/20 02:13 Admit Provider: Fazal Garcia Attending Provider: Fazal Garcia Primary Care Provider: Kenney Greer ED Provider: Vasile Stratton Discharge Data Discharge Date/Time-TO BE ENTERED AT DEPARTURE: 11/13/20 03:15 Medical Decision Making <SHEREEN Ashley - Last Filed: 11/14/20 22:56> Patient is a 70 year old male brought in via EMS with concern for weakness, uncontrolled cancer pain, confusion. Patient is not able to answer questions. Per EMS, patient was mentally clear when he underwent his COVID-19 vaccination several weeks ago. However, they have noted him to be confused and uncomfortable, particularly to the left shoulder where he has known metastasis. EMS also noted that he had a fever. 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 Contacted , she states that he has been sleeping a lot. Reports that he has been confused. Reports that this worsened after receiving an injection at [facility]. This is not a new injection. She states that over the past few days he has been sleepy but she associates that with morphine for cancer pain. Has not been able to form sentences well. Typically receives 3 doses of morphine today. Also received hydrocodone. Reviewed notes from [facility]. Patient has metastatic prostate cancer to multiple sites. Patient is undergoing therapy with degarelix injection. Patient did undergo a total hip arthroplasty revision on November 06, 2019. Patient did have both septic and cardiogenic shock as well as respiratory failure in the postoperative period. Patient seen in TPN for nutrition. Patient is being followed by palliative care. Labs reviewed. No leukocytosis. Hemoglobin is low at 11.8 which appears to be baseline for the patient. Lactate 1.9. Potassium elevated at 5.2, no evidence of renal dysfunction. This persistently dry with a BUN of 25. Glucose 335. Albumin is low at 2.6. Lipase within normal limits. At the end of my shift, care transition to Dr. Stratton. <Vasile Stratton MD - Last Filed: 11/13/20 01:56> pt stable, still altered and can't answer most questions, ct imaging shows chronic findings and metastases with possible pneumonia, given the fever will treat with antibiotics. Tried to call his to update but no answer, and per sign out did not seem like they could take him home tonight even if they decided for Alonso to be system technologist. Will discuss with hospitalist for admission and palliative care consult in the AM. Medical Records Medical records reviewed: Yes I reviewed the patient's medical records. Imaging Data Radiologic Study: Attestation: I personally reviewed and interpreted this imaging study as follows: Imaging: CT Scan Radiologist's impression: no acute findings head ct Radiologic Study #2: Attestation: I personally reviewed and interpreted this imaging study as follows: Imaging: CT Scan Radiologist's impression: 1. Respiratory motion artifact degrades the study. No obvious PE is definite. If clinical suspicion is high for PE V/Q scan would be recommended for further evaluation. 2. Dense right basilar opacity compatible with atelectasis versus pneumonia. 3. Equivocal sclerotic osseous metastatic disease. Heterogeneous osseous sclerotic lesions may reflect metastatic disease. Lab Data Lab results reviewed: Yes I reviewed the patient's lab results. HPI <SHEREEN Ashley - Last Filed: 11/14/20 22:56> General Mode of arrival: EMS . Date/Time Provider Initiated Documentation: 11/12/20 22:56 . Limitations to Documentation: altered mental status . Information obtained by: patient, family (), EMS, RN notes reviewed and old records reviewed . History of Present Illness 70 year old M presents to the emergency department with the chief complaint of weakness, fever, pain everywhere, described as severe, with intensity rated at 10. Patient started experiencing this unknown and it has been constant. No relieving factors improve symptom(s), No exacerbating factors reported . Patient notes fever/chills and shortness of breath; denies chest pain and cough. Patient did receive the following treatments prior to arrival, other (morphine) Related Data Home Medications Medication Instructions Recorded Confirmed acetaminophen [Tylenol Extra 1,000 mg PO Q8H PRN PRN tab-cap NS 03/29/13 11/13/20 Strength] nitroglycerin [Nitrostat] 0.4 mg SUBLINGUAL Q5 MIN PRN X3 04/23/15 11/13/20 PRN #15 tab balsalazide 2,250 mg PO TID 09/24/15 10/17/20 calcium carbonate 1,000 mg CH QID PRN 06/27/17 10/17/20 cyanocobalamin (vitamin B-12) 1,000 mcg IM QMONTH ml 01/23/19 11/13/20 1,000 mcg/mL injection solution ergocalciferol (vitamin D2) 1,250 50,000 unit PO .2x weekly cap 01/23/19 10/17/20 mcg (50,000 unit) capsule ferrous gluconate 324 mg (37.5 mg 324 mg PO BID tab 01/23/19 11/13/20 iron) tablet pramipexole 0.5 mg tablet 1 mg PO HS tab 01/23/19 10/17/20 levothyroxine 75 mcg PO DAILY 04/29/19 11/13/20 prednisone 5 mg tablet 10 mg PO BID tab 07/25/19 11/13/20 BD SafetyGlide Syringe 03/05/20 10/17/20 OneTouch Verio test strips 03/05/20 10/17/20 Basaglar KwikPen U-100 Insulin 20 unit SUBCUT HS 03/18/20 11/13/20 clotrimazole 1 applic TOPICAL DIRECTED PRN 03/18/20 10/17/20 loratadine 10 mg PO DAILY PRN 03/18/20 11/13/20 pen needle, diabetic [BD 03/18/20 10/17/20 Ultra-Fine Mini Pen Needle] trazodone 50 mg PO HS 03/18/20 11/13/20 ondansetron 4 mg PO DIRECTED PRN 05/30/20 10/17/20 enoxaparin [Lovenox] 100 mg SUBCUT Q12H 07/05/20 11/13/20 lidocaine 1 applic TOPICAL QID PRN 07/05/20 10/17/20 morphine concentrate 100 mg/5 mL 10 mg PO Q2H PRN PRN #30 ml MDD 10/31/20 11/13/20 (20 mg/mL) oral solution 100 mg enzalutamide [Xtandi] 80 mg PO BID 11/13/20 11/13/20 hydrocodone-acetaminophen 1 tab PO 5X/DAY 11/13/20 11/13/20 promethazine 12.5 mg PO PRN PRN 11/13/20 11/13/20 Previous Rx's Medication Instructions Recorded nitroglycerin [Nitrostat] 0.4 mg SUBLINGUAL Q5 MIN PRN X3 04/23/15 PRN #15 tab morphine concentrate 100 mg/5 mL 10 mg PO Q2H PRN PRN #30 ml MDD 10/31/20 (20 mg/mL) oral solution 100 mg Allergies Allergy/AdvReac Type Severity Reaction Status Date / Time Sulfa (Sulfonamide Allergy Mild Skin Rash Verified 11/13/20 02:20 Antibiotics) atenolol Allergy Verified 11/13/20 02:20 atorvastatin Allergy Verified 11/13/20 02:20 gabapentin Allergy Verified 11/13/20 02:20 nicardipine Allergy Verified 11/13/20 02:20 salsalate Allergy Verified 11/13/20 02:20 tramadol Allergy Verified 11/13/20 02:20 venlafaxine Allergy Verified 11/13/20 02:20 ciprofloxacin HCl AdvReac Severe ruptured Verified 11/13/20 02:20 [From Cipro] achilles tendon hydrochlorothiazide AdvReac Severe myalgias Verified 11/13/20 02:20 [From Benicar HCT] indapamide AdvReac Severe chest pain Verified 11/13/20 02:20 olmesartan medoxomil AdvReac Severe myalgias Verified 11/13/20 02:20 [From Benicar HCT] terazosin [Terazosin] AdvReac Severe tremor, GI Verified 11/13/20 02:20 upset aliskiren [Aliskiren] AdvReac Intermediate diarrhea Verified 11/13/20 02:20 amlodipine AdvReac Intermediate fatigue Verified 11/13/20 02:20 denosumab [From Xgeva] AdvReac Intermediate Verified 11/13/20 02:20 enalapril [Enalapril] AdvReac Intermediate shakes, Verified 11/13/20 02:20 weakness montelukast sodium AdvReac Intermediate rectal Verified 11/13/20 02:20 [From Singulair] irritation pregabalin [From Lyrica] AdvReac Intermediate sleep Verified 11/13/20 02:20 issues spironolactone AdvReac Intermediate headache Verified 11/13/20 02:20 General Stated Complaint: AMS/LOC ELMO: 3 Review of Systems <Sandrita Piburn, PA - Last Filed: 11/14/20 22:56> Unobtainable due to mental status PFSH <SHEREEN Ashley - Last Filed: 11/14/20 22:56> Medical History Afib Bilateral hip pain Bone lesion Caregiver stress Chest pain Chronic abdominal wound infection Chronic pain from bone mets and Crohn's Crohn's disease Delirium Diabetes on basilar insulin diagnosed 2018 DNI (do not intubate) DNR (do not resuscitate) Drug hypersensitivity Dyspepsia Elevated liver enzymes Encounter for hospice care discussion Fibromyalgia Fistula of intestine to abdominal wall GERD (gastroesophageal reflux disease) Goals of care, counseling/discussion [place] (hard of hearing) Hot flash in male HTN (hypertension) Hx of adenomatous colonic polyps Hx of melanoma excision Hypomania IBS (irritable bowel syndrome) 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 diagnosed 2016 Rectal bleeding Rectal pain Right ankle pain Saphenous vein phlebitis Sebaceous cyst Sensorineural hearing loss Sleep apnea Squamous cell carcinoma of hand Superficial phlebitis of leg Swelling of left lower extremity Vitamin B12 deficiency Surgical History ankle surgery, right Arthroplasty of knee bilat Arthroscopy, Shoulder left shoulder repair Colectomy x3 deep muscle biopsy, left calf muscle Hernia Repair, Incisional (03/22/16) intestinal obstruction with incarcerated incisional hernia, lysis of adhes ions Family History Father Kidney malignancy Son Has same-sex partner Daughter Parent-child estrangement nec Daughter No problems noted. Grandson No problems noted. Mother , age 88 from ruptured aortic aneurysm Aortic aneurysm and dissection Social History Smoking/Tobacco Use Status: Never Smoking risk assessment performed?: Yes Alcohol Intake: never Drug use: Never Substance use type: does not use Caregiver/Support person: Yes Household members: spouse Housing: house Number of Children: 3 number of grandchildren: 6 Communication Needs: Hard of Hearing and Corrective Lenses Do you need help understanding health information?: Always current occupation: disabled due to multiple chronic illnesses Pets and animals: Yes Pets and animals: dog(s) Current gender identity: male What is your relationship status?: How often do you talk on the phone with friends or family?: three or more times per week How often do you get together with friends or relatives?: once per week How often do you attend mandaeism or anabaptist services?: 4 or more times per year Panel score (0-1 are the most socially isolated patients): 3 What type of physical activity do you participate in: none and sedentary lifestyle Frequency: does not exercise Maria Guadalupe/Anabaptist: Mandaeism Special maria guaadlupe needs: No Agree to transfusion: Yes Seatbelt use: always Working smoke detector in home: Yes Fire extinguisher in home: Yes Do you feel safe at home: Yes Do you feel safe in your relationship?: Yes Additional Social history: Lives with , Carol, who is his primary caregiver. They've been x 48 yrs (since 1972). They are estranged from their oldest child, daughter Carri. Son Ottoniel and his partner are encouraging Gus to move into house next door to theirs. Ottoniel's son, Russ, used to live with Gus for 5 years. They are still very close. Daughter Mya, (middle child), also helps out regularly. Alonso reports he is 5/8 . He wants to be cremated and have his ashes spread on his land. Haydee is clearly struggling. Alonso has been very sick, with a chronic open abdominal wound requiring lots of care, TPN at night x 16 hrs, constant reassurance. She would like to move closer to their son so she could have more help. Alonso does not want to move. Says he is attached to the land. House is not conducive to caring for severely disabled person. Exam <SHEREEN Ashley - Last Filed: 11/14/20 22:56> Const General: cooperative, uncomfortable, no acute distress and ill appearing acutely and chronically Nutritional Appearance: well nourished and overweight Orientation: alert, awake and not oriented x3 HENMT Head: normal to inspection Mouth: moist mucous membranes Chest Chest: normal inspection of the chest Resp Effort & Inspection: normal respiratory effort, able to speak in complete sentences, no respiratory distress and tachypneic Auscultation: clear to auscultation bilaterally, no rales, no rhonchi and no wheezes Cardio Rate: regular rate Rhythm: regular rhythm Heart Sounds: S1 normal and S2 normal GI Inspection: normal to inspection (draining colostomy), no edema, non-distended and no visible herniation Palpation: soft and nontender Percussion: dullness to percussion Auscultation: hypoactive bowel sounds Back/Spine/Pelvis Back: no CVA tenderness Cervical Spine: normal cervical lordosis Thoracic/Lumbar Spine: thoracic and lumbar spine normal to inspection and other (no skin breakdown) Skin General skin exam: no rashes or lesions noted Trauma: no lacerations or abrasions Neuro General: patient alert and patient awake Course <SHEREEN Ashley - Last Filed: 11/14/20 22:56> Vital Signs Vital signs: Vital Signs Temperature 37.7 C H 11/12/20 22:28 Pulse 88 11/12/20 22:28 Respiratory Rate 28 H 11/12/20 22:28 Blood Pressure 139/82 11/12/20 22:28 Pulse Oximetry 93 11/12/20 22:28 Temperature 37.7 C H 11/12/20 22:28 Temperature Source Oral 11/12/20 22:28 Pulse 88 11/12/20 22:28 Respiratory Rate 28 H 11/12/20 22:28 Blood Pressure 139/82 11/12/20 22:28 Pulse Oximetry 93 11/12/20 22:28 Oxygen Delivery Method Nasal Cannula 11/12/20 22:28 Oxygen Flow Rate 2 11/12/20 22:28 Pain Level 10 11/12/20 22:28 Lab/Test Results Lab/Test Results: 11/12/20 22:23 Blood Blood Culture - Pending 11/12/20 22:23 Blood Blood Culture - Pending Laboratory Tests Range/Units 11/12/20 11/12/20 22:45 22:45 WBC (4.4-10.8) 10^3/uL 7.91 RBC (4.36-5.78) 10^6/uL 3.93 L Hgb (13.5-17.5) g/dL 11.8 L Hct (40.0-50.0) % 36.3 L MCV (80-95) fL 92.4 MCH (27.0-33.0) pg 30.0 MCHC (32.0-36.0) % 32.5 RDW (11.8-14.1) % 15.8 H Plt Count (130-400) 10^3/uL 186 MPV (8.0-11.0) fL 9.3 Immature Gran % 0.3 Neutrophils % 73.6 Lymphocytes % 14.4 Monocytes % 9.6 Eosinophils % 1.8 Basophils % 0.3 Nucleated RBC % % 0 Absolute Neutrophils (1.2-6.7) 10^3/uL 5.83 Absolute Lymphocytes (1.2-3.4) 10^3/uL 1.14 L Absolute Monocytes (0.1-0.8) 10^3/uL 0.76 Absolute Eosinophils (0.0-0.7) 10^3/uL 0.14 Absolute Basophils (0.0-0.2) 10^3/uL 0.02 VBG Lactate (0.6-1.4) mmol/L 1.9 H Sign Out <SHEREEN Ashley - Last Filed: 11/14/20 22:56> Sign Out Data: Sign Out Comment: Care transition to Dr. Stratton with imaging and urinalysis pending. Patient here with chief complaint of weakness, AMS, fatigue, Generalized pain that is maximal in the abdomen. Patient has known metastatic cancer, DNR/DNI. would like update 1 diagnosis has been made. Patient will likely require admission based on his weakness and altered mental status. Last updated by Sandrita Fox PA at 11/13/20 00:39
[2020-11-12 23:02] LABS: Lipase 49 U/L (73-393)
[2020-11-12 23:03] LABS: INR 1.1 (0.9-1.1); Prothrombin Time 11.4 sec (9.3-11.0)
[2020-11-12 23:05] LABS: ALT 30 U/L (16-63); AST 23 U/L (15-37); Albumin 2.6 g/dL (3.4-5.0); Alkaline Phosphatase 124 U/L (46-116); Anion Gap 9.4 mmol/L (3-11); BUN 25 mg/dL (7-18); Bilirubin, Total 0.8 mg/dL (0.2-1.0); CO2 24.6 mmol/L (21.0-32.0); CREATININE 0.8 mg/dL (0.70-1.30); Calcium 8.4 mg/dL (8.5-10.1); Chloride 101 mmol/L (98-107); Glucose 335 mg/dL (74-106); Potassium 5.2 mmol/L (3.5-5.1); Sodium 135 mmol/L (136-145); Total Protein 6.6 g/dL (6.4-8.2)
[2020-11-12] MEDS: HYDROmorphone 2 MG/ML VIAL 1 MG IVP (23:06)
[2020-11-12] MEDS: ACETAMINOPHEN 1,000 MG/100 ML BTL 400 MG IVPB (23:09)
--- NOTE | 2020-11-12 23:19 | NUR.NOTE ---
report to DARRICK Hugo:
--- NOTE | 2020-11-12 23:30 | DI.CT_ITS ---
Exam(s) CT HEAD WO EXAM: CT HEAD WO CLINICAL HISTORY: AMS. TECHNIQUE: Imaging Protocol: Axial computed tomography images with coronal and sagittal reformatted images were created and reviewed COMPARISON: CT CT HEAD WO from 05/30/2020 FINDINGS: There are no skull fractures nor fluid in the visualized paranasal sinuses. However, there is again noted blastic osseous disease in the skull base, similar to previous. There is no evidence of intracranial hemorrhage, mass effect, or shift of midline structures. There are no extra-axial fluid collections. The ventricles are not enlarged or shifted and there is no blo od within the ventricular system nor within the basal cisterns. Calcification is noted in both vertebral arteries at the skull base. Also within the intracavernous internal carotid arteries. The basilar artery is dolichoectatic. Calcification both basal ganglia i s unchanged. IMPRESSION: No acute intracranial findings on this noninfused CT scan of the brain. No significant change from 1 . Osseous blastic metastatic disease in the skull base is again noted. RADIATION DOSE DELIVERED: 792.4mGy.cm Total DLP DATA REPOSITORY: All CT scans at this facility are submitted to the National Radiology Data Registry (NRDR) Dose Index Registry (DIR) with the [employer] (ACR). RADIATION OPTIMIZATION: All CT scans at this facility use at least one of these dose optimization te chniques: automated exposure control; mA and/or kV adjustment per patient size (includes targeted exa ms where dose is matched to clinical indication); or iterative reconstruction.
--- NOTE | 2020-11-12 23:45 | DI.CT_ITS ---
Exam(s) CT CHEST/ABD/PEL W EXAM: CT CHEST/ABD/PEL W CLINICAL HISTORY: RLQ pain, hypoxemia. TECHNIQUE: Imaging Protocol: Axial computed tomography images with coronal and sagittal reformatted images were created and reviewed CONTRAST MATERIAL: Intravenous: Omnipaque 350 Contrast volume:100 ml Oral: None COMPARISON: CT CT CHEST/ABD/PEL W from 09/06/2020 FINDINGS: CHEST: LUNGS: Less than optimal evaluation due to respiratory motion artifact. However, there is some infil trate evident in the right lung base posterior basal segment right lower lobe, more so than previous. Minimal amount of pleural fluid. No other significant right lung findings and no obvious left lung findings nor pleural effusion. MEDIASTINUM: There is no hilar nor mediastinal adenopathy. Distal tip of the right supra clavi in martin tral line is in the lower SVC. CARDIAC: Mild cardiomegaly. Coronary artery calcification LAD.Slight enlargement of the ascending th oracic aorta which exhibits maximum luminal diameter 4.2 cm. Diameter of the arch upper normal. Kelly meter of the descending thoracic aorta is minimally prominent. No dissection ABDOMEN: There is no ascites. LIVER: There are no focal hepatic lesions nor dilatation of intrahepatic ducts. GALLBLADDER/BILIARY: Gallbladder surgically absent. CBD is not dilated. PANCREAS: There is a cystic lesion in the uncinate process of the pancreas which measures 1.3 by 0.9 cm, and suspicious for cystic neoplasm. Another smaller cystic lesion in the body of the pancreas is noted which measures 5 x 4 cm. Pancreatic duct is not dilated. Evaluation of the pancreas somewhat limited due to respiratory motion. SPLEEN: Spleen is not enlarged. There are no intrasplenic lesions. Splenic and portal veins are mcdaniel nt. ADRENALS: There are no significant adrenal masses. KIDNEYS:. There are cysts in both kidneys noted.. Large parapelvic cyst in the left kidney which me asures 4 by 2.8 cm. There is also an exophytic cyst off the lateral cortex of the left kidney which measures 1.9 x 1 0.5 cm. Another cyst in the posterior cortex lower down measuring 1.1 x 0.9 cm. Th ere is a 2 millimeter nonobstructive calculus in the lower pole left kidney. There is also a 2 rosa meter nonobstructive calculus in the opposite-right kidney. There is a 1.6 x 1.6 cm cyst in the infe rior pole of the right kidney. No obvious solid renal masses. No hydronephrosis nor hydroureter. U rinary bladder is slightly distended but partially obscured by beam hardening artifact from bilateral hip prostheses. ABDOMINAL AORTA: Abdominal aorta is not enlarged. LYMPH NODES: There is no retroperitoneal nor paraaortic adenopathy. ABDOMINAL WALL: Anterior abdominal wall hernia and midline wound which are superficial in appear to b e probably packed. There is also some air in the deep superficial tissues over the anterior left abd ominal wall and also air over the right abdominal wall. There is subcutaneous densities which are pr obably hematoma is a and possibly related to anticoagulant injections. GI: There is no evidence of bowel obstruction.No free air. No abscess. PELVIS: LYMPH NODES: There is no intrapelvic nor inguinal adenopathy. GI: No evidence of appendicitis.No evidence of sigmoid diverticulitis. URINARY BLADDER: No calculi nor masses evident REPRODUCTIVE: Prostate gland is obscured by beam hardening artifact from both hip prostheses. OSSEOUS: Bilateral hip prostheses. Left hip prostheses is also secured by circumferential fixation w ires. There is diffuse blastic osseous metastatic disease which also involves the left hip. There is exten sive blastic disease noted in bones of the entire pelvis and sacrum as well as L4 and L5 vertebral pat dies, similar to previous. IMPRESSION: 1. Right lung base infiltrate. 2. There are 2 hypodense lesions in the pancreas which are probably cystic neoplasms. One is in the body in the other is in the uncinate process. The larger of these 2 lesions is in the uncinate proce ss and measures 13 x 9 millimeters. Requires close follow-up. No obvious regional adenopathy. 3. Benign cysts are noted in both kidneys. Also small nonobstructive calculi in both kidneys. 4. Anterior abdominal wall wound and subcutaneous air and subcutaneous hematomas, possibly related to anticoagulant injections. There is no drainable fluid collection at these levels. 5. there is extensive osseous metastatic blastic disease in the bones of the pelvis. 6. Bilateral hip prostheses. RADIATION DOSE DELIVERED: 1,776.97mGy.cm Total DLP DATA REPOSITORY: All CT scans at this facility are submitted to the National Radiology Data Registry (NRDR) Dose Index Registry (DIR) with the [employer] (ACR). RADIATION OPTIMIZATION: All CT scans at this facility use at least one of these dose optimization te chniques: automated exposure control; mA and/or kV adjustment per patient size (includes targeted exa ms where dose is matched to clinical indication); or iterative reconstruction.
[2020-11-13] VITALS (34 sets, daily range): BP systolic 102–137; BP diastolic 57–81; PULSE 63–110; RESP 16–31; TEMP 36.6–38.6; O2SAT 90–97
[2020-11-13] MEDS: Normal Saline 1,000 ML 1000 ML IV (00:05)
[2020-11-13] MEDS: Normal Saline - Diluent 50 ML VIAL IV (00:21)
[2020-11-13] MEDS: Omnipaque 350 MG/ML 100 ML BTL IJ (00:21)
[2020-11-13 00:32] LABS: Troponin I < 0.05 ng/mL (<0.06)
[2020-11-13 00:43] LABS: Bilirubin Negative (Negative); Blood Small (Negative); Clarity Clear (Clear); Glucose Negative (Negative); Ketones Negative (Negative); Leukocyte Esterase Negative (Negative); Nitrite Negative (Negative); Specific Gravity 1.025 (1.005-1.025); Urobilinogen 0.2 EU/dL (Up TO 0.2); pH 5.5 (5-8)
[2020-11-13 00:48] LABS: Bacteria Rare HPF (Negative); C & S Indicated? No; Casts Negative LPF (Negative); Crystals Negative HPF (Negative); Epithelial Cells Rare HPF (Negative); Mucus Negative (Negative); WBC Negative HPF (0-5)
--- NOTE | 2020-11-13 00:57 | DI.VRAD_ITS ---
PROCEDURE INFORMATION: Exam: CT Head Without Contrast Exam date and time: 11/12/2020 23:34 Age: 70 years old Clinical indication: Other: AMS TECHNIQUE: Imaging protocol: Computed tomography of the head without contrast. COMPARISON: CT HEAD WO 05/30/2020 14:16 FINDINGS: Brain: Physiologic calcification in the basal ganglia. Moderate cerebral atrophy. Minimal periventricular white matter hypodensity. No edema or hemorrhage. Physiologic calcification in the right cerebellum similar to prior. Cerebral ventricles: No ventriculomegaly. Paranasal sinuses: No acute sinusitis. Mastoid air cells: No mastoid effusion. Orbital cavity: Mild bilateral exophthalmos is similar to prior. Vasculature: Atherosclerosis. Bones/joints: No acute fracture. Soft tissues: No suspicious lesions. IMPRESSION: No acute intracranial findings. Dictated and Authenticated by: Za Calles MD. Ordering:GINETTE Remy MD
--- NOTE | 2020-11-13 01:00 | DI.VRAD_ITS ---
PROCEDURE INFORMATION: Exam: CT Chest With Contrast; Diagnostic Exam date and time: 11/12/2020 12:00 AM Age: 70 years old Clinical indication: Other: Rlq pain, hypoxemia TECHNIQUE: Imaging protocol: Diagnostic computed tomography of the chest with contrast. 3D rendering (Not supervised by radiologist): MIP and/or 3D reconstructed images were created by the technologist. Radiation optimization: All CT scans at this facility use at least one of these dose optimization techniques: automated exposure control; mA and/or kV adjustment per patient size (includes targeted exams where dose is matched to clinical indication); or iterative reconstruction. Contrast material: OMNIPAQUE 350; Contrast volume: 100 ml; Contrast route: INTRAVENOUS (IV); COMPARISON: CT CHEST/ABD/PEL W 09/06/2020 12:35 PM FINDINGS: Lungs: Dense right basilar opacity compatible with atelectasis versus pneumonia . Pleural spaces: Unremarkable. No pneumothorax. No pleural effusion. Heart: Unremarkable. No cardiomegaly. No pericardial effusion. Pulmonary arteries: Respiratory motion artifact degrades the study. No obvious PE is definite. If clinical suspicion is high for PE V/Q scan would be recommended for further evaluation. Aorta: Unremarkable. No aortic aneurysm. Lymph nodes: Unremarkable. No enlarged lymph nodes. Bones/joints: Equivocal sclerotic osseous metastatic disease. Soft tissues: Unremarkable. IMPRESSION: 1. Respiratory motion artifact degrades the study. No obvious PE is definite. If clinical suspicion is high for PE V/Q scan would be recommended for further evaluation. 2. Dense right basilar opacity compatible with atelectasis versus pneumonia. 3. Equivocal sclerotic osseous metastatic disease. PROCEDURE INFORMATION: Exam: CT Abdomen And Pelvis With Contrast Exam date and time: 11/12/2020 12:00 AM Age: 70 years old Clinical indication: Other: Rlq pain, hypoxemia TECHNIQUE: Imaging protocol: Computed tomography of the abdomen and pelvis with contrast. 3D rendering (Not supervised by radiologist): MIP and/or 3D reconstructed images were created by the technologist. Radiation optimization: All CT scans at this facility use at least one of these dose optimization techniques: automated exposure control; mA and/or kV adjustment per patient size (includes targeted exams where dose is matched to clinical indication); or iterative reconstruction. Contrast material: OMNIPAQUE 350; Contrast volume: 100 ml; Contrast route: INTRAVENOUS (IV); COMPARISON: CT CHEST/ABD/PEL W 09/06/2020 12:35 PM FINDINGS: Liver: Normal. No mass. Gallbladder and bile ducts: The patient is status post cholecystectomy. Pancreas: Normal. No ductal dilation. Spleen: Normal. No splenomegaly. Adrenal glands: Normal. No mass. Kidneys and ureters: Nonobstructive bilateral micro-nephrolithiasis is noted. Stomach and bowel: Unremarkable. No obstruction. No mucosal thickening. Appendix: No evidence of appendicitis. Intraperitoneal space: Unremarkable. No free air. No significant fluid collection. Vasculature: Unremarkable. No abdominal aortic aneurysm. Lymph nodes: Unremarkable. No enlarged lymph nodes. Urinary bladder: Bilateral total hip replacements obscure portions of the inferior pelvis including the urinary bladder base. Reproductive: Unremarkable as visualized. Bones/joints: Heterogeneous osseous sclerotic lesions may reflect metastatic disease. Soft tissues: Open wound noted anterior abdominal wall IMPRESSION: Heterogeneous osseous sclerotic lesions may reflect metastatic disease. Dictated and Authenticated by: Delano Mejia MD. Ordering:GINETTE Remy MD
[2020-11-13] MEDS: Piperacillin/Tazobactam 4.5 GM VIAL (01:52)
[2020-11-13] MEDS: Normal Saline 100 ML 200 ML (01:52)
[2020-11-13] MEDS: HYDROmorphone 2 MG/ML VIAL 0.5 MG IVP (01:56)
--- NOTE | 2020-11-13 02:06 | W.PM.HP.N ---
Date of service: 11/13/20 Time of Service: 02:06 Assessment and Plan Assessment and plan (1) Dehydration: Start date: 11/13/20 Status: Acute Assessment and plan: This is a 70-year-old gentleman with altered mental status at home most likely secondary to dehydration and deteriorating status with diffuse metastatic prostate cancer. He is on aggressive therapy at present but is approaching [employer] and TPN as well as continuation of Lovenox will be reevaluated with risk benefit to be reviewed. He is approaching hospice care but only has his at home and it is questionable whether she can be his caregiver. (2) Altered mental status: Start date: 11/13/20 Status: Acute Assessment and plan: Patient appears slightly improved from hospital status but continues to be sedated with pain control and does have metastatic disease but CT scan was unrevealing. Qualifiers: Altered mental status type: delirium Qualified Code(s): R41.0 - Disorientation, unspecified (3) Pneumonia: Start date: 11/13/20 Status: Acute Assessment and plan: Right lower lobe by CT scan with patient to continue on Zosyn as initiated in the ED. Follow-up imaging as indicated. Qualifiers: Laterality: right Lung location: lower lobe of lung Pneumonia type: due to unspecified organism Qualified Code(s): J18.9 - Pneumonia, unspecified organism (4) Prostate cancer metastatic to multiple sites: Status: Chronic Assessment and plan: Patient has progressive disease and needs to discuss [employer] and hospice care at home for another situation if possible. Reevaluate TPN before reinitiating and patient's Lovenox is being held for now. Modify medical therapy to comfort rather than treatment at this time. (5) IDDM (insulin dependent diabetes mellitus): Status: Chronic Assessment and plan: Glucometer measurements before meals and bedtime with short acting insulin coverage, holding usual outpatient medications for now. History of Present Illness History of Present Illness Chief Complaint: Altered mental status Narrative: This is a 70-year-old male patient with a history of diffusely metastatic prostate cancer and at end-of-life with recent pulmonary embolism on subcu Lovenox twice daily as well as on TPN according to the nurses which is being reevaluated patient having worsening status. Does have with his . He is approaching hospice care but it is questionable whether his can take care of him at home. He was brought to the ED with altered mental status and was found to be dehydrated and responded to IV fluid resuscitation. He also may have a pneumonia on imaging and is being covered with Zosyn. Patient does have a port in his right chest and is it was undergoing chemotherapy which is being reevaluated with his progressive disease process. He is approaching [employer] and hospice care as stated. Patient offers little history being in pain with any movement and comfortable in bed when not moving at rest. Head elevated 45 degrees. He is hard of hearing. Review of Systems Narrative: 13 point review of systems otherwise unrevealing or overall stable with patient deteriorating status with metastatic prostate cancer. Patient not able to offer further history. 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 diagnosed 2015 Rectal bleeding Rectal pain Right ankle pain Saphenous vein phlebitis Sebaceous cyst Sensorineural hearing loss Sleep apnea Squamous cell carcinoma of hand Superficial phlebitis of leg Swelling of left lower extremity Vitamin B12 deficiency Surgical History ankle surgery, right Arthroplasty of knee bilat Arthroscopy, Shoulder left shoulder repair Colectomy x3 deep muscle biopsy, left calf muscle Hernia Repair, Incisional (03/22/16) intestinal obstruction with incarcerated incisional hernia, lysis of adhesions Family History Father Kidney malignancy Son Has same-sex partner Daughter Parent-child estrangement nec Daughter No problems noted. Grandson No problems noted. Mother , age 88 from ruptured aortic aneurysm Aortic aneurysm and dissection Social History Smoking/Tobacco Use Status: Never Smoking risk assessment performed?: Yes Alcohol Intake: never Drug use: Never Substance use type: does not use Caregiver/Support person: Yes Household members: spouse Housing: house Number of Children: 3 number of grandchildren: 6 Communication Needs: Hard of Hearing and Corrective Lenses Do you need help understanding health information?: Always current occupation: disabled due to multiple chronic illnesses Pets and animals: Yes Pets and animals: dog(s) Current gender identity: male What is your relationship status?: How often do you talk on the phone with friends or family?: three or more times per week How often do you get together with friends or relatives?: once per week How often do you attend caodaism or anglican services?: 4 or more times per year Panel score (0-1 are the most socially isolated patients): 3 What type of physical activity do you participate in: none and sedentary lifestyle Frequency: does not exercise Maria Guadalupe/Orthodox: Hindu Special maria guadalupe needs: No Agree to transfusion: Yes Seatbelt use: always Working smoke detector in home: Yes Fire extinguisher in home: Yes Do you feel safe at home: Yes Do you feel safe in your relationship?: Yes Additional Social history: Lives with , Carol, who is his primary caregiver. They've been x 48 yrs (since 1972). They are estranged from their oldest child, daughter Carri. Son Ottoniel and his partner are encouraging Gus to move into house next door to theirs. Ottoniel's son, Russ, used to live with Gus for 5 years. They are still very close. Daughter Mya, (middle child), also helps out regularly. Alonso reports he is 5/8 . He wants to be cremated and have his ashes spread on his land. Haydee is clearly struggling. Alonso has been very sick, with a chronic open abdominal wound requiring lots of care, TPN at night x 16 hrs, constant reassurance. She would like to move closer to their son so she could have more help. Alonso does not want to move. Says he is attached to the land. House is not conducive to caring for severely disabled person. Meds Allergies and Home Medications Allergies Allergy/AdvReac Type Severity Reaction Status Date / Time Sulfa (Sulfonamide Allergy Mild Skin Rash Verified 11/13/20 02:20 Antibiotics) atenolol Allergy Verified 11/13/20 02:20 atorvastatin Allergy Verified 11/13/20 02:20 gabapentin Allergy Verified 11/13/20 02:20 nicardipine Allergy Verified 11/13/20 02:20 salsalate Allergy Verified 11/13/20 02:20 tramadol Allergy Verified 11/13/20 02:20 venlafaxine Allergy Verified 11/13/20 02:20 ciprofloxacin HCl AdvReac Severe ruptured Verified 11/13/20 02:20 [From Cipro] achilles tendon hydrochlorothiazide AdvReac Severe myalgias Verified 11/13/20 02:20 [From Benicar HCT] indapamide AdvReac Severe chest pain Verified 11/13/20 02:20 olmesartan medoxomil AdvReac Severe myalgias Verified 11/13/20 02:20 [From Benicar HCT] terazosin [Terazosin] AdvReac Severe tremor, GI Verified 11/13/20 02:20 upset aliskiren [Aliskiren] AdvReac Intermediate diarrhea Verified 11/13/20 02:20 amlodipine AdvReac Intermediate fatigue Verified 11/13/20 02:20 denosumab [From Xgeva] AdvReac Intermediate Verified 11/13/20 02:20 enalapril [Enalapril] AdvReac Intermediate shakes, Verified 11/13/20 02:20 weakness montelukast sodium AdvReac Intermediate rectal Verified 11/13/20 02:20 [From Singulair] irritation pregabalin [From Lyrica] AdvReac Intermediate sleep Verified 11/13/20 02:20 issues spironolactone AdvReac Intermediate headache Verified 11/13/20 02:20 Home Medications Medication Instructions Recorded Confirmed Type acetaminophen [Tylenol Extra 1,000 mg PO Q8H PRN PRN tab-cap NS 03/29/13 11/13/20 History Strength] nitroglycerin [Nitrostat] 0.4 mg SUBLINGUAL Q5 MIN PRN X3 04/23/15 11/13/20 Rx PRN #15 tab balsalazide 2,250 mg PO TID 04/26/16 05/20/21 History calcium carbonate 1,000 mg CH QID PRN 06/27/17 10/17/20 History cyanocobalamin (vitamin B-12) 1,000 mcg IM QMONTH ml 01/23/19 11/13/20 History 1,000 mcg/mL injection solution ergocalciferol (vitamin D2) 1,250 50,000 unit PO .2x weekly cap 01/23/19 10/17/20 History mcg (50,000 unit) capsule ferrous gluconate 324 mg (37.5 mg 324 mg PO BID tab 01/23/19 11/13/20 History iron) tablet pramipexole 0.5 mg tablet 1 mg PO HS tab 01/23/19 10/17/20 History levothyroxine 75 mcg PO DAILY 04/29/19 11/13/20 History prednisone 5 mg tablet 10 mg PO BID tab 07/25/19 11/13/20 History BD SafetyGlide Syringe 03/05/20 10/17/20 History OneTouch Verio test strips 03/05/20 10/17/20 History Basaglar KwikPen U-100 Insulin 20 unit SUBCUT HS 03/18/20 11/13/20 History clotrimazole 1 applic TOPICAL DIRECTED PRN 03/18/20 10/17/20 History loratadine 10 mg PO DAILY PRN 03/18/20 11/13/20 History pen needle, diabetic [BD 03/18/20 10/17/20 History Ultra-Fine Mini Pen Needle] trazodone 50 mg PO HS 03/18/20 11/13/20 History ondansetron 4 mg PO DIRECTED PRN 05/30/20 10/17/20 History enoxaparin [Lovenox] 100 mg SUBCUT Q12H 07/05/20 11/13/20 History lidocaine 1 applic TOPICAL QID PRN 07/05/20 10/17/20 History morphine concentrate 100 mg/5 mL 10 mg PO Q2H PRN PRN #30 ml MDD 10/31/20 11/13/20 Rx (20 mg/mL) oral solution 100 mg enzalutamide [Xtandi] 80 mg PO BID 11/13/20 11/13/20 History hydrocodone-acetaminophen 1 tab PO 5X/DAY 11/13/20 11/13/20 History promethazine 12.5 mg PO PRN PRN 11/13/20 11/13/20 History Exam Narrative Exam Narrative: General: Patient appears older than stated age, he is obese and diffusely edematous and appears uncomfortable. He is not oriented to person place or time. HEENT: Normocephalic, coarsened facial features, eyes with pupils equal and reactive to light symmetrically, extraocular movement intact and sclera anicteric. Oropharynx with dry mucosa. Neck: Supple without JVD. Back: Stooped posture with no CVA tenderness. Lungs: Fair aeration with decreased at the bases but no expiratory rales auscultated. No rhonchi. Bronchovesicular breath sounds diffusely. Chest: Nontender to palpation with port over right upper chest. Heart: Regular rate and rhythm with gallop no appreciable murmurs. Abdomen: Obese contour, soft and nontender to palpation with no palpable hepatosplenomegaly. Genitalia/rectal: Exam deferred. Extremities: Diffuse nonpitting edema over upper and lower extremities with no cyanosis or clubbing. All joints appear to be stiff with decreased range of motion. Skin: Pale, warm and dry with thickened coarse texture. Neuro: Cranial nerves II to XII grossly intact, no focalizing motor deficits. Patient appears generally weak. Psych: Flattened affect with depressed mood with patient in tests tests diffuse pain. No abnormal thought processes. Remote and recent memory not intact with patient recognized me as a caregiver but little under conversation with sedation most likely secondary to pain control. Results Imaging Imaging Studies: Exam: CT Chest With Contrast; Diagnostic Exam date and time: 11/12/2020 12:00 AM Age: 70 years old Clinical indication: Other: Rlq pain, hypoxemia COMPARISON: CT CHEST/ABD/PEL W 09/06/2020 12:35 PM FINDINGS: Lungs: Dense right basilar opacity compatible with atelectasis versus pneumonia .Pleural spaces: Unremarkable. No pneumothorax. No pleural effusion. Heart: Unremarkable. No cardiomegaly. No pericardial effusion. Pulmonary arteries: Respiratory motion artifact degrades the study. No obvious PE is definite. If clinical suspicion is high for PE V/Q scan would be recommended for further evaluation. Aorta: Unremarkable. No aortic aneurysm. Lymph nodes: Unremarkable. No enlarged lymph nodes. Bones/joints: Equivocal sclerotic osseous metastatic disease. Soft tissues: Unremarkable. IMPRESSION: 1. Respiratory motion artifact degrades the study. No obvious PE is definite. If clinical suspicion is high for PE V/Q scan would be recommended for further evaluation. 2. Dense right basilar opacity compatible with atelectasis versus pneumonia. 3. Equivocal sclerotic osseous metastatic disease. PROCEDURE INFORMATION: Exam: CT Abdomen And Pelvis With Contrast Exam date and time: 11/12/2020 12:00 AM Age: 70 years old Clinical indication: Other: Rlq pain, hypoxemia COMPARISON: CT CHEST/ABD/PEL W 09/06/2020 12:35 PM FINDINGS: Liver: Normal. No mass. Gallbladder and bile ducts: The patient is status post cholecystectomy. Pancreas: Normal. No ductal dilation. Spleen: Normal. No splenomegaly. Adrenal glands: Normal. No mass. Kidneys and ureters: Nonobstructive bilateral micro-nephrolithiasis is noted. Stomach and bowel: Unremarkable. No obstruction. No mucosal thickening. Appendix: No evidence of appendicitis. Intraperitoneal space: Unremarkable. No free air. No significant fluid collection. Vasculature: Unremarkable. No abdominal aortic aneurysm. Lymph nodes: Unremarkable. No enlarged lymph nodes. Urinary bladder: Bilateral total hip replacements obscure portions of the inferior pelvis including the urinary bladder base. Reproductive: Unremarkable as visualized. Bones/joints: Heterogeneous osseous sclerotic lesions may reflect metastatic disease. Soft tissues: Open wound noted anterior abdominal wall IMPRESSION: Heterogeneous osseous sclerotic lesions may reflect metastatic disease. Exam: CT Head Without Contrast Exam date and time: 11/12/2020 23:34 Age: 70 years old Clinical indication: Other: AMS TECHNIQUE: Imaging protocol: Computed tomography of the head without contrast. COMPARISON: CT HEAD WO 05/30/2020 14:16 FINDINGS: Brain: Physiologic calcification in the basal ganglia. Moderate cerebral atrophy. Minimal periventricular white matter hypodensity. No edema or hemorrhage. Physiologic calcification in the right cerebellum similar to prior. Cerebral ventricles: No ventriculomegaly. Paranasal sinuses: No acute sinusitis. Mastoid air cells: No mastoid effusion. Orbital cavity: Mild bilateral exophthalmos is similar to prior. Vasculature: Atherosclerosis. Bones/joints: No acute fracture. Soft tissues: No suspicious lesions. IMPRESSION: No acute intracranial findings. Labs Result diagrams: 11/12/20 22:45 11/12/20 22:45 Labs: Laboratory Results - last 24 hr 11/12/20 11/12/20 11/12/20 22:45 22:45 22:45 WBC 7.91 RBC 3.93 L Hgb 11.8 L Hct 36.3 L MCV 92.4 MCH 30.0 MCHC 32.5 RDW 15.8 H Plt Count 186 MPV 9.3 Immature Gran % 0.3 Neutrophils % 73.6 Lymphocytes % 14.4 Monocytes % 9.6 Eosinophils % 1.8 Basophils % 0.3 Nucleated RBC % 0 Absolute Neutrophils 5.83 Absolute Lymphocytes 1.14 L Absolute Monocytes 0.76 Absolute Eosinophils 0.14 Absolute Basophils 0.02 PT INR VBG Lactate 1.9 H Sodium Potassium Chloride Carbon Dioxide Anion Gap BUN Creatinine Estimated GFR/1.73 m2 Glucose Calcium Magnesium Total Bilirubin AST ALT Alkaline Phosphatase Troponin I Total Protein Albumin Lipase 49 Urine Color Urine Clarity Urine pH Ur Specific [place] Urine Protein Urine Ketones Urine Blood Urine Nitrite Urine Bilirubin Urine Urobilinogen Ur Leukocyte Esterase Urine RBC Urine WBC Ur Epithelial Cells Urine Crystals Urine Bacteria Urine Casts Urine Mucus Ur Culture Indicated? Urine Glucose 11/12/20 11/12/20 11/12/20 22:45 22:45 22:45 WBC RBC Hgb Hct MCV MCH MCHC RDW Plt Count MPV Immature Gran % Neutrophils % Lymphocytes % Monocytes % Eosinophils % Basophils % Nucleated RBC % Absolute Neutrophils Absolute Lymphocytes Absolute Monocytes Absolute Eosinophils Absolute Basophils PT 11.4 H INR 1.1 VBG Lactate Sodium 135 L Potassium 5.2 H Chloride 101 Carbon Dioxide 24.6 Anion Gap 9.4 BUN 25 H Creatinine 0.8 Estimated GFR/1.73 m2 >= 60.00 Glucose 335 H Calcium 8.4 L Magnesium 2.0 Total Bilirubin 0.8 AST 23 ALT 30 Alkaline Phosphatase 124 H Troponin I < 0.05 Total Protein 6.6 Albumin 2.6 L Lipase Urine Color Urine Clarity Urine pH Ur Specific [place] Urine Protein Urine Ketones Urine Blood Urine Nitrite Urine Bilirubin Urine Urobilinogen Ur Leukocyte Esterase Urine RBC Urine WBC Ur Epithelial Cells Urine Crystals Urine Bacteria Urine Casts Urine Mucus Ur Culture Indicated? Urine Glucose 11/13/20 00:20 WBC RBC Hgb Hct MCV MCH MCHC RDW Plt Count MPV Immature Gran % Neutrophils % Lymphocytes % Monocytes % Eosinophils % Basophils % Nucleated RBC % Absolute Neutrophils Absolute Lymphocytes Absolute Monocytes Absolute Eosinophils Absolute Basophils PT INR VBG Lactate Sodium Potassium Chloride Carbon Dioxide Anion Gap BUN Creatinine Estimated GFR/1.73 m2 Glucose Calcium Magnesium Total Bilirubin AST ALT Alkaline Phosphatase Troponin I Total Protein Albumin Lipase Urine Color Yellow Urine Clarity Clear Urine pH 5.5 Ur Specific [place] 1.025 Urine Protein Negative Urine Ketones Negative Urine Blood Small H Urine Nitrite Negative Urine Bilirubin Negative Urine Urobilinogen 0.2 Ur Leukocyte Esterase Negative Urine RBC 5-10 H Urine WBC Negative Ur Epithelial Cells Rare Urine Crystals Negative Urine Bacteria Rare Urine Casts Negative Urine Mucus Negative Ur Culture Indicated? No Urine Glucose Negative Last Vital Signs Temp 37.7 C H 11/12/20 23:55 Pulse 97 H 11/13/20 01:32 Resp 20 11/13/20 01:50 BP 113/63 11/13/20 01:32 Pulse Ox 95 11/13/20 01:50
[2020-11-13 02:45] LABS: Source Nasal/Nares
[2020-11-13 03:04] LABS: Troponin I < 0.05 ng/mL (<0.06)
[2020-11-13] MEDS: Normal Saline 1,000 ML 125 ML IV ×3 (04:23→21:18)
[2020-11-13] MEDS: Normal Saline Flush 10 ML SYR IVP ×2 (04:24→07:42)
[2020-11-13] MEDS: HYDROmorphone 2 MG/ML VIAL 1 MG IVP ×2 (04:24→07:42)
[2020-11-13] MEDS: Acetaminophen 325 MG TAB 650 MG PO (07:42)
[2020-11-13] MEDS: PIPERACILLIN/TAZO 3.375 GM in Normal Saline 50 ML IVPB ×3 (07:42→21:01)
[2020-11-13 07:59] LABS: Abs Immature Grans 0.03 10^3/uL (0.0-0.06); Absolute Basophil Count 0.02 10^3/uL (0.0-0.2); Absolute Eosinophil Count 0.13 10^3/uL (0.0-0.7); Absolute Lymphocyte Count 1.05 10^3/uL (1.2-3.4); Absolute Monocyte Count 0.75 10^3/uL (0.1-0.8); Absolute Neutrophil Count 5.49 10^3/uL (1.2-6.7); Basophils % 0.3; Eosinophils % 1.7; HGB 11.2 g/dL (13.5-17.5); Immature Grans % 0.4; Lymphocytes % 14.1; MCH 29.3 pg (27.0-33.0); MCV 91.6 fL (80-95); Neutrophils % 73.5; Nucleated RBC 0 %; Platelet Count 174 10^3/uL (130-400); RBC 3.82 10^6/uL (4.36-5.78); RDW 15.9 % (11.8-14.1); RDW-SD 51.6 fL; WBC 7.47 10^3/uL (4.4-10.8)
[2020-11-13 08:23] LABS: ALT 33 U/L (16-63); AST 21 U/L (15-37); Albumin 2.5 g/dL (3.4-5.0); Alkaline Phosphatase 123 U/L (46-116); Anion Gap 9.6 mmol/L (3-11); BUN 27 mg/dL (7-18); Bilirubin, Total 0.9 mg/dL (0.2-1.0); CO2 24.4 mmol/L (21.0-32.0); CREATININE 0.8 mg/dL (0.70-1.30); Calcium 8.4 mg/dL (8.5-10.1); Chloride 105 mmol/L (98-107); Glucose 198 mg/dL (74-106); Potassium 4.2 mmol/L (3.5-5.1); Sodium 139 mmol/L (136-145); Total Protein 6.4 g/dL (6.4-8.2)
--- NOTE | 2020-11-13 08:33 | PDOC.CMIN ---
- If Service Date Differs Date of service: 11/13/20 Time of Service: 08:41 Care Management Initial Assess REASON FOR HOSPITALIZATION:: AMS, Dehydration, Pneumonia, Metastatic Prostate CA PAST MEDICAL HISTORY/PAST SURGICAL HISTORY:: Afib. Bilateral hip pain. Bone lesion. Caregiver stress. Chest pain. Chronic abdominal wound infection. Chronic pain. from bone mets and Crohn's. Crohn's disease. Diabetes. on basilar insulin. diagnosed 2018. DNI (do not intubate). DNR (do not resuscitate). Drug hypersensitivity. Dyspepsia. Elevated liver enzymes. Encounter for hospice care discussion. Fibromyalgia. 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 GERD (gastroesophageal reflux disease). Goals of care, counseling/discussion. [place] (hard of hearing). Hot flash in male. HTN (hypertension). Hx of adenomatous colonic polyps. Hx of melanoma excision. Hypomania. IBS (irritable bowel syndrome). Leg erythema. FDC current use of anticoagulant. Migraine. Neuropathy. Nocturnal hypoxia. Obstructive sleep apnea. a. Nocturnal CPAP. On total parenteral nutrition (TPN). Osteopenia. Palliative care patient. PE (pulmonary thromboembolism). Periodic limb movement disorder. POLST (Physician Orders for Life-Sustaining Treatment). Post poliomyelitis syndrome. Prostate cancer. metastatic to bones. diagnosed 2016. Rectal bleeding. Rectal pain. Right ankle pain. Saphenous vein phlebitis. Sebaceous cyst. Sensorineural hearing loss. Sleep apnea. Squamous cell carcinoma of hand. Superficial phlebitis of leg. Swelling of left lower extremity. Vitamin B12 deficiency. Surgical History . ankle surgery, right. Arthroplasty of knee. bilat. Arthroscopy, Shoulder. left shoulder repair. Colectomy. x3. deep muscle biopsy, left calf muscle. Hernia Repair, Incisional (03/22/16). intestinal obstruction with incarcerated incisional hernia, lysis of adhesions PREVIOUS FUNCTIONAL STATUS/SOCIAL/FAMILY SUPPORTS:: Alonso and his , Carol, live in [facility]. Together they have three children (two daughters and one son). The oldest daughter, Carri, lives in [place], [place], and the other two children reside in the [place] area. 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 She shares her parents have been for 47 years. CURRENT FUNCTIONAL STATUS:: Alonso is meeting with Dr. Puente to discuss options for hospice. Anticipate he will return home with hospice support. CM will continue to follow. ADVANCE DIRECTIVES:: On file. Carol KING Has patient been provided with info about the portal/API?: Yes Did the patient sign up for the portal?: Yes CODE STATUS:: Full Code INSURANCE COVERAGE / FINANCIAL ISSUES:: Medicare. Medicaid CURRENT HOME/COMMUNITY SERVICES/EQUIPMENT:: SN - RN, PT, OT [facility] PRIMARY CARE PHYSICIAN:: Kenney Greer POTENTIAL DISCHARGE NEEDS:: Followup with PCP and discharge plan of care PATIENT/FAMILY EDUCATION NEEDS:: Discharge plan, limitations, folllow up plan, Ask Me Three ANTICIPATED BARRIERS TO DISCHARGE:: Via private vehicle with . TRANSPORTATION:: TBD by disposition and mobility. PLAN:: Alonso will be discharged home with a resumption of home services which include caregivers and RN, PT, and OT. He will follow up with his community providers and plan of care and transport with via private vehicle.
[2020-11-13] MEDS: Insulin Aspart 300 UNITS/3 ML PEN SC (08:46)
[2020-11-13 10:17] LABS: COVID-19 PCR Negative (Negative)
--- NOTE | 2020-11-13 13:00 | W.PALLCONSUL ---
Date of service: 11/13/20 Time of Service: 13:00 History of Present Illness History of Present Illness Chief Complaint: uncontrolled pain, severe weakness, poor functional status Narrative: I met with Alonso several times in his room today, between 10:30 and 1:30. He was exhausted, and kept falling asleep. I did feed him about half a cup of green jello. He was able to take this off a spoon and swallow it well. He was clearly in pain. He'd received hydromorphone about 7 am and then slept for several hours after that. He was intermittently awake while I was with him; he did not remember that I had been in earlier, even that I had fed him. I waited for his , Carol to arrive at one pm; unfortunately, she was unable to visit Alonso as her COVID-19 vacciation care listed just one vaccination, not two. She was turned away. He was offered a fentanyl patch for pain control, as he keeps falling asleep. I am afraid that he will not be able to take his pain medication in a timely fashion due to this. I don't want him to wake up in pain. However, he said that fentanyl patches make him irritable and he refused it when the nurse went to apply it to him. (He had previously agreed to it). I left a message for his . I did not get to speak to her. I told the [facility] floor that I would return tomorrow afternoon, during visiting hours, so that I could meet up with Carol then. Consults Consult date: 11/13/20 Requesting physician: Alonso Covarrubias Assessment and Plan Assessment and plan (1) Delirium: Status: Acute Assessment and plan: Multiple contributing factors: his dehydration, his opioid medication, his JUL[place] uncorrected by home bipap, his pneumonia, his overall severe illness and debility. Expect he may be clearer tomorrow. Will return and try to coordinate my visit with his 's, if she is allowed in. She is allowed in if he is on comfort measures. I am not sure they are at that place yet. Need to talk to Carol. Alonso cannot advocate on his own behalf given his current mental state. (2) Altered mental status: Status: Acute Assessment and plan: Delirious. Maybe some contribution of narcotic pain relief, though without it, he has pain. Will try to establish him on a long acting medication while here. His GI tract is not great at absorbing pills. Often his other pills come out of his fistual intact. He has been using the liquid morphine at home. Consider using a SC pump sooner rather than later; he does not want a fentanyl patch. Qualifiers: Altered mental status type: delirium Qualified Code(s): R41.0 - Disorientation, unspecified (3) Prostate cancer metastatic to multiple sites: Status: Chronic Assessment and plan: I spoke to the nurses at [facility]. 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 She saw him yesterday. He did not look so awful at his oncology visit as he was a few hours later when he was admitted to [facility].She said that he is still having some benefit from his cancer-directed therapies. Given this, he has been reluctant to stop treatment. She thought that his chronic abdominal wound and advanced Crohn's disease would be more likely to lead to his demise than his cancer. (4) Encounter for hospice care discussion: Status: Acute Assessment and plan: Alonso is on TPN; he's been on it snice May 2020 and remarkably has not had any complications from it yet. He's on it to help heal his abdominal wound so that he can have a large and definitive surgery to repair his fistulas. It is clear that Alonso will not ever heal from this wound. He would not tolerate surgery. His understands that IF Alonso remains on TPN, he is not eligible for hospice. We will discuss this further tomorrow, hopefully. (5) Pneumonia: Status: Acute Assessment and plan: Presumptive. Being treated for it. Qualifiers: Pneumonia type: due to unspecified organism Laterality: right Lung location: lower lobe of lung Qualified Code(s): J18.9 - Pneumonia, unspecified organism (6) On total parenteral nutrition (TPN): Status: Acute (7) Sensorineural hearing loss, bilateral: Status: Acute (8) Crohn's disease: Status: None Assessment and plan: Life long. Worse than ever. 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 Asked hospitalist team to rx him long-acting morphine along with short acting. I am afraid that his bowels will not be able to absorb this medication. He will likely have to receive his pain medication SC soon. To be discussed with tomorrow. Review of Systems Constitutional Constitutional: Reports body ache(s), Reports daytime sleepiness, Reports fatigue, Reports lethargy, Reports poor appetite, Reports stops breathing during sleep, Reports weakness and Reports weight loss Eyes Eyes: Reports dry eyes and Reports requires corrective lenses ENT Ears, Nose, Mouth, and Throat: Reports dry mouth, Reports hearing loss and Reports disequilibrium (too weak to stand) Cardiovascular Cardiovascular: Reports lightheadedness, Reports dyspnea, Reports dyspnea on exertion and Reports orthopnea Respiratory Respiratory: Reports dyspnea and Reports dyspnea on exertion Gastrointestinal Gastrointestinal: Reports bloating and Reports other (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, covered with colostomy bag) Genitourinary Genitourinary: Reports oliguria and Reports difficulty urinating Musculoskeletal Musculoskeletal: Reports back pain, Reports atrophy, Reports muscle weakness and Reports stiffness Integumentary/Breasts Skin/Breast: Reports dry skin Neurologic Neurologic: Reports abnormal speech, Reports confusion, Reports memory loss, Reports disequilibrium (too weak to stand) and Reports weakness Psychiatric Psychiatric: Reports abnormal sleep pattern, Reports anxiety (says repeatedly that he wants to go home), Reports confusion, Reports difficulty concentrating, Reports hopelessness, Reports anhedonia and Reports memory loss Endocrine Endocrine: Reports fatigue Hematologic/Lymphatic Hematologic/Lymphatic: Reports easy bruising [facility] Medical History Afib Bilateral hip pain Bone lesion Caregiver stress Chest pain Chronic abdominal wound infection Chronic pain from bone mets and Crohn's Crohn's disease Delirium Diabetes on basilar insulin diagnosed 2018 DNI (do not intubate) DNR (do not resuscitate) Drug hypersensitivity Dyspepsia Elevated liver enzymes Encounter for hospice care discussion Fibromyalgia 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 diagnosed 2016 Rectal bleeding Rectal pain Right ankle pain Saphenous vein phlebitis Sebaceous cyst Sensorineural hearing loss Sleep apnea Squamous cell carcinoma of hand Superficial phlebitis of leg Swelling of left lower extremity Vitamin B12 deficiency Surgical History ankle surgery, right Arthroplasty of knee bilat Arthroscopy, Shoulder left shoulder repair Colectomy x3 deep muscle biopsy, left calf muscle Hernia Repair, Incisional (03/22/16) intestinal obstruction with incarcerated incisional hernia, lysis of adhesions Family History Father Kidney malignancy Son Has same-sex partner Daughter Parent-child estrangement nec Daughter No problems noted. Grandson No problems noted. Mother , age 88 from ruptured aortic aneurysm Aortic aneurysm and dissection Social History Smoking/Tobacco Use Status: Never Smoking risk assessment performed?: Yes Alcohol Intake: never Drug use: Never Substance use type: does not use Caregiver/Support person: Yes Household members: spouse Housing: house Number of Children: 3 number of grandchildren: 6 Communication Needs: Hard of Hearing and Corrective Lenses Do you need help understanding health information?: Always current occupation: disabled due to multiple chronic illnesses Pets and animals: Yes Pets and animals: dog(s) Current gender identity: male What is your relationship status?: How often do you talk on the phone with friends or family?: three or more times per week How often do you get together with friends or relatives?: once per week How often do you attend shinto or mormonism services?: 4 or more times per year Panel score (0-1 are the most socially isolated patients): 3 What type of physical activity do you participate in: none and sedentary lifestyle Frequency: does not exercise Maria Guadalupe/Anabaptist: Mu-Ism Special maria guadalupe needs: No Agree to transfusion: Yes Seatbelt use: always Working smoke detector in home: Yes Fire extinguisher in home: Yes Do you feel safe at home: Yes Do you feel safe in your relationship?: Yes Additional Social history: Lives with , Carol, who is his primary caregiver. They've been x 48 yrs (since 1972). They are estranged from their oldest child, daughter Carri. Son Ottoniel and his partner are encouraging Alonso and Carol to move into house next door to theirs. Ottoniel's son, Russ, used to live with Alonso and Carol for 5 years. They are still very close. Daughter Mya, (middle child), also helps out regularly. Alonso reports he is 5/8 . He wants to be cremated and have his ashes spread on his land. Haydee is clearly struggling. Alonso has been very sick, with a chronic open abdominal wound requiring lots of care, TPN at night x 16 hrs, constant reassurance. She would like to move closer to their son so she could have more help. Alonso does not want to move. Says he is attached to the land. House is not conducive to caring for severely disabled person. Exam Const General: uncomfortable, anxious, disheveled, frail appearing and ill appearing Nutritional Appearance: overweight Orientation: awake and oriented to person Limitations: altered mental status [facility] Head: normocephalic and atraumatic Ears: hearing grossly impaired General nose exam: external nose normal Face and sinus: normal facial exam, face symmetric and dry mucous membranes Eyes Periorbital: periorbital findings abnormal (dark shadows under both eyes) bilaterally Conjunctivae: conjunctivae normal Sclera: sclerae normal Neck Neck: no lymphadenopathy and nontender Resp Effort & Inspection: normal respiratory effort and able to speak in complete sentences (wakes for 5-10 minutes, then drifts off before he finishes a sentence ) Auscultation: crackles Cardio Jugular venous pressure: no JVD Rate: tachycardic Rhythm: regular rhythm Heart Sounds: S1 normal and S2 normal GI Inspection: abnormal to inspection, incision, scar, visible peristalsis and other (colostomy bag covering multiple fistula ) Palpation: soft, no masses and tender Auscultation: normal bowel sounds Skin General skin exam: dry skin, pallor and scars Wounds: wounds noted (abdominal , open x months) Hair: normal Neuro General: not alert, patient awake, not oriented x3 and oriented Patient Orientation: Person and Confused Cognition: abnormal cognition Speech: abnormal speech Gait: other (too weak to walk) Extrem General: edema and muscle atrophy Psych Appearance: disheveled Mental Status: mental status grossly abnormal Speech and Movement: delayed speech and slowed movement Mood: anxious mood Affect: sad, anxious affect and dysphoric affect Attitude: cooperative (for minutes at a time, then falls asleep and forgets prior talk) Thought Process: impoverished and loose association Insight: poor Judgment: poor Other: He repeatedly say that he wanted to go home. Nursing told me that he called his this am and told her to come get him. Results Last Vital Signs Temp 97.9 F 11/13/20 08:42 Pulse 110 H 11/13/20 07:39 Resp 19 11/13/20 07:39 BP 137/74 11/13/20 07:39 Pulse Ox 95 11/13/20 07:39 Labs Result diagrams: 11/13/20 07:45 11/13/20 07:45 Labs: Laboratory Results - last 24 hr 11/12/20 11/12/20 11/12/20 22:45 22:45 22:45 WBC 7.91 RBC 3.93 L Hgb 11.8 L Hct 36.3 L MCV 92.4 MCH 30.0 MCHC 32.5 RDW 15.8 H Plt Count 186 MPV 9.3 Immature Gran % 0.3 Neutrophils % 73.6 Lymphocytes % 14.4 Monocytes % 9.6 Eosinophils % 1.8 Basophils % 0.3 Nucleated RBC % 0 Absolute Neutrophils 5.83 Absolute Lymphocytes 1.14 L Absolute Monocytes 0.76 Absolute Eosinophils 0.14 Absolute Basophils 0.02 PT INR VBG Lactate 1.9 H Sodium Potassium Chloride Carbon Dioxide Anion Gap BUN Creatinine Estimated GFR/1.73 m2 Glucose Calcium Magnesium Total Bilirubin AST ALT Alkaline Phosphatase Troponin I Total Protein Albumin Lipase 49 Urine Color Urine Clarity Urine pH Ur Specific [place] Urine Protein Urine Ketones Urine Blood Urine Nitrite Urine Bilirubin Urine Urobilinogen Ur Leukocyte Esterase Urine RBC Urine WBC Ur Epithelial Cells Urine Crystals Urine Bacteria Urine Casts Urine Mucus Ur Culture Indicated? Urine Glucose COVID-19 Source SARS-CoV-2 (PCR) 11/12/20 11/12/20 11/12/20 22:45 22:45 22:45 WBC RBC Hgb Hct MCV MCH MCHC RDW Plt Count MPV Immature Gran % Neutrophils % Lymphocytes % Monocytes % Eosinophils % Basophils % Nucleated RBC % Absolute Neutrophils Absolute Lymphocytes Absolute Monocytes Absolute Eosinophils Absolute Basophils PT 11.4 H INR 1.1 VBG Lactate Sodium 135 L Potassium 5.2 H Chloride 101 Carbon Dioxide 24.6 Anion Gap 9.4 BUN 25 H Creatinine 0.8 Estimated GFR/1.73 m2 >= 60.00 Glucose 335 H Calcium 8.4 L Magnesium 2.0 Total Bilirubin 0.8 AST 23 ALT 30 Alkaline Phosphatase 124 H Troponin I < 0.05 Total Protein 6.6 Albumin 2.6 L Lipase Urine Color Urine Clarity Urine pH Ur Specific [place] Urine Protein Urine Ketones Urine Blood Urine Nitrite Urine Bilirubin Urine Urobilinogen Ur Leukocyte Esterase Urine RBC Urine WBC Ur Epithelial Cells Urine Crystals Urine Bacteria Urine Casts Urine Mucus Ur Culture Indicated? Urine Glucose COVID-19 Source SARS-CoV-2 (PCR) 11/13/20 11/13/20 11/13/20 00:20 02:35 02:35 WBC RBC Hgb Hct MCV MCH MCHC RDW Plt Count MPV Immature Gran % Neutrophils % Lymphocytes % Monocytes % Eosinophils % Basophils % Nucleated RBC % Absolute Neutrophils Absolute Lymphocytes Absolute Monocytes Absolute Eosinophils Absolute Basophils PT INR VBG Lactate Sodium Potassium Chloride Carbon Dioxide Anion Gap BUN Creatinine Estimated GFR/1.73 m2 Glucose Calcium Magnesium Total Bilirubin AST ALT Alkaline Phosphatase Troponin I < 0.05 Total Protein Albumin Lipase Urine Color Yellow Urine Clarity Clear Urine pH 5.5 Ur Specific [place] 1.025 Urine Protein Negative Urine Ketones Negative Urine Blood Small H Urine Nitrite Negative Urine Bilirubin Negative Urine Urobilinogen 0.2 Ur Leukocyte Esterase Negative Urine RBC 5-10 H Urine WBC Negative Ur Epithelial Cells Rare Urine Crystals Negative Urine Bacteria Rare Urine Casts Negative Urine Mucus Negative Ur Culture Indicated? No Urine Glucose Negative COVID-19 Source Nasal/nares SARS-CoV-2 (PCR) Negative 11/13/20 11/13/20 07:45 07:45 WBC 7.47 RBC 3.82 L Hgb 11.2 L Hct 35.0 L MCV 91.6 MCH 29.3 MCHC 32.0 RDW 15.9 H Plt Count 174 MPV 9.0 Immature Gran % 0.4 Neutrophils % 73.5 Lymphocytes % 14.1 Monocytes % 10.0 Eosinophils % 1.7 Basophils % 0.3 Nucleated RBC % 0 Absolute Neutrophils 5.49 Absolute Lymphocytes 1.05 L Absolute Monocytes 0.75 Absolute Eosinophils 0.13 Absolute Basophils 0.02 PT INR VBG Lactate Sodium 139 Potassium 4.2 Chloride 105 Carbon Dioxide 24.4 Anion Gap 9.6 BUN 27 H Creatinine 0.8 Estimated GFR/1.73 m2 >= 60.00 Glucose 198 H D Calcium 8.4 L Magnesium Total Bilirubin 0.9 AST 21 ALT 33 Alkaline Phosphatase 123 H Troponin I Total Protein 6.4 Albumin 2.5 L Lipase Urine Color Urine Clarity Urine pH Ur Specific [place] Urine Protein Urine Ketones Urine Blood Urine Nitrite Urine Bilirubin Urine Urobilinogen Ur Leukocyte Esterase Urine RBC Urine WBC Ur Epithelial Cells Urine Crystals Urine Bacteria Urine Casts Urine Mucus Ur Culture Indicated? Urine Glucose COVID-19 Source SARS-CoV-2 (PCR)
--- NOTE | 2020-11-13 14:09 | CHAPLAIN ---
Alonso was resting in bed when I visited. He was confused and sometimes closed his eyes while we were talking. His concern was finding his . She said she had just been in his room and he hoped she hadn't left the building yet. Later his nurse told me that his has not visited because she's not two weeks out from her second vaccine dose yet and that Alonso has been confused all day. I let Alonso know that I didn't now where he was, and that I was available for support if needed. According to Dr. Puente's Palliative Care notes, Alonso will likely be discharged to Hospice care.
[2020-11-13] MEDS: ACETAMINOPHEN 1,000 MG/100 ML BTL 400 MG IVPB (16:39)
[2020-11-13] MEDS: Mupirocin 2% 15 GM TUBE TP (21:03)
[2020-11-14] VITALS (13 sets, daily range): BP systolic 110–159; BP diastolic 63–79; PULSE 104–111; RESP 19–21; TEMP 36.9–39.5; O2SAT 90–94
[2020-11-14] MEDS: PIPERACILLIN/TAZO 3.375 GM in Normal Saline 50 ML IVPB ×3 (02:22→15:00)
[2020-11-14] MEDS: ACETAMINOPHEN 1,000 MG/100 ML BTL 400 MG IVPB ×2 (02:41→08:26)
[2020-11-14 07:23] LABS: HCT 34.5 % (40.0-50.0); HGB 11.3 g/dL (13.5-17.5); MCH 29.8 pg (27.0-33.0); MCHC 32.8 % (32.0-36.0); MPV 9.8 fL (8.0-11.0); Platelet Count 171 10^3/uL (130-400); RBC 3.79 10^6/uL (4.36-5.78); RDW 15.6 % (11.8-14.1); RDW-SD 51.7 fL; WBC 8.31 10^3/uL (4.4-10.8)
[2020-11-14 07:32] LABS: Anion Gap 10.5 mmol/L (3-11); BUN 22 mg/dL (7-18); CO2 23.5 mmol/L (21.0-32.0); CREATININE 0.8 mg/dL (0.70-1.30); Calcium 8.5 mg/dL (8.5-10.1); Chloride 103 mmol/L (98-107); Glucose 178 mg/dL (74-106); Magnesium 1.7 mg/dL (1.8-2.4); PHOSPHORUS 3.7 mg/dL (2.6-4.7); Potassium 3.8 mmol/L (3.5-5.1); Sodium 137 mmol/L (136-145)
[2020-11-14] MEDS: Normal Saline 1,000 ML 125 ML IV (08:27)
[2020-11-14] MEDS: Insulin Aspart 300 UNITS/3 ML PEN SC (08:28)
--- NOTE | 2020-11-14 10:01 | PDOC.CMPRO ---
Care Management Progress Note S/O: Alonso continues to be closely monitored and treated. He is lying in bed and remains sleepy at this time. Per Dr. Puente, his reports oncology recommends continuing immuno-therapy at this time. Extended release morphine started for pain management per MD. Dr. Puente met with Alonso and his family this afternoon; decision made to transition care to comfort measures. CM continues to follow. A: 70 year old male admitted to [facility] 11/13/20 for AMS, Dehydration, Pneumonia, Metastatic CA P: Alonso will be discharged home with a resumption of home services which include caregivers and RN, PT, and OT. He will follow up with his community providers and plan of care and transport with via private vehicle.
[2020-11-14] MEDS: HYDROmorphone 2 MG/ML VIAL 1 MG IVP (11:01)
[2020-11-14] MEDS: Mupirocin 2% 15 GM TUBE TP ×2 (15:12→22:21)
--- NOTE | 2020-11-14 16:01 | CHAPLAIN ---
There was a family meeting today with Dr. Puente from Palliative Care. I brought Alonso maggie comfort shawl. He was sleeping.
[2020-11-14] MEDS: Acetaminophen 325 MG TAB 650 MG PO (16:41)
--- NOTE | 2020-11-14 18:51 | PCPN_ITS ---
Date of service: 11/14/20 Assessment and Plan Assessment and plan (1) Infection: Status: Acute Assessment and plan: Still febrile. Likely due to infection, but cancer can cause as well. Will treat symptom. Suspect line infection as primary cause. Unable to remove line, as this would require OR time and anesthesia doesn't think he will survive that at [facility]. Family doesn't want to transfer him to [facility] at this pointin his illness. (2) Delirium: Status: Acute Assessment and plan: Waxing and waning levels of consciousness. He was able to tell me his name and ask for water. He said repeatedly I want to take a nap. His delirium is most likelyl caused by a combination of ongoing abdominal wound and possible line infection. Family getting closer to wanting him to go home, likely tomorrow discharge to hospice care. (3) Altered mental status: Status: Acute Qualifiers: Altered mental status type: delirium Qualified Code(s): R41.0 - Disorientation, unspecified (4) Prostate cancer metastatic to multiple sites: Status: Chronic Assessment and plan: Spoke to oncology team during this admission and they do not think that his prostate cancer is at the stage where it will be causing his demise. However, his primary oncologist, Dr Francis did tell Alonso and his that he thought that Alonso had very limited time. (5) Encounter for hospice care discussion: Status: Acute Assessment and plan: Family has been discussing this with their primary nurse, Marybel Pena. I have discussed hospice with them as well. At this time, with Alonso so certain that he wants to at home (6) Caregiver stress: Status: Acute Assessment and plan: Carol and her 3 children all present. She has been a trooper, but is getting tired. (7) Goals of care, counseling/discussion: Status: Acute Assessment and plan: Alonso is exhausted. He wants to be at home with his family. He is tired of the hospital and treatments and fighting so hard. (8) Palliative care patient: Status: Acute (9) Chronic pain: Status: Chronic Assessment and plan: Will continue to treat as needed. May need a pump. (10) Chronic abdominal wound infection: Status: Acute Subjective Subjective Patient reports: still having pain, tolerating liquids well, shortness of breath and fever; denies feels better and tolerating a regular diet Interval history since last seen: Before seeing Alonso, I met with Alonso's family, his Carol, his daughters Carri and Mya, and his son Ottoniel. We talked for >[address] Tom Greer phoned in to discuss Alonso's health and goals of care, too; he has been his PCP for many years and knows him well. I had spoken to his oncology team the day before our family meeting. I have not caught up with his surgical team. We discussed what was important to Alonso. He cannot participate at this time due to his delirium. He has always said he wanted to be home. He has wanted to live. He has outlived his prognosis for his prostate cancer. He has survived numerous complications of his Crohn's disease. Exam Const General: uncomfortable, anxious, disheveled, frail appearing and ill appearing Nutritional Appearance: overweight Orientation: awake and oriented to person Limitations: altered mental status [facility] Head: normocephalic and atraumatic Ears: hearing grossly impaired General nose exam: external nose normal Face and sinus: normal facial exam, face symmetric and dry mucous membranes Eyes Periorbital: periorbital findings abnormal (dark shadows under both eyes) bilaterally Conjunctivae: conjunctivae normal Sclera: sclerae normal Neck Neck: no lymphadenopathy and nontender Resp Effort & Inspection: normal respiratory effort and able to speak in complete sentences (wakes for 5-10 minutes, then drifts off before he finishes a sentence ) Auscultation: crackles Cardio Jugular venous pressure: no JVD Rate: tachycardic Rhythm: regular rhythm Heart Sounds: S1 normal and S2 normal GI Inspection: abnormal to inspection, incision, scar, visible peristalsis and other (colostomy bag covering multiple fistula ) Palpation: soft, no masses and tender Auscultation: normal bowel sounds Skin General skin exam: dry skin, pallor and scars Wounds: wounds noted (abdominal , open x months) Hair: normal Neuro General: not alert, patient awake, not oriented x3 and oriented Patient Orientation: Person and Confused Cognition: abnormal cognition Speech: abnormal speech Gait: other (too weak to walk) Extrem General: edema and muscle atrophy Psych Appearance: disheveled Mental Status: mental status grossly abnormal Speech and Movement: delayed speech and slowed movement Mood: anxious mood Affect: sad, anxious affect and dysphoric affect Attitude: cooperative (for minutes at a time, then falls asleep and forgets prior talk) Thought Process: impoverished and loose association Insight: poor Judgment: poor Other: He repeatedly say that he wanted to go home. Nursing told me that he called his this am and told her to come get him. Objective Last Vital Signs Temp 100.2 F H 11/14/20 16:41 Pulse 104 H 11/14/20 12:02 Resp 21 11/14/20 12:02 BP 110/72 11/14/20 12:02 Pulse Ox 93 11/14/20 12:02 Laboratory Results - last 24 hr 11/14/20 11/14/20 06:17 06:17 WBC 8.31 RBC 3.79 L Hgb 11.3 L Hct 34.5 L MCV 91.0 MCH 29.8 MCHC 32.8 RDW 15.6 H Plt Count 171 MPV 9.8 Sodium 137 Potassium 3.8 Chloride 103 Carbon Dioxide 23.5 Anion Gap 10.5 BUN 22 H Creatinine 0.8 Estimated GFR/1.73 m2 >= 60.00 Glucose 178 H Calcium 8.5 Phosphorus 3.7 Magnesium 1.7 L
[2020-11-14] MEDS: Amoxicillin 875/Clav. 125 TAB PO (22:09)
[2020-11-15] MEDS: Acetaminophen 325 MG TAB 650 MG PO (00:19)
--- NOTE | 2020-11-15 07:11 | W.PM.DS.N ---
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: Status: Acute (12) Chronic pain: Status: Chronic Discharge Plan Disposition Patient Disposition: OTHER Condition: Poor Discharge Details Reason For Visit: AMS,Dehydration,Pneumonia,Metastatic CA Admit Date/Time: 11/13/20 02:13 Admit Provider: Fazal Garcia Attending Provider: Fazal Garcia Primary Care Provider: Kenney Greer Hospital Course Hospital Course: This is a 70-year-old male patient with a history of diffusely metastatic prostate cancer and at end-of-life with recent pulmonary embolism on subcutaneous Lovenox twice daily as well as on TPN according to the nurses which is being reevaluated patient having worsening status. Does have with his . He is approaching hospice care but it is questionable whether his can take care of him at home. He was brought to the ED with altered mental status and was found to be dehydrated and responded to IV fluid resuscitation. He also may have a pneumonia on imaging and is being covered with Zosyn. Patient does have a port in his right chest and is it was undergoing chemotherapy which is being reevaluated with his progressive disease process. His level of alertness improved. Palliative care consulted and Dr Puente spoke with patient and family. The decision was made to institute comfort measures and transition to home hospice care. Patient and family expressed desire to continue to treat the current questionable pneumonia. He did have fevers, but no elevate WBC count and clinically did not have a cough/sputum. His fevers were resolving and could possibly be tumor related. Augmentin 875mg BID for 7 days prescribed. His pain management was changed to MS Contin 15mg po TID with dilaudid for breakthrough pain while in the hospital. At home, he will resume concentrated morphine for breakthrough pain along with the MS Contin. Resume Home Health Services. Home Meds and New Rx's Prescriptions: New morphine [MS Contin] 15 mg Tablet Extended Release 15 mg PO TID Qty: 21 RF: 0 amoxicillin-pot clavulanate 875-125 mg Tablet 1 tab PO BID Qty: 14 RF: 0 Continued prednisone 5 mg tablet 10 mg PO BID RF: 0 acetaminophen [Tylenol Extra Strength] 500 MG tablet 1,000 mg PO Q8H PRN PRNRF: 0 morphine concentrate 100 mg/5 mL (20 mg/mL) solution 10 mg PO Q2H PRN MDD 100 mg PRN (Reason: pain) Qty: 30 RF: 0 nitroglycerin [Nitrostat] 0.4 MG tablet, sublingual 0.4 mg Sublingual Q5 MIN PRN X3 PRNQty: 15 RF: 0 pramipexole 0.5 mg tablet 1 mg PO HS RF: 0 loratadine 10 mg Tablet 10 mg PO DAILY PRNRF: 0 clotrimazole 1 % cream 1 applic TOPICAL DIRECTED PRNRF: 0 trazodone 50 mg tablet 50 mg PO HS RF: 0 ondansetron 4 mg tablet,disintegrating 4 mg PO DIRECTED PRNRF: 0 lidocaine 5 % ointment 1 applic topical QID PRNRF: 0 promethazine 12.5 mg Tablet 12.5 mg PO PRN PRNRF: 0 Discontinued balsalazide 750 MG capsule 2,250 mg PO TID RF: 0 ferrous gluconate 324 mg (37.5 mg iron) tablet 324 mg PO BID RF: 0 cyanocobalamin (vitamin B-12) 1,000 mcg/mL solution 1,000 mcg IM QMONTH RF: 0 ergocalciferol (vitamin D2) [Vitamin D2] 50,000 unit capsule 50,000 unit PO .2x weekly RF: 0 calcium carbonate 500 MG tablet,chewable 1,000 mg CH QID PRNRF: 0 levothyroxine 75 mcg Tablet 75 mcg PO DAILY RF: 0 Basaglar KwikPen U-100 Insulin 100 unit/mL (3 mL) insulin pen 20 unit SUBCUT HS RF: 0 enoxaparin [Lovenox] 100 mg/mL Syringe 100 mg SUBCUT Q12H RF: 0 hydrocodone-acetaminophen 10-325 mg tablet 1 tab PO 5X/DAY RF: 0 Xtandi 80 mg tablet 80 mg PO BID RF: 0 No Action (DME) BD SafetyGlide Syringe 3 mL 25 x 5/8 syringe MISCELLANEOUS RF: 0 (DME) OneTouch Verio test strips Strip MISCELLANEOUS RF: 0 (DME) pen needle, diabetic [BD Ultra-Fine Mini Pen Needle] 31 gauge x 3/16 needle MISCELLANEOUS RF: 0 Discharge Instructions Instructions: Hospice Care (GEN) Stand Alone Forms: Nursing Discharge Form Activity:: Activity as Tolerated Equipment/Supplies:: No Equipment Needed Diet:: As Tolerated Discharge Orders Discharge Orders: Discharge Order (Routine); Ordered 11/15/20 Ordered By: Alonso Covarrubias DS: Summary Time Spent with Patient providing and/or coordinating discharge services: Greater than 30 minutes Status at Discharge Functional status at discharge: bed bound Overall status at discharge: patient is not back to baseline Mental Status: mental status grossly normal Speech and Movement: speech and movement normal Mood: anxious mood Affect: blunted Exam Const General: cooperative and no acute distress Orientation: awake Resp Effort & Inspection: normal respiratory effort Auscultation: clear to auscultation bilaterally Cardio Rate: regular rate GI Inspection: obesity and other (abd wound with ostomy appliance in place) Extrem General: no pedal edema and no calf tenderness Psych Mental Status: mental status grossly normal Speech and Movement: speech and movement normal Mood: anxious mood Affect: blunted DS: Data Vitals/I&O Vitals and I&O: Vital Signs Temperature 37.9 C H 11/14/20 16:41 Temperature Source Tympanic 11/14/20 12:02 Pulse 104 H 11/14/20 12:02 Pulse Rhythm Regular 11/15/20 05:23 Pulse 90 11/13/20 03:10 Respiratory Rate 21 11/14/20 12:02 Respiratory Effort 11/15/20 05:23 Respiratory Depth Normal 11/15/20 05:23 Respiratory Pattern Normal 11/15/20 05:23 Blood Pressure 110/72 11/14/20 12:02 Blood Pressure Mean 71 11/13/20 03:01 Pulse Oximetry 93 11/14/20 12:02 Oxygen Delivery Method Nasal Cannula 11/14/20 12:02 Oxygen Flow Rate 2 11/14/20 12:02 Pain Level 5 11/14/20 12:02 Comment 11/14/20 04:13 Intake & Output 11/14/20 11/14/20 11/15/20 11:59 23:59 11:59 Intake Total 4280.000 / 5380.000 1100 / 5380.000 Output Total 1125 / 2150 1025 / 2150 1300 / 1300 Balance 3155.000 / 3230.000 75 / 3230.000 -1290 / -1290 Weight 96.5 kg Intake: IV 4040.000 / 5040.000 1000 / 5040.000 Oral 240 / 340 100 / 340 Output: Urine 325 / 325 Stool 1125 / 1825 700 / 1825 1300 / 1300 Other: Urine Color Yellow Light Nitza Yellow Dark Nitza Urine Appearance Clear Clear Clear Urine Odor Strong Normal Voiding Methods Diaper Urinal Diaper Incontinent Diaper Incontinent Incontinent Data Completed and Pending Labs on day of discharge: Labs from last 24 hours 11/14/20 11/14/20 06:17 06:17 WBC 8.31 RBC 3.79 L Hgb 11.3 L Hct 34.5 L MCV 91.0 MCH 29.8 MCHC 32.8 RDW 15.6 H Plt Count 171 MPV 9.8 Sodium 137 Potassium 3.8 Chloride 103 Carbon Dioxide 23.5 Anion Gap 10.5 BUN 22 H Creatinine 0.8 Estimated GFR/1.73 m2 >= 60.00 Glucose 178 H Calcium 8.5 Phosphorus 3.7 Magnesium 1.7 L Preliminary micro results at discharge 11/12/20 23:30 Blood Culture - Preliminary Blood NO GROWTH 48 HOURS 11/12/20 22:55 Blood Culture - Preliminary Blood NO GROWTH 48 HOURS PFSH Medical History Afib Bilateral hip pain Bone lesion Caregiver stress Chest pain Chronic abdominal wound infection Chronic pain from bone mets and Crohn's Crohn's disease Delirium Diabetes on basilar insulin diagnosed 2018 DNI (do not intubate) DNR (do not resuscitate) Drug hypersensitivity Dyspepsia Elevated liver enzymes Encounter for hospice care discussion Fibromyalgia 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 diagnosed 2016 Rectal bleeding Rectal pain Right ankle pain Saphenous vein phlebitis Sebaceous cyst Sensorineural hearing loss Sleep apnea Squamous cell carcinoma of hand Superficial phlebitis of leg Swelling of left lower extremity Vitamin B12 deficiency Surgical History ankle surgery, right Arthroplasty of knee bilat Arthroscopy, Shoulder left shoulder repair Colectomy x3 deep muscle biopsy, left calf muscle Hernia Repair, Incisional (03/22/16) intestinal obstruction with incarcerated incisional hernia, lysis of adhesions Family History Father Kidney malignancy Son Has same-sex partner Daughter Parent-child estrangement nec Daughter No problems noted. Grandson No problems noted. Mother , age 88 from ruptured aortic aneurysm Aortic aneurysm and dissection Social History Smoking/Tobacco Use Status: Never Smoking risk assessment performed?: Yes Alcohol Intake: never Drug use: Never Substance use type: does not use Caregiver/Support person: Yes Household members: spouse Housing: house Number of Children: 3 number of grandchildren: 6 Communication Needs: Hard of Hearing and Corrective Lenses Do you need help understanding health information?: Always current occupation: disabled due to multiple chronic illnesses Pets and animals: Yes Pets and animals: dog(s) Current gender identity: male What is your relationship status?: How often do you talk on the phone with friends or family?: three or more times per week How often do you get together with friends or relatives?: once per week How often do you attend bahai or scientology services?: 4 or more times per year Panel score (0-1 are the most socially isolated patients): 3 What type of physical activity do you participate in: none and sedentary lifestyle Frequency: does not exercise Maria Guadalupe/Hoahaoism: Hindu Special maria guadalupe needs: No Agree to transfusion: Yes Seatbelt use: always Working smoke detector in home: Yes Fire extinguisher in home: Yes Do you feel safe at home: Yes Do you feel safe in your relationship?: Yes Additional Social history: Lives with , Carol, who is his primary caregiver. They've been x 48 yrs (since 1972). They are estranged from their oldest child, daughter Carri. Son Ottoniel and his partner are encouraging Alonso and Carol to move into house next door to theirs. Ottoniel's son, Russ, used to live with Alonso and Carol for 5 years. They are still very close. Daughter Mya, (middle child), also helps out regularly. Alonso reports he is 5/8 . He wants to be cremated and have his ashes spread on his land. Haydee is clearly struggling. Alonso has been very sick, with a chronic open abdominal wound requiring lots of care, TPN at night x 16 hrs, constant reassurance. She would like to move closer to their son so she could have more help. Alonso does not want to move. Says he is attached to the land. House is not conducive to caring for severely disabled person.
[2020-11-15] MEDS: Amoxicillin 875/Clav. 125 TAB PO (08:03)
[2020-11-15] MEDS: Mupirocin 2% 15 GM TUBE TP ×2 (08:04→14:19)
--- NOTE | 2020-11-15 10:44 | PDOC.CMDIS ---
- If Service Date Differs Date of service: 11/15/20 Time of Service: 10:44 LACE Index Scoring Tool - Questions: Length of Stay (in days): 2 Acuity (Admit via E.D.?): Yes Comorbidities: Diabetes w/o Complication, Any Tumor E.D. Visits: 8 - Answers: Total Score: 12 Risk of Readmission: High Risk Care Management Discharge Reason for Hospitalization: AMS, Dehydration, Pneumonia, Metastatic Prostate CA Discharge Plan: Alonso will be discharged home with a resumption of home services which include caregivers and RN, PT, and OT. [facility] will see him tomorrow per Rico of intake, anticipate he will transition to hospice soon. CM coordinated dc plan with Carol Gupta, Lali at [facility], Dr. Covarrubias, Dr. Puente; as Carol was advised that Alonso's Central Line would be removed prior to discharge. Dr. Covarrubias entered the order to have line removed in the OR, once removed, Alonso will return home via [facility], coordinated by CM. Patient/Family Education Needs: Review discharge instructions, discuss Ask Me Three. Services Needed at Discharge: Home Health Care Services (Resumption with anticipated transition to Hospice care. ), Transportation ([facility] )
[2020-11-15] MEDS: LORazepam 0.5 MG TAB PO (11:22)
[2020-11-15] MEDS: HYDROmorphone 2 MG/ML VIAL 1 MG IVP (15:37)
[2020-11-15] MEDS: Normal Saline Flush 10 ML SYR IVP (15:37)
--- NOTE | 2020-11-15 18:15 | W.PALPGNOTE ---
Date of service: 11/15/20 Assessment and Plan Assessment and plan (1) Infection: Status: Acute Assessment and plan: Unsure source. Less likely right sided pneumonia, comparing his August and September chest CT, he has known right LL atelecstatis and/scarring. I am concerned that this is a line infection, and he is too weak to have his line removed in the OR. Continue oral abx as an outpatient on hospice. (2) Hospice care patient: Status: Chronic Assessment and plan: He will be admitted to hospice soon after he returns home this evening. His overall health has been declining all year; his oncologist thinks that his widely metastatic prostate cancer will not be the cause of his . His terminal illness is more of a late stage Crohn's complication, with his fistulae leading to the need for TPN. He has had his line in for 7 months now. Life expectancy <6 mos. He was told by Dr Francis in July that he had less than a year to live. So he has been preparing. (3) Delirium: Status: Acute Assessment and plan: He still had a temp of 101.4 when I saw him today. Causing delirium. Not likely due to his pain medication. (4) Prostate cancer metastatic to multiple sites: Status: Chronic Assessment and plan: Treatment has left him weak and tired, but his PSA is dropping. He feels worse and worse. Osseous mets throughout his body. (5) Chronic pain: Status: Chronic Assessment and plan: From both his Crohns and his cancer. Is not on very high doses of morphine. He has tried fentanyl in the past and didn't like it. Will transition to morphine pump when needed. (6) Crohn's disease: Status: None Assessment and plan: This will be the ultimate reason for his , with all the complications that have resulted over his life. He is very debilitated. Qualifiers: Gastrointestinal tract location: small and large intestine Digestive disease complication type: with fistula Qualified Code(s): K50.813 - Crohn's disease of both small and large intestine with fistula Subjective Subjective Patient reports: still having pain, shortness of breath and fever; denies feels better Interval history since last seen: I met with Alonso several times, talked to his ; the hospitalist Dr Covarrubias; care management, and the hospice team. The plan is for him to go home on hospice later today. We had hoped to have his TPN line removed. However, upon further research, the line is tunneled and would require removal in the OR with anesthesia. He is too weak to tolerate anesthesia. I am still concerned that his fever, which persists, is due to that line. He remains delirious. He is very weak. He c/o pain, but not as much as he had yesterday. The LNAs and nurses report that he requires at least 2 people for personal care. He cannot help much with movement. We are sending a hospital bed to his house. He will need as much PEDIATRIC PHYSICIAN ASSISTANT care from hospice as is available, which is not as much as usual due to labor shortages. Exam Const General: uncomfortable, anxious, disheveled, frail appearing and ill appearing Nutritional Appearance: overweight Orientation: awake and oriented to person Limitations: altered mental status HENMT Head: normocephalic and atraumatic Ears: hearing grossly impaired General nose exam: external nose normal Face and sinus: normal facial exam, face symmetric and dry mucous membranes Eyes Periorbital: periorbital findings abnormal (dark shadows under both eyes) bilaterally Conjunctivae: conjunctivae normal Sclera: sclerae normal Neck Neck: no lymphadenopathy and nontender Resp Effort & Inspection: normal respiratory effort and able to speak in complete sentences (wakes for 5-10 minutes, then drifts off before he finishes a sentence ) Auscultation: crackles Cardio Jugular venous pressure: no JVD Rate: tachycardic Rhythm: regular rhythm Heart Sounds: S1 normal and S2 normal GI Inspection: abnormal to inspection, incision, scar, visible peristalsis and other (colostomy bag covering multiple fistula ) Palpation: soft, no masses and tender Auscultation: normal bowel sounds Skin General skin exam: dry skin, pallor and scars Wounds: wounds noted (abdominal , open x months) Hair: normal Neuro General: not alert, patient awake, not oriented x3 and oriented Patient Orientation: Person and Confused Cognition: abnormal cognition Speech: abnormal speech Gait: other (too weak to walk) Extrem General: edema and muscle atrophy Psych Appearance: disheveled Mental Status: mental status grossly abnormal Speech and Movement: delayed speech and slowed movement Mood: anxious mood Affect: sad, anxious affect and dysphoric affect Attitude: cooperative (for minutes at a time, then falls asleep and forgets prior talk) Thought Process: impoverished and loose association Insight: poor Judgment: poor Other: He repeatedly say that he wanted to go home. Nursing told me that he called his this am and told her to come get him. Objective Last Vital Signs Temp 100.2 F H 11/14/20 16:41 Pulse 104 H 11/14/20 12:02 Resp 21 11/14/20 12:02 BP 110/72 11/14/20 12:02 Pulse Ox 93 11/14/20 12:02
== END 2020-11-15 16:20 | disposition other institution (70) | DRG 947 ==
LOC: ER 11-13 02:48 → MS 11-13 03:19
PROVIDERS: Internal Medicine; Physician Assistant; Admitting Provider Family Medicine; Emergency Provider Emergency Medicine; PCP Internal Medicine; Visit Provider Family Medicine
DX: G89.3 Neoplasm related pain (acute) (chronic) (principal); J18.9 Pneumonia, unspecified organism; C79.51 Secondary malignant neoplasm of bone; K50.90 Crohn's disease, unspecified, without complications; F05 Delirium due to known physiological condition; K63.2 Fistula of intestine; E86.0 Dehydration; I48.0 Paroxysmal atrial fibrillation; Z86.711 Personal history of pulmonary embolism; Z79.01 Long term (current) use of anticoagulants; E11.9 Type 2 diabetes mellitus without complications; G47.33 Obstructive sleep apnea (adult) (pediatric); Z79.4 Long term (current) use of insulin; I48.91 Unspecified atrial fibrillation; Z93.3 Colostomy status; Z90.49 Acquired absence of other specified parts of digestive tract; Z66 Do not resuscitate; M79.7 Fibromyalgia; K21.9 Gastro-esophageal reflux disease without esophagitis; I10 Essential (primary) hypertension; K58.9 Irritable bowel syndrome, unspecified; G62.9 Polyneuropathy, unspecified; G43.909 Migraine, unspecified, not intractable, without status migrainosus; G14 Postpolio syndrome; D53.8 Other specified nutritional anemias; H90.3 Sensorineural hearing loss, bilateral; R09.02 Hypoxemia
CPT/HCPCS: 36415; 36416; 51701; 74177; 80048; 80053; 82962; 83690; 85027; 87040; 87635; 93005; 99285; 70450; 71260; 81003; 81015; 83605; 83735; 84100; 84484; 85025; 85610; 93010; 99223; 99239; J0131; J2543; J3490